=== PATIENT | female | born 1985 | race Caucasian/White ===

== ENCOUNTER 2016-11-02 11:01 | Inpatient (IN) | payer OTHER ==
[2016-11-02] MEDS ORDERED: SODIUM CHLORIDE 0.9% 1,000 ML IV STA (11:52)
[2016-11-02] MEDS ORDERED: ONDANSETRON 4 MG/2 ML VIAL IVP STA (11:57)
[2016-11-02] MEDS ORDERED: HYDROmorphone 1 MG/ML 1 ML SYRINGE IVP STA (11:57)
--- NOTE | 2016-11-02 12:23 | ED ---
Abdominal Pain HPI - General Source: patient, RN notes reviewed Mode of arrival: ambulatory Limitations: no limitations <James Banegas - Last Filed: 11/02/16 13:26> <Bhavesh Fisher - Last Filed: 11/02/16 13:52> - General Chief Complaint: Abdominal Pain Stated Complaint: abd pain Time Seen by Provider: 11/02/16 11:51 - History of Present Illness Initial Comments: 30-year-old female presents emergency Department chief complaint abdominal pain. Patient states that she has chronic pancreatitis. Patient states she had increased pain last night. Patient states she has a history of drinking. Patient states she has been sober for several years. Patient states that she's had nausea and vomiting. Some nausea relief with her Reglan. Patient has fever , chills, dysuria or hematuria. Patient has no chest pain or shortness breath. (James Banegas) - Related Data Home Medications Medication Instructions Recorded Confirmed Biotin 5 mg PO HS 09/10/16 11/02/16 Pancreatin 10x-200mg 1 tab PO HS 09/10/16 11/02/16 Thyrotone 500mg 500 mg PO HS 09/10/16 11/02/16 Ondansetron Odt [Zofran ODT] 8 mg PO Q8HR PRN 11/02/16 11/02/16 Previous Rx's Medication Instructions Recorded HYDROcodone/APAP 10-325MG [[place] 1 tab PO Q6H PRN #28 tab 10/10/16 10-325] Metoclopramide [Reglan] 10 mg PO Q6H PRN #30 tab 10/12/16 Allergies Allergy/AdvReac Type Severity Reaction Status Date / Time No Known Allergies Allergy Verified 11/02/16 11:38 Review of Systems ROS Other: All systems not noted in ROS Statement are negative. <James Banegas - Last Filed: 11/02/16 13:26> ROS Other: All systems not noted in ROS Statement are negative. <Bhavesh Fisher - Last Filed: 11/02/16 13:52> ROS Statement: Those systems with pertinent positive or pertinent negative responses have been documented in the HPI. Past Medical History Past Medical History: Hypertension Additional Past Medical History / Comment(s): Chronic Pancreatitis x 10 years History of Any Multi-Drug Resistant Organisms: None Reported Past Surgical History: Adenoidectomy, Tonsillectomy, Tubal Ligation Additional Past Surgical History / Comment(s): multiple tubes in ears, ear surgery Past Anesthesia/Blood Transfusion Reactions: No Reported Reaction Past Psychological History: Anxiety Smoking Status: Current every day smoker Past Alcohol Use History: None Reported Past Drug Use History: Marijuana - Past Family History Father Family Medical History: Hyperlipidemia Mother Family Medical History: Congestive Heart Failure (CHF) <James Banegas - Last Filed: 11/02/16 13:26> General Exam Limitations: no limitations General appearance: alert, in no apparent distress Head exam: Present: atraumatic, normocephalic, normal inspection Respiratory exam: Present: normal lung sounds bilaterally. Absent: respiratory distress, wheezes, rales, rhonchi, stridor Cardiovascular Exam: Present: regular rate, normal rhythm, normal heart sounds. Absent: systolic murmur, diastolic murmur, rubs, gallop, clicks GI/Abdominal exam: Present: soft, tenderness (Moderate epigastric, mid abdominal tenderness), normal bowel sounds. Absent: distended, guarding, rebound, rigid Back exam: Absent: CVA tenderness (R), CVA tenderness (L) Neurological exam: Present: alert, oriented X3, CN II-XII intact Skin exam: Present: warm, dry, intact, normal color. Absent: rash <James Banegas - Last Filed: 11/02/16 13:26> Medical Decision Making - Lab Data Result diagrams: 11/02/16 12:10 11/02/16 12:10 <James Banegas - Last Filed: 11/02/16 13:26> - Lab Data Result diagrams: 11/02/16 12:10 11/02/16 12:10 <Bhavesh Fisher - Last Filed: 11/02/16 13:52> - Medical Decision Making Patient reexamined by myself, Dr. Fisher. Patient resting comfortably in bed. Patient has moderate tenderness in the epigastric region. Patient updated on results and plan. Case discussed in detail with Dr. Benites, who will admit his patient. (Bhavesh Fisher) - Lab Data Lab Results 11/02/16 11/02/16 11/02/16 Range/Units 12:10 12:10 12:42 WBC 6.6 (3.8-10.6) k/uL RBC 4.99 (3.80-5.40) m/uL Hgb 14.3 (11.4-16.0) gm/dL Hct 43.5 (34.0-46.0) % MCV 87.1 (80.0-100.0) fL MCH 28.6 (25.0-35.0) pg MCHC 32.9 (31.0-37.0) g/dL RDW 12.9 (11.5-15.5) % Plt Count 220 (150-450) k/uL Neutrophils % 63 % Lymphocytes % 29 % Monocytes % 5 % Eosinophils % 1 % Basophils % 0 % Neutrophils # 4.2 (1.3-7.7) k/uL Lymphocytes # 1.9 (1.0-4.8) k/uL Monocytes # 0.3 (0-1.0) k/uL Eosinophils # 0.1 (0-0.7) k/uL Basophils # 0.0 (0-0.2) k/uL Sodium 141 (137-145) mmol/L Potassium 4.1 (3.5-5.1) mmol/L Chloride 107 (98-107) mmol/L Carbon Dioxide 24 (22-30) mmol/L Anion Gap 10 mmol/L BUN 9 (7-17) mg/dL Creatinine 0.70 (0.52-1.04) mg/dL Est GFR (MDRD) Af Amer >60 (>60 ml/min/1.73 sqM) Est GFR (MDRD) Non-Af >60 (>60 ml/min/1.73 sqM) Glucose 106 H (74-99) mg/dL Calcium 9.5 (8.4-10.2) mg/dL Total Bilirubin 0.6 (0.2-1.3) mg/dL AST 20 (14-36) U/L ALT 27 (9-52) U/L Alkaline Phosphatase 47 (38-126) U/L Total Protein 6.6 (6.3-8.2) g/dL Albumin 4.4 (3.5-5.0) g/dL Amylase 269 H (30-110) U/L Lipase 1347 H (23-300) U/L Urine Color Yellow Urine Appearance Clear (Clear) Urine pH 7.0 (5.0-8.0) Ur Specific [place] 1.018 (1.001-1.035) Urine Protein Negative (Negative) Urine Glucose (UA) Negative (Negative) Urine Ketones Negative (Negative) Urine Blood Negative (Negative) Urine Nitrate Negative (Negative) Urine Bilirubin Negative (Negative) Urine Urobilinogen 3.0 (<2.0) mg/dL Ur Leukocyte Esterase Negative (Negative) Disposition <James Banegas - Last Filed: 11/02/16 13:26> <Bhavesh Fisher - Last Filed: 11/02/16 13:52> Clinical Impression: Acute pancreatitis Disposition: ADMITTED IP TO THIS [facility] Condition: Stable Referrals: Otoniel Lira Jr, DO [Primary Care Provider] - 1-2 days
[2016-11-02 12:28] LABS: Basophils % (A) 0 %; CH 28.8; CHCM 33.1; Eosinophils # (A) 0.1 k/uL (0-0.7); Eosinophils % (A) 1 %; HCT 43.5 % (34.0-46.0); HDW 2.28; HGB 14.3 gm/dL (11.4-16.0); Luc # (Auto) 0.12; Luc % (Auto) 2; Lymphocytes # (A) 1.9 k/uL (1.0-4.8); Lymphocytes % (A) 29 %; MCH 28.6 pg (25.0-35.0); MCHC 32.9 g/dL (31.0-37.0); MCV 87.1 fL (80.0-100.0); Mean Platelet Volume 7.5; Monocytes # (A) 0.3 k/uL (0-1.0); Monocytes % (A) 5 %; Neutrophils # (A) 4.2 k/uL (1.3-7.7); Neutrophils % (A) 63 %; RBC 4.99 m/uL (3.80-5.40); RDW 12.9 % (11.5-15.5); WBC 6.6 k/uL (3.8-10.6); WBC (Perox) 6.81
--- NOTE | 2016-11-02 12:29 | XR ---
EXAMINATION TYPE: XR KUB DATE OF EXAM: 11/02/2016 12:23 PM COMPARISON: 10/23/2016 HISTORY: 30-year-old female with abdominal pain, nausea, and vomiting FINDINGS: Lung bases are clear. No evidence for free intraperitoneal air. A few scattered small small bowel and colonic air fluid levels are present. No abnormal bowel dilatat ion or significant stool burden. Fluid within the pelvis. Multiple tubal ligation clips are present on the left side of the pelvis. IMPRESSION: 1. No evidence for free air. Overall nonobstructive bowel gas pattern. 2. Scattered small air-fluid levels suggest enteritis or mild generalized ileus. 3. Both tubal ligation clips are in the left pelvis. The right clip is likely displaced and free floa ting.
[2016-11-02 12:44] LABS: ALT 27 U/L (9-52); AST 20 U/L (14-36); Alkaline Phosphatase 47 U/L (38-126); Amylase 269 U/L (30-110); Anion Gap 10 mmol/L; Blood Urea Nitrogen 9 mg/dL (7-17); Calcium 9.5 mg/dL (8.4-10.2); Carbon Dioxide 24 mmol/L (22-30); Chloride 107 mmol/L (98-107); Glucose 106 mg/dL (74-99); Non-African American GFR(MDRD) >60 (>60 ml/min/1.73 sqM); Potassium 4.1 mmol/L (3.5-5.1); Sodium 141 mmol/L (137-145); Total Bilirubin 0.6 mg/dL (0.2-1.3); Total Protein 6.6 g/dL (6.3-8.2)
[2016-11-02 13:03] LABS: Appearance,Urine Clear (Clear); Bilirubin,Urine Negative (Negative); Glucose,Urine (UA) Negative (Negative); Ketones,Urine Negative (Negative); Leukocyte Esterase,Urine Negative (Negative); Nitrite,Urine Negative (Negative); Protein,Urine Negative (Negative); Specific Gravity,Urine 1.018 (1.001-1.035); UA Billing (MACRO vs. MICRO) CHEM
[2016-11-02] MEDS ORDERED: NALOXONE 0.4 MG/ML 1 ML VIAL IV PRN (13:52)
[2016-11-02] MEDS ORDERED: ACETAMINOPHEN TAB 325 MG TAB PO PRN (13:52)
[2016-11-02] MEDS: SODIUM CHLORIDE 0.9% 1,000 ML IV SCH ×2 (15:04→20:40)
[2016-11-02] MEDS: HYDROmorphone 1 MG/ML 1 ML SYRINGE IV PRN ×3 (15:59→22:22)
[2016-11-02] MEDS: ONDANSETRON 4 MG/2 ML VIAL IVP PRN (16:00)
[2016-11-02] MEDS: METOCLOPRAMIDE 5 MG/ML 2 ML VIAL IVP SCH (18:06)
[2016-11-02] MEDS: PANTOPRAZOLE 40 MG/10 ML VIAL IVP SCH (18:07)
[2016-11-02] MEDS: LIPASE 5,000/PROTEASE 17,000/AMYLASE 27,0000 PO SCH (20:34)
[2016-11-03] MEDS: METOCLOPRAMIDE 5 MG/ML 2 ML VIAL IVP SCH ×5 (00:20→23:07)
[2016-11-03] MEDS: HYDROmorphone 1 MG/ML 1 ML SYRINGE IV PRN ×6 (01:58→23:06)
[2016-11-03] MEDS: ONDANSETRON 4 MG/2 ML VIAL IVP PRN ×2 (03:37→13:44)
[2016-11-03] MEDS: SODIUM CHLORIDE 0.9% 1,000 ML IV SCH ×4 (03:38→23:20)
[2016-11-03] MEDS: PANTOPRAZOLE 40 MG/10 ML VIAL IVP SCH (08:53)
[2016-11-03 09:21] LABS: Basophils % (A) 0 %; CH 28.4; CHCM 31.3; Eosinophils # (A) 0.1 k/uL (0-0.7); Eosinophils % (A) 1 %; HCT 37.2 % (34.0-46.0); HDW 2.24; Luc # (Auto) 0.13; Luc % (Auto) 2; Lymphocytes % (A) 27 %; MCH 29.5 pg (25.0-35.0); MCHC 32.3 g/dL (31.0-37.0); MCV 91.1 fL (80.0-100.0); Mean Platelet Volume 7.7; Monocytes # (A) 0.4 k/uL (0-1.0); Monocytes % (A) 5 %; Neutrophils # (A) 4.6 k/uL (1.3-7.7); Neutrophils % (A) 64 %; RBC 4.08 m/uL (3.80-5.40); RDW 12.7 % (11.5-15.5); WBC 7.1 k/uL (3.8-10.6); WBC (Perox) 7.86
[2016-11-03 09:25] LABS: Amylase 116 U/L (30-110); Anion Gap 8 mmol/L; Blood Urea Nitrogen 6 mg/dL (7-17); Calcium 8.5 mg/dL (8.4-10.2); Carbon Dioxide 20 mmol/L (22-30); Chloride 113 mmol/L (98-107); Glucose 88 mg/dL (74-99); Non-African American GFR(MDRD) >60 (>60 ml/min/1.73 sqM); Potassium 3.9 mmol/L (3.5-5.1); Sodium 141 mmol/L (137-145)
[2016-11-03 12:00] VITALS: BMI 21.3
--- NOTE | 2016-11-03 12:22 | P.CONS ---
History of Present Illness - Reason for Consult Consult date: 11/03/16 Chronic relapsing pancreatitis Requesting physician: Otoniel Lira Jr - History of Present Illness 30-year-old female with a history of chronic relapsing alcohol pancreatitis as well as peptic ulcer disease. Last alcohol consumption more than 10 years ago. Admitted with increased abdominal pain elevated amylase lipase consistent with pancreatitis. Evaluated in the GI office on 11/01/2015 with referral to [facility]. Feels slightly better today. Afebrile. Admission lipase 1347. Amylase 269. Currently lipase is 418. Amylase 116. LFTs bilirubin within normal limits. Review of Systems All systems: negative (See HPI) Past Medical History Past Medical History: GERD/Reflux, Hypertension, Thyroid Disorder Additional Past Medical History / Comment(s): Acute then chronic pancreatitis x 10 years due to alcohol poisoning, hypothyroid, chronic bronchitis, PUD. History of Any Multi-Drug Resistant Organisms: None Reported Past Surgical History: Adenoidectomy, Ear Surgery, Tonsillectomy, Tubal Ligation Additional Past Surgical History / Comment(s): multiple tubes in ears, D&C. Past Anesthesia/Blood Transfusion Reactions: No Reported Reaction Past Psychological History: Anxiety Additional Psychological History / Comment(s): Pt resides with her two children ages 4 and 10yrs. She is independent. Smoking Status: Current every day smoker Past Alcohol Use History: None Reported Additional Past Alcohol Use History / Comment(s): Pt states she started smoking about 1998 and is a ppd smoker. She has not drank alcohol in 10 yrs. Past Drug Use History: Marijuana Additional Drug Use History / Comment(s): Pt has a medical marijuana card and takes it in the form of a capsule daily. - Past Family History Father Family Medical History: Hyperlipidemia Mother Family Medical History: Congestive Heart Failure (CHF) Medications and Allergies Home Medications Medication Instructions Recorded Confirmed Type Biotin 5 mg PO HS 09/10/16 11/02/16 History Pancreatin 10x-200mg 1 tab PO HS 09/10/16 11/02/16 History Thyrotone 500mg 500 mg PO HS 09/10/16 11/02/16 History Ondansetron Odt [Zofran ODT] 8 mg PO Q8HR PRN 11/02/16 11/02/16 History Allergies Allergy/AdvReac Type Severity Reaction Status Date / Time No Known Allergies Allergy Verified 11/02/16 11:38 Physical Exam Vitals: Vital Signs Temp Pulse Pulse Resp BP BP Pulse Ox 11/03/16 07:00 97.1 F L 68 16 114/78 98 11/02/16 23:00 97.0 F L 74 16 130/51 98 11/02/16 16:38 97.3 F L 75 16 108/63 99 11/02/16 15:04 98.4 F 71 18 104/61 99 Intake and Output 11/02/16 11/03/16 11/03/16 22:59 06:59 14:59 Intake Total 1650 Balance 1650 Intake: Intake, IV Titration 1650 Amount Sodium Chloride 0.9% 1, 1650 000 ml @ 150 mls/hr IV . Q6H40M [facility] Rx#:[id number] Other: Voiding Method Toilet # Voids 1 1 Weight 51.256 kg Patient Weight 11/04/16 06:59 Weight 51.256 kg General appearance: The patient is alert, oriented, in no acute distress. HET: Head is normocephalic and atraumatic. Pupils are equal and reactive. Oropharynx is clear without lesions. Neck: Supple without lymphadenopathy. Trachea midline. Heart: S1 S2. Regular rate and rhythm. Lungs: No crackles or wheezes are heard. Abdomen: Soft, mild tenderness midepigastrium left upper quadrant, nondistended with bowel sounds. No peritoneal signs. No palpable organomegaly or masses. Extremities: Normal skin color and turgor. No cyanosis, rash, ulceration, clubbing, or edema. Radial and pedal pulses are 2/4 bilaterally. Neurological: No focal deficits. Strength and sensation are grossly intact. Results CBC & Chem 7: 11/03/16 08:47 11/03/16 08:47 Labs: Abnormal Lab Results - Last 24 Hours (Table) 11/03/16 Range/Units 08:47 Chloride 113 H (98-107) mmol/L Carbon Dioxide 20 L (22-30) mmol/L BUN 6 L (7-17) mg/dL Amylase 116 H (30-110) U/L Lipase 418 H (23-300) U/L Assessment and Plan Plan: Impression: 1. Chronic relapsing pancreatitis likely related to her history of remote alcohol abuse. Pancreatic ductal FMLA cannot be entirely excluded patient has been referred to [facility]. Recommendations: 1. Clear liquid diet with ensure clear 3 times a day with slow advancement as tolerated. 2. Supportive measures. Discharge per medicine. Patient will follow up at [facility]. Thank you for this kind referral and the opportunity to participate in the care of your patient. This consultation was discussed with Dr. Baxter. The impression and plan of care have been directed as dictated.
--- NOTE | 2016-11-03 17:43 | P.HPIM ---
History of Present Illness H&P Date: 11/03/16 Chief Complaint: Abdominal pain Patient is a 30-year-old white female, patient of Dr. Lira in the outpatient setting with a medical history significant for chronic pancreatitis from former alcohol use. Patient was recently hospitalized from 10/06/2016 to 10/12/2016 with acute on chronic pancreatitis where she underwent a CT of the abdomen and pelvis with no specific findings of acute pancreatitis. At that time, patient was evaluated by Dr. Hernandez from gastrointestinal service who felt that patient may benefit from referral to a tertiary center for a pancreatogram and placement of pancreatic stents if her pain continued. Patient states that after she was discharged home she felt good for 4 days after which she has had abdominal pain on and off prior to admission. Patient states that she was evaluated by Dr. Hernandez in her office on 11/01/2016 who referred her to [facility] for specialty follow-up. On this admission, patient presented to the emergency department with complaints of abdominal pain associated with nausea and vomiting. No history of fevers, chills, shortness of breath, chest pain, or urinary problems. Amylase 269 and lipase 1347 on admission. Patient was admitted to the general medical floor for IV hydration, bowel rest, and consult requested for GI service. Upon examination, patient continues to complain of abdominal pain currently rated 6 out of 10. Patient states it's slightly better than yesterday. Patient states she's hungry. Denies nausea or vomiting. Urinating without difficulty. Amylase 116, lipase 418. Past Medical History Past Medical History: GERD/Reflux, Hypertension, Thyroid Disorder Additional Past Medical History / Comment(s): Acute then chronic pancreatitis x 10 years due to alcohol poisoning, hypothyroid, chronic bronchitis, PUD. History of Any Multi-Drug Resistant Organisms: None Reported Past Surgical History: Adenoidectomy, Ear Surgery, Tonsillectomy, Tubal Ligation Additional Past Surgical History / Comment(s): multiple tubes in ears, D&C. Past Anesthesia/Blood Transfusion Reactions: No Reported Reaction Past Psychological History: Anxiety Additional Psychological History / Comment(s): Pt resides with her two children ages 4 and 10yrs. She is independent. Smoking Status: Current every day smoker Past Alcohol Use History: None Reported Additional Past Alcohol Use History / Comment(s): Pt states she started smoking about 1998 and is a ppd smoker. She has not drank alcohol in 10 yrs. Past Drug Use History: Marijuana Additional Drug Use History / Comment(s): Pt has a medical marijuana card and takes it in the form of a capsule daily. - Past Family History Father Family Medical History: Hyperlipidemia Mother Family Medical History: Congestive Heart Failure (CHF) Medications and Allergies Home Medications Medication Instructions Recorded Confirmed Type Biotin 5 mg PO HS 09/10/16 11/02/16 History Pancreatin 10x-200mg 1 tab PO HS 09/10/16 11/02/16 History Thyrotone 500mg 500 mg PO HS 09/10/16 11/02/16 History Ondansetron Odt [Zofran ODT] 8 mg PO Q8HR PRN 11/02/16 11/02/16 History Allergies Allergy/AdvReac Type Severity Reaction Status Date / Time No Known Allergies Allergy Verified 11/02/16 11:38 Physical Exam Vitals: Vital Signs Temp Pulse Resp BP Pulse Ox 11/03/16 15:00 96.7 F L 67 16 120/81 100 11/03/16 07:00 97.1 F L 68 16 114/78 98 11/02/16 23:00 97.0 F L 74 16 130/51 98 Intake and Output 11/03/16 11/03/16 11/03/16 06:59 14:59 22:59 Intake Total 1650 Balance 1650 Intake: Intake, IV Titration 1650 Amount Sodium Chloride 0.9% 1, 1650 000 ml @ 150 mls/hr IV . Q6H40M [facility] Rx#:[id number] Other: Voiding Method Toilet # Voids 2 Weight 51.256 kg Patient Weight 11/04/16 06:59 Weight 51.256 kg General: Patient awake and alert, well-nourished, nontoxic, does not appear in any acute distress. Neck: The neck is supple, there is no thyromegaly, lymphadenopathy, tenderness or JVD. Cardiovascular: S1S2 is normal, There is a regular rate and rhythm. No murmur, rub or gallop is appreciated. Respiratory: Lungs are clear to auscultation bilaterally, respirations are non -labored, breath sounds are equal. Gastrointestinal: Soft, non-distended, tender abdomen particularly the midepigastric area. No masses or organomegaly noted. There is no rebound or guarding present. Bowel sounds are unremarkable. Musculoskeletal: Normal ROM, no tenderness, There is no pedal edema. There is no calf tenderness or swelling. Neurological: CN II-XII intact, there are no obvious motor or sensory deficits. Speech is normal. Skin: Skin is warm and dry and no rashes or lesions are noted. Results CBC & Chem 7: 11/03/16 08:47 11/03/16 08:47 Labs: Abnormal Lab Results - Last 24 Hours (Table) 11/03/16 Range/Units 08:47 Chloride 113 H (98-107) mmol/L Carbon Dioxide 20 L (22-30) mmol/L BUN 6 L (7-17) mg/dL Amylase 116 H (30-110) U/L Lipase 418 H (23-300) U/L Thrombosis Risk Factor Assmnt - DVT/VTE Prophylaxis DVT/VTE Prophylaxis: Low risk, early ambulation encouraged - Choose All That Apply Any of the Below Risk Factors Present?: No Other Risk Factors: No Other congenital or acquired thrombophilia - If yes, enter type in comment: No Thrombosis Risk Factor Assessment Level: Very Low Risk Assessment and Plan Plan: 1. Acute on chronic pancreatitis secondary to history of alcohol abuse with amylase and lipase improving. Continue IV hydration. Continue supportive treatment and pain management. Continue clear liquid diet. Gastrointestinal service on consult, recommendations noted. 2. History of hypothyroidism: We'll continue to monitor 3. History of peptic ulcer disease: Continue Protonix. 4. Nicotine dependence: Smoking cessation encouraged. 5. History of EtOH abuse. 6. GI prophylaxis. Continue Protonix. 7. DVT prophylaxis. Encourage early ambulation. Continue to monitor patient. Continue current medications. Continue GI and DVT prophylaxis. Continue to follow with gastrointestinal service, recommendations reviewed. Repeat CBC, BMP, amylase and lipase in a.m. The above impression and plan have been discussed and directed by Dr. Lira. Imani ZARATE acting as scribe for Dr. Lira.
[2016-11-03] MEDS: LIPASE 5,000/PROTEASE 17,000/AMYLASE 27,0000 PO SCH (20:12)
[2016-11-04] MEDS: HYDROmorphone 1 MG/ML 1 ML SYRINGE IV PRN ×8 (02:02→23:07)
[2016-11-04] MEDS: METOCLOPRAMIDE 5 MG/ML 2 ML VIAL IVP SCH ×4 (05:40→23:04)
[2016-11-04] MEDS: SODIUM CHLORIDE 0.9% 1,000 ML IV SCH ×3 (06:24→18:47)
[2016-11-04 08:20] LABS: Basophils % (A) 0 %; Eosinophils # (A) 0.1 k/uL (0-0.7); Eosinophils % (A) 1 %; HCT 39.2 % (34.0-46.0); HDW 2.31; HGB 12.3 gm/dL (11.4-16.0); Luc % (Auto) 1; Lymphocytes % (A) 28 %; MCH 28.5 pg (25.0-35.0); MCHC 31.4 g/dL (31.0-37.0); MCV 90.9 fL (80.0-100.0); Mean Platelet Volume 8.8; Monocytes # (A) 0.5 k/uL (0-1.0); Monocytes % (A) 7 %; Neutrophils # (A) 4.5 k/uL (1.3-7.7); Neutrophils % (A) 62 %; RBC 4.31 m/uL (3.80-5.40); RDW 12.6 % (11.5-15.5); WBC 7.2 k/uL (3.8-10.6); WBC (Perox) 7.61
[2016-11-04] MEDS: PANTOPRAZOLE 40 MG/10 ML VIAL IVP SCH (08:21)
[2016-11-04] MEDS: ONDANSETRON 4 MG/2 ML VIAL IVP PRN ×2 (08:25→16:04)
[2016-11-04 08:31] LABS: Amylase 159 U/L (30-110); Anion Gap 6 mmol/L; Blood Urea Nitrogen 3 mg/dL (7-17); Calcium 8.6 mg/dL (8.4-10.2); Carbon Dioxide 23 mmol/L (22-30); Chloride 111 mmol/L (98-107); Glucose 82 mg/dL (74-99); Non-African American GFR(MDRD) >60 (>60 ml/min/1.73 sqM); Sodium 140 mmol/L (137-145)
--- NOTE | 2016-11-04 15:09 | P.PN ---
Subjective Principal diagnosis: Acute exacerbation of chronic pancreatitis A 30-year-old female well-known to my practice with a history of chronic relapsing alcoholic pancreatitis patient has not drank for approximately 10 years however she does continue to get chronic pancreatitis as well as peptic ulcer disease patient started developing increased abdominal pain with elevated enzymes approximately 3 days ago she. Was elevated in the GIs office on 2015 patient's been referred to the [facility] GI clinic today she feels a bit worse we did her enzymes were trending downward and we attempted to increase her to full liquid diet and the lipase increased and her symptoms increased the plan at this time is to re-step back clear liquids , water with ice chips only and start over Objective - Vital Signs Vital signs: Vital Signs Temp 96.8 F L 11/04/16 07:00 Pulse 70 11/04/16 07:00 Resp 16 11/04/16 07:00 BP 106/70 11/04/16 07:00 Pulse Ox 98 11/04/16 07:00 Intake & Output 11/03/16 11/04/16 11/04/16 18:59 06:59 18:59 Intake Total 1650 Balance 1650 Weight 51.256 kg Intake: Intake, IV Titration 1650 Amount Sodium Chloride 0.9% 1, 1650 000 ml @ 150 mls/hr IV . Q6H40M [facility] Rx#:[id number] Other: Voiding Method Toilet # Voids 2 1 - Exam General: [Patient awake, alert and oriented times 3. Patient in no acute distress.] HEENT: [PERRL. EOMI. No pharyngeal erythema or exudate.] Neck: [No adenopathy.] Cardiac: [Heart regular in rate and rhythm. No S3. No S4. No clicks, rubs. No murmur.] Lungs: [Clear to auscultation bilaterally.] Abdomen: [No mass. No organomegaly. Bowel sounds presnt and normoactive in all 4 quadrants. Patient has not had a bowel movement. She does have bowel sounds abdomen is diffusely tender especially in the upper epigastric region Extremes: [No edema no cyanosis no claudication normal pulses] : [] Musculoskeletal: [No joint erythema, edema or tenderness.] Skin: [No rash.] Neurologic: [No lateralizing deficits. CN II - XII grossly intact.] Lymphatic: [No adenopathy.] - Labs CBC & Chem 7: 11/04/16 08:03 11/04/16 08:03 Labs: Abnormal Lab Results - Last 24 Hours (Table) 11/04/16 Range/Units 08:03 Chloride 111 H (98-107) mmol/L BUN 3 L (7-17) mg/dL Amylase 159 H (30-110) U/L Lipase 1028 H (23-300) U/L Assessment and Plan (1) Acute pancreatitis Narrative/Plan: Patient has a history of chronic relapsing alcoholic pancreatitis as well as peptic ulcer disease Patient had stopped drinking approximately 10 years ago and has not received lapsed or started drinking again Status: Acute (2) Pancreatitis Narrative/Plan: Stated previous history of excessive alcohol abuse patient developed chronic relapsing pancreatitis has not drank in 10 years Patient has obtained and appointment at [facility] GI clinic with a pancreatitis specialist Based currently pain is well-controlled patient's being rehydrated we attempted to increase diet once her enzymes started trending downward and the apparently she did not tolerate that so were then take a step back and ships only and see if we can reduce the bowel activity to see if we can get her enzymes to trend downward again Status: Acute (3) Chronic relapsing pancreatitis Narrative/Plan: Patient already has an appointment scheduled a bleed next week with the GI clinic at the [facility] Status: Chronic (4) H/O ETOH abuse Narrative/Plan: Patient hasn't resumed alcohol consumption for approximately 10 years Status: Chronic (5) Marijuana use Narrative/Plan: Patient this states that this seems to control the minor pain that she experiences for the chronic pancreatitis, and she feels like she eats better Status: Chronic
[2016-11-04] MEDS: LIPASE 5,000/PROTEASE 17,000/AMYLASE 27,0000 PO SCH (20:09)
[2016-11-05] MEDS: HYDROmorphone 1 MG/ML 1 ML SYRINGE IV PRN ×3 (02:04→08:02)
[2016-11-05] MEDS: SODIUM CHLORIDE 0.9% 1,000 ML IV SCH ×4 (02:05→21:31)
[2016-11-05] MEDS: ONDANSETRON 4 MG/2 ML VIAL IVP PRN ×2 (04:42→21:35)
[2016-11-05] MEDS: METOCLOPRAMIDE 5 MG/ML 2 ML VIAL IVP SCH ×4 (05:44→23:33)
[2016-11-05] MEDS: PANTOPRAZOLE 40 MG/10 ML VIAL IVP SCH (08:03)
[2016-11-05 09:37] LABS: Basophils % (A) 0 %; CH 29.2; CHCM 32.3; Eosinophils # (A) 0.1 k/uL (0-0.7); Eosinophils % (A) 2 %; HCT 40.6 % (34.0-46.0); HDW 2.34; HGB 12.8 gm/dL (11.4-16.0); Luc # (Auto) 0.09; Luc % (Auto) 2; Lymphocytes # (A) 1.8 k/uL (1.0-4.8); Lymphocytes % (A) 30 %; MCH 28.6 pg (25.0-35.0); MCHC 31.5 g/dL (31.0-37.0); MCV 90.8 fL (80.0-100.0); Mean Platelet Volume 8.5; Monocytes # (A) 0.4 k/uL (0-1.0); Monocytes % (A) 6 %; Neutrophils # (A) 3.7 k/uL (1.3-7.7); Neutrophils % (A) 61 %; RBC 4.47 m/uL (3.80-5.40); RDW 12.6 % (11.5-15.5); WBC (Perox) 6.11
[2016-11-05 10:02] LABS: ALT 37 U/L (9-52); AST 20 U/L (14-36); Alkaline Phosphatase 44 U/L (38-126); Amylase 127 U/L (30-110); Anion Gap 8 mmol/L; Blood Urea Nitrogen <2 mg/dL (7-17); Calcium 8.8 mg/dL (8.4-10.2); Carbon Dioxide 23 mmol/L (22-30); Chloride 110 mmol/L (98-107); Glucose 91 mg/dL (74-99); Non-African American GFR(MDRD) >60 (>60 ml/min/1.73 sqM); Potassium 3.8 mmol/L (3.5-5.1); Sodium 141 mmol/L (137-145)
[2016-11-05] MEDS ORDERED: METOCLOPRAMIDE 10 MG TAB PO PRN (10:55)
--- NOTE | 2016-11-05 11:01 | P.PN ---
Subjective Principal diagnosis: Acute exacerbation of chronic pancreatitis A 30-year-old female well-known to my practice with a history of chronic relapsing alcoholic pancreatitis patient has not drank alcohol for approximately 10 years however she does continue to get chronic pancreatitis as well as peptic ulcer disease patient started developing increased abdominal pain with elevated enzymes approximately 3 days ago she. Was elevated in the GIs office on patient's been referred to the [facility] today she feels a bit worse we did her enzymes were trending downward and we attempted to increase her to full liquid diet and the lipase has decreased to 500, patient states her abdominal pain has diminished markedly will start patient back on clears and advance the diet to soft as tolerated Objective - Vital Signs Vital signs: Vital Signs Temp 97.9 F 11/05/16 07:00 Pulse 75 11/05/16 07:00 Resp 19 11/05/16 07:00 BP 129/77 11/05/16 07:00 Pulse Ox 100 11/05/16 07:00 Intake & Output 11/04/16 11/05/16 11/05/16 18:59 06:59 18:59 Intake Total 1650 Balance 1650 Intake: IV 1650 Sodium Chloride 0.9% 1, 1650 000 ml @ 150 mls/hr IV . Q6H40M [facility] Rx#:[id number] Other: Voiding Method Toilet # Voids 2 3 # Bowel Movements 1 - Exam General: [Patient awake, alert and oriented times 3. Patient in no acute distress.] HEENT: [PERRL. EOMI. No pharyngeal erythema or exudate.] Neck: [No adenopathy.] Cardiac: [Heart regular in rate and rhythm. No S3. No S4. No clicks, rubs. No murmur.] Lungs: [Clear to auscultation bilaterally.] Abdomen: [No mass. No organomegaly. Bowel sounds presnt and normoactive in all 4 quadrants. Patient has not had a bowel movement. Abdominal pain has diminished significantly through the night Extremes: [No edema no cyanosis no claudication normal pulses] : [] Musculoskeletal: [No joint erythema, edema or tenderness.] Skin: [No rash.] Neurologic: [No lateralizing deficits. CN II - XII grossly intact.] Lymphatic: [No adenopathy.] - Labs CBC & Chem 7: 11/05/16 09:25 11/05/16 09:25 Labs: Abnormal Lab Results - Last 24 Hours (Table) 11/05/16 Range/Units 09:25 Chloride 110 H (98-107) mmol/L BUN <2 L (7-17) mg/dL Total Protein 6.0 L (6.3-8.2) g/dL Amylase 127 H (30-110) U/L Lipase 501 H (23-300) U/L Assessment and Plan (1) Acute pancreatitis Narrative/Plan: Patient has a history of chronic relapsing alcoholic pancreatitis as well as peptic ulcer disease Patient had stopped drinking alcohol approximately 10 years ago and has not relapsed or started drinking again Status: Acute (2) Pancreatitis Narrative/Plan: Stated previous history of excessive alcohol abuse patient developed chronic relapsing pancreatitis has not drank in 10 years Patient has obtained and appointment at [facility] with a pancreatitis specialist Based currently pain is well-controlled patient's being rehydrated we attempted to increase diet once her enzymes started trending downward again, will start patient back on clear liquids and advance to soft as tolerated Status: Acute (3) Chronic relapsing pancreatitis Narrative/Plan: Patient already has an appointment scheduled a bleed next week with the GI clinic at the [facility] Status: Chronic (4) H/O ETOH abuse Narrative/Plan: Patient hasn't resumed alcohol consumption for approximately 10 years Status: Chronic (5) Marijuana use Narrative/Plan: Patient this states that this seems to control the minor pain that she experiences for the chronic pancreatitis, and she feels like she eats better Status: Chronic
[2016-11-05] MEDS: HYDROcodone/APAP 10-325MG 1 EACH TAB PO PRN ×3 (11:18→23:32)
[2016-11-05] MEDS: LIPASE 5,000/PROTEASE 17,000/AMYLASE 27,0000 PO SCH (21:31)
[2016-11-06] MEDS: SODIUM CHLORIDE 0.9% 1,000 ML IV SCH ×3 (04:48→17:21)
[2016-11-06] MEDS: HYDROcodone/APAP 10-325MG 1 EACH TAB PO PRN ×2 (05:15→22:59)
[2016-11-06] MEDS: METOCLOPRAMIDE 5 MG/ML 2 ML VIAL IVP SCH ×4 (05:15→23:53)
[2016-11-06] MEDS: HYDROmorphone 1 MG/ML 1 ML SYRINGE IV PRN ×6 (08:44→22:58)
[2016-11-06] MEDS: PANTOPRAZOLE 40 MG/10 ML VIAL IVP SCH (08:50)
[2016-11-06] MEDS: ONDANSETRON 4 MG/2 ML VIAL IVP PRN ×2 (08:52→20:15)
[2016-11-06 09:23] LABS: Amylase 275 U/L (30-110)
--- NOTE | 2016-11-06 17:07 | P.PN ---
Subjective Principal diagnosis: Acute on chronic pancreatitis Patient is a 30-year-old white female, patient of Dr. Lira in the outpatient setting with a medical history significant for chronic pancreatitis from former alcohol use. Patient was recently hospitalized from 10/06/2016 to 10/12/2016 with acute on chronic pancreatitis where she underwent a CT of the abdomen and pelvis with no specific findings of acute pancreatitis. At that time, patient was evaluated by Dr. Hernandez from gastrointestinal service who felt that patient may benefit from referral to a tertiary center for a pancreatogram and placement of pancreatic stents if her pain continued. Patient states that after she was discharged home she felt good for 4 days after which she has had abdominal pain on and off prior to admission. Patient states that she was evaluated by Dr. Hernandez in her office on 11/01/2016 who referred her to [facility] for specialty follow-up. Patient is evaluated at bedside, patient continues to complain of abdominal pain increasing after she ate a few bites of oatmeal this morning. Denies nausea vomiting. Denies shortness of breath or chest pain. Denies constipation or diarrhea. Amylase increased to 275, lipase increased to 3306. Objective - Vital Signs Vital signs: Vital Signs Temp 97.2 F L 11/06/16 15:00 Pulse 79 11/06/16 15:00 Resp 16 11/06/16 15:42 BP 116/64 11/06/16 15:00 Pulse Ox 99 11/06/16 15:00 Intake & Output 11/05/16 11/06/16 11/06/16 18:59 06:59 18:59 Intake Total 500 770 600 Balance 500 770 600 Intake: Oral 500 770 600 Other: # Voids 1 2 3 # Bowel Movements 0 - Exam General: Patient awake and alert, appears uncomfortable. Neck: The neck is supple, there is no thyromegaly, lymphadenopathy, tenderness or JVD. Cardiovascular: S1S2 is normal, There is a regular rate and rhythm. No murmur, rub or gallop is appreciated. Respiratory: Lungs are clear to auscultation bilaterally, respirations are non -labored, breath sounds are equal. Gastrointestinal: Soft, non-distended, tender abdomen particularly the midepigastric left upper quadrant area. No masses or organomegaly noted. There is no rebound or guarding present. Bowel sounds are unremarkable. Musculoskeletal: Normal ROM, no tenderness, There is no pedal edema. There is no calf tenderness or swelling. Neurological: CN II-XII intact, there are no obvious motor or sensory deficits. Speech is normal. Skin: Skin is warm and dry and no rashes or lesions are noted. - Labs CBC & Chem 7: 11/05/16 09:25 11/05/16 09:25 Labs: Abnormal Lab Results - Last 24 Hours (Table) 11/06/16 Range/Units 08:06 Amylase 275 H (30-110) U/L Lipase 3306 H (23-300) U/L Assessment and Plan Plan: Impression and plan: 1. Acute on chronic pancreatitis secondary to history of alcohol abuse with amylase and lipase worsening. Continue IV hydration. Continue supportive treatment and pain management. Put patient back on clear liquid diet. Reconsult gastrointestinal service. 2. History of hypothyroidism: We'll continue to monitor 3. History of peptic ulcer disease: Continue Protonix. 4. Nicotine dependence: Smoking cessation encouraged. 5. History of EtOH abuse. 6. GI prophylaxis. Continue Protonix. 7. DVT prophylaxis. Encourage early ambulation. Continue to monitor patient. Continue current medications. Continue GI and DVT prophylaxis. Continue to follow with gastrointestinal service, recommendations reviewed. Repeat amylase and lipase in a.m. The above impression and plan have been discussed and directed by Dr. Lira. Imani ZARATE acting as scribe for Dr. Lira.
[2016-11-06] MEDS: LIPASE 5,000/PROTEASE 17,000/AMYLASE 27,0000 PO SCH (20:10)
[2016-11-07] MEDS: SODIUM CHLORIDE 0.9% 1,000 ML IV SCH ×2 (02:05→10:45)
[2016-11-07] MEDS: HYDROmorphone 1 MG/ML 1 ML SYRINGE IV PRN ×3 (02:34→09:11)
[2016-11-07] MEDS: METOCLOPRAMIDE 5 MG/ML 2 ML VIAL IVP SCH (06:17)
[2016-11-07 08:35] VITALS: BP 123/80; PULSE 74; RESP 19; TEMP 98.7
[2016-11-07] MEDS: PANTOPRAZOLE 40 MG/10 ML VIAL IVP SCH (08:51)
[2016-11-07 09:20] LABS: Basophils % (A) 0 %; CH 28.8; CHCM 32.3; Eosinophils # (A) 0.2 k/uL (0-0.7); Eosinophils % (A) 2 %; HCT 37.2 % (34.0-46.0); HDW 2.35; HGB 11.7 gm/dL (11.4-16.0); Luc # (Auto) 0.14; Luc % (Auto) 2; Lymphocytes # (A) 2.1 k/uL (1.0-4.8); Lymphocytes % (A) 28 %; MCHC 31.3 g/dL (31.0-37.0); MCV 89.4 fL (80.0-100.0); Mean Platelet Volume 9.3; Monocytes # (A) 0.4 k/uL (0-1.0); Monocytes % (A) 6 %; Neutrophils # (A) 4.5 k/uL (1.3-7.7); Neutrophils % (A) 61 %; RBC 4.16 m/uL (3.80-5.40); RDW 12.9 % (11.5-15.5); WBC 7.3 k/uL (3.8-10.6); WBC (Perox) 7.61
[2016-11-07 09:37] LABS: Amylase 54 U/L (30-110); Anion Gap 6 mmol/L; Blood Urea Nitrogen <2 mg/dL (7-17); Calcium 8.7 mg/dL (8.4-10.2); Carbon Dioxide 29 mmol/L (22-30); Chloride 108 mmol/L (98-107); Glucose 97 mg/dL (74-99); Non-African American GFR(MDRD) >60 (>60 ml/min/1.73 sqM); Potassium 3.9 mmol/L (3.5-5.1); Sodium 143 mmol/L (137-145)
--- NOTE | 2016-11-07 10:35 | P.PN ---
Subjective Principal diagnosis: Recurrent chronic relapsing pancreatitis 30-year-old female with a history of remote EtOH abuse admitted with chronic relapsing pancreatitis. Lipase elevated yesterday in the 3000 range normalized today. She feels better. Tolerating diet. Anticipate discharge. [facility] appointment scheduled for tomorrow. Objective - Vital Signs Vital signs: Vital Signs Temp 98.7 F 11/07/16 07:00 Pulse 74 11/07/16 07:00 Resp 19 11/07/16 08:00 BP 123/80 11/07/16 07:00 Pulse Ox 99 11/07/16 07:00 Intake & Output 11/06/16 11/07/16 11/07/16 18:59 06:59 18:59 Intake Total 600 400 Balance 600 400 Intake: Oral 600 400 Other: Voiding Method Toilet Toilet # Voids 3 3 # Bowel Movements 0 - Exam General appearance: The patient is alert, oriented, in no acute distress. HET: Head is normocephalic and atraumatic. Pupils are equal and reactive. Oropharynx is clear without lesions. Neck: Supple without lymphadenopathy. Trachea midline. Heart: S1 S2. Regular rate and rhythm. Lungs: No crackles or wheezes are heard. Abdomen: Soft, nontender, nondistended with bowel sounds. No peritoneal signs. No palpable organomegaly or masses. Extremities: Normal skin color and turgor. No cyanosis, rash, ulceration, clubbing, or edema. Radial and pedal pulses are 2/4 bilaterally. Neurological: No focal deficits. Strength and sensation are grossly intact. - Labs CBC & Chem 7: 11/07/16 08:59 11/07/16 08:59 Labs: Abnormal Lab Results - Last 24 Hours (Table) 11/07/16 Range/Units 08:59 Chloride 108 H (98-107) mmol/L BUN <2 L (7-17) mg/dL Assessment and Plan Plan: Impression: 1. Chronic relapsing pancreatitis likely related to her history of remote alcohol abuse. Pancreatic ductal FMLA cannot be entirely excluded patient has been referred to [facility]. Recommendations: 1. Clear liquid diet with ensure clear 3 times a day with slow advancement as tolerated. 2. Supportive measures. Agreeable for discharge. Patient will follow up at [facility] tomorrow. Assessment and plan of care discussed with Dr. Baxter.
--- NOTE | 2017-02-12 14:08 | P.DS ---
Providers Date of admission: 11/02/16 13:52 Expected date of discharge: 11/07/16 Attending physician: Otoniel Lira Consults: Gastrointestinal service Primary care physician: Otoniel Lira [facility] Course: Patient is a 30-year-old white female, patient of Dr. Lira in the outpatient setting, a medical history significant for chronic pancreatitis from formal alcohol use. Patient has had numerous admissions for chronic relapsing pancreatitis and is being followed by Dr. Hernandez from gastrointestinal service in the outpatient setting. Patient is currently referred referred to [facility] GI clinic for further evaluation and treatment. Patient presented to the hospital with complaints of abdominal pain associated with nausea and vomiting with evidence of acute on chronic pancreatitis. Patient was evaluated by gastrointestinal service during her hospital stay and improved with dietary restriction and supportive measures. Patient was discharged in stable condition with instructions to follow-up at [facility] the day after discharge as are to schedule. Discharge diagnoses: 1. Chronic relapsing pancreatitis likely related to history of remote alcohol abuse. Pancreatic ductal FMLA cannot be entirely excluded this patient has been referred to [facility]. 2. History of hypothyroidism. 3. History of peptic ulcer disease. 4. Nicotine dependence. 5. History of remote EtOH abuse. The above impression and plan have been discussed and directed by Dr. Lira. Imani ZARATE acting as scribe for Dr. Lira. Pertinent Studies: KUB x-ray Patient Condition at Discharge: Stable Plan - Discharge Summary Discharge Medication List Biotin 5 mg PO HS 09/10/16 [History] Thyrotone 500mg 500 mg PO HS 09/10/16 [History] Ondansetron Odt [Zofran ODT] 8 mg PO Q8HR PRN 11/02/16 [History] Metoclopramide HCl [Reglan] 10 mg PO Q6HR PRN #5 day 11/29/16 [Rx] HYDROcodone/APAP 10-325MG [[place] 10-325] 1 tab PO Q8H PRN 02/11/17 [History] HYDROcodone/APAP 5-325MG [[place] 5-325] 1 - 2 tab PO Q6HR PRN #14 tab 02/11/17 [ Rx] Ibuprofen [Motrin] 800 mg PO Q8HR PRN #20 tab 02/11/17 [Rx] Follow up Appointment(s)/Referral(s): Otoniel Lira Jr, DO [Primary Care Provider] - 11/10/16 11:00 am Patient Instructions/Handouts: How to Stop Smoking (DC), Pancreatitis (DC) Activity/Diet/Wound Care/Special Instructions: Clear diet advance as tolerated. Continue Ensure supplement 3x daily Follow-up at [facility] with GI specialist as previously scheduled. NO smoking, cessation information provided. Discharge Disposition: HOME SELF-CARE
== END 2016-11-07 10:48 | disposition home or self-care (01) | DRG 440 ==
LOC: EC 11:01 → 5MS5E 13:52 → 4MS4W 14:59
PROVIDERS: ADMIT Family Medicine; ATTEND Family Medicine
DX: K86.0 Alcohol-induced chronic pancreatitis (principal); I10 Essential (primary) hypertension; K85.20 Alcohol induced acute pancreatitis without necrosis or infection; E03.9 Hypothyroidism, unspecified; F41.9 Anxiety disorder, unspecified; J42 Unspecified chronic bronchitis; K21.9 Gastro-esophageal reflux disease without esophagitis; F12.90 Cannabis use, unspecified, uncomplicated; F17.200 Nicotine dependence, unspecified, uncomplicated; Z87.11 Personal history of peptic ulcer disease; Z71.6 Tobacco abuse counseling; Z98.51 Tubal ligation status; Z82.49 Family history of ischemic heart disease and other diseases of the circulatory system; Z79.899 Other long term (current) drug therapy
CPT/HCPCS: 36415; 74000; 80048; 80053; 81003; 82150; 83690; 85025; 96361; 96374; 96375; 96376; 99285

== ENCOUNTER 2016-11-12 18:07 | Emergency (ER) | payer OTHER ==
[2016-11-12 18:20] VITALS: RESP 18
[2016-11-12] MEDS ORDERED: METOCLOPRAMIDE 5 MG/ML 2 ML VIAL IVP STA (19:32)
[2016-11-12] MEDS ORDERED: SODIUM CHLORIDE 0.9% 1,000 ML IV ONE (19:32)
[2016-11-12] MEDS ORDERED: HYDROmorphone 1 MG/ML 1 ML SYRINGE IVP STA ×2 (19:32→20:33)
[2016-11-12 19:53] LABS: Basophils % (A) 1 %; CH 28.7; CHCM 33.2; Eosinophils # (A) 0.1 k/uL (0-0.7); Eosinophils % (A) 2 %; HCT 43.5 % (34.0-46.0); HDW 2.29; HGB 14.1 gm/dL (11.4-16.0); Luc # (Auto) 0.19; Luc % (Auto) 2; Lymphocytes # (A) 2.7 k/uL (1.0-4.8); Lymphocytes % (A) 33 %; MCH 28.2 pg (25.0-35.0); MCHC 32.5 g/dL (31.0-37.0); MCV 86.9 fL (80.0-100.0); Mean Platelet Volume 8.5; Monocytes # (A) 0.4 k/uL (0-1.0); Monocytes % (A) 5 %; Neutrophils # (A) 4.8 k/uL (1.3-7.7); Neutrophils % (A) 58 %; RDW 13.1 % (11.5-15.5); WBC 8.2 k/uL (3.8-10.6); WBC (Perox) 8.22
--- NOTE | 2016-11-12 20:00 | ED ---
Abdominal Pain HPI - General Chief Complaint: Abdominal Pain Stated Complaint: Abd pain Time Seen by Provider: 11/12/16 19:20 Source: patient, RN notes reviewed Mode of arrival: ambulatory Limitations: no limitations - History of Present Illness Initial Comments: Patient is a 31-year-old female presents to the emergency room for evaluation of abdominal pain. Patient states abdominal pain began last night. Patient states she has a history of pancreatitis from alcohol use. Patient states she feels like she is having a pancreatitis flareup. Patient denies currently drinking. Patient denies history of diabetes. Patient states that today she began getting very nauseous. Patient denies any vomiting yet. Patient states pain is worse and she moves. Patient states the pain starts in the left upper quadrant radiates to her flank. Patient states this pain is consistent with her normal pancreatitis flareups. Patient denies any history of kidney stones. Patient denies trouble urinating, blood in urine or pain or burning during urination. Patient denies any . Patient denies history of STDs. Patient denies any fevers or chills. Patient denies chest pain or shortness of breath. Patient denies headache or dizziness. Patient denies any other significant past medical history. - Related Data Home Medications Medication Instructions Recorded Confirmed Biotin 5 mg PO HS 09/10/16 11/12/16 Pancreatin 10x-200mg 1 tab PO HS 09/10/16 11/12/16 Thyrotone 500mg 500 mg PO HS 09/10/16 11/12/16 Ondansetron Odt [Zofran ODT] 8 mg PO Q8HR PRN 11/02/16 11/12/16 Previous Rx's Medication Instructions Recorded Metoclopramide [Reglan] 10 mg PO Q6H PRN #30 tab 10/12/16 HYDROcodone/APAP 10-325MG [C[place] 1 tab PO Q6H PRN #28 tab 11/07/16 10-325] Allergies Allergy/AdvReac Type Severity Reaction Status Date / Time No Known Allergies Allergy Verified 11/12/16 19:34 Review of Systems ROS Statement: Those systems with pertinent positive or pertinent negative responses have been documented in the HPI. ROS Other: All systems not noted in ROS Statement are negative. Past Medical History Past Medical History: GERD/Reflux, Thyroid Disorder Additional Past Medical History / Comment(s): Acute then chronic pancreatitis x 10 years due to alcohol poisoning, hypothyroid, chronic bronchitis, PUD. History of Any Multi-Drug Resistant Organisms: None Reported Past Surgical History: Adenoidectomy, Ear Surgery, Tonsillectomy, Tubal Ligation Additional Past Surgical History / Comment(s): multiple tubes in ears, D&C. Past Anesthesia/Blood Transfusion Reactions: No Reported Reaction Past Psychological History: Anxiety Additional Psychological History / Comment(s): Pt resides with her two children ages 4 and 10yrs. She is independent. Smoking Status: Current every day smoker Past Alcohol Use History: None Reported Additional Past Alcohol Use History / Comment(s): Pt states she started smoking about 1998 and is a ppd smoker. She has not drank alcohol in 10 yrs. Past Drug Use History: None Reported Additional Drug Use History / Comment(s): Pt has a medical marijuana card and takes it in the form of a capsule daily. - Past Family History Father Family Medical History: Hyperlipidemia Mother Family Medical History: Congestive Heart Failure (CHF) General Exam - General Exam Comments Initial Comments: Sitting in exam room, no acute distress, appears uncomfortable secondary to pain Limitations: no limitations General appearance: alert, in no apparent distress Head exam: Present: atraumatic, normocephalic, normal inspection Eye exam: Present: normal appearance ENT exam: Present: normal exam Neck exam: Present: normal inspection Respiratory exam: Present: normal lung sounds bilaterally. Absent: respiratory distress Cardiovascular Exam: Present: regular rate, normal rhythm, normal heart sounds GI/Abdominal exam: Present: soft, tenderness (Left upper quadrant, midepigastric ), normal bowel sounds. Absent: distended, guarding, rebound, rigid Extremities exam: Present: normal inspection Back exam: Present: normal inspection Neurological exam: Present: alert, oriented X3, CN II-XII intact, normal gait Psychiatric exam: Present: normal affect, normal mood Skin exam: Present: warm, dry, intact, normal color. Absent: rash Course Vital Signs 11/12/16 18:15 Temperature 97.8 F Pulse Rate 92 Respiratory 18 Rate Blood Pressure 128/101 O2 Sat by Pulse 99 Oximetry Medical Decision Making - Medical Decision Making Patient is a 31-year-old female presents emergency room for evaluation of abdominal pain. Amylase 151, lipase 651. Case discussed with Dr. Braun. Dr. Braun contacted Dr. Lira who stated that patient can go home with bowel rest and follow-up with him on Sunday. Patient states she has pain medications and antinausea medication at home that she can take. Patient states she understands everything that was discussed with her. Return parameters discussed. - Lab Data Result diagrams: 11/12/16 19:40 11/12/16 19:40 Lab Results 11/12/16 11/12/16 Range/Units 19:40 19:40 WBC 8.2 (3.8-10.6) k/uL RBC 5.00 (3.80-5.40) m/uL Hgb 14.1 (11.4-16.0) gm/dL Hct 43.5 (34.0-46.0) % MCV 86.9 (80.0-100.0) fL MCH 28.2 (25.0-35.0) pg MCHC 32.5 (31.0-37.0) g/dL RDW 13.1 (11.5-15.5) % Plt Count 233 (150-450) k/uL Neutrophils % 58 % Lymphocytes % 33 % Monocytes % 5 % Eosinophils % 2 % Basophils % 1 % Neutrophils # 4.8 (1.3-7.7) k/uL Lymphocytes # 2.7 (1.0-4.8) k/uL Monocytes # 0.4 (0-1.0) k/uL Eosinophils # 0.1 (0-0.7) k/uL Basophils # 0.0 (0-0.2) k/uL Sodium 142 (137-145) mmol/L Potassium 4.4 (3.5-5.1) mmol/L Chloride 102 (98-107) mmol/L Carbon Dioxide 28 (22-30) mmol/L Anion Gap 12 mmol/L BUN 10 (7-17) mg/dL Creatinine 0.80 (0.52-1.04) mg/dL Est GFR (MDRD) Af Amer >60 (>60 ml/min/1.73 sqM) Est GFR (MDRD) Non-Af >60 (>60 ml/min/1.73 sqM) Glucose 91 (74-99) mg/dL Calcium 9.7 (8.4-10.2) mg/dL Total Bilirubin 0.3 (0.2-1.3) mg/dL AST 23 (14-36) U/L ALT 31 (9-52) U/L Alkaline Phosphatase 61 (38-126) U/L Total Protein 7.2 (6.3-8.2) g/dL Albumin 4.6 (3.5-5.0) g/dL Amylase 151 H (30-110) U/L Lipase 651 H (23-300) U/L Disposition Clinical Impression: Pancreatitis, chronic Disposition: HOME SELF-CARE Condition: Good Instructions: Pancreatitis (ED) Additional Instructions: Continue taking at home medications as needed. Bowel rest. Please follow-up with Dr. Lira on Sunday. If any new symptom arises, symptoms worsen or fever develops, return to ER as soon as possible. Referrals: Otoniel Lira Jr, [Primary Care Provider] - 1-2 days Time of Disposition: 20:32
[2016-11-12 20:11] LABS: ALT 31 U/L (9-52); AST 23 U/L (14-36); Alkaline Phosphatase 61 U/L (38-126); Amylase 151 U/L (30-110); Anion Gap 12 mmol/L; Blood Urea Nitrogen 10 mg/dL (7-17); Calcium 9.7 mg/dL (8.4-10.2); Carbon Dioxide 28 mmol/L (22-30); Chloride 102 mmol/L (98-107); Glucose 91 mg/dL (74-99); Non-African American GFR(MDRD) >60 (>60 ml/min/1.73 sqM); Potassium 4.4 mmol/L (3.5-5.1); Sodium 142 mmol/L (137-145); Total Bilirubin 0.3 mg/dL (0.2-1.3); Total Protein 7.2 g/dL (6.3-8.2)
[2016-11-12] MEDS ORDERED: KETOROLAC 30 MG/ML 1 ML VIAL IVP STA (20:33)
[2016-11-12 20:48] VITALS: BP 118/61; PULSE 90; TEMP 98
[2016-11-12 20:58] LABS: Amorphous Sediment,Urine Few /hpf; Appearance,Urine Cloudy (Clear); Bilirubin,Urine Negative (Negative); Glucose,Urine (UA) Negative (Negative); Ketones,Urine Negative (Negative); Leukocyte Esterase,Urine Negative (Negative); Mucus,Urine Rare /hpf; Nitrite,Urine Negative (Negative); Particle Count 6190; Protein,Urine Negative (Negative); RBC,Urine 1 /hpf (0-5); Specific Gravity,Urine 1.017 (1.001-1.035); Squamous Epithelial Cell,Urine 36 /hpf (0-4); UA Billing (MACRO vs. MICRO) MICRO; Urobilinogen,Urine <2.0 mg/dL (<2.0); WBC,Urine 25 /hpf (0-5)
== END 2016-11-12 20:48 | disposition home or self-care (01) ==
LOC: EC 18:07
DX: K86.1 Other chronic pancreatitis (principal); Z79.899 Other long term (current) drug therapy; E03.9 Hypothyroidism, unspecified; F17.200 Nicotine dependence, unspecified, uncomplicated
CPT/HCPCS: 36415; 80053; 82150; 83690; 85025; 81001; 81025; 99284; 96374; 96375; 96376; J2765; J1885; J1170

== ENCOUNTER 2016-11-14 08:18 | Inpatient (IN) | payer OTHER ==
[2016-11-14] MEDS ORDERED: METOCLOPRAMIDE 5 MG/ML 2 ML VIAL IVP STA (08:58)
[2016-11-14] MEDS ORDERED: SODIUM CHLORIDE 0.9% 500 ML IV STA (08:58)
[2016-11-14] MEDS ORDERED: SODIUM CHLORIDE 0.9% 1,000 ML IV STA ×2 (08:58)
[2016-11-14] MEDS ORDERED: HYDROmorphone 1 MG/ML 1 ML SYRINGE IVP STA (08:58)
--- NOTE | 2016-11-14 09:10 | ED ---
General Adult HPI - General Chief complaint: Abdominal Pain Stated complaint: Stomach pain Time Seen by Provider: 11/14/16 08:43 Source: patient, RN notes reviewed Mode of arrival: ambulatory Limitations: no limitations - History of Present Illness Initial comments: Patient is a 31-year-old female who presents to emergency room with a chief complaint of increased left-sided abdominal pain. Patient does admit to a history of chronic pancreatitis. States had multiple flareups over the last 6 months. States she's been going down to [facility] to try to have pancreatic tenderness worked up. States having increased pain with symptoms of nausea vomiting. Does note pain located left side of the abdomen and does radiate around to the left side of her back. States consistent with palpitations that she's had in the past. She denies any other complaints associates symptoms. Patient denies any recent fever, chills, shortness of breath, chest pain, numbness or tingling, dysuria or hematuria, constipation or diarrhea, headaches or visual changes, or any other complaints. - Related Data Home Medications Medication Instructions Recorded Confirmed Biotin 5 mg PO HS 09/10/16 11/14/16 Thyrotone 500mg 500 mg PO HS 09/10/16 11/14/16 Ondansetron Odt [Zofran ODT] 8 mg PO Q8HR PRN 11/02/16 11/14/16 Previous Rx's Medication Instructions Recorded Metoclopramide [Reglan] 10 mg PO Q6H PRN #30 tab 10/12/16 HYDROcodone/APAP 10-325MG [[place] 1 tab PO Q6H PRN #28 tab 11/07/16 10-325] Allergies Allergy/AdvReac Type Severity Reaction Status Date / Time No Known Allergies Allergy Verified 11/14/16 08:40 Review of Systems ROS Statement: Those systems with pertinent positive or pertinent negative responses have been documented in the HPI. ROS Other: All systems not noted in ROS Statement are negative. Past Medical History Past Medical History: GERD/Reflux, Thyroid Disorder Additional Past Medical History / Comment(s): Acute then chronic pancreatitis x 10 years due to alcohol poisoning, hypothyroid, chronic bronchitis, PUD. History of Any Multi-Drug Resistant Organisms: None Reported Past Surgical History: Adenoidectomy, Ear Surgery, Tonsillectomy, Tubal Ligation Additional Past Surgical History / Comment(s): multiple tubes in ears, D&C. Past Anesthesia/Blood Transfusion Reactions: No Reported Reaction Past Psychological History: Anxiety Additional Psychological History / Comment(s): Pt resides with her two children ages 4 and 10yrs. She is independent. Smoking Status: Current every day smoker Past Alcohol Use History: None Reported Additional Past Alcohol Use History / Comment(s): Pt states she started smoking about 1998 and is a ppd smoker. She has not drank alcohol in 10 yrs. Past Drug Use History: None Reported Additional Drug Use History / Comment(s): Pt has a medical marijuana card and takes it in the form of a capsule daily. - Past Family History Father Family Medical History: Hyperlipidemia Mother Family Medical History: Congestive Heart Failure (CHF) General Exam - General Exam Comments Initial Comments: General: The patient is awake and alert, in no distress, and does not appear acutely ill. Eye: Pupils are equal, round and reactive to light, extra-ocular movements are intact. No nystagmus. There is normal conjunctiva bilaterally. No signs of icterus. Ears, nose, mouth and throat: There are moist mucous membranes and no oral lesions. Neck: The neck is supple, there is no tenderness or JVD. Cardiovascular: There is a regular rate and rhythm. No murmur, rub or gallop is appreciated. Respiratory: Lungs are clear to auscultation, respirations are non-labored, breath sounds are equal. No wheezes, stridor, rales, or rhonchi. Gastrointestinal: Normal appearance them. Normal bowel sounds. Abdomen soft on palpation. Patient does have tenderness left upper quadrant. Mild epigastric tenderness. Mild left CVA tenderness. No rebound tenderness. No guarding. Musculoskeletal: Normal ROM, no tenderness. Strength 5/5. Sensation intact. Pulses equal bilaterally 2+. Neurological: A&O x 3. CN II-XII intact, There are no obvious motor or sensory deficits. Coordination appears grossly intact. Speech is normal. Skin: Skin is warm and dry and no rashes or lesions are noted. Psychiatric: Cooperative, appropriate mood & affect, normal judgment. Limitations: no limitations Course Vital Signs 11/14/16 08:21 Temperature 97.0 F L Pulse Rate 111 H Respiratory 16 Rate Blood Pressure 138/74 O2 Sat by Pulse 100 Oximetry Medical Decision Making - Medical Decision Making Patient's labs reviewed and does show elevated lipase at 1261. Agent admits to improvement of symptoms here after pain medication and IV fluids. Does not feel comfortable being discharged. Will be admitted for pancreatitis. Case discussed with attending physician Dr. Niño who discussed case with Dr. Bangura will admit the patient with consult to Dr. Hernandez. - Lab Data Result diagrams: 11/14/16 09:25 11/14/16 09:25 Lab Results 11/14/16 11/14/16 11/14/16 Range/Units 09:25 09:25 10:00 WBC 6.2 (3.8-10.6) k/uL RBC 5.11 (3.80-5.40) m/uL Hgb 14.2 (11.4-16.0) gm/dL Hct 45.5 (34.0-46.0) % MCV 89.0 (80.0-100.0) fL MCH 27.7 (25.0-35.0) pg MCHC 31.2 (31.0-37.0) g/dL RDW 13.3 (11.5-15.5) % Plt Count 243 (150-450) k/uL Neutrophils % 54 % Lymphocytes % 35 % Monocytes % 6 % Eosinophils % 3 % Basophils % 1 % Neutrophils # 3.4 (1.3-7.7) k/uL Lymphocytes # 2.1 (1.0-4.8) k/uL Monocytes # 0.4 (0-1.0) k/uL Eosinophils # 0.2 (0-0.7) k/uL Basophils # 0.1 (0-0.2) k/uL Sodium 145 (137-145) mmol/L Potassium 4.5 (3.5-5.1) mmol/L Chloride 106 (98-107) mmol/L Carbon Dioxide 26 (22-30) mmol/L Anion Gap 13 mmol/L BUN 10 (7-17) mg/dL Creatinine 0.73 (0.52-1.04) mg/dL Est GFR (MDRD) Af Amer >60 (>60 ml/min/1.73 sqM) Est GFR (MDRD) Non-Af >60 (>60 ml/min/1.73 sqM) Glucose 77 (74-99) mg/dL Calcium 9.7 (8.4-10.2) mg/dL Total Bilirubin 0.6 (0.2-1.3) mg/dL AST 30 (14-36) U/L ALT 30 (9-52) U/L Alkaline Phosphatase 56 (38-126) U/L Total Protein 7.6 (6.3-8.2) g/dL Albumin 4.7 (3.5-5.0) g/dL Amylase 205 H (30-110) U/L Lipase 1261 H (23-300) U/L Urine Color Yellow Urine Appearance Cloudy H (Clear) Urine pH 6.5 (5.0-8.0) Ur Specific [place] 1.015 (1.001-1.035) Urine Protein Negative (Negative) Urine Glucose (UA) Negative (Negative) Urine Ketones Negative (Negative) Urine Blood Negative (Negative) Urine Nitrate Negative (Negative) Urine Bilirubin Negative (Negative) Urine Urobilinogen <2.0 (<2.0) mg/dL Ur Leukocyte Esterase Negative (Negative) Urine RBC 2 (0-5) /hpf Urine WBC 5 (0-5) /hpf Ur Squamous Epith Cells 10 H (0-4) /hpf Urine Mucus Rare H (None) /hpf Urine HCG, Qual (Not Detectd) 11/14/16 Range/Units 10:00 WBC (3.8-10.6) k/uL RBC (3.80-5.40) m/uL Hgb (11.4-16.0) gm/dL Hct (34.0-46.0) % MCV (80.0-100.0) fL MCH (25.0-35.0) pg MCHC (31.0-37.0) g/dL RDW (11.5-15.5) % Plt Count (150-450) k/uL Neutrophils % % Lymphocytes % % Monocytes % % Eosinophils % % Basophils % % Neutrophils # (1.3-7.7) k/uL Lymphocytes # (1.0-4.8) k/uL Monocytes # (0-1.0) k/uL Eosinophils # (0-0.7) k/uL Basophils # (0-0.2) k/uL Sodium (137-145) mmol/L Potassium (3.5-5.1) mmol/L Chloride (98-107) mmol/L Carbon Dioxide (22-30) mmol/L Anion Gap mmol/L BUN (7-17) mg/dL Creatinine (0.52-1.04) mg/dL Est GFR (MDRD) Af Amer (>60 ml/min/1.73 sqM) Est GFR (MDRD) Non-Af (>60 ml/min/1.73 sqM) Glucose (74-99) mg/dL Calcium (8.4-10.2) mg/dL Total Bilirubin (0.2-1.3) mg/dL AST (14-36) U/L ALT (9-52) U/L Alkaline Phosphatase (38-126) U/L Total Protein (6.3-8.2) g/dL Albumin (3.5-5.0) g/dL Amylase (30-110) U/L Lipase (23-300) U/L Urine Color Urine Appearance (Clear) Urine pH (5.0-8.0) Ur Specific [place] (1.001-1.035) Urine Protein (Negative) Urine Glucose (UA) (Negative) Urine Ketones (Negative) Urine Blood (Negative) Urine Nitrate (Negative) Urine Bilirubin (Negative) Urine Urobilinogen (<2.0) mg/dL Ur Leukocyte Esterase (Negative) Urine RBC (0-5) /hpf Urine WBC (0-5) /hpf Ur Squamous Epith Cells (0-4) /hpf Urine Mucus (None) /hpf Urine HCG, Qual Not Detected (Not Detectd) Disposition Clinical Impression: Acute pancreatitis Disposition: ADMITTED IP TO THIS [facility] Condition: Good Time of Disposition: 10:28
[2016-11-14 09:32] LABS: Basophils # (A) 0.1 k/uL (0-0.2); Basophils % (A) 1 %; CH 28.6; CHCM 32.2; Eosinophils # (A) 0.2 k/uL (0-0.7); Eosinophils % (A) 3 %; HCT 45.5 % (34.0-46.0); HDW 2.23; HGB 14.2 gm/dL (11.4-16.0); Luc % (Auto) 2; Lymphocytes # (A) 2.1 k/uL (1.0-4.8); Lymphocytes % (A) 35 %; MCH 27.7 pg (25.0-35.0); MCHC 31.2 g/dL (31.0-37.0); Mean Platelet Volume 8.6; Monocytes # (A) 0.4 k/uL (0-1.0); Monocytes % (A) 6 %; Neutrophils # (A) 3.4 k/uL (1.3-7.7); Neutrophils % (A) 54 %; RBC 5.11 m/uL (3.80-5.40); RDW 13.3 % (11.5-15.5); WBC 6.2 k/uL (3.8-10.6); WBC (Perox) 6.25
[2016-11-14 09:44] LABS: ALT 30 U/L (9-52); AST 30 U/L (14-36); Alkaline Phosphatase 56 U/L (38-126); Amylase 205 U/L (30-110); Anion Gap 13 mmol/L; Blood Urea Nitrogen 10 mg/dL (7-17); Calcium 9.7 mg/dL (8.4-10.2); Carbon Dioxide 26 mmol/L (22-30); Chloride 106 mmol/L (98-107); Glucose 77 mg/dL (74-99); Non-African American GFR(MDRD) >60 (>60 ml/min/1.73 sqM); Potassium 4.5 mmol/L (3.5-5.1); Sodium 145 mmol/L (137-145); Total Bilirubin 0.6 mg/dL (0.2-1.3); Total Protein 7.6 g/dL (6.3-8.2)
--- NOTE | 2016-11-14 10:02 | XR ---
EXAMINATION TYPE: XR KUB DATE OF EXAM: 11/14/2016 9:39 AM COMPARISON: 11/02/2016 INDICATION: Abdomen pain nausea, history of chronic pancreatitis TECHNIQUE: Single view abdomen FINDINGS: There is a normal bowel gas pattern. Psoas margins are normal. No organomegaly is present. Surgical clips are within the left pelvis. IMPRESSION: 1. Unremarkable Abdomen
[2016-11-14 10:24] LABS: Appearance,Urine Cloudy (Clear); Bilirubin,Urine Negative (Negative); Glucose,Urine (UA) Negative (Negative); Ketones,Urine Negative (Negative); Leukocyte Esterase,Urine Negative (Negative); Mucus,Urine Rare /hpf; Nitrite,Urine Negative (Negative); PH, Urine 6.5 (5.0-8.0); Particle Count 10090; Protein,Urine Negative (Negative); RBC,Urine 2 /hpf (0-5); Specific Gravity,Urine 1.015 (1.001-1.035); Squamous Epithelial Cell,Urine 10 /hpf (0-4); UA Billing (MACRO vs. MICRO) MICRO; Urobilinogen,Urine <2.0 mg/dL (<2.0); WBC,Urine 5 /hpf (0-5)
[2016-11-14] MEDS ORDERED: NALOXONE 0.4 MG/ML 1 ML VIAL IV PRN (10:29)
[2016-11-14] MEDS ORDERED: SODIUM CHLORIDE 0.9% 1,000 ML IV ONE (10:29)
[2016-11-14] MEDS ORDERED: ACETAMINOPHEN TAB 325 MG TAB PO PRN (10:29)
[2016-11-14] MEDS: HYDROmorphone 1 MG/ML 1 ML SYRINGE IV PRN ×4 (11:52→21:14)
[2016-11-14] MEDS: DEXTROSE 5%-0.9% NACL 1,000 ML IV SCH ×2 (12:30→19:45)
--- NOTE | 2016-11-14 12:31 | P.CONS ---
History of Present Illness - Reason for Consult Consult date: 11/14/16 Pancreatitis Requesting physician: Thompson Bangura - History of Present Illness 30-year-old female with a history of chronic relapsing alcohol pancreatitis as well as peptic ulcer disease. Last alcohol consumption more than 10 years ago. Admitted with increased abdominal pain elevated amylase lipase consistent with pancreatitis. Evaluated in the GI office on 11/01/2015 with referral to [facility]. She is scheduled for EUS/ERCP at [facility] next month. Feels slightly better today. Afebrile. Admission lipase 1261. Amylase 205. LFTs is within normal limits. Review of Systems Constitutional: Denies fever, chills, sweats, weight gain, or loss. HEENT: Negative for migraines, blurred vision or loss, earaches, drainage, tinnitus, oral mucosal lesions, dysphagia, or odynophagia. CARDIAC: Negative for chest pain, arrhythmias, or palpitation. RESPIRATORY: Negative for shortness of breath, hemoptysis, cough, or sputum production. History of nicotine cigarette dependency. GI: See HPI for pertinent findings. Chronic pancreatitis. History of GERD. : Negative for hematuria, urgency, frequency, polyuria, or dysuria. GYNc: Denies possibility of . Negative vaginal discharge. MUSCULOSKELETAL: Negative for muscle aches, swelling, arthritis, and arthralgias. NEUROLOGIC: Negative for stroke or TIA. ENDOCRINE: History of thyroid problems. SKIN: Negative for rash or itching. PSYCHIATRIC: History of anxiety. All systems: negative (See HPI) Past Medical History Past Medical History: GERD/Reflux, Thyroid Disorder Additional Past Medical History / Comment(s): Acute then chronic pancreatitis x 10 years due to alcohol poisoning, pt was seen for first visit at [facility] on 09/14 and is to begin testing at [facility] on 12/05/16, hypothyroid, chronic bronchitis, PUD. History of Any Multi-Drug Resistant Organisms: None Reported Past Surgical History: Adenoidectomy, Ear Surgery, Tonsillectomy, Tubal Ligation Additional Past Surgical History / Comment(s): multiple tubes in ears, D&C. Past Anesthesia/Blood Transfusion Reactions: No Reported Reaction Past Psychological History: Anxiety Additional Psychological History / Comment(s): Pt resides with her two children ages 4 and 10yrs. She is independent. Smoking Status: Current every day smoker Past Alcohol Use History: None Reported Additional Past Alcohol Use History / Comment(s): Pt states she started smoking about 1998 and is a ppd smoker. She has not drank alcohol in 10 yrs. Past Drug Use History: None Reported Additional Drug Use History / Comment(s): Pt has a medical marijuana card and takes it in the form of a capsule daily. - Past Family History Father Family Medical History: Hyperlipidemia Mother Family Medical History: Congestive Heart Failure (CHF) Medications and Allergies Home Medications Medication Instructions Recorded Confirmed Type Biotin 5 mg PO HS 09/10/16 11/14/16 History Thyrotone 500mg 500 mg PO HS 09/10/16 11/14/16 History Ondansetron Odt [Zofran ODT] 8 mg PO Q8HR PRN 11/02/16 11/14/16 History Allergies Allergy/AdvReac Type Severity Reaction Status Date / Time No Known Allergies Allergy Verified 11/14/16 08:40 Physical Exam Vitals: Vital Signs Temp Pulse Resp BP Pulse Ox 11/14/16 11:10 98 F 88 16 107/56 98 General appearance: The patient is alert, oriented, in no acute distress. HET: Head is normocephalic and atraumatic. Pupils are equal and reactive. Oropharynx is clear without lesions. Neck: Supple without lymphadenopathy. Trachea midline. Heart: S1 S2. Regular rate and rhythm. Lungs: No crackles or wheezes are heard. Abdomen: Soft, mild tenderness midepigastrium, nondistended with bowel sounds. No peritoneal signs. No palpable organomegaly or masses. Extremities: Normal skin color and turgor. No cyanosis, rash, ulceration, clubbing, or edema. Radial and pedal pulses are 2/4 bilaterally. Neurological: No focal deficits. Strength and sensation are grossly intact. Results CBC & Chem 7: 11/14/16 09:25 11/14/16 09:25 Assessment and Plan Plan: Impression: 1. Chronic relapsing pancreatitis likely related to her history of remote alcohol abuse. Pancreatic ductal abnormality cannot be entirely excluded patient has been referred to [facility]. Recommendations: 1. Clear liquid diet with ensure clear 3 times a day with slow advancement as tolerated. 2. Supportive measures. Discharge per medicine. Patient will follow up at [facility] as directed. Thank you for this kind referral and the opportunity to participate in the care of your patient. This consultation was discussed with Dr. Hernandez. The impression and plan of care have been directed as dictated.
[2016-11-14] MEDS ORDERED: HYDROcodone/APAP 5-325MG 1 EACH TAB PO PRN (12:55)
[2016-11-14] MEDS: METOCLOPRAMIDE 5 MG/ML 2 ML VIAL IVP SCH ×2 (14:51→23:45)
--- NOTE | 2016-11-14 15:01 | P.HPIM ---
History of Present Illness H&P Date: 11/14/16 Chief Complaint: Abdominal pain Patient is a 30-year-old white female, patient of Dr. Lira in the outpatient setting with medical history significant for chronic pancreatitis from former alcohol use. Patient has had numerous hospitalizations over the last 6 months for acute on chronic pancreatitis and has been evaluated by Dr. Hernandez from gastrointestinal service who referred patient to [facility] for specialty follow-up where she was recently evaluated and is scheduled for further workup next month. Patient states that approximately 4 days ago she started having increased left-sided abdominal pain associated with nausea but no vomiting. Amylase and lipase on admission consistent with acute pancreatitis. Patient was admitted to the medical floor for IV hydration, supportive treatment and pain management. Consult requested for GI service. Examination, patient complains of epigastric and left sided abdominal pain. Currently denies nausea or vomiting. Denies chills, fevers, shortness of breath , chest pain, diarrhea or constipation. Patient is urinating without difficulty. Denies urgency, dysuria, hematuria. Past Medical History Past Medical History: GERD/Reflux, Thyroid Disorder Additional Past Medical History / Comment(s): Acute then chronic pancreatitis x 10 years due to alcohol poisoning, pt was seen for first visit at [facility] on 09/14 and is to begin testing at [facility] on 12/05/16, hypothyroid, chronic bronchitis, PUD. History of Any Multi-Drug Resistant Organisms: None Reported Past Surgical History: Adenoidectomy, Ear Surgery, Tonsillectomy, Tubal Ligation Additional Past Surgical History / Comment(s): multiple tubes in ears, D&C. Past Anesthesia/Blood Transfusion Reactions: No Reported Reaction Past Psychological History: Anxiety Additional Psychological History / Comment(s): Pt resides with her two children ages 4 and 10yrs. She is independent. Smoking Status: Current every day smoker Past Alcohol Use History: None Reported Additional Past Alcohol Use History / Comment(s): Pt states she started smoking about 1998 and is a ppd smoker. She has not drank alcohol in 10 yrs. Past Drug Use History: None Reported Additional Drug Use History / Comment(s): Pt has a medical marijuana card and takes it in the form of a capsule daily. - Past Family History Father Family Medical History: Hyperlipidemia Mother Family Medical History: Congestive Heart Failure (CHF) Medications and Allergies Home Medications Medication Instructions Recorded Confirmed Type Biotin 5 mg PO HS 09/10/16 11/14/16 History Thyrotone 500mg 500 mg PO HS 09/10/16 11/14/16 History Ondansetron Odt [Zofran ODT] 8 mg PO Q8HR PRN 11/02/16 11/14/16 History Allergies Allergy/AdvReac Type Severity Reaction Status Date / Time No Known Allergies Allergy Verified 11/14/16 08:40 Physical Exam Vitals: Vital Signs Temp Pulse Pulse Resp BP BP Pulse Ox 11/14/16 12:25 97.4 F L 70 16 115/74 100 11/14/16 11:10 98 F 88 16 107/56 98 GENERAL: Pt awake and alert, well-appearing, well-nourished, and in no acute distress. HEAD: Atraumatic, normocephalic. EYES: Pupils equal, round, and reactive to light, extraocular movements intact, sclera anicteric, conjunctiva are normal. ENT: Oropharynx clear without exudates. Moist mucous membranes. NECK:Supple without lymphadenopathy or JVD. LUNGS: Breath sounds clear to auscultation bilaterally. No wheezes, rales, or rhonchi. HEART: Heart S1, S2, no S3 or S4. Regular rate and rhythm. No murmurs, rubs or gallops. ABDOMEN: Soft, mild epigastric and left upper quadrant tenderness, nondistended , normoactive bowel sounds. No guarding, no rebound. No masses or organomegaly appreciated. EXTREMITIES: 2+ peripheral pulses. No edema. No calf tenderness. NEUROLOGICAL: Pt oriented x 3. Cranial nerves II through XII grossly intact. Strength and sensation grossly intact. PSYCH: Normal mood, normal affect. SKIN: Warm, dry, intact. Normal turgor. No rashes or lesions. Results CBC & Chem 7: 11/14/16 09:25 11/14/16 09:25 Abdominal x-ray: report reviewed (Nonacute abdomen) Thrombosis Risk Factor Assmnt - DVT/VTE Prophylaxis DVT/VTE Prophylaxis: Low risk, early ambulation encouraged - Choose All That Apply Any of the Below Risk Factors Present?: No Other Risk Factors: No Other congenital or acquired thrombophilia - If yes, enter type in comment: No Thrombosis Risk Factor Assessment Level: Very Low Risk Assessment and Plan Plan: Impression and plan: 1. Acute on chronic pancreatitis secondary to history of alcohol abuse. Pancreatic ductal abnormality cannot be entirely excluded, patient has been referred to [facility]. Amylase 205, lipase 1261 on admission. Continue IV hydration. Continue supportive treatment and pain management. Diet has been advanced to clear liquids with ensure clear 3 times a day. Gastrointestinal service on consult, recommendations noted. 2. History of hypothyroidism: We'll continue to monitor 3. History of peptic ulcer disease: Continue Protonix. 4. Nicotine dependence: Smoking cessation encouraged. 5. History of remote EtOH abuse. 6. GI prophylaxis. Continue Protonix. 7. DVT prophylaxis. Encourage early ambulation. Continue to monitor patient. Continue current medications. Continue GI and DVT prophylaxis. Continue to follow with gastrointestinal service, recommendations reviewed. Repeat CBC, BMP, amylase and lipase in a.m. The above impression and plan have been discussed and directed by Dr. Bangura. Imani ZARATE acting as scribe for Dr. Bangura.
[2016-11-14] MEDS: ONDANSETRON 4 MG/2 ML VIAL IVP PRN (17:15)
[2016-11-15] MEDS: HYDROmorphone 1 MG/ML 1 ML SYRINGE IV PRN ×7 (00:01→22:46)
[2016-11-15] MEDS: ONDANSETRON 4 MG/2 ML VIAL IVP PRN ×2 (02:35→21:02)
[2016-11-15] MEDS: DEXTROSE 5%-0.9% NACL 1,000 ML IV SCH ×3 (03:45→21:05)
[2016-11-15] MEDS: METOCLOPRAMIDE 5 MG/ML 2 ML VIAL IVP SCH ×4 (06:04→23:47)
[2016-11-15 08:43] LABS: Basophils % (A) 1 %; CH 28.5; CHCM 31.8; Eosinophils # (A) 0.2 k/uL (0-0.7); Eosinophils % (A) 3 %; HCT 36.5 % (34.0-46.0); HGB 11.4 gm/dL (11.4-16.0); Luc # (Auto) 0.09; Luc % (Auto) 2; Lymphocytes # (A) 2.5 k/uL (1.0-4.8); Lymphocytes % (A) 48 %; MCH 28.2 pg (25.0-35.0); MCHC 31.3 g/dL (31.0-37.0); MCV 90.1 fL (80.0-100.0); Mean Platelet Volume 8.7; Monocytes # (A) 0.4 k/uL (0-1.0); Monocytes % (A) 8 %; Neutrophils # (A) 1.9 k/uL (1.3-7.7); Neutrophils % (A) 38 %; RBC 4.05 m/uL (3.80-5.40); RDW 12.9 % (11.5-15.5); WBC 5.1 k/uL (3.8-10.6); WBC (Perox) 4.92
[2016-11-15 09:19] LABS: ALT 37 U/L (9-52); AST 18 U/L (14-36); Alkaline Phosphatase 40 U/L (38-126); Anion Gap 7 mmol/L; Blood Urea Nitrogen 4 mg/dL (7-17); Calcium 8.5 mg/dL (8.4-10.2); Carbon Dioxide 25 mmol/L (22-30); Chloride 109 mmol/L (98-107); Glucose 86 mg/dL (74-99); Non-African American GFR(MDRD) >60 (>60 ml/min/1.73 sqM); Potassium 4.4 mmol/L (3.5-5.1); Sodium 141 mmol/L (137-145); Total Bilirubin 0.5 mg/dL (0.2-1.3); Total Protein 5.3 g/dL (6.3-8.2)
--- NOTE | 2016-11-15 09:43 | P.PN ---
Subjective Principal diagnosis: Chronic relapsing pancreatitis 31-year-old female with chronic relapsing pancreatitis with underlying history of EtOH abuse. Feels slightly better. Afebrile. Tolerating sips of clear liquids. Increased lipase today at 1915. Objective - Vital Signs Vital signs: Vital Signs Temp 96.9 F L 11/15/16 07:00 Pulse 65 11/15/16 07:00 Resp 20 11/15/16 07:00 BP 114/69 11/15/16 07:00 Pulse Ox 98 11/15/16 07:00 Intake & Output 11/14/16 11/15/16 11/15/16 18:59 06:59 18:59 Intake Total 1775 0 Balance 1775 0 Intake: IV 1375 Dextrose 5%-0.9% NaCl 1, 1375 000 ml @ 125 mls/hr IV . Q8H [facility] Rx#:[id number] Oral 400 0 Other: Voiding Method Toilet Toilet # Voids 2 1 - Exam General appearance: The patient is alert, oriented, in no acute distress. HET: Head is normocephalic and atraumatic. Pupils are equal and reactive. Oropharynx is clear without lesions. Neck: Supple without lymphadenopathy. Trachea midline. Heart: S1 S2. Regular rate and rhythm. Lungs: No crackles or wheezes are heard. Abdomen: Soft, mild tenderness midepigastrium, nondistended with bowel sounds. No peritoneal signs. No palpable organomegaly or masses. Extremities: Normal skin color and turgor. No cyanosis, rash, ulceration, clubbing, or edema. Radial and pedal pulses are 2/4 bilaterally. Neurological: No focal deficits. Strength and sensation are grossly intact. - Labs CBC & Chem 7: 11/15/16 08:02 11/15/16 08:02 Labs: Abnormal Lab Results - Last 24 Hours (Table) 11/15/16 Range/Units 08:02 Chloride 109 H (98-107) mmol/L BUN 4 L (7-17) mg/dL Total Protein 5.3 L (6.3-8.2) g/dL Albumin 3.2 L (3.5-5.0) g/dL Lipase 1915 H (23-300) U/L Assessment and Plan Plan: Impression: 1. Chronic relapsing pancreatitis likely related to her history of remote alcohol abuse. Pancreatic ductal abnormality cannot be entirely excluded patient has been referred to [facility]. Recommendations: 1. Continue Clear liquid diet with ensure clear 3 times a day. We'll obtain ultrasound to rule out pseudocyst as patient has not had abdominal imaging for about a month. 2. Supportive measures. Discharge planning per medicine. Will continue to follow. Patient will follow up at [facility] as directed. Assessment and plan a care discussed with Dr. Hernandez
--- NOTE | 2016-11-15 13:11 | P.PN ---
Subjective Principal diagnosis: Acute on chronic pancreatitis Patient is a 30-year-old white female, patient of Dr. Lira in the outpatient setting with medical history significant for chronic pancreatitis from former alcohol use. Patient has had numerous hospitalizations over the last 6 months for acute on chronic pancreatitis and has been evaluated by Dr. Hernandez from gastrointestinal service who referred patient to [facility] for specialty follow-up where she was recently evaluated and is scheduled for further workup next month. Patient states that approximately 4 days ago she started having increased left-sided abdominal pain associated with nausea but no vomiting. Amylase and lipase on admission consistent with acute pancreatitis. Patient was admitted to the medical floor for IV hydration, supportive treatment and pain management consult to Dr. Hernandez for gastrointestinal service. Upon examination, patient complains of increased epigastric and left-sided abdominal pain. Denies chills, nausea, or vomiting. Denies shortness of breath , chest pain, diarrhea or constipation. Patient urinating without difficulty. Lipase increased to 1915 from 1261 yesterday. Patient has been evaluated by GI service, was ordered an ultrasound of the abdomen to rule out pseudocyst. Objective - Vital Signs Vital signs: Vital Signs Temp 96.9 F L 11/15/16 07:00 Pulse 70 11/15/16 09:15 Resp 20 11/15/16 09:15 BP 114/69 11/15/16 07:00 Pulse Ox 98 11/15/16 07:00 Intake & Output 11/14/16 11/15/16 11/15/16 18:59 06:59 18:59 Intake Total 1775 75 Balance 1775 75 Intake: IV 1375 Dextrose 5%-0.9% NaCl 1, 1375 000 ml @ 125 mls/hr IV . Q8H [facility] Rx#:[id number] Oral 400 75 Other: Voiding Method Toilet Toilet Toilet # Voids 2 1 1 - Exam GENERAL: Pt awake and alert, well-nourished, appears uncomfortable. HEAD: Atraumatic, normocephalic. EYES: Pupils equal, round, and reactive to light, extraocular movements intact, sclera anicteric, conjunctiva are normal. ENT: Oropharynx clear without exudates. Moist mucous membranes. NECK:Supple without lymphadenopathy or JVD. LUNGS: Breath sounds clear to auscultation bilaterally. No wheezes, rales, or rhonchi. HEART: Heart S1, S2, no S3 or S4. Regular rate and rhythm. No murmurs, rubs or gallops. ABDOMEN: Soft, moderate epigastric and left upper quadrant tenderness, nondistended, normoactive bowel sounds. No guarding, no rebound. No masses or organomegaly appreciated. EXTREMITIES: 2+ peripheral pulses. No edema. No calf tenderness. NEUROLOGICAL: Pt oriented x 3. Cranial nerves II through XII grossly intact. Strength and sensation grossly intact. PSYCH: Normal mood, normal affect. SKIN: Warm, dry, intact. Normal turgor. No rashes or lesions. - Labs CBC & Chem 7: 11/15/16 08:02 11/15/16 08:02 Labs: Abnormal Lab Results - Last 24 Hours (Table) 11/15/16 Range/Units 08:02 Chloride 109 H (98-107) mmol/L BUN 4 L (7-17) mg/dL Total Protein 5.3 L (6.3-8.2) g/dL Albumin 3.2 L (3.5-5.0) g/dL Lipase 1915 H (23-300) U/L Assessment and Plan Plan: Impression and plan: 1. Acute on chronic pancreatitis secondary to history of remote alcohol abuse. Pancreatic ductal abnormality cannot be entirely excluded, patient has been referred to [facility] where she has a follow-up appointment on December 05. Amylase 205, lipase 1261 on admission; lipase increased to 1915 today. Continue IV hydration. Continue supportive treatment and pain management. Continue clear liquids with Ensure clear 3 times a day. Gastrointestinal service on consult, recommendations noted. Patient is awaiting abdominal ultrasound. 2. History of hypothyroidism: We'll continue to monitor 3. History of peptic ulcer disease: Continue Protonix. 4. Nicotine dependence: Smoking cessation encouraged. 5. History of remote EtOH abuse. 6. GI prophylaxis. Continue Protonix. 7. DVT prophylaxis. Encourage early ambulation. Continue to monitor patient. Continue current medications. Continue GI and DVT prophylaxis. Continue to follow with gastrointestinal service, recommendations reviewed. Repeat CBC, BMP, lipase in a.m. The above impression and plan have been discussed and directed by Dr. Bangura. Imani ZARATE acting as scribe for Dr. Bangura.
[2016-11-15 13:43] VITALS: BMI 22.6
--- NOTE | 2016-11-15 15:29 | US ---
EXAMINATION TYPE: US abdomen limited DATE OF EXAM: 11/15/2016 11:48 AM COMPARISON: CT abdomen pelvis 23 October 20162015, ultrasound abdomen 21 August 2016 CLINICAL HISTORY: Pancreatitis. EXAM MEASUREMENTS: Liver Length: 14.3cm Gallbladder Wall: 0.2cm CBD: 0.3cm Right Kidney: 10.8 x 4.1 x 5.0cm ANATOMY: Pancreas: wnl within normal limits in its visualized portions. Liver: wnl Gallbladder: wnl Evidence for sonographic Rose's sign: no CBD: wnl Right Kidney: wnl Limited abdomen ultrasound was performed. Pancreatic duct measures 2 mm. There is no ascites. IMPRESSION: No significant abnormality is evident to account for patient's symptoms.
[2016-11-16] MEDS: HYDROmorphone 1 MG/ML 1 ML SYRINGE IV PRN ×6 (02:22→20:09)
[2016-11-16] MEDS: DEXTROSE 5%-0.9% NACL 1,000 ML IV SCH ×3 (05:45→19:00)
[2016-11-16] MEDS: METOCLOPRAMIDE 5 MG/ML 2 ML VIAL IVP SCH ×3 (05:46→17:46)
[2016-11-16] MEDS: ONDANSETRON 4 MG/2 ML VIAL IVP PRN ×2 (08:30→16:10)
[2016-11-16 09:21] LABS: Anion Gap 7 mmol/L; Blood Urea Nitrogen 3 mg/dL (7-17); Calcium 8.6 mg/dL (8.4-10.2); Carbon Dioxide 27 mmol/L (22-30); Chloride 108 mmol/L (98-107); Glucose 102 mg/dL (74-99); Non-African American GFR(MDRD) >60 (>60 ml/min/1.73 sqM); Potassium 3.9 mmol/L (3.5-5.1); Sodium 142 mmol/L (137-145)
[2016-11-16] MEDS: PANTOPRAZOLE 40 MG/10 ML VIAL IVP SCH ×2 (10:23→20:17)
--- NOTE | 2016-11-16 10:24 | P.PN ---
Subjective Principal diagnosis: Acute on chronic pancreatitis Patient is a 30-year-old white female, patient of Dr. Lira in the outpatient setting with medical history significant for chronic pancreatitis from former alcohol use. Patient has had numerous hospitalizations over the last 6 months for acute on chronic pancreatitis and has been evaluated by Dr. Hernandez from gastrointestinal service who referred patient to [facility] for specialty follow-up where she was recently evaluated and is scheduled for further workup next month. Patient states that approximately 4 days ago she started having increased left-sided abdominal pain associated with nausea but no vomiting. Amylase and lipase on admission consistent with acute pancreatitis. Patient was admitted to the medical floor for bowel rest, IV hydration, supportive treatment and pain management with consult to Dr. Hernandez for gastrointestinal service. Ultrasound of abdomen with no significant abnormality. Upon examination, patient complains mostly of epigastric pain and states it hurts when she burps. Patient states pain is unchanged from yesterday. Denies chills, nausea, or vomiting. Denies shortness of breath, chest pain, diarrhea or constipation. Patient urinating without difficulty. Lipase decreased to 185. Patient states that she has had only minimal ice chips since chest today to keep her mouth moist. Objective - Vital Signs Vital signs: Vital Signs Temp 97.4 F L 11/16/16 07:00 Pulse 78 11/16/16 07:00 Resp 20 11/16/16 07:00 BP 107/68 11/16/16 07:00 Pulse Ox 98 11/16/16 07:00 Intake & Output 11/15/16 11/16/16 11/16/16 18:59 06:59 18:59 Intake Total 75 Balance 75 Weight 54.431 kg Intake: Oral 75 Other: Voiding Method Toilet # Voids 2 1 - Exam GENERAL: Pt awake and alert, well-nourished, in no acute distress. HEAD: Atraumatic, normocephalic. EYES: Pupils equal, round, and reactive to light, extraocular movements intact, sclera anicteric, conjunctiva are normal. ENT: Oropharynx clear without exudates. Moist mucous membranes. NECK:Supple without lymphadenopathy or JVD. LUNGS: Breath sounds clear to auscultation bilaterally. No wheezes, rales, or rhonchi. HEART: Heart S1, S2, no S3 or S4. Regular rate and rhythm. No murmurs, rubs or gallops. ABDOMEN: Soft, moderate epigastric tenderness, nondistended, normoactive bowel sounds. No guarding, no rebound. No masses or organomegaly appreciated. EXTREMITIES: 2+ peripheral pulses. No edema. No calf tenderness. NEUROLOGICAL: Pt oriented x 3. Cranial nerves II through XII grossly intact. Strength and sensation grossly intact. PSYCH: Normal mood, normal affect. SKIN: Warm, dry, intact. Normal turgor. No rashes or lesions. - Labs CBC & Chem 7: 11/15/16 08:02 11/16/16 08:28 Labs: Abnormal Lab Results - Last 24 Hours (Table) 11/16/16 Range/Units 08:28 Chloride 108 H (98-107) mmol/L BUN 3 L (7-17) mg/dL Glucose 102 H (74-99) mg/dL Assessment and Plan Plan: Impression and plan: 1. Acute on chronic pancreatitis secondary to history of remote alcohol abuse. Ultrasound of abdomen within normal limits with no evidence of ascites. Patient has been referred to [facility] where she has a follow-up appointment on December 05. Amylase 205, lipase 1261 on admission; lipase decreased to 185 today. Continue IV hydration. Continue supportive treatment and pain management. Resume clear liquids with Ensure clear 3 times a day and advance as tolerated. Gastrointestinal service on consult, recommendations noted. 2. History of hypothyroidism: We'll continue to monitor 3. History of peptic ulcer disease: Continue Protonix. 4. Nicotine dependence: Smoking cessation encouraged. 5. History of remote EtOH abuse. 6. GI prophylaxis. Continue Protonix. 7. DVT prophylaxis. Encourage early ambulation. Continue to monitor patient. Continue current medications. Continue GI and DVT prophylaxis. Continue to follow with gastrointestinal service, recommendations reviewed. Repeat CBC, BMP, lipase in a.m. The above impression and plan have been discussed and directed by Dr. Bangura. Imani ZARATE acting as scribe for Dr. Bangura.
--- NOTE | 2016-11-16 12:19 | P.PN ---
Subjective Principal diagnosis: Chronic relapsing pancreatitis 31-year-old female with chronic relapsing pancreatitis with underlying history of EtOH abuse. Feels slightly better. Afebrile. Increased lipase yesterday normalized today. Clear liquids being restarted. US negative for pseudocyst. Objective - Vital Signs Vital signs: Vital Signs Temp 97.4 F L 11/16/16 07:00 Pulse 78 11/16/16 07:00 Resp 20 11/16/16 07:00 BP 107/68 11/16/16 07:00 Pulse Ox 98 11/16/16 07:00 Intake & Output 11/15/16 11/16/16 11/16/16 18:59 06:59 18:59 Intake Total 75 Balance 75 Weight 54.431 kg Intake: Oral 75 Other: Voiding Method Toilet Toilet # Voids 2 1 - Exam General appearance: The patient is alert, oriented, in no acute distress. HET: Head is normocephalic and atraumatic. Pupils are equal and reactive. Oropharynx is clear without lesions. Neck: Supple without lymphadenopathy. Trachea midline. Heart: S1 S2. Regular rate and rhythm. Lungs: No crackles or wheezes are heard. Abdomen: Soft, mild tenderness midepigastrium, nondistended with bowel sounds. No peritoneal signs. No palpable organomegaly or masses. Extremities: Normal skin color and turgor. No cyanosis, rash, ulceration, clubbing, or edema. Radial and pedal pulses are 2/4 bilaterally. Neurological: No focal deficits. Strength and sensation are grossly intact. - Labs CBC & Chem 7: 11/15/16 08:02 11/16/16 08:28 Labs: Abnormal Lab Results - Last 24 Hours (Table) 11/16/16 Range/Units 08:28 Chloride 108 H (98-107) mmol/L BUN 3 L (7-17) mg/dL Glucose 102 H (74-99) mg/dL Assessment and Plan Plan: Impression: 1. Chronic relapsing pancreatitis likely related to her history of remote alcohol abuse. Pancreatic ductal abnormality cannot be entirely excluded patient has been referred to [facility]. Recommendations: 1. Continue Clear liquid diet with ensure clear 3 times a day. 2. Supportive measures. Discharge planning per medicine. 3. Follow up at [facility] as directed. Assessment and plan a care discussed with Dr. Hernandez
[2016-11-16] MEDS: HYDROcodone/APAP 5-325MG 1 EACH TAB PO PRN ×2 (17:50→22:39)
[2016-11-16] MEDS ORDERED: PANTOPRAZOLE 40 MG/10 ML VIAL IVP SCH (21:00)
[2016-11-17] MEDS: HYDROmorphone 1 MG/ML 1 ML SYRINGE IV PRN ×4 (00:06→11:48)
[2016-11-17] MEDS: METOCLOPRAMIDE 5 MG/ML 2 ML VIAL IVP SCH ×3 (00:07→11:48)
[2016-11-17 00:08] VITALS: RESP 16
[2016-11-17] MEDS: HYDROcodone/APAP 5-325MG 1 EACH TAB PO PRN (05:49)
[2016-11-17] MEDS: PANTOPRAZOLE 40 MG/10 ML VIAL IVP SCH (07:52)
[2016-11-17 08:35] VITALS: BP 116/71; PULSE 81; TEMP 97.7
[2016-11-17] MEDS: DEXTROSE 5%-0.9% NACL 1,000 ML IV SCH ×2 (09:15)
[2016-11-17 11:18] LABS: Amylase 87 U/L (30-110)
--- NOTE | 2016-11-17 15:14 | P.DS ---
Providers Date of admission: 11/14/16 10:31 Expected date of discharge: 11/17/16 Attending physician: Thompson Bangura Consults: Gastrointestinal service Primary care physician: Otoniel Lira [facility] Course: Patient is a 30-year-old white female, patient of Dr. Lira in the outpatient setting with medical history significant for chronic pancreatitis from former alcohol use. Patient has had numerous hospitalizations over the last 6 months for acute on chronic pancreatitis and has been evaluated by Dr. Hernandez from gastrointestinal service who referred patient to [facility] for specialty follow-up where she was recently evaluated and is scheduled for further workup next month. Patient states that approximately 4 days ago she started having increased left-sided abdominal pain associated with nausea but no vomiting. Amylase and lipase on admission consistent with acute pancreatitis. Patient was admitted to the medical floor for bowel rest, IV hydration, supportive treatment and pain management with consult to Dr. Hernandez for gastrointestinal service. Ultrasound of abdomen with no significant abnormality. Patient improved during her hospital stay with normalizing amylase and lipase and if improvement of abdominal pain. Patient was felt stable for discharge to home with follow-up in the outpatient setting. Discharge diagnoses: 1. Acute on chronic pancreatitis secondary to history of remote alcohol abuse. Ultrasound of abdomen within normal limits with no evidence of ascites. Patient has been referred to [facility] where she has a follow-up appointment on December 05. 2. History of hypothyroidism 3. History of peptic ulcer disease 4. Nicotine dependence 5. History of remote EtOH abuse. The above impression and plan have been discussed and directed by Dr. Bangura. Imani ZARATE acting as scribe for Dr. Bangura. Pertinent Studies: KUB x-ray; abdomen ultrasound Patient Condition at Discharge: Good Plan - Discharge Summary Discharge Medication List Biotin 5 mg PO HS 09/10/16 [History] Thyrotone 500mg 500 mg PO HS 09/10/16 [History] Metoclopramide [Reglan] 10 mg PO Q6H PRN #30 tab 10/12/16 [Rx] Ondansetron Odt [Zofran ODT] 8 mg PO Q8HR PRN 11/02/16 [History] HYDROcodone/APAP 10-325MG [[place] 10-325] 1 tab PO Q6H PRN #28 tab 11/07/16 [Rx] Follow up Appointment(s)/Referral(s): Otoniel Lira Jr, DO [Primary Care Provider] - 11/21/16 1:30 pm Patient Instructions/Handouts: Pancreatitis (DC) Activity/Diet/Wound Care/Special Instructions: Clear liquid diet, advance as tolerated. Follow-up with [facility] as already scheduled. Discharge Disposition: HOME SELF-CARE
== END 2016-11-17 14:07 | disposition home or self-care (01) | DRG 440 ==
LOC: EC 08:18 → 4MS4W 10:31
PROVIDERS: ADMIT Family Medicine; ATTEND Family Medicine
DX: K85.20 Alcohol induced acute pancreatitis without necrosis or infection (principal); E03.9 Hypothyroidism, unspecified; K21.9 Gastro-esophageal reflux disease without esophagitis; K86.0 Alcohol-induced chronic pancreatitis; Z87.11 Personal history of peptic ulcer disease; F41.9 Anxiety disorder, unspecified; J42 Unspecified chronic bronchitis; F17.210 Nicotine dependence, cigarettes, uncomplicated; Z98.51 Tubal ligation status; Z87.898 Personal history of other specified conditions; Z79.899 Other long term (current) drug therapy
CPT/HCPCS: 36415; 74000; 76705; 80048; 80053; 81001; 81025; 82150; 83690; 85025; 96361; 96374; 96375; 99285

== ENCOUNTER 2016-11-27 13:24 | Emergency (ER) | payer OTHER ==
[2016-11-27 13:35] VITALS: RESP 18
[2016-11-27] MEDS ORDERED: SODIUM CHLORIDE 0.9% 1,000 ML IV STA ×3 (14:51→18:01)
[2016-11-27] MEDS ORDERED: METOCLOPRAMIDE 5 MG/ML 2 ML VIAL IVP STA (14:52)
--- NOTE | 2016-11-27 14:53 | ED ---
General Adult HPI <Bhavesh Fisher - Last Filed: 11/27/16 17:43> - General Source: patient, RN notes reviewed, old records reviewed Mode of arrival: ambulatory Limitations: no limitations <Edmund Razo - Last Filed: 11/27/16 18:03> - General Chief complaint: Abdominal Pain Stated complaint: chronic pancreatitis Time Seen by Provider: 11/27/16 14:40 - History of Present Illness Initial comments: Patient is a 31-year-old female with significant past medical history for chronic pancreatitis, who presents emergency room today with a chief complaint of increased abdominal pain with nausea vomiting. Patient does admit that the symptoms feel consistent with pink toes that she's had in the past. She missed the pain is not as bad. She does admit that she is taking [place] at home with some relief of symptoms. States she still feeling nauseated. States she usually takes Percocet at home but is running out of this medication. She states she did try Zofran with little relief. Patient denies any other complaints or symptoms at this time. Patient denies any recent fever, chills, shortness of breath, chest pain, numbness or tingling, dysuria or hematuria, constipation or diarrhea, headaches or visual changes, or any other complaints. (Edmund Razo) - Related Data Home Medications Medication Instructions Recorded Confirmed Biotin 5 mg PO HS 09/10/16 11/27/16 Thyrotone 500mg 500 mg PO HS 09/10/16 11/27/16 Ondansetron Odt [Zofran ODT] 8 mg PO Q8HR PRN 11/02/16 11/27/16 Previous Rx's Medication Instructions Recorded Metoclopramide [Reglan] 10 mg PO Q6H PRN #30 tab 10/12/16 HYDROcodone/APAP 10-325MG [[place] 1 tab PO Q6H PRN #28 tab 11/07/16 10-325] Metoclopramide HCl [Reglan] 10 mg PO Q6HR PRN #5 day 11/27/16 Allergies Allergy/AdvReac Type Severity Reaction Status Date / Time No Known Allergies Allergy Verified 11/27/16 14:46 Review of Systems ROS Other: All systems not noted in ROS Statement are negative. <Bhavesh Fisher - Last Filed: 11/27/16 17:43> ROS Other: All systems not noted in ROS Statement are negative. <Edmund Razo - Last Filed: 11/27/16 18:03> ROS Statement: Those systems with pertinent positive or pertinent negative responses have been documented in the HPI. Past Medical History Past Medical History: GERD/Reflux, Thyroid Disorder Additional Past Medical History / Comment(s): Acute then chronic pancreatitis x 10 years due to alcohol poisoning, pt was seen for first visit at [facility] on 09/14 and is to begin testing at [facility] on 12/05/16, hypothyroid, chronic bronchitis, PUD. History of Any Multi-Drug Resistant Organisms: None Reported Past Surgical History: Adenoidectomy, Ear Surgery, Tonsillectomy, Tubal Ligation Additional Past Surgical History / Comment(s): multiple tubes in ears, D&C. Past Anesthesia/Blood Transfusion Reactions: No Reported Reaction Past Psychological History: Anxiety Additional Psychological History / Comment(s): Pt resides with her two children ages 4 and 10yrs. She is independent. Smoking Status: Current every day smoker Past Alcohol Use History: None Reported Additional Past Alcohol Use History / Comment(s): Pt states she started smoking about 1998 and is a ppd smoker. She has not drank alcohol in 10 yrs. Past Drug Use History: None Reported Additional Drug Use History / Comment(s): Pt has a medical marijuana card and takes it in the form of a capsule daily. - Past Family History Father Family Medical History: Hyperlipidemia Mother Family Medical History: Congestive Heart Failure (CHF) <Edmund Razo - Last Filed: 11/27/16 18:03> General Exam <Bhavesh Fisher - Last Filed: 11/27/16 17:43> Limitations: no limitations <Edmund Razo - Last Filed: 11/27/16 18:03> - General Exam Comments Initial Comments: General: The patient is awake and alert, in no distress, and does not appear acutely ill. Eye: Pupils are equal, round and reactive to light, extra-ocular movements are intact. No nystagmus. There is normal conjunctiva bilaterally. No signs of icterus. Ears, nose, mouth and throat: There are moist mucous membranes and no oral lesions. Neck: The neck is supple, there is no tenderness or JVD. Cardiovascular: There is a regular rate and rhythm. No murmur, rub or gallop is appreciated. Respiratory: Lungs are clear to auscultation, respirations are non-labored, breath sounds are equal. No wheezes, stridor, rales, or rhonchi. Gastrointestinal: Normal appearance and. Normal bowel sounds. Soft on palpation. Patient does have mild tenderness epigastric and left upper quadrant. No rebound tenderness. No guarding. No CVA tenderness. Musculoskeletal: Normal ROM, no tenderness. Strength 5/5. Sensation intact. Pulses equal bilaterally 2+. Neurological: A&O x 3. CN II-XII intact, There are no obvious motor or sensory deficits. Coordination appears grossly intact. Speech is normal. Skin: Skin is warm and dry and no rashes or lesions are noted. Psychiatric: Cooperative, appropriate mood & affect, normal judgment. (Edmund Razo) Medical Decision Making - Lab Data Result diagrams: 11/27/16 15:20 11/27/16 15:20 <Bhavesh Fisher - Last Filed: 11/27/16 17:43> - Lab Data Result diagrams: 11/27/16 15:20 11/27/16 15:20 <Edmund Razo - Last Filed: 11/27/16 18:03> - Medical Decision Making Patient reexamined by myself, Dr. Fisher. Patient resting comfortably in bed. Abdomen soft with mild diffuse tenderness. Case was discussed in detail with Dr. Bangura who would prefer patient try outpatient management. He is very familiar with this patient. Patient was updated regarding this and is comfortable with this. (Bhavesh Fisher) - Lab Data Lab Results 11/27/16 11/27/16 11/27/16 Range/Units 15:20 15:20 17:19 WBC 8.3 (3.8-10.6) k/uL RBC 5.00 (3.80-5.40) m/uL Hgb 14.3 (11.4-16.0) gm/dL Hct 43.3 (34.0-46.0) % MCV 86.6 (80.0-100.0) fL MCH 28.6 (25.0-35.0) pg MCHC 33.0 (31.0-37.0) g/dL RDW 13.1 (11.5-15.5) % Plt Count 252 (150-450) k/uL Neutrophils % 56 % Lymphocytes % 35 % Monocytes % 6 % Eosinophils % 1 % Basophils % 1 % Neutrophils # 4.6 (1.3-7.7) k/uL Lymphocytes # 2.9 (1.0-4.8) k/uL Monocytes # 0.5 (0-1.0) k/uL Eosinophils # 0.1 (0-0.7) k/uL Basophils # 0.1 (0-0.2) k/uL Sodium 140 (137-145) mmol/L Potassium 4.3 (3.5-5.1) mmol/L Chloride 104 (98-107) mmol/L Carbon Dioxide 27 (22-30) mmol/L Anion Gap 9 mmol/L BUN 10 (7-17) mg/dL Creatinine 0.75 (0.52-1.04) mg/dL Est GFR (MDRD) Af Amer >60 (>60 ml/min/1.73 sqM) Est GFR (MDRD) Non-Af >60 (>60 ml/min/1.73 sqM) Glucose 88 (74-99) mg/dL Calcium 9.6 (8.4-10.2) mg/dL Total Bilirubin 0.4 (0.2-1.3) mg/dL AST 20 (14-36) U/L ALT 34 (9-52) U/L Alkaline Phosphatase 58 (38-126) U/L Total Protein 7.6 (6.3-8.2) g/dL Albumin 4.7 (3.5-5.0) g/dL Amylase 313 H* (30-110) U/L Lipase 2016 H (23-300) U/L Urine Color Urine Appearance (Clear) Urine pH (5.0-8.0) Ur Specific [place] (1.001-1.035) Urine Protein (Negative) Urine Glucose (UA) (Negative) Urine Ketones (Negative) Urine Blood (Negative) Urine Nitrate (Negative) Urine Bilirubin (Negative) Urine Urobilinogen (<2.0) mg/dL Ur Leukocyte Esterase (Negative) Urine WBC (0-5) /hpf Ur Squamous Epith Cells (0-4) /hpf Urine Bacteria (None) /hpf Urine Mucus (None) /hpf Urine HCG, Qual Not Detected (Not Detectd) 11/27/16 Range/Units 17:19 WBC (3.8-10.6) k/uL RBC (3.80-5.40) m/uL Hgb (11.4-16.0) gm/dL Hct (34.0-46.0) % MCV (80.0-100.0) fL MCH (25.0-35.0) pg MCHC (31.0-37.0) g/dL RDW (11.5-15.5) % Plt Count (150-450) k/uL Neutrophils % % Lymphocytes % % Monocytes % % Eosinophils % % Basophils % % Neutrophils # (1.3-7.7) k/uL Lymphocytes # (1.0-4.8) k/uL Monocytes # (0-1.0) k/uL Eosinophils # (0-0.7) k/uL Basophils # (0-0.2) k/uL Sodium (137-145) mmol/L Potassium (3.5-5.1) mmol/L Chloride (98-107) mmol/L Carbon Dioxide (22-30) mmol/L Anion Gap mmol/L BUN (7-17) mg/dL Creatinine (0.52-1.04) mg/dL Est GFR (MDRD) Af Amer (>60 ml/min/1.73 sqM) Est GFR (MDRD) Non-Af (>60 ml/min/1.73 sqM) Glucose (74-99) mg/dL Calcium (8.4-10.2) mg/dL Total Bilirubin (0.2-1.3) mg/dL AST (14-36) U/L ALT (9-52) U/L Alkaline Phosphatase (38-126) U/L Total Protein (6.3-8.2) g/dL Albumin (3.5-5.0) g/dL Amylase (30-110) U/L Lipase (23-300) U/L Urine Color Yellow Urine Appearance Cloudy H (Clear) Urine pH 6.5 (5.0-8.0) Ur Specific [place] 1.018 (1.001-1.035) Urine Protein Trace H (Negative) Urine Glucose (UA) Negative (Negative) Urine Ketones Negative (Negative) Urine Blood Negative (Negative) Urine Nitrate Negative (Negative) Urine Bilirubin Negative (Negative) Urine Urobilinogen <2.0 (<2.0) mg/dL Ur Leukocyte Esterase Negative (Negative) Urine WBC 2 (0-5) /hpf Ur Squamous Epith Cells 14 H (0-4) /hpf Urine Bacteria Rare H (None) /hpf Urine Mucus Occasional H (None) /hpf Urine HCG, Qual (Not Detectd) Disposition <Bhavesh Fisher - Last Filed: 11/27/16 17:43> Time of Disposition: 18:02 <Edmund Razo - Last Filed: 11/27/16 18:03> Clinical Impression: Chronic pancreatitis Disposition: HOME SELF-CARE Condition: Good Instructions: Pancreatitis (ED) Additional Instructions: Please use medication as discussed. Please follow-up with family doctor in the next 2 days of symptoms have not improved. Please return to emergency room if the symptoms increase or worsen or for any other concerns. Prescriptions: Metoclopramide HCl [Reglan] 10 mg PO Q6HR PRN #5 day PRN Reason: Nausea
[2016-11-27 15:43] LABS: Basophils # (A) 0.1 k/uL (0-0.2); Basophils % (A) 1 %; CH 28.8; CHCM 33.3; Eosinophils # (A) 0.1 k/uL (0-0.7); Eosinophils % (A) 1 %; HCT 43.3 % (34.0-46.0); HDW 2.38; HGB 14.3 gm/dL (11.4-16.0); Luc # (Auto) 0.13; Luc % (Auto) 2; Lymphocytes # (A) 2.9 k/uL (1.0-4.8); Lymphocytes % (A) 35 %; MCH 28.6 pg (25.0-35.0); MCV 86.6 fL (80.0-100.0); Mean Platelet Volume 8.3; Monocytes # (A) 0.5 k/uL (0-1.0); Monocytes % (A) 6 %; Neutrophils # (A) 4.6 k/uL (1.3-7.7); Neutrophils % (A) 56 %; RDW 13.1 % (11.5-15.5); WBC 8.3 k/uL (3.8-10.6); WBC (Perox) 8.12
[2016-11-27 15:48] LABS: ALT 34 U/L (9-52); AST 20 U/L (14-36); Alkaline Phosphatase 58 U/L (38-126); Anion Gap 9 mmol/L; Blood Urea Nitrogen 10 mg/dL (7-17); Calcium 9.6 mg/dL (8.4-10.2); Carbon Dioxide 27 mmol/L (22-30); Chloride 104 mmol/L (98-107); Glucose 88 mg/dL (74-99); Non-African American GFR(MDRD) >60 (>60 ml/min/1.73 sqM); Potassium 4.3 mmol/L (3.5-5.1); Sodium 140 mmol/L (137-145); Total Bilirubin 0.4 mg/dL (0.2-1.3); Total Protein 7.6 g/dL (6.3-8.2)
--- NOTE | 2016-11-27 15:51 | XR ---
EXAMINATION TYPE: XR KUB DATE OF EXAM: 11/27/2016 3:48 PM COMPARISON: NONE HISTORY: Pain TECHNIQUE: Single supine KUB image of the abdomen is obtained FINDINGS: Small bowel demonstrates no evidence for dilatation or air fluid levels. Gas and fecal material is seen in non-distended colon. No convincing evidence for pneumoperitoneum. No unusual calcifications. The lung bases are clear. The osseous structures are intact. Tubal ligation changes. IMPRESSION: 1. Overall nonobstructive bowel gas pattern.
[2016-11-27 16:02] LABS: Amylase 313 U/L (30-110)
[2016-11-27] MEDS ORDERED: HYDROmorphone 1 MG/ML 1 ML SYRINGE IVP STA ×2 (16:31→18:01)
[2016-11-27] MEDS ORDERED: ONDANSETRON 4 MG/2 ML VIAL IVP STA ×2 (16:31→18:01)
[2016-11-27 17:51] LABS: Appearance,Urine Cloudy (Clear); Bacteria,Urine Rare /hpf; Bilirubin,Urine Negative (Negative); Glucose,Urine (UA) Negative (Negative); Ketones,Urine Negative (Negative); Leukocyte Esterase,Urine Negative (Negative); Mucus,Urine Occasional /hpf; Nitrite,Urine Negative (Negative); PH, Urine 6.5 (5.0-8.0); Particle Count 4575; Protein,Urine Trace (Negative); Specific Gravity,Urine 1.018 (1.001-1.035); Squamous Epithelial Cell,Urine 14 /hpf (0-4); UA Billing (MACRO vs. MICRO) MICRO; Urobilinogen,Urine <2.0 mg/dL (<2.0); WBC,Urine 2 /hpf (0-5)
[2016-11-27 18:16] VITALS: PULSE 74
[2016-11-27 19:04] VITALS: BP 105/59; TEMP 97.1
== END 2016-11-27 19:04 | disposition home or self-care (01) ==
LOC: EC 13:24
DX: K86.1 Other chronic pancreatitis (principal); E07.9 Disorder of thyroid, unspecified; F17.200 Nicotine dependence, unspecified, uncomplicated; Z79.899 Other long term (current) drug therapy
CPT/HCPCS: 36415; 80053; 82150; 83690; 85025; 81001; 81025; 74000; 99284; 96374; 96375 ×2; 96376 ×2; 96361 ×3; J2765; J2405; J1170

== ENCOUNTER 2016-11-29 13:35 | Emergency (ER) | payer OTHER ==
[2016-11-29 13:39] VITALS: TEMP 97.8
[2016-11-29] MEDS ORDERED: SODIUM CHLORIDE 0.9% 1,000 ML IV STA ×2 (14:27)
[2016-11-29] MEDS ORDERED: METOCLOPRAMIDE 5 MG/ML 2 ML VIAL IVP STA (14:27)
[2016-11-29] MEDS ORDERED: HYDROmorphone 1 MG/ML 1 ML SYRINGE IVP STA (14:27)
[2016-11-29] MEDS ORDERED: SODIUM CHLORIDE 0.9% 500 ML IV STA (14:27)
--- NOTE | 2016-11-29 14:29 | ED ---
General Adult HPI - General Chief complaint: Abdominal Pain Stated complaint: Severe Stomach Pain Time Seen by Provider: 11/29/16 14:23 Source: patient, RN notes reviewed Mode of arrival: ambulatory Limitations: no limitations - History of Present Illness Initial comments: Patient 31-year-old female with significant past medical history for chronic pancreatitis, who presents emergency room today with chief complaint of increased abdominal pain with symptoms of nausea. She does admit the pain is located in the epigastric and left upper quadrant. She admits that the symptoms are consistent with palpitations that she's had in the past. She states pain greatly increased today. Denies any other complaints or associated symptoms. Patient denies any recent fever, chills, shortness of breath, chest pain, numbness or tingling, dysuria or hematuria, constipation or diarrhea, headaches or visual changes, or any other complaints. - Related Data Home Medications Medication Instructions Recorded Confirmed Biotin 5 mg PO HS 09/10/16 11/29/16 Thyrotone 500mg 500 mg PO HS 09/10/16 11/29/16 Ondansetron Odt [Zofran ODT] 8 mg PO Q8HR PRN 11/02/16 11/29/16 Previous Rx's Medication Instructions Recorded HYDROcodone/APAP 10-325MG [[place] 1 tab PO Q6H PRN #28 tab 11/07/16 10-325] Metoclopramide HCl [Reglan] 10 mg PO Q6HR PRN #5 day 11/29/16 Allergies Allergy/AdvReac Type Severity Reaction Status Date / Time No Known Allergies Allergy Verified 11/29/16 14:02 Review of Systems ROS Statement: Those systems with pertinent positive or pertinent negative responses have been documented in the HPI. ROS Other: All systems not noted in ROS Statement are negative. Past Medical History Past Medical History: GERD/Reflux, Thyroid Disorder Additional Past Medical History / Comment(s): Acute then chronic pancreatitis x 10 years due to alcohol poisoning, pt was seen for first visit at [facility] on 09/14 and is to begin testing at [facility] on 12/05/16, hypothyroid, chronic bronchitis, PUD. History of Any Multi-Drug Resistant Organisms: None Reported Past Surgical History: Adenoidectomy, Ear Surgery, Tonsillectomy, Tubal Ligation Additional Past Surgical History / Comment(s): multiple tubes in ears, D&C. Past Anesthesia/Blood Transfusion Reactions: No Reported Reaction Past Psychological History: Anxiety Additional Psychological History / Comment(s): Pt resides with her two children ages 4 and 10yrs. She is independent. Smoking Status: Current every day smoker Past Alcohol Use History: None Reported Additional Past Alcohol Use History / Comment(s): Pt states she started smoking about 1998 and is a ppd smoker. She has not drank alcohol in 10 yrs. Past Drug Use History: None Reported Additional Drug Use History / Comment(s): Pt has a medical marijuana card and takes it in the form of a capsule daily. - Past Family History Father Family Medical History: Hyperlipidemia Mother Family Medical History: Congestive Heart Failure (CHF) General Exam - General Exam Comments Initial Comments: General: The patient is awake and alert, in no distress, and does not appear acutely ill. Eye: Pupils are equal, round and reactive to light, extra-ocular movements are intact. No nystagmus. There is normal conjunctiva bilaterally. No signs of icterus. Ears, nose, mouth and throat: There are moist mucous membranes and no oral lesions. Neck: The neck is supple, there is no tenderness or JVD. Cardiovascular: There is a regular rate and rhythm. No murmur, rub or gallop is appreciated. Respiratory: Lungs are clear to auscultation, respirations are non-labored, breath sounds are equal. No wheezes, stridor, rales, or rhonchi. Gastrointestinal: Normal appearance then. Normal bowel sounds. Abdomen soft on palpation. Patient does have tenderness epigastric and left upper quadrants. No rebound tenderness. No guarding. No CVA tenderness. Musculoskeletal: Normal ROM, no tenderness. Strength 5/5. Sensation intact. Pulses equal bilaterally 2+. Neurological: A&O x 3. CN II-XII intact, There are no obvious motor or sensory deficits. Coordination appears grossly intact. Speech is normal. Skin: Skin is warm and dry and no rashes or lesions are noted. Psychiatric: Cooperative, appropriate mood & affect, normal judgment. Limitations: no limitations Course Vital Signs 11/29/16 13:37 Temperature 97.8 F Pulse Rate 112 H Respiratory 20 Rate Blood Pressure 130/83 O2 Sat by Pulse 99 Oximetry Medical Decision Making - Medical Decision Making Reexamined at this time shows no signs of distress. Does admit that she is feeling better here in emergency room. Given 1500 L bolus. Patient's lipase is 582. Patient's had frequent visits for elevated amylase lipase. Patient will be discharged home given a prescription for Reglan for her nausea. Advised follow-up the family doctor. Advised return here to emergency room if any symptoms increase worsen. States understanding and is in agreement. - Lab Data Result diagrams: 11/29/16 14:40 11/29/16 14:40 Lab Results 11/29/16 11/29/16 Range/Units 14:40 14:40 WBC 10.0 (3.8-10.6) k/uL RBC 5.00 (3.80-5.40) m/uL Hgb 14.2 (11.4-16.0) gm/dL Hct 43.6 (34.0-46.0) % MCV 87.2 (80.0-100.0) fL MCH 28.4 (25.0-35.0) pg MCHC 32.6 (31.0-37.0) g/dL RDW 13.1 (11.5-15.5) % Plt Count 260 (150-450) k/uL Neutrophils % 73 % Lymphocytes % 21 % Monocytes % 4 % Eosinophils % 1 % Basophils % 0 % Neutrophils # 7.3 (1.3-7.7) k/uL Lymphocytes # 2.1 (1.0-4.8) k/uL Monocytes # 0.4 (0-1.0) k/uL Eosinophils # 0.1 (0-0.7) k/uL Basophils # 0.0 (0-0.2) k/uL Sodium 143 (137-145) mmol/L Potassium 5.0 (3.5-5.1) mmol/L Chloride 106 (98-107) mmol/L Carbon Dioxide 27 (22-30) mmol/L Anion Gap 10 mmol/L BUN 9 (7-17) mg/dL Creatinine 1.00 (0.52-1.04) mg/dL Est GFR (MDRD) Af Amer >60 (>60 ml/min/1.73 sqM) Est GFR (MDRD) Non-Af >60 (>60 ml/min/1.73 sqM) Glucose 87 (74-99) mg/dL Calcium 9.7 (8.4-10.2) mg/dL Total Bilirubin 0.4 (0.2-1.3) mg/dL AST 21 (14-36) U/L ALT 29 (9-52) U/L Alkaline Phosphatase 52 (38-126) U/L Total Protein 7.1 (6.3-8.2) g/dL Albumin 4.5 (3.5-5.0) g/dL Amylase 169 H (30-110) U/L Lipase 582 H (23-300) U/L Disposition Clinical Impression: Chronic pancreatitis Disposition: HOME SELF-CARE Condition: Good Instructions: Pancreatitis (ED) Additional Instructions: Please use medication as discussed. Please follow-up with family doctor in the next 2 days of symptoms have not improved. Please return to emergency room if the symptoms increase or worsen or for any other concerns. Prescriptions: Metoclopramide HCl [Reglan] 10 mg PO Q6HR PRN #5 day PRN Reason: Nausea Time of Disposition: 15:38
[2016-11-29 15:01] LABS: Basophils % (A) 0 %; CH 28.7; CHCM 33.1; Eosinophils # (A) 0.1 k/uL (0-0.7); Eosinophils % (A) 1 %; HCT 43.6 % (34.0-46.0); HDW 2.38; HGB 14.2 gm/dL (11.4-16.0); Luc # (Auto) 0.09; Luc % (Auto) 1; Lymphocytes # (A) 2.1 k/uL (1.0-4.8); Lymphocytes % (A) 21 %; MCH 28.4 pg (25.0-35.0); MCHC 32.6 g/dL (31.0-37.0); MCV 87.2 fL (80.0-100.0); Monocytes # (A) 0.4 k/uL (0-1.0); Monocytes % (A) 4 %; Neutrophils # (A) 7.3 k/uL (1.3-7.7); Neutrophils % (A) 73 %; RDW 13.1 % (11.5-15.5); WBC (Perox) 9.89
[2016-11-29 15:12] LABS: ALT 29 U/L (9-52); AST 21 U/L (14-36); Alkaline Phosphatase 52 U/L (38-126); Amylase 169 U/L (30-110); Anion Gap 10 mmol/L; Blood Urea Nitrogen 9 mg/dL (7-17); Calcium 9.7 mg/dL (8.4-10.2); Carbon Dioxide 27 mmol/L (22-30); Chloride 106 mmol/L (98-107); Glucose 87 mg/dL (74-99); Non-African American GFR(MDRD) >60 (>60 ml/min/1.73 sqM); Sodium 143 mmol/L (137-145); Total Bilirubin 0.4 mg/dL (0.2-1.3); Total Protein 7.1 g/dL (6.3-8.2)
[2016-11-29 15:52] VITALS: BP 107/52; PULSE 69; RESP 18
== END 2016-11-29 16:09 | disposition home or self-care (01) ==
LOC: EC 13:35
DX: K86.1 Other chronic pancreatitis (principal); E07.9 Disorder of thyroid, unspecified; F17.200 Nicotine dependence, unspecified, uncomplicated; Z79.899 Other long term (current) drug therapy
CPT/HCPCS: 36415; 80053; 82150; 83690; 85025; 99284; 96374; 96375; 96361; J2765; J1170

== ENCOUNTER 2016-12-01 21:08 | Emergency (ER) | payer OTHER ==
[2016-12-01 21:14] VITALS: RESP 20
[2016-12-01] MEDS ORDERED: PANTOPRAZOLE 40 MG/10 ML VIAL IVP STA (21:51)
[2016-12-01] MEDS ORDERED: METOCLOPRAMIDE 5 MG/ML 2 ML VIAL IVP STA (21:51)
[2016-12-01] MEDS ORDERED: SODIUM CHLORIDE 0.9% 1,000 ML IV STA (21:51)
[2016-12-01] MEDS ORDERED: HYDROmorphone 1 MG/ML 1 ML SYRINGE IVP STA (21:51)
--- NOTE | 2016-12-01 22:00 | ED ---
General Adult HPI - General Source: patient, family, RN notes reviewed, old records reviewed Mode of arrival: ambulatory Limitations: no limitations <Ran Pham - Last Filed: 12/01/16 22:56> <Haroon Hendrickson - Last Filed: 12/01/16 23:31> - General Chief complaint: Abdominal Pain Stated complaint: Dizzy/Weak - History of Present Illness Initial comments: Chief complaint and history of present illness a 31-year-old female who is had a history of recurrent chronic pancreatitis. States she's had had any alcohol for over 10 years. Recently starting to see [facility]. She was in emergency room several days ago with similar complaint. She states been nauseated dizzy weak and tired today. Nausea but no vomiting or diarrhea. She thinks it may been started by eating Welsh food 2 days ago. Complains of midepigastric pain (Ran Pham) - Related Data Home Medications Medication Instructions Recorded Confirmed Biotin 5 mg PO HS 09/10/16 11/29/16 Thyrotone 500mg 500 mg PO HS 09/10/16 11/29/16 Ondansetron Odt [Zofran ODT] 8 mg PO Q8HR PRN 11/02/16 11/29/16 Previous Rx's Medication Instructions Recorded HYDROcodone/APAP 10-325MG [[place] 1 tab PO Q6H PRN #28 tab 11/07/16 10-325] Metoclopramide HCl [Reglan] 10 mg PO Q6HR PRN #5 day 11/29/16 Allergies Allergy/AdvReac Type Severity Reaction Status Date / Time No Known Allergies Allergy Verified 12/01/16 21:14 Review of Systems ROS Other: All systems not noted in ROS Statement are negative. <Ran Pham - Last Filed: 12/01/16 22:56> ROS Other: All systems not noted in ROS Statement are negative. <Haroon Hendrickson - Last Filed: 12/01/16 23:31> ROS Statement: Those systems with pertinent positive or pertinent negative responses have been documented in the HPI. Review of systems. No headache patient doesn't open her eyes during history taking or exam. Denying chest pain does appear to be short of breath. Epigastric pain with examination of her abdomen. All systems are reviewed. Past medical problems GERD, hypothyroidism, acute neck chronic recurrent pancreatitis. Surgeries tonsils and adenoids, reconstruction of of her tympanic membrane, tubal ligation, the patient's family history include ran mother had breast cancer. She denies ALLERGIES she does smoke strongly encouraged stop states she last drank alcohol 10 years ago. She uses marijuana tablets for control nausea and pain. She also uses [place] for pain control. (Ran Pham) Past Medical History Past Medical History: GERD/Reflux, Thyroid Disorder Additional Past Medical History / Comment(s): Acute then chronic pancreatitis x 10 years due to alcohol poisoning, pt was seen for first visit at [facility] on 09/14 and is to begin testing at [facility] on 12/05/16, hypothyroid, chronic bronchitis, PUD. History of Any Multi-Drug Resistant Organisms: None Reported Past Surgical History: Adenoidectomy, Ear Surgery, Tonsillectomy, Tubal Ligation Additional Past Surgical History / Comment(s): multiple tubes in ears, D&C. Past Anesthesia/Blood Transfusion Reactions: No Reported Reaction Past Psychological History: Anxiety Additional Psychological History / Comment(s): Pt resides with her two children ages 4 and 10yrs. She is independent. Smoking Status: Current every day smoker Past Alcohol Use History: None Reported Additional Past Alcohol Use History / Comment(s): Pt states she started smoking about 1998 and is a ppd smoker. She has not drank alcohol in 10 yrs. Past Drug Use History: None Reported Additional Drug Use History / Comment(s): Pt has a medical marijuana card and takes it in the form of a capsule daily. - Past Family History Father Family Medical History: Hyperlipidemia Mother Family Medical History: Congestive Heart Failure (CHF) <Ran Pham - Last Filed: 12/01/16 22:56> General Exam Limitations: no limitations <Ran Pham - Last Filed: 12/01/16 22:56> <Haroon Hendrickson - Last Filed: 12/01/16 23:31> - General Exam Comments Initial Comments: General: The patient is awake and alert, complaining of epigastric area pain nausea no vomiting. Vital signs are temperature 96.3 respiratory rate 20 pulse ox 90% room air blood pressure 132/72. Mildly elevated systolic noted. Patient is in pain. She will be following up with her family physician Eye: Patient did not open her eyes before during or after examination and interview. Ears, nose, mouth and throat: Moist tongue noted while she was talking. Neck: No complaint of neck pain. Cardiovascular: There is a regular rate and rhythm. No murmur, rub or gallop is appreciated. Respiratory: Lungs are clear to auscultation, respirations are non-labored, breath sounds are equal. No wheezes, stridor, rales, or rhonchi. Gastrointestinal: Soft, non-distended, tender to the epigastric region with examination. No organomegaly appreciated.. No CVA tenderness. Bowel sounds are unremarkable. Back: There is no tenderness to palpation in the midline. There is no obvious deformity. No rashes noted. Denying back pain Musculoskeletal: Normal ROM, no tenderness, There is no pedal edema. There is no calf tenderness or swelling. Sensation intact. Neurological: No complaints of any neuro deficits Skin: No complaint of any rashes (Ran Pham) Medical Decision Making - Lab Data Result diagrams: 12/01/16 21:30 12/01/16 21:30 <Ran Pham - Last Filed: 12/01/16 22:56> - Lab Data Result diagrams: 12/01/16 21:30 12/01/16 21:30 <Haroon Hendrickson - Last Filed: 12/01/16 23:31> - Medical Decision Making Medical decision making; patient's white count 11 hemoglobin 13.9 hematocrit of 43, potassium 4.2 with a BUN of 8 creatinine 0.75 the GFR greater than 60. Amylase and lipase within normal limits. Glucose 94. (Ran Pham) Patient signed out to me by Dr. Pham to follow-up urinalysis and x-ray. The patient stated that she rather just go home now. She states that if her lipase is normal she feels comfortable going home right now. She is scheduled to see her doctor at [facility] in the next couple of days. She states that she does not want to have an x-ray performed because she's had one done recently and does not feel that it's going to help with her workup. I examined the patient at bedside and she was soft and nontender at this time. She felt comfortable. We' ll discharge her home. (Haroon Hendrcikson) - Lab Data Lab Results 12/01/16 12/01/16 12/01/16 Range/Units 21:30 21:30 21:30 WBC 11.5 H (3.8-10.6) k/uL RBC 5.00 (3.80-5.40) m/uL Hgb 13.9 (11.4-16.0) gm/dL Hct 43.0 (34.0-46.0) % MCV 86.1 (80.0-100.0) fL MCH 27.8 (25.0-35.0) pg MCHC 32.3 (31.0-37.0) g/dL RDW 13.3 (11.5-15.5) % Plt Count 274 (150-450) k/uL Neutrophils % 67 % Lymphocytes % 25 % Monocytes % 4 % Eosinophils % 1 % Basophils % 0 % Neutrophils # 7.7 (1.3-7.7) k/uL Lymphocytes # 2.9 (1.0-4.8) k/uL Monocytes # 0.5 (0-1.0) k/uL Eosinophils # 0.1 (0-0.7) k/uL Basophils # 0.0 (0-0.2) k/uL Sodium 139 (137-145) mmol/L Potassium 4.2 (3.5-5.1) mmol/L Chloride 103 (98-107) mmol/L Carbon Dioxide 26 (22-30) mmol/L Anion Gap 10 mmol/L BUN 8 (7-17) mg/dL Creatinine 0.75 (0.52-1.04) mg/dL Est GFR (MDRD) Af Amer >60 (>60 ml/min/1.73 sqM) Est GFR (MDRD) Non-Af >60 (>60 ml/min/1.73 sqM) Glucose 94 (74-99) mg/dL Plasma Lactic Acid [place] 1.2 (0.7-2.0) mmol/L Calcium 9.6 (8.4-10.2) mg/dL Total Bilirubin 0.7 (0.2-1.3) mg/dL AST 23 (14-36) U/L ALT 27 (9-52) U/L Alkaline Phosphatase 51 (38-126) U/L Total Protein 7.2 (6.3-8.2) g/dL Albumin 4.5 (3.5-5.0) g/dL Amylase 107 (30-110) U/L Lipase 248 (23-300) U/L Disposition <Ran Pham - Last Filed: 12/01/16 22:56> <Haroon Hendrickson - Last Filed: 12/01/16 23:31> Clinical Impression: Abdominal pain Disposition: HOME SELF-CARE Condition: Stable Instructions: Abdominal Pain (ED) Referrals: Otoniel Lira Jr, [Primary Care Provider] - 1-2 days
[2016-12-01 22:33] VITALS: TEMP 97.5
[2016-12-01 22:34] LABS: Basophils % (A) 0 %; CH 28.6; CHCM 33.3; Eosinophils # (A) 0.1 k/uL (0-0.7); Eosinophils % (A) 1 %; HDW 2.34; HGB 13.9 gm/dL (11.4-16.0); Luc # (Auto) 0.19; Luc % (Auto) 2; Lymphocytes # (A) 2.9 k/uL (1.0-4.8); Lymphocytes % (A) 25 %; MCH 27.8 pg (25.0-35.0); MCHC 32.3 g/dL (31.0-37.0); MCV 86.1 fL (80.0-100.0); Mean Platelet Volume 7.5; Monocytes # (A) 0.5 k/uL (0-1.0); Monocytes % (A) 4 %; Neutrophils # (A) 7.7 k/uL (1.3-7.7); Neutrophils % (A) 67 %; RDW 13.3 % (11.5-15.5); WBC 11.5 k/uL (3.8-10.6); WBC (Perox) 11.71
[2016-12-01 22:43] LABS: ALT 27 U/L (9-52); AST 23 U/L (14-36); Alkaline Phosphatase 51 U/L (38-126); Amylase 107 U/L (30-110); Anion Gap 10 mmol/L; Blood Urea Nitrogen 8 mg/dL (7-17); Calcium 9.6 mg/dL (8.4-10.2); Carbon Dioxide 26 mmol/L (22-30); Chloride 103 mmol/L (98-107); Glucose 94 mg/dL (74-99); Non-African American GFR(MDRD) >60 (>60 ml/min/1.73 sqM); Potassium 4.2 mmol/L (3.5-5.1); Sodium 139 mmol/L (137-145); Total Bilirubin 0.7 mg/dL (0.2-1.3); Total Protein 7.2 g/dL (6.3-8.2)
[2016-12-01 23:21] VITALS: BP 120/72; PULSE 78
[2016-12-01 23:30] LABS: Appearance,Urine Cloudy (Clear); Bacteria,Urine Rare /hpf; Bilirubin,Urine Negative (Negative); Glucose,Urine (UA) Negative (Negative); Ketones,Urine Negative (Negative); Leukocyte Esterase,Urine Negative (Negative); Mucus,Urine Moderate /hpf; Nitrite,Urine Negative (Negative); PH, Urine 5.5 (5.0-8.0); Particle Count 5451; Protein,Urine Negative (Negative); RBC,Urine <1 /hpf (0-5); Squamous Epithelial Cell,Urine 10 /hpf (0-4); UA Billing (MACRO vs. MICRO) MICRO; Urobilinogen,Urine <2.0 mg/dL (<2.0); WBC,Urine 2 /hpf (0-5)
== END 2016-12-01 23:46 | disposition home or self-care (01) ==
LOC: EC 21:08
DX: R10.13 Epigastric pain (principal); F17.200 Nicotine dependence, unspecified, uncomplicated; Z87.19 Personal history of other diseases of the digestive system
CPT/HCPCS: 99284; 96374; 96375 ×2; 96361; 36415; 80053; 82150; 83605; 83690; 85025; 81001; 87086; J2765; J1170; C9113

== ENCOUNTER 2016-12-15 22:00 | Emergency (ER) | payer OTHER ==
[2016-12-15] MEDS ORDERED: PANTOPRAZOLE 40 MG/10 ML VIAL IVP STA (22:09)
[2016-12-15] MEDS ORDERED: MORPHINE SULFATE 4 MG/ML SYRINGE IV STA (22:09)
[2016-12-15] MEDS ORDERED: SODIUM CHLORIDE 0.9% 1,000 ML IV STA ×2 (22:09)
[2016-12-15] MEDS ORDERED: ONDANSETRON 4 MG/2 ML VIAL IVP STA (22:09)
[2016-12-15] MEDS ORDERED: SODIUM CHLORIDE 0.9% 500 ML IV STA (22:09)
--- NOTE | 2016-12-15 22:13 | ED ---
General Adult HPI - General Source: RN notes reviewed, old records reviewed <Newton Fuller - Last Filed: 12/15/16 22:12> <Bhavesh Fisher - Last Filed: 12/16/16 00:09> - General Stated complaint: abdominal pain/nausea Time Seen by Provider: 12/15/16 22:09 - History of Present Illness Initial comments: This is a 31-year-old female ER for bowel pain. Patient's presents with severe bowel pain improving over, history of panic otitis. Patient has a strong a long history of otitis possible admission with the last month. She states she is following up with [facility] for reevaluation in cause. She denies fever, denies diarrhea, admits to nausea with no vomiting. She states she is taking medication at home and symptoms to help with her nausea and pain. At this time there is no help. Patient denies alcohol (Newton Fuller) - Related Data Home Medications Medication Instructions Recorded Confirmed Biotin 5 mg PO HS 09/10/16 12/15/16 Thyrotone 500mg 500 mg PO HS 09/10/16 12/15/16 Ondansetron Odt [Zofran ODT] 8 mg PO Q8HR PRN 11/02/16 12/15/16 Previous Rx's Medication Instructions Recorded HYDROcodone/APAP 10-325MG [[place] 1 tab PO Q6H PRN #28 tab 11/07/16 10-325] Metoclopramide HCl [Reglan] 10 mg PO Q6HR PRN #5 day 11/29/16 Allergies Allergy/AdvReac Type Severity Reaction Status Date / Time No Known Allergies Allergy Verified 12/01/16 21:14 Review of Systems ROS Other: All systems not noted in ROS Statement are negative. <Newton Fuller - Last Filed: 12/15/16 22:12> ROS Other: All systems not noted in ROS Statement are negative. <Bhavesh Fisher - Last Filed: 12/16/16 00:09> ROS Statement: Those systems with pertinent positive or pertinent negative responses have been documented in the HPI. Past Medical History Past Medical History: GERD/Reflux, Thyroid Disorder Additional Past Medical History / Comment(s): Acute then chronic pancreatitis x 10 years due to alcohol poisoning, pt was seen for first visit at [facility] on 09/14 and is to begin testing at [facility] on 12/05/16, hypothyroid, chronic bronchitis, PUD. History of Any Multi-Drug Resistant Organisms: None Reported Past Surgical History: Adenoidectomy, Ear Surgery, Tonsillectomy, Tubal Ligation Additional Past Surgical History / Comment(s): multiple tubes in ears, D&C. Past Anesthesia/Blood Transfusion Reactions: No Reported Reaction Past Psychological History: Anxiety Additional Psychological History / Comment(s): Pt resides with her two children ages 4 and 10yrs. She is independent. Smoking Status: Current every day smoker Past Alcohol Use History: None Reported Additional Past Alcohol Use History / Comment(s): Pt states she started smoking about 1998 and is a ppd smoker. She has not drank alcohol in 10 yrs. Past Drug Use History: None Reported Additional Drug Use History / Comment(s): Pt has a medical marijuana card and takes it in the form of a capsule daily. - Past Family History Father Family Medical History: Hyperlipidemia Mother Family Medical History: Congestive Heart Failure (CHF) <Newton Fuller - Last Filed: 12/15/16 22:12> General Exam General appearance: alert, in no apparent distress Head exam: Present: atraumatic, normocephalic, normal inspection Eye exam: Present: normal appearance, PERRL, EOMI. Absent: scleral icterus, conjunctival injection, periorbital swelling ENT exam: Present: normal exam, mucous membranes moist Neck exam: Present: normal inspection. Absent: tenderness, meningismus, lymphadenopathy Respiratory exam: Present: normal lung sounds bilaterally. Absent: respiratory distress, wheezes, rales, rhonchi, stridor Cardiovascular Exam: Present: regular rate, normal rhythm, normal heart sounds. Absent: systolic murmur, diastolic murmur, rubs, gallop, clicks GI/Abdominal exam: Present: soft, distended, tenderness, normal bowel sounds. Absent: guarding, rebound, rigid Extremities exam: Present: normal inspection, full ROM, normal capillary refill. Absent: tenderness, pedal edema, joint swelling, calf tenderness Back exam: Present: normal inspection Neurological exam: Present: alert, oriented X3, CN II-XII intact Psychiatric exam: Present: normal affect, normal mood Skin exam: Present: warm, dry, intact, normal color. Absent: rash <Newton Fuller - Last Filed: 12/15/16 22:12> Course <Newton Fuller - Last Filed: 12/15/16 22:12> <Bhavesh Fishre - Last Filed: 12/16/16 00:09> Vital Signs 12/15/16 12/15/16 22:11 23:39 Temperature 97.8 F Pulse Rate 80 73 Respiratory 18 18 Rate Blood Pressure 93/67 94/56 O2 Sat by Pulse 96 96 Oximetry - Reevaluation(s) Reevaluation #1: 12/15/16 23:06 Patient reevaluated by myself, Dr. Fisher. Patient still complains of discomfort. Abdomen is soft with mild to moderate. Umbilical tenderness. Patient offered repeat CT and does want this done. (Bhavesh Fisher) Medical Decision Making <Newton Fuller - Last Filed: 12/15/16 22:12> - Lab Data Result diagrams: 12/15/16 22:30 12/15/16 22:30 - Radiology Data Radiology results: report reviewed (Computed tomography scan of the abdomen and pelvis shows possible chronic pancreatitis. Possible mild ileus or enteritis or colitis. No significant interval change.) <Bhavesh Fisher - Last Filed: 12/16/16 00:09> - Medical Decision Making Patient reevaluated and resting comfortably in bed. Patient is comfortable with discharge. Patient updated on results and need for close follow-up. (Bhavesh Fisher) - Lab Data Lab Results 12/15/16 12/15/16 12/15/16 Range/Units 22:30 22:30 22:30 WBC 11.0 H (3.8-10.6) k/uL RBC 4.94 (3.80-5.40) m/uL Hgb 14.1 (11.4-16.0) gm/dL Hct 43.3 (34.0-46.0) % MCV 87.6 (80.0-100.0) fL MCH 28.5 (25.0-35.0) pg MCHC 32.5 (31.0-37.0) g/dL RDW 13.3 (11.5-15.5) % Plt Count 221 (150-450) k/uL Neutrophils % 62 % Lymphocytes % 30 % Monocytes % 4 % Eosinophils % 2 % Basophils % 1 % Neutrophils # 6.8 (1.3-7.7) k/uL Lymphocytes # 3.3 (1.0-4.8) k/uL Monocytes # 0.4 (0-1.0) k/uL Eosinophils # 0.2 (0-0.7) k/uL Basophils # 0.1 (0-0.2) k/uL Sodium 142 (137-145) mmol/L Potassium 4.1 (3.5-5.1) mmol/L Chloride 104 (98-107) mmol/L Carbon Dioxide 28 (22-30) mmol/L Anion Gap 10 mmol/L BUN 10 (7-17) mg/dL Creatinine 0.80 (0.52-1.04) mg/dL Est GFR (MDRD) Af Amer >60 (>60 ml/min/1.73 sqM) Est GFR (MDRD) Non-Af >60 (>60 ml/min/1.73 sqM) Glucose 93 (74-99) mg/dL Calcium 9.4 (8.4-10.2) mg/dL Total Bilirubin 0.4 (0.2-1.3) mg/dL AST 16 (14-36) U/L ALT 26 (9-52) U/L Alkaline Phosphatase 50 (38-126) U/L Total Protein 6.8 (6.3-8.2) g/dL Albumin 4.2 (3.5-5.0) g/dL Amylase 116 H (30-110) U/L Lipase 470 H (23-300) U/L Urine Color Urine Appearance (Clear) Urine pH (5.0-8.0) Ur Specific [place] (1.001-1.035) Urine Protein (Negative) Urine Glucose (UA) (Negative) Urine Ketones (Negative) Urine Blood (Negative) Urine Nitrate (Negative) Urine Bilirubin (Negative) Urine Urobilinogen (<2.0) mg/dL Ur Leukocyte Esterase (Negative) Urine RBC (0-5) /hpf Ur Squamous Epith Cells (0-4) /hpf Amorphous Sediment (None) /hpf Urine Bacteria (None) /hpf Urine Mucus (None) /hpf Urine HCG, Qual Not Detected (Not Detectd) Serum Alcohol <10 mg/dL 12/15/16 Range/Units 22:30 WBC (3.8-10.6) k/uL RBC (3.80-5.40) m/uL Hgb (11.4-16.0) gm/dL Hct (34.0-46.0) % MCV (80.0-100.0) fL MCH (25.0-35.0) pg MCHC (31.0-37.0) g/dL RDW (11.5-15.5) % Plt Count (150-450) k/uL Neutrophils % % Lymphocytes % % Monocytes % % Eosinophils % % Basophils % % Neutrophils # (1.3-7.7) k/uL Lymphocytes # (1.0-4.8) k/uL Monocytes # (0-1.0) k/uL Eosinophils # (0-0.7) k/uL Basophils # (0-0.2) k/uL Sodium (137-145) mmol/L Potassium (3.5-5.1) mmol/L Chloride (98-107) mmol/L Carbon Dioxide (22-30) mmol/L Anion Gap mmol/L BUN (7-17) mg/dL Creatinine (0.52-1.04) mg/dL Est GFR (MDRD) Af Amer (>60 ml/min/1.73 sqM) Est GFR (MDRD) Non-Af (>60 ml/min/1.73 sqM) Glucose (74-99) mg/dL Calcium (8.4-10.2) mg/dL Total Bilirubin (0.2-1.3) mg/dL AST (14-36) U/L ALT (9-52) U/L Alkaline Phosphatase (38-126) U/L Total Protein (6.3-8.2) g/dL Albumin (3.5-5.0) g/dL Amylase (30-110) U/L Lipase (23-300) U/L Urine Color Yellow Urine Appearance Turbid H (Clear) Urine pH 8.0 (5.0-8.0) Ur Specific [place] 1.021 (1.001-1.035) Urine Protein Trace H (Negative) Urine Glucose (UA) Negative (Negative) Urine Ketones Negative (Negative) Urine Blood Negative (Negative) Urine Nitrate Negative (Negative) Urine Bilirubin Negative (Negative) Urine Urobilinogen 2.0 (<2.0) mg/dL Ur Leukocyte Esterase Negative (Negative) Urine RBC 5 (0-5) /hpf Ur Squamous Epith Cells 9 H (0-4) /hpf Amorphous Sediment Rare H (None) /hpf Urine Bacteria Many H (None) /hpf Urine Mucus Occasional H (None) /hpf Urine HCG, Qual (Not Detectd) Serum Alcohol mg/dL Disposition <Newton Fuller - Last Filed: 12/15/16 22:12> <Bhavesh Fisher - Last Filed: 12/16/16 00:09> Clinical Impression: Chronic pancreatitis Disposition: HOME SELF-CARE Condition: Stable Instructions: Pancreatitis (ED) Additional Instructions: Please follow-up with your doctor in the beginning of the week as well as your doctor at [facility]. Return for change or worsening symptoms, fever or other concerns. Referrals: Otoniel Lira Jr, DO [Primary Care Provider] - 1-2 days
[2016-12-15 22:15] VITALS: RESP 18
[2016-12-15 22:47] LABS: Basophils # (A) 0.1 k/uL (0-0.2); Basophils % (A) 1 %; CH 29.1; CHCM 33.4; Eosinophils # (A) 0.2 k/uL (0-0.7); Eosinophils % (A) 2 %; HCT 43.3 % (34.0-46.0); HDW 2.32; HGB 14.1 gm/dL (11.4-16.0); Luc # (Auto) 0.21; Luc % (Auto) 2; Lymphocytes # (A) 3.3 k/uL (1.0-4.8); Lymphocytes % (A) 30 %; MCH 28.5 pg (25.0-35.0); MCHC 32.5 g/dL (31.0-37.0); MCV 87.6 fL (80.0-100.0); Mean Platelet Volume 8.7; Monocytes # (A) 0.4 k/uL (0-1.0); Monocytes % (A) 4 %; Neutrophils # (A) 6.8 k/uL (1.3-7.7); Neutrophils % (A) 62 %; RBC 4.94 m/uL (3.80-5.40); RDW 13.3 % (11.5-15.5); WBC (Perox) 10.94
[2016-12-15 22:54] LABS: Amorphous Sediment,Urine Rare /hpf; Appearance,Urine Turbid (Clear); Bacteria,Urine Many /hpf; Bilirubin,Urine Negative (Negative); Glucose,Urine (UA) Negative (Negative); Ketones,Urine Negative (Negative); Leukocyte Esterase,Urine Negative (Negative); Mucus,Urine Occasional /hpf; Nitrite,Urine Negative (Negative); Particle Count 21662; Protein,Urine Trace (Negative); RBC,Urine 5 /hpf (0-5); Specific Gravity,Urine 1.021 (1.001-1.035); Squamous Epithelial Cell,Urine 9 /hpf (0-4); UA Billing (MACRO vs. MICRO) MICRO
[2016-12-15 22:56] LABS: ALT 26 U/L (9-52); AST 16 U/L (14-36); Alcohol <10 mg/dL; Alkaline Phosphatase 50 U/L (38-126); Amylase 116 U/L (30-110); Anion Gap 10 mmol/L; Blood Urea Nitrogen 10 mg/dL (7-17); Calcium 9.4 mg/dL (8.4-10.2); Carbon Dioxide 28 mmol/L (22-30); Chloride 104 mmol/L (98-107); Glucose 93 mg/dL (74-99); Non-African American GFR(MDRD) >60 (>60 ml/min/1.73 sqM); Potassium 4.1 mmol/L (3.5-5.1); Sodium 142 mmol/L (137-145); Total Bilirubin 0.4 mg/dL (0.2-1.3); Total Protein 6.8 g/dL (6.3-8.2)
[2016-12-15] MEDS ORDERED: RX INFO: IV CONTRAST WAS GIVEN 1 EACH MISC MISCELLANE PRN (23:05)
--- NOTE | 2016-12-15 23:57 | CT ---
EXAMINATION TYPE: CT abdomen pelvis w con DATE OF EXAM: 12/15/2016 11:25 PM COMPARISON: October 23, 2016. HISTORY: Left Flank pain, pancreatitis. History of tubal ligation and hernia repair CT DLP: 433.20 mGycm Automated exposure control for dose reduction was used. TECHNIQUE: Helical acquisition of images was performed from the lung bases through the pelvis. CONTRAST: Performed without Oral Contrast and with IV Contrast, patient injected with 100 mL of Omnipaque 300. FINDINGS: LUNG BASES: No significant abnormality is appreciated. LIVER/GB: Mild fatty infiltration changes of liver. Gallbladder is somewhat contracted. Mild thickeni ng of gallbladder wall is probably related to contracted status. PANCREAS: Pancreas showed mild prominence of pancreatic duct and is probably related to chronic pancr eatitis changes. No definite acute pancreatitis changes are noted at present. No significant enhancin g mass or pseudocyst formation is noted in the visualized pancreas. SPLEEN: No significant abnormality is seen. ADRENALS: No significant abnormality is seen. KIDNEYS: No significant abnormality is seen. RETROPERITONEAL ADENOPATHY: None visualized REPRODUCTIVE ORGANS: Uterus is tilted towards right with thickened endometrium. Cystic changes are no raul in both ovaries with one of the largest cyst measuring 1.8 cm in the axial image 67. Mild free fl uid is suggested in the adnexal areas. URINARY BLADDER: No significant abnormality is seen. PELVIC ADENOPATHY: None visualized. OSSEOUS STRUCTURES: No significant abnormality is seen. BOWEL: Moderate food and fluid distention of stomach. Small bowel loops showed mild fluid/air disten tion with mild ileus with no significant small bowel obstruction. Large amount of fecal material and gas is noted in the colonic bowel loops. [id number] colonic diverticulosis is noted. Mucosal wall thickening is noted in the sigmoid colon in the axial image 65 and there is possibility of mild colitis changes. No significant abscess collection is noted. Appendix is not well visualized. Visualized appendix in the coronal image 34 showed no significant in flammation. OTHER: IMPRESSION: 1. POSSIBLE MILD ILEUS OR ENTERITIS CHANGES INVOLVING SMALL BOWEL LOOPS. 2. POSSIBLE MILD COLITIS CHANGES INVOLVING SIGMOID COLON. THERE IS MILD TO MODERATE COLONIC DIVERTICU LOSIS. PATIENT IS CONSTIPATED. NO FOCAL ABSCESS COLLECTION IS NOTED IN THE ABDOMEN AND PELVIS. 3. 1.8 CM CYST IN THE RIGHT OVARY. 4. VISUALIZED APPENDIX APPEARS UNREMARKABLE. 5. NO HYDRONEPHROSIS OR SIGNIFICANT OBSTRUCTING STONES IN BOTH KIDNEYS. 6. POSSIBLE CHRONIC PANCREATITIS CHANGES. There is no significant interval change.
[2016-12-16 00:17] VITALS: BP 100/55; PULSE 76; TEMP 97
== END 2016-12-16 00:17 | disposition home or self-care (01) ==
LOC: EC 22:00
DX: K86.1 Other chronic pancreatitis (principal); F17.200 Nicotine dependence, unspecified, uncomplicated; F12.90 Cannabis use, unspecified, uncomplicated; Z87.11 Personal history of peptic ulcer disease
CPT/HCPCS: 36415; 80053; 82150; 83690; 85025; 81001; 81025; 80320; 87086; 74177; 99284; 96374; 96375 ×2; 96361 ×2; J2270; J2405; Q9967; C9113

== ENCOUNTER 2017-02-11 20:04 | Emergency (ER) | payer OTHER ==
[2017-02-11 21:03] VITALS: RESP 18
[2017-02-11 22:18] LABS: Basophils % (A) 0 %; CH 28.7; CHCM 32.7; Eosinophils # (A) 0.2 k/uL (0-0.7); Eosinophils % (A) 2 %; HCT 41.6 % (34.0-46.0); HDW 2.16; HGB 13.5 gm/dL (11.4-16.0); Luc # (Auto) 0.16; Luc % (Auto) 2; Lymphocytes # (A) 3.2 k/uL (1.0-4.8); Lymphocytes % (A) 32 %; MCH 28.6 pg (25.0-35.0); MCHC 32.5 g/dL (31.0-37.0); MCV 88.2 fL (80.0-100.0); Mean Platelet Volume 7.7; Monocytes # (A) 0.6 k/uL (0-1.0); Monocytes % (A) 6 %; Neutrophils # (A) 5.8 k/uL (1.3-7.7); Neutrophils % (A) 58 %; RBC 4.72 m/uL (3.80-5.40); RDW 13.7 % (11.5-15.5)
[2017-02-11 22:23] LABS: Amorphous Sediment,Urine Rare /hpf; Appearance,Urine Cloudy (Clear); Bacteria,Urine Few /hpf; Bilirubin,Urine Negative (Negative); Glucose,Urine (UA) Negative (Negative); Ketones,Urine Negative (Negative); Leukocyte Esterase,Urine Trace (Negative); Mucus,Urine Rare /hpf; Nitrite,Urine Negative (Negative); PH, Urine 7.5 (5.0-8.0); Particle Count 9407; Protein,Urine Trace (Negative); Specific Gravity,Urine 1.023 (1.001-1.035); Squamous Epithelial Cell,Urine 4 /hpf (0-4); UA Billing (MACRO vs. MICRO) MICRO; WBC,Urine 4 /hpf (0-5)
[2017-02-11] MEDS ORDERED: METOCLOPRAMIDE 5 MG/ML 2 ML VIAL IVP STA (22:25)
[2017-02-11] MEDS ORDERED: MAG HYDROX/AL HYDROX/SIMETH 30 ML, HYOSCYAMINE ELIXIR 10 ML, CIMETIDINE HCL 300 MG, LID... PO STA ×4 (22:25)
[2017-02-11] MEDS ORDERED: diphenhydrAMINE 50 MG/ML 1 ML VIAL IVP STA (22:25)
[2017-02-11 22:27] LABS: ALT 21 U/L (9-52); AST 20 U/L (14-36); Alkaline Phosphatase 43 U/L (38-126); Anion Gap 8 mmol/L; Blood Urea Nitrogen 12 mg/dL (7-17); Calcium 9.1 mg/dL (8.4-10.2); Carbon Dioxide 26 mmol/L (22-30); Chloride 105 mmol/L (98-107); Glucose 83 mg/dL (74-99); Non-African American GFR(MDRD) >60 (>60 ml/min/1.73 sqM); Potassium 4.1 mmol/L (3.5-5.1); Sodium 139 mmol/L (137-145); Total Bilirubin 0.3 mg/dL (0.2-1.3); Total Protein 6.4 g/dL (6.3-8.2)
[2017-02-11] MEDS: MORPHINE SULFATE 4 MG/ML SYRINGE IVP STA ×2 (22:30→22:31)
[2017-02-11] MEDS ORDERED: HYDROmorphone 1 MG/ML 1 ML SYRINGE IVP STA (22:45)
--- NOTE | 2017-02-11 23:05 | ED ---
General Adult HPI - General Chief complaint: Abdominal Pain Stated complaint: pancreatitis Source: patient Mode of arrival: ambulatory Limitations: no limitations - History of Present Illness Initial comments: 31-year-old female presenting for evaluation of epigastric and left upper quadrant abdominal pain starting today. She states this pain is consistent with her chronic pancreatitis from alcohol abuse. She denies any alcohol consumption prior to her symptoms and states that the pain just came on without stimulation. Worse with eating foods or try to drink anything and is improved with sitting up. She states that the pain is sharp and goes into her back and around her left side. She denies any history of GERD, gastric ulcers, or peptic ulcers. There is associated nausea without vomiting and she denies any constipation or diarrhea. She further denies any fevers chills chest pain shortness of breath. - Related Data Home Medications Medication Instructions Recorded Confirmed Biotin 5 mg PO HS 09/10/16 02/11/17 Thyrotone 500mg 500 mg PO HS 09/10/16 02/11/17 Ondansetron Odt [Zofran ODT] 8 mg PO Q8HR PRN 11/02/16 02/11/17 HYDROcodone/APAP 10-325MG [[place] 1 tab PO Q8H PRN 02/11/17 02/11/17 10-325] Previous Rx's Medication Instructions Recorded Metoclopramide HCl [Reglan] 10 mg PO Q6HR PRN #5 day 11/29/16 HYDROcodone/APAP 5-325MG [[place] 1 - 2 tab PO Q6HR PRN #14 tab 02/11/17 5-325] Ibuprofen [Motrin] 800 mg PO Q8HR PRN #20 tab 02/11/17 Allergies Allergy/AdvReac Type Severity Reaction Status Date / Time morphine AdvReac Nausea Verified 02/11/17 22:32 Review of Systems ROS Statement: Those systems with pertinent positive or pertinent negative responses have been documented in the HPI. ROS Other: All systems not noted in ROS Statement are negative. Constitutional: Denies: fever, chills, weight change, night sweats Eyes: Denies: eye pain, vision change ENT: Denies: ear pain, throat pain, hearing loss Respiratory: Denies: cough, dyspnea, wheezes, hemoptysis Cardiovascular: Denies: chest pain, palpitations Endocrine: Denies: fatigue, polydipsia, polyuria Gastrointestinal: Reports: abdominal pain, nausea. Denies: vomiting, diarrhea, constipation, melena, hematochezia Genitourinary: Denies: urgency, dysuria Musculoskeletal: Reports: back pain (Radiation of pain in the back). Denies: arthralgia, myalgia Skin: Denies: rash, lesions Neurological: Denies: headache, weakness Psychiatric: Denies: anxiety, depression Hematological/Lymphatic: Denies: easy bleeding, easy bruising Past Medical History Past Medical History: GERD/Reflux, Thyroid Disorder Additional Past Medical History / Comment(s): Acute then chronic pancreatitis x 10 years due to alcohol poisoning, pt was seen for first visit at [facility] on 09/14 and is to begin testing at [facility] on 12/05/16, hypothyroid, chronic bronchitis, PUD. History of Any Multi-Drug Resistant Organisms: None Reported Past Surgical History: Adenoidectomy, Ear Surgery, Tonsillectomy, Tubal Ligation Additional Past Surgical History / Comment(s): multiple tubes in ears, D&C. Past Anesthesia/Blood Transfusion Reactions: No Reported Reaction Past Psychological History: Anxiety Additional Psychological History / Comment(s): Pt resides with her two children ages 4 and 10yrs. She is independent. Smoking Status: Current every day smoker Past Alcohol Use History: None Reported Additional Past Alcohol Use History / Comment(s): Pt states she started smoking about 1998 and is a ppd smoker. She has not drank alcohol in 10 yrs. Past Drug Use History: None Reported Additional Drug Use History / Comment(s): Pt has a medical marijuana card and takes it in the form of a capsule daily. - Past Family History Father Family Medical History: Hyperlipidemia Mother Family Medical History: Congestive Heart Failure (CHF) General Exam Limitations: no limitations General appearance: alert, in no apparent distress Head exam: Present: atraumatic, normocephalic, normal inspection Eye exam: Present: normal appearance, PERRL, EOMI. Absent: scleral icterus, conjunctival injection, periorbital swelling ENT exam: Present: normal exam, mucous membranes moist Neck exam: Present: normal inspection. Absent: tenderness, meningismus, lymphadenopathy Respiratory exam: Present: normal lung sounds bilaterally. Absent: respiratory distress, wheezes, rales, rhonchi, stridor Cardiovascular Exam: Present: regular rate, normal rhythm, normal heart sounds. Absent: systolic murmur, diastolic murmur, rubs, gallop, clicks GI/Abdominal exam: Present: soft, tenderness (Epigastric and left upper quadrant ), normal bowel sounds. Absent: distended, guarding, rebound, rigid Rectal exam: Present: deferred Extremities exam: Present: normal inspection, full ROM, normal capillary refill. Absent: tenderness, pedal edema, joint swelling, calf tenderness Back exam: Present: normal inspection Neurological exam: Present: alert, oriented X3, CN II-XII intact Psychiatric exam: Present: normal affect, normal mood Skin exam: Present: warm, dry, intact, normal color. Absent: rash Course Vital Signs 02/11/17 02/11/17 21:00 23:14 Temperature 98.5 F 97.6 F Pulse Rate 98 79 Respiratory 18 18 Rate Blood Pressure 118/73 108/66 O2 Sat by Pulse 98 100 Oximetry Medical Decision Making - Medical Decision Making 31-year-old female presenting for evaluation of epigastric and left upper quadrant pain that she states is consistent with her chronic pancreatitis. There is no preceding etiology that would explain her symptoms. On physical examination she appears mildly distressed and has left upper quadrant tenderness to palpation and only mild epigastric abdominal tenderness. The remainder of the physical exam is benign and reveals no rashes or peritoneal signs of guarding rigidity or rebound. Patient's labs revealed a mild elevation in her lipase but otherwise no significant abnormalities. She was ordered morphine for her pain control but when the nurse went into the room to provided she stated that the morphine will cause projectile vomiting. When told that the ordering physician was in the middle of her preseizure she stated that she would take the morphine but that someone would have to clean up all the emesis. No medications were given until after the procedures were completed and she was given Dilaudid which she tolerated well. She was informed of all results and that she would be discharged with instructions to follow-up with her primary care physician. On reevaluation she had marked improvement in her symptoms and stated that she would like to be discharged home. She was advised to return if her symptoms should worsen or persist. She acknowledged an understanding of this information and agreed with this plan of care. - Lab Data Result diagrams: 02/11/17 22:10 02/11/17 22:10 Lab Results 02/11/17 02/11/1702/11/17 Range/Units 22:10 22:10 22:10 WBC 10.0 (3.8-10.6) k/uL RBC 4.72 (3.80-5.40) m/uL Hgb 13.5 (11.4-16.0) gm/dL Hct 41.6 (34.0-46.0) % MCV 88.2 (80.0-100.0) fL MCH 28.6 (25.0-35.0) pg MCHC 32.5 (31.0-37.0) g/dL RDW 13.7 (11.5-15.5) % Plt Count 192 (150-450) k/uL Neutrophils % 58 % Lymphocytes % 32 % Monocytes % 6 % Eosinophils % 2 % Basophils % 0 % Neutrophils # 5.8 (1.3-7.7) k/uL Lymphocytes # 3.2 (1.0-4.8) k/uL Monocytes # 0.6 (0-1.0) k/uL Eosinophils # 0.2 (0-0.7) k/uL Basophils # 0.0 (0-0.2) k/uL Sodium 139 (137-145) mmol/L Potassium 4.1 (3.5-5.1) mmol/L Chloride 105 (98-107) mmol/L Carbon Dioxide 26 (22-30) mmol/L Anion Gap 8 mmol/L BUN 12 (7-17) mg/dL Creatinine 0.80 (0.52-1.04) mg/dL Est GFR (MDRD) Af Amer >60 (>60 ml/min/1.73 sqM) Est GFR (MDRD) Non-Af >60 (>60 ml/min/1.73 sqM) Glucose 83 (74-99) mg/dL Calcium 9.1 (8.4-10.2) mg/dL Total Bilirubin 0.3 (0.2-1.3) mg/dL AST 20 (14-36) U/L ALT 21 (9-52) U/L Alkaline Phosphatase 43 (38-126) U/L Total Protein 6.4 (6.3-8.2) g/dL Albumin 3.9 (3.5-5.0) g/dL Lipase 708 H (23-300) U/L Urine Color Urine Appearance (Clear) Urine pH (5.0-8.0) Ur Specific [place] (1.001-1.035) Urine Protein (Negative) Urine Glucose (UA) (Negative) Urine Ketones (Negative) Urine Blood (Negative) Urine Nitrite (Negative) Urine Bilirubin (Negative) Urine Urobilinogen (<2.0) mg/dL Ur Leukocyte Esterase (Negative) Urine WBC (0-5) /hpf Ur Squamous Epith Cells (0-4) /hpf Amorphous Sediment (None) /hpf Urine Bacteria (None) /hpf Urine Mucus (None) /hpf Urine HCG, Qual Not Detected (Not Detectd) 02/11/17 Range/Units 22:10 WBC (3.8-10.6) k/uL RBC (3.80-5.40) m/uL Hgb (11.4-16.0) gm/dL Hct (34.0-46.0) % MCV (80.0-100.0) fL MCH (25.0-35.0) pg MCHC (31.0-37.0) g/dL RDW (11.5-15.5) % Plt Count (150-450) k/uL Neutrophils % % Lymphocytes % % Monocytes % % Eosinophils % % Basophils % % Neutrophils # (1.3-7.7) k/uL Lymphocytes # (1.0-4.8) k/uL Monocytes # (0-1.0) k/uL Eosinophils # (0-0.7) k/uL Basophils # (0-0.2) k/uL Sodium (137-145) mmol/L Potassium (3.5-5.1) mmol/L Chloride (98-107) mmol/L Carbon Dioxide (22-30) mmol/L Anion Gap mmol/L BUN (7-17) mg/dL Creatinine (0.52-1.04) mg/dL Est GFR (MDRD) Af Amer (>60 ml/min/1.73 sqM) Est GFR (MDRD) Non-Af (>60 ml/min/1.73 sqM) Glucose (74-99) mg/dL Calcium (8.4-10.2) mg/dL Total Bilirubin (0.2-1.3) mg/dL AST (14-36) U/L ALT (9-52) U/L Alkaline Phosphatase (38-126) U/L Total Protein (6.3-8.2) g/dL Albumin (3.5-5.0) g/dL Lipase (23-300) U/L Urine Color Yellow Urine Appearance Cloudy H (Clear) Urine pH 7.5 (5.0-8.0) Ur Specific [place] 1.023 (1.001-1.035) Urine Protein Trace H (Negative) Urine Glucose (UA) Negative (Negative) Urine Ketones Negative (Negative) Urine Blood Negative (Negative) Urine Nitrite Negative (Negative) Urine Bilirubin Negative (Negative) Urine Urobilinogen 2.0 (<2.0) mg/dL Ur Leukocyte Esterase Trace H (Negative) Urine WBC 4 (0-5) /hpf Ur Squamous Epith Cells 4 (0-4) /hpf Amorphous Sediment Rare H (None) /hpf Urine Bacteria Few H (None) /hpf Urine Mucus Rare H (None) /hpf Urine HCG, Qual (Not Detectd) Disposition Clinical Impression: Abdominal pain, Nausea and vomiting Disposition: HOME SELF-CARE Condition: Stable Instructions: Pancreatitis (ED) Additional Instructions: Please use medication as discussed. Please follow up with family doctor if symptoms have not improved over the next two days. Please return to the emergency room if your symptoms increase or worsen or for any other concerns. Prescriptions: HYDROcodone/APAP 5-325MG [[place] 5-325] 1 - 2 tab PO Q6HR PRN #14 tab PRN Reason: Analgesia Ibuprofen [Motrin] 800 mg PO Q8HR PRN #20 tab PRN Reason: Analgesia Referrals: Otoniel Lira Jr, DO [Primary Care Provider] - 1-2 days Time of Disposition: 23:04
[2017-02-11 23:14] VITALS: BP 108/66; PULSE 79; TEMP 97.6
== END 2017-02-11 23:14 | disposition home or self-care (01) ==
LOC: EC 20:04
DX: R10.12 Left upper quadrant pain (principal); R10.13 Epigastric pain; R11.2 Nausea with vomiting, unspecified; E03.9 Hypothyroidism, unspecified; F17.200 Nicotine dependence, unspecified, uncomplicated; Z79.899 Other long term (current) drug therapy; Z88.5 Allergy status to narcotic agent
CPT/HCPCS: 99284 ×2; 96374 ×2; 96375 ×4; 36415; 80053; 83690; 85025; 81001; 81025; J1200; J2765; J1170

== ENCOUNTER 2017-02-28 18:51 | Emergency (ER) | payer OTHER ==
[2017-02-28] MEDS ORDERED: HYDROmorphone 1 MG/ML 1 ML SYRINGE IVP STA (19:07)
[2017-02-28] MEDS ORDERED: ONDANSETRON 4 MG/2 ML VIAL IVP STA (19:07)
[2017-02-28] MEDS ORDERED: SODIUM CHLORIDE 0.9% 1,000 ML IV STA ×2 (19:07)
--- NOTE | 2017-02-28 19:11 | ED ---
General Adult HPI - General Chief complaint: Abdominal Pain Stated complaint: pancreatitis Time Seen by Provider: 02/28/17 19:04 Source: patient, RN notes reviewed, old records reviewed Mode of arrival: ambulatory Limitations: no limitations - History of Present Illness Initial comments: Patient's 31-year-old female significant past medical history for pancreatitis, who presents emergency room today with a chief complaint of increased pain over the last 4 days. Patient does admit to pain left side of the abdomen. It is some nausea. States that symptoms are consistent with hypertensive she's had in the past. Patient denies any complaints or associated symptoms at this time. Patient denies any recent fever, chills, shortness of breath, chest pain, back pain, numbness or tingling, dysuria or hematuria, constipation or diarrhea , headaches or visual changes, or any other complaints. - Related Data Home Medications Medication Instructions Recorded Confirmed Biotin 5 mg PO HS 09/10/16 02/28/17 Thyrotone 500mg 500 mg PO HS 09/10/16 02/28/17 Ondansetron Odt [Zofran ODT] 8 mg PO Q8HR PRN 11/02/16 02/28/17 HYDROcodone/APAP 10-325MG [[place] 1 tab PO Q8H PRN 02/11/17 02/28/17 10-325] Metoclopramide HCl [Reglan] 10 mg PO Q8H PRN 02/28/17 02/28/17 Allergies Allergy/AdvReac Type Severity Reaction Status Date / Time morphine AdvReac Nausea Verified 02/28/17 19:09 Review of Systems ROS Statement: Those systems with pertinent positive or pertinent negative responses have been documented in the HPI. ROS Other: All systems not noted in ROS Statement are negative. Past Medical History Past Medical History: GERD/Reflux, Thyroid Disorder Additional Past Medical History / Comment(s): Acute then chronic pancreatitis , chronic bronchitis, PUD. History of Any Multi-Drug Resistant Organisms: None Reported Past Surgical History: Adenoidectomy, Ear Surgery, Tonsillectomy, Tubal Ligation Additional Past Surgical History / Comment(s): multiple tubes in ears, D&C. Past Anesthesia/Blood Transfusion Reactions: No Reported Reaction Past Psychological History: Anxiety Additional Psychological History / Comment(s): Pt resides with her two children ages 4 and 10yrs. She is independent. Smoking Status: Current every day smoker Past Alcohol Use History: None Reported Additional Past Alcohol Use History / Comment(s): Pt states she started smoking about 1998 and is a ppd smoker. She has not drank alcohol in 10 yrs. Past Drug Use History: None Reported Additional Drug Use History / Comment(s): Pt has a medical marijuana card and takes it in the form of a capsule daily. - Past Family History Father Family Medical History: Hyperlipidemia Mother Family Medical History: Congestive Heart Failure (CHF) General Exam - General Exam Comments Initial Comments: General: The patient is awake and alert, in no distress, and does not appear acutely ill. Eye: Pupils are equal, round and reactive to light, extra-ocular movements are intact. No nystagmus. There is normal conjunctiva bilaterally. No signs of icterus. Ears, nose, mouth and throat: There are moist mucous membranes and no oral lesions. Neck: The neck is supple, there is no tenderness or JVD. Cardiovascular: There is a regular rate and rhythm. No murmur, rub or gallop is appreciated. Respiratory: Lungs are clear to auscultation, respirations are non-labored, breath sounds are equal. No wheezes, stridor, rales, or rhonchi. Gastrointestinal: The abdomen. Normal bowel sounds. Soft on palpation. Patient does have tenderness left side of the abdomen. No rebound tenderness. No guarding. Musculoskeletal: Normal ROM, no tenderness. Strength 5/5. Sensation intact. Pulses equal bilaterally 2+. Neurological: A&O x 3. CN II-XII intact, There are no obvious motor or sensory deficits. Coordination appears grossly intact. Speech is normal. Skin: Skin is warm and dry and no rashes or lesions are noted. Psychiatric: Cooperative, appropriate mood & affect, normal judgment. Limitations: no limitations Course Vital Signs 02/28/17 18:58 Temperature 97.9 F Pulse Rate 90 Respiratory 20 Rate Blood Pressure 117/65 O2 Sat by Pulse 100 Oximetry Medical Decision Making - Medical Decision Making Patient reexamined at this time shows no signs of distress. Patient's lipase 597. At this time feeling better. Patient will be discharged home after advised return if any symptoms increase or worsen. - Lab Data Result diagrams: 02/28/17 19:14 02/28/17 19:14 Lab Results 05/03/17 05/03/17 Range/Units 19:14 19:14 WBC 8.1 (3.8-10.6) k/uL RBC 4.80 (3.80-5.40) m/uL Hgb 13.9 (11.4-16.0) gm/dL Hct 41.3 (34.0-46.0) % MCV 85.9 (80.0-100.0) fL MCH 28.9 (25.0-35.0) pg MCHC 33.6 (31.0-37.0) g/dL RDW 13.0 (11.5-15.5) % Plt Count 233 (150-450) k/uL Neutrophils % 59 % Lymphocytes % 32 % Monocytes % 5 % Eosinophils % 2 % Basophils % 1 % Neutrophils # 4.8 (1.3-7.7) k/uL Lymphocytes # 2.6 (1.0-4.8) k/uL Monocytes # 0.4 (0-1.0) k/uL Eosinophils # 0.1 (0-0.7) k/uL Basophils # 0.1 (0-0.2) k/uL Sodium 141 (137-145) mmol/L Potassium 3.8 (3.5-5.1) mmol/L Chloride 106 (98-107) mmol/L Carbon Dioxide 27 (22-30) mmol/L Anion Gap 8 mmol/L BUN 10 (7-17) mg/dL Creatinine 0.80 (0.52-1.04) mg/dL Est GFR (MDRD) Af Amer >60 (>60 ml/min/1.73 sqM) Est GFR (MDRD) Non-Af >60 (>60 ml/min/1.73 sqM) Glucose 96 (74-99) mg/dL Calcium 9.5 (8.4-10.2) mg/dL Total Bilirubin 0.3 (0.2-1.3) mg/dL AST 20 (14-36) U/L ALT 25 (9-52) U/L Alkaline Phosphatase 48 (38-126) U/L Total Protein 6.8 (6.3-8.2) g/dL Albumin 4.3 (3.5-5.0) g/dL Amylase 178 H (30-110) U/L Lipase 597 H (23-300) U/L Disposition Clinical Impression: Chronic pancreatitis Disposition: HOME SELF-CARE Condition: Good Instructions: Abdominal Pain (ED) Additional Instructions: Please use medication as discussed. Please follow-up with family doctor in the next 2 days of symptoms have not improved. Please return to emergency room if the symptoms increase or worsen or for any other concerns. Time of Disposition: 19:57
[2017-02-28 19:26] LABS: Basophils # (A) 0.1 k/uL (0-0.2); Basophils % (A) 1 %; CHCM 33.8; Eosinophils # (A) 0.1 k/uL (0-0.7); Eosinophils % (A) 2 %; HCT 41.3 % (34.0-46.0); HDW 2.21; HGB 13.9 gm/dL (11.4-16.0); Luc # (Auto) 0.14; Luc % (Auto) 2; Lymphocytes # (A) 2.6 k/uL (1.0-4.8); Lymphocytes % (A) 32 %; MCH 28.9 pg (25.0-35.0); MCHC 33.6 g/dL (31.0-37.0); MCV 85.9 fL (80.0-100.0); Monocytes # (A) 0.4 k/uL (0-1.0); Monocytes % (A) 5 %; Neutrophils # (A) 4.8 k/uL (1.3-7.7); Neutrophils % (A) 59 %; WBC 8.1 k/uL (3.8-10.6); WBC (Perox) 7.64
[2017-02-28 19:32] LABS: ALT 25 U/L (9-52); AST 20 U/L (14-36); Alkaline Phosphatase 48 U/L (38-126); Amylase 178 U/L (30-110); Anion Gap 8 mmol/L; Blood Urea Nitrogen 10 mg/dL (7-17); Calcium 9.5 mg/dL (8.4-10.2); Carbon Dioxide 27 mmol/L (22-30); Chloride 106 mmol/L (98-107); Glucose 96 mg/dL (74-99); Non-African American GFR(MDRD) >60 (>60 ml/min/1.73 sqM); Potassium 3.8 mmol/L (3.5-5.1); Sodium 141 mmol/L (137-145); Total Bilirubin 0.3 mg/dL (0.2-1.3); Total Protein 6.8 g/dL (6.3-8.2)
[2017-02-28] MEDS ORDERED: SODIUM CHLORIDE 0.9% 500 ML IV STA (19:54)
[2017-02-28 20:25] VITALS: BP 112/70; PULSE 69; RESP 18; TEMP 98.2
== END 2017-02-28 20:58 | disposition home or self-care (01) ==
LOC: EC 18:51
DX: K86.1 Other chronic pancreatitis (principal); E07.9 Disorder of thyroid, unspecified; F17.200 Nicotine dependence, unspecified, uncomplicated; Z88.5 Allergy status to narcotic agent; Z79.899 Other long term (current) drug therapy
CPT/HCPCS: 99284; 96374; 96375; 96361 ×2; 36415; 80053; 82150; 83690; 85025; J2405; J1170

== ENCOUNTER 2017-03-13 06:43 | Inpatient (IN) | payer OTHER ==
[2017-03-13] MEDS ORDERED: ONDANSETRON 4 MG/2 ML VIAL IVP STA (07:20)
[2017-03-13] MEDS ORDERED: PANTOPRAZOLE 40 MG/10 ML VIAL IVP STA (07:20)
[2017-03-13] MEDS ORDERED: MORPHINE SULFATE 4 MG/ML SYRINGE IV STA (07:20)
[2017-03-13] MEDS ORDERED: SODIUM CHLORIDE 0.9% 1,000 ML IV STA (07:20)
[2017-03-13 07:38] LABS: Basophils % (A) 0 %; CH 28.9; Eosinophils # (A) 0.1 k/uL (0-0.7); Eosinophils % (A) 2 %; HCT 43.9 % (34.0-46.0); HDW 2.26; HGB 14.9 gm/dL (11.4-16.0); Luc # (Auto) 0.16; Luc % (Auto) 2; Lymphocytes # (A) 2.5 k/uL (1.0-4.8); Lymphocytes % (A) 29 %; MCH 28.9 pg (25.0-35.0); MCHC 33.9 g/dL (31.0-37.0); MCV 85.2 fL (80.0-100.0); Mean Platelet Volume 7.7; Monocytes # (A) 0.5 k/uL (0-1.0); Monocytes % (A) 6 %; Neutrophils # (A) 5.3 k/uL (1.3-7.7); Neutrophils % (A) 62 %; RBC 5.15 m/uL (3.80-5.40); RDW 12.8 % (11.5-15.5); WBC 8.6 k/uL (3.8-10.6); WBC (Perox) 7.63
--- NOTE | 2017-03-13 07:57 | ED ---
General Adult HPI - General Chief complaint: Abdominal Pain Stated complaint: Abdominal Pain/Nausea Time Seen by Provider: 03/13/17 07:16 Source: patient, family, RN notes reviewed, old records reviewed Mode of arrival: ambulatory Limitations: no limitations - History of Present Illness Initial comments: This is a 31-year-old female here for evaluation and [place], left upper quadrant bowel pain epigastric about pain. He does have history of bowel pain history of pancreatitis. Patient states she has mild nausea no vomiting denies chance of . No fevers. No recent abdominal surgeries. - Related Data Home Medications Medication Instructions Recorded Confirmed Biotin 5 mg PO HS 09/10/16 03/13/17 Thyrotone 500mg 500 mg PO HS 09/10/16 03/13/17 Ondansetron Odt [Zofran ODT] 8 mg PO Q8HR PRN 11/02/16 03/13/17 HYDROcodone/APAP 10-325MG [[place] 1 tab PO Q8H PRN 02/11/17 03/13/17 10-325] Metoclopramide HCl [Reglan] 10 mg PO Q8H PRN 02/28/17 03/13/17 Allergies Allergy/AdvReac Type Severity Reaction Status Date / Time morphine AdvReac Nausea Verified 03/13/17 08:40 Review of Systems ROS Statement: Those systems with pertinent positive or pertinent negative responses have been documented in the HPI. ROS Other: All systems not noted in ROS Statement are negative. Past Medical History Past Medical History: GERD/Reflux, Thyroid Disorder Additional Past Medical History / Comment(s): Acute then chronic pancreatitis , chronic bronchitis, PUD. History of Any Multi-Drug Resistant Organisms: None Reported Past Surgical History: Adenoidectomy, Ear Surgery, Tonsillectomy, Tubal Ligation Additional Past Surgical History / Comment(s): multiple tubes in ears, D&C. Past Anesthesia/Blood Transfusion Reactions: No Reported Reaction Past Psychological History: Anxiety Additional Psychological History / Comment(s): Pt resides with her two children ages 4 and 10yrs. She is independent. Smoking Status: Current every day smoker Past Alcohol Use History: None Reported Additional Past Alcohol Use History / Comment(s): Pt states she started smoking about 1998 and is a ppd smoker. She has not drank alcohol in 10 yrs. Past Drug Use History: None Reported Additional Drug Use History / Comment(s): Pt has a medical marijuana card and takes it in the form of a capsule daily. - Past Family History Father Family Medical History: Hyperlipidemia Mother Family Medical History: Congestive Heart Failure (CHF) General Exam Limitations: no limitations General appearance: alert, in no apparent distress Head exam: Present: atraumatic, normocephalic, normal inspection Eye exam: Present: normal appearance, PERRL, EOMI. Absent: scleral icterus, conjunctival injection, periorbital swelling ENT exam: Present: normal exam, mucous membranes moist Neck exam: Present: normal inspection. Absent: tenderness, meningismus, lymphadenopathy Respiratory exam: Present: normal lung sounds bilaterally. Absent: respiratory distress, wheezes, rales, rhonchi, stridor Cardiovascular Exam: Present: regular rate, normal rhythm, normal heart sounds. Absent: systolic murmur, diastolic murmur, rubs, gallop, clicks GI/Abdominal exam: Present: soft, tenderness, guarding (Voluntary, epigastric), normal bowel sounds. Absent: distended, rebound, rigid Extremities exam: Present: normal inspection, full ROM, normal capillary refill. Absent: tenderness, pedal edema, joint swelling, calf tenderness Back exam: Present: normal inspection Neurological exam: Present: alert, oriented X3, CN II-XII intact Psychiatric exam: Present: normal affect, normal mood Skin exam: Present: warm, dry, intact, normal color. Absent: rash Course Vital Signs 03/13/17 03/13/17 06:48 08:26 Temperature 97.2 F L 97.3 F L Pulse Rate 87 68 Respiratory 18 16 Rate Blood Pressure 107/64 92/50 O2 Sat by Pulse 100 99 Oximetry - Reevaluation(s) Reevaluation #1: 03/13/17 10:09 Patient with no real clinical improvement despite pain control and IV hydration Medical Decision Making - Medical Decision Making 31 female DO NOT RESUSCITATE with severe pancreatitis, patient coming in with nausea vomiting decreased appetite dehydration and positive pancreatitis. Patient will be made for IV hydration and symptom control - Lab Data Result diagrams: 03/13/17 07:02 03/13/17 07:02 Lab Results 03/13/17 03/13/17 03/13/17 Range/Units 07:02 07:02 07:02 WBC 8.6 (3.8-10.6) k/uL RBC 5.15 (3.80-5.40) m/uL Hgb 14.9 (11.4-16.0) gm/dL Hct 43.9 (34.0-46.0) % MCV 85.2 (80.0-100.0) fL MCH 28.9 (25.0-35.0) pg MCHC 33.9 (31.0-37.0) g/dL RDW 12.8 (11.5-15.5) % Plt Count 239 (150-450) k/uL Neutrophils % 62 % Lymphocytes % 29 % Monocytes % 6 % Eosinophils % 2 % Basophils % 0 % Neutrophils # 5.3 (1.3-7.7) k/uL Lymphocytes # 2.5 (1.0-4.8) k/uL Monocytes # 0.5 (0-1.0) k/uL Eosinophils # 0.1 (0-0.7) k/uL Basophils # 0.0 (0-0.2) k/uL Sodium 139 (137-145) mmol/L Potassium 4.3 (3.5-5.1) mmol/L Chloride 106 (98-107) mmol/L Carbon Dioxide 24 (22-30) mmol/L Anion Gap 9 mmol/L BUN 13 (7-17) mg/dL Creatinine 0.81 (0.52-1.04) mg/dL Est GFR (MDRD) Af Amer >60 (>60 ml/min/1.73 sqM) Est GFR (MDRD) Non-Af >60 (>60 ml/min/1.73 sqM) Glucose 102 H (74-99) mg/dL Plasma Lactic Acid [place] (0.7-2.0) mmol/L Calcium 9.2 (8.4-10.2) mg/dL Total Bilirubin 0.8 (0.2-1.3) mg/dL AST 19 (14-36) U/L ALT 19 (9-52) U/L Alkaline Phosphatase 55 (38-126) U/L Total Creatine Kinase 106 (30-135) U/L CK-MB (CK-2) 0.5 (0.0-2.4) ng/mL CK-MB (CK-2) Rel Index 0.5 Total Protein 7.1 (6.3-8.2) g/dL Albumin 4.3 (3.5-5.0) g/dL Amylase 311 H* (30-110) U/L Lipase 2266 H (23-300) U/L Urine Color Urine Appearance (Clear) Urine pH (5.0-8.0) Ur Specific [place] (1.001-1.035) Urine Protein (Negative) Urine Glucose (UA) (Negative) Urine Ketones (Negative) Urine Blood (Negative) Urine Nitrite (Negative) Urine Bilirubin (Negative) Urine Urobilinogen (<2.0) mg/dL Ur Leukocyte Esterase (Negative) Urine WBC (0-5) /hpf Ur Squamous Epith Cells (0-4) /hpf Urine Mucus (None) /hpf Urine HCG, Qual (Not Detectd) Serum Alcohol <10 mg/dL 03/13/17 03/13/17 03/13/17 Range/Units 07:35 08:14 08:14 WBC (3.8-10.6) k/uL RBC (3.80-5.40) m/uL Hgb (11.4-16.0) gm/dL Hct (34.0-46.0) % MCV (80.0-100.0) fL MCH (25.0-35.0) pg MCHC (31.0-37.0) g/dL RDW (11.5-15.5) % Plt Count (150-450) k/uL Neutrophils % % Lymphocytes % % Monocytes % % Eosinophils % % Basophils % % Neutrophils # (1.3-7.7) k/uL Lymphocytes # (1.0-4.8) k/uL Monocytes # (0-1.0) k/uL Eosinophils # (0-0.7) k/uL Basophils # (0-0.2) k/uL Sodium (137-145) mmol/L Potassium (3.5-5.1) mmol/L Chloride (98-107) mmol/L Carbon Dioxide (22-30) mmol/L Anion Gap mmol/L BUN (7-17) mg/dL Creatinine (0.52-1.04) mg/dL Est GFR (MDRD) Af Amer (>60 ml/min/1.73 sqM) Est GFR (MDRD) Non-Af (>60 ml/min/1.73 sqM) Glucose (74-99) mg/dL Plasma Lactic Acid [place] 0.8 (0.7-2.0) mmol/L Calcium (8.4-10.2) mg/dL Total Bilirubin (0.2-1.3) mg/dL AST (14-36) U/L ALT (9-52) U/L Alkaline Phosphatase (38-126) U/L Total Creatine Kinase (30-135) U/L CK-MB (CK-2) (0.0-2.4) ng/mL CK-MB (CK-2) Rel Index Total Protein (6.3-8.2) g/dL Albumin (3.5-5.0) g/dL Amylase (30-110) U/L Lipase (23-300) U/L Urine Color Yellow Urine Appearance Cloudy H (Clear) Urine pH 5.5 (5.0-8.0) Ur Specific [place] 1.024 (1.001-1.035) Urine Protein Trace H (Negative) Urine Glucose (UA) Negative (Negative) Urine Ketones Negative (Negative) Urine Blood Negative (Negative) Urine Nitrite Negative (Negative) Urine Bilirubin Negative (Negative) Urine Urobilinogen 2.0 (<2.0) mg/dL Ur Leukocyte Esterase Negative (Negative) Urine WBC 1 (0-5) /hpf Ur Squamous Epith Cells 8 H (0-4) /hpf Urine Mucus Many H (None) /hpf Urine HCG, Qual Not Detected (Not Detectd) Serum Alcohol mg/dL Disposition Clinical Impression: Acute pancreatitis, Abdominal pain, Nausea and vomiting Disposition: ADMITTED IP TO THIS [facility] Condition: Fair Referrals: Otoniel Lira Jr, [Primary Care Provider] - 1-2 days
[2017-03-13 08:16] LABS: Creatine Kinase MB 0.5 ng/mL (0.0-2.4)
[2017-03-13 08:31] LABS: ALT 19 U/L (9-52); AST 19 U/L (14-36); Alcohol <10 mg/dL; Alkaline Phosphatase 55 U/L (38-126); Anion Gap 9 mmol/L; Blood Urea Nitrogen 13 mg/dL (7-17); Calcium 9.2 mg/dL (8.4-10.2); Carbon Dioxide 24 mmol/L (22-30); Chloride 106 mmol/L (98-107); Glucose 102 mg/dL (74-99); Non-African American GFR(MDRD) >60 (>60 ml/min/1.73 sqM); Potassium 4.3 mmol/L (3.5-5.1); Sodium 139 mmol/L (137-145); Total Bilirubin 0.8 mg/dL (0.2-1.3); Total Protein 7.1 g/dL (6.3-8.2)
[2017-03-13 08:53] LABS: Appearance,Urine Cloudy (Clear); Bilirubin,Urine Negative (Negative); Glucose,Urine (UA) Negative (Negative); Ketones,Urine Negative (Negative); Leukocyte Esterase,Urine Negative (Negative); Mucus,Urine Many /hpf; Nitrite,Urine Negative (Negative); PH, Urine 5.5 (5.0-8.0); Particle Count 13666; Protein,Urine Trace (Negative); Specific Gravity,Urine 1.024 (1.001-1.035); Squamous Epithelial Cell,Urine 8 /hpf (0-4); UA Billing (MACRO vs. MICRO) MICRO; WBC,Urine 1 /hpf (0-5)
[2017-03-13] MEDS: SODIUM CHLORIDE 0.9% 1,000 ML IV STA ×2 (09:04→12:58)
[2017-03-13] MEDS ORDERED: SODIUM CHLORIDE 0.9% 2,000 ML IV STA (10:06)
[2017-03-13] MEDS ORDERED: ONDANSETRON 4 MG/2 ML VIAL IVP PRN (10:06)
[2017-03-13] MEDS ORDERED: MORPHINE SULFATE 4 MG/ML SYRINGE IVP PRN (10:06)
--- NOTE | 2017-03-13 13:39 | P.HPIM ---
History of Present Illness H&P Date: 03/13/17 Chief Complaint: Abdominal pain Patient is a 31-year-old white female, patient of Dr. Lira in the outpatient setting with medical history significant for chronic pancreatitis from former alcohol use. Patient has had numerous hospitalizations over the last 6 months for acute on chronic pancreatitis and has been evaluated by Dr. Hernandez from gastrointestinal service who referred patient to [facility] for specialty follow-up where she was recently evaluated and is currently undergoing workup with next appointment in March per patient. Patient presented to the emergency department with complaints of epigastric and left-sided abdominal pain radiating into her left flank associated with nausea but no vomiting. Patient unable to eat or drink secondary to pain. Amylase and lipase on admission consistent with acute pancreatitis. Patient was admitted to the medical floor for IV hydration, supportive treatment and pain management. Upon examination, patient is currently lying in bed. Patient denies recent illness. Denies chills, fevers, vomiting, chest pain, urinary frequency, dysuria, hematuria, diarrhea, or constipation. Patient currently rates abdominal pain 6 out of 10. Patient states she feels dehydrated. Past Medical History Past Medical History: GERD/Reflux, Thyroid Disorder Additional Past Medical History / Comment(s): Acute then chronic pancreatitis being seen at [facility], chronic bronchitis, PUD, hypothyroid. History of Any Multi-Drug Resistant Organisms: None Reported Past Surgical History: Adenoidectomy, Ear Surgery, Tonsillectomy, Tubal Ligation Additional Past Surgical History / Comment(s): multiple tubes in ears, D&C, EGD at [facility]. Past Anesthesia/Blood Transfusion Reactions: No Reported Reaction Past Psychological History: Anxiety Additional Psychological History / Comment(s): Pt resides with her two children ages 4 and 10yrs. She is independent. Smoking Status: Current every day smoker Past Alcohol Use History: None Reported Additional Past Alcohol Use History / Comment(s): Pt states she started smoking about 1998 and is a ppd smoker. She has not drank alcohol in 10 yrs. Past Drug Use History: None Reported Additional Drug Use History / Comment(s): Pt has a medical marijuana card and takes it in the form of a capsule daily. - Past Family History Father Family Medical History: Hyperlipidemia Mother Family Medical History: Congestive Heart Failure (CHF) Medications and Allergies Home Medications Medication Instructions Recorded Confirmed Type Biotin 5 mg PO HS 09/10/16 03/13/17 History Thyrotone 500mg 500 mg PO HS 09/10/16 03/13/17 History HYDROcodone/APAP 10-325MG [[place] 1 tab PO Q8H PRN 02/11/17 03/13/17 History 10-325] Metoclopramide HCl [Reglan] 10 mg PO Q8H PRN 02/28/17 03/13/17 History Ondansetron HCl [Zofran] 8 mg PO Q8H PRN 03/13/17 03/13/17 History Allergies Allergy/AdvReac Type Severity Reaction Status Date / Time morphine AdvReac Mild Nausea Verified 03/13/17 13:02 Physical Exam Vitals: Vital Signs Temp Pulse Pulse Resp BP BP Pulse Ox 03/13/17 13:08 97.3 F L 70 16 110/77 98 03/13/17 12:08 97.3 F L 73 16 103/55 98 03/13/17 11:42 73 16 103/55 98 03/13/17 08:26 97.3 F L 68 16 92/50 99 03/13/17 06:48 97.2 F L 87 18 107/64 100 Intake and Output 03/12/17 03/13/17 03/13/17 22:59 06:59 14:59 Intake Total 1000 Balance 1000 Intake: Amount of Fluid Infused ( 1000 ml) Other: Weight 54.431 kg 55.3 kg Patient Weight 03/14/17 06:59 Weight 55.3 kg GENERAL: Pt awake and alert, well-appearing, well-nourished, and in no acute distress. HEAD: Atraumatic, normocephalic. EYES: Pupils equal, round, and reactive to light, extraocular movements intact, sclera anicteric, conjunctiva are normal. ENT: Moist mucous membranes. NECK:Supple without lymphadenopathy or JVD. LUNGS: Breath sounds clear to auscultation bilaterally. No wheezes, rales, or rhonchi. HEART: Heart S1, S2, no S3 or S4. Regular rate and rhythm. No murmurs, rubs or gallops. ABDOMEN: Soft, moderate epigastric and left upper quadrant tenderness, nondistended, normoactive bowel sounds. Voluntary positive guarding, no rebound. No masses or organomegaly appreciated. EXTREMITIES: 2+ peripheral pulses. No edema. No calf tenderness. NEUROLOGICAL: Pt oriented x 3. Cranial nerves II through XII grossly intact. Strength and sensation grossly intact. PSYCH: Normal mood, normal affect. SKIN: Warm, dry, intact. Normal turgor. No rashes or lesions. Results CBC & Chem 7: 03/13/17 07:02 03/13/17 07:02 Labs: Abnormal Lab Results - Last 24 Hours (Table) 03/13/17 03/13/17 Range/Units 07:02 08:14 Glucose 102 H (74-99) mg/dL Amylase 311 H* (30-110) U/L Lipase 2266 H (23-300) U/L Urine Appearance Cloudy H (Clear) Urine Protein Trace H (Negative) Ur Squamous Epith Cells 8 H (0-4) /hpf Urine Mucus Many H (None) /hpf Thrombosis Risk Factor Assmnt - DVT/VTE Prophylaxis DVT/VTE Prophylaxis: Low risk, early ambulation encouraged - Choose All That Apply Any of the Below Risk Factors Present?: No Other Risk Factors: No Other congenital or acquired thrombophilia - If yes, enter type in comment: No Thrombosis Risk Factor Assessment Level: Very Low Risk Assessment and Plan Plan: Impression and plan: 1. Acute on chronic pancreatitis secondary to history of alcohol abuse. Patient is currently following with [facility] where workup is in progress with outpatient appointment in March. Amylase 311, lipase 2266 on admission. Continue IV hydration. Continue supportive treatment and pain management. We will allow ice chips for now. 2. History of hypothyroidism: We'll continue to monitor 3. History of peptic ulcer disease: Continue Protonix. 4. Nicotine dependence: Smoking cessation encouraged. 5. History of remote EtOH abuse. 6. GI prophylaxis. Continue Protonix. 7. DVT prophylaxis. Encourage early ambulation. Continue to monitor patient. Continue current medications. Repeat CBC, BMP, amylase and lipase in a.m. The above impression and plan have been discussed and directed by Dr. Lira. Imani ZARATE acting as scribe for Dr. Lira.
[2017-03-13] MEDS: HYDROmorphone 1 MG/ML 1 ML SYRINGE IVP PRN ×3 (13:41→21:38)
[2017-03-13] MEDS: SODIUM CHLORIDE 0.9% 1,000 ML IV SCH ×2 (13:44→19:28)
[2017-03-13] MEDS: METOCLOPRAMIDE 5 MG/ML 2 ML VIAL IVP PRN (18:56)
[2017-03-13] MEDS: ONDANSETRON 4 MG/2 ML VIAL IVP PRN (21:39)
[2017-03-14] MEDS: METOCLOPRAMIDE 5 MG/ML 2 ML VIAL IVP PRN ×3 (01:58→22:21)
[2017-03-14] MEDS: HYDROmorphone 1 MG/ML 1 ML SYRINGE IVP PRN ×6 (01:58→22:25)
[2017-03-14] MEDS: SODIUM CHLORIDE 0.9% 1,000 ML IV SCH ×2 (02:08→22:30)
[2017-03-14] MEDS: ONDANSETRON 4 MG/2 ML VIAL IVP PRN ×2 (06:45→18:00)
[2017-03-14 07:50] LABS: Basophils % (A) 0 %; CH 28.4; CHCM 32.1; Eosinophils # (A) 0.1 k/uL (0-0.7); Eosinophils % (A) 2 %; HDW 2.17; Luc # (Auto) 0.09; Luc % (Auto) 2; Lymphocytes # (A) 2.1 k/uL (1.0-4.8); Lymphocytes % (A) 40 %; MCH 29.1 pg (25.0-35.0); MCHC 32.8 g/dL (31.0-37.0); MCV 88.7 fL (80.0-100.0); Monocytes # (A) 0.3 k/uL (0-1.0); Monocytes % (A) 6 %; Neutrophils # (A) 2.7 k/uL (1.3-7.7); Neutrophils % (A) 50 %; RBC 4.05 m/uL (3.80-5.40); RDW 12.7 % (11.5-15.5); WBC 5.4 k/uL (3.8-10.6); WBC (Perox) 5.23
[2017-03-14 07:56] LABS: HGB 11.8 gm/dL (11.4-16.0)
[2017-03-14 08:01] LABS: Amylase 256 U/L (30-110); Anion Gap 7 mmol/L; Blood Urea Nitrogen 8 mg/dL (7-17); Calcium 7.9 mg/dL (8.4-10.2); Carbon Dioxide 20 mmol/L (22-30); Chloride 112 mmol/L (98-107); Glucose 81 mg/dL (74-99); Non-African American GFR(MDRD) >60 (>60 ml/min/1.73 sqM); Sodium 139 mmol/L (137-145)
[2017-03-14] MEDS ORDERED: PANTOPRAZOLE 40 MG/10 ML VIAL IVP SCH (09:00)
[2017-03-14] MEDS ORDERED: IPRATROPIUM-ALBUTEROL 3 ML NEB INHALATION PRN (09:50)
--- NOTE | 2017-03-14 10:36 | XR ---
EXAMINATION TYPE: XR chest 2V DATE OF EXAM: 03/14/2017 10:07 AM COMPARISON: NONE HISTORY: Cough and congestion, history of pancreatitis. Shortness of breath. TECHNIQUE: Frontal and lateral views of the chest are obtained. FINDINGS: There is no focal air space opacity, pleural effusion, or pneumothorax seen. The cardiac silhouette size is within normal limits. The osseous structures are intact. IMPRESSION: No suspicious acute pulmonary process.
[2017-03-14] MEDS: IPRATROPIUM-ALBUTEROL 3 ML NEB INHALATION SCH ×3 (12:06→20:48)
[2017-03-14 13:20] LABS: Amylase 311 U/L (30-110)
--- NOTE | 2017-03-14 13:25 | P.PN ---
Subjective Principal diagnosis: Acute on chronic pancreatitis Patient is a 31-year-old white female, patient of Dr. Lira in the outpatient setting with medical history significant for chronic pancreatitis from former alcohol use. Patient has had numerous hospitalizations over the last 6 months for acute on chronic pancreatitis and has been evaluated by Dr. Hernandez from gastrointestinal service who referred patient to [facility] for specialty follow-up where she was recently evaluated and is currently undergoing workup with next appointment in March per patient. Patient presented to the emergency department with complaints of epigastric and left-sided abdominal pain radiating into her left flank associated with nausea but no vomiting. Patient unable to eat or drink secondary to pain. Amylase and lipase on admission consistent with acute pancreatitis. Patient was admitted to the medical floor for IV hydration, supportive treatment and pain management. Upon examination, patient is currently lying in bed. Patient denies recent illness. Denies chills, fevers, vomiting, chest pain, urinary frequency, dysuria, hematuria, diarrhea, or constipation. Patient currently rates abdominal pain 6 out of 10. Patient states she feels dehydrated. 03/14/2017: Patient is evaluated at bedside. Patient reports improvement in her abdominal and left flank pain. Patient is complaining of a congestive cough and feeling mildly short of breath with activity. Denies chills, fevers, vomiting, chest pain, urinary frequency, dysuria, hematuria, diarrhea, or constipation. Tolerating ice chips. Amylase decreased to 256. Lipase 1651. Chest x-ray with no suspicious acute pulmonary process. Objective - Vital Signs Vital signs: Vital Signs Temp 97.6 F 03/14/17 08:00 Pulse 62 03/14/17 08:00 Resp 16 03/14/17 08:00 BP 119/67 03/14/17 08:00 Pulse Ox 100 03/14/17 08:00 Intake & Output 03/13/17 03/14/17 03/14/17 18:59 06:59 18:59 Intake Total 1030 400 Output Total 150 Balance 880 400 Weight 55.3 kg Intake: Amount of Fluid Infused ( 1000 ml) Oral 30 400 Output: Urine 150 Other: Voiding Method Toilet # Voids 1 - Exam GENERAL: Pt awake and alert, well-appearing, well-nourished, and in no acute distress. HEAD: Atraumatic, normocephalic. EYES: Pupils equal, round, and reactive to light, extraocular movements intact, sclera anicteric, conjunctiva are normal. ENT: Moist mucous membranes. NECK:Supple without lymphadenopathy or JVD. LUNGS: Breath sounds with scattered rhonchi and mild expiratory wheezing to auscultation bilaterally. HEART: Heart S1, S2, no S3 or S4. Regular rate and rhythm. No murmurs, rubs or gallops. ABDOMEN: Soft, moderate epigastric and left upper quadrant tenderness slightly improved from yesterday, nondistended, normoactive bowel sounds. Voluntary positive guarding, no rebound. No masses or organomegaly appreciated. Nonproductive, congested cough EXTREMITIES: 2+ peripheral pulses. No edema. No calf tenderness. NEUROLOGICAL: Pt oriented x 3. Cranial nerves II through XII grossly intact. Strength and sensation grossly intact. PSYCH: Normal mood, normal affect. SKIN: Warm, dry, intact. Normal turgor. No rashes or lesions. - Labs CBC & Chem 7: 03/14/17 06:58 03/14/17 06:58 Labs: Abnormal Lab Results - Last 24 Hours (Table) 03/14/17 Range/Units 06:58 Chloride 112 H (98-107) mmol/L Carbon Dioxide 20 L (22-30) mmol/L Calcium 7.9 L (8.4-10.2) mg/dL Amylase 256 H (30-110) U/L Lipase 1651 H (23-300) U/L Microbiology - Last 24 Hours (Table) 03/13/17 08:14 Urine Culture - Final Urine,Voided Assessment and Plan Plan: Impression and plan: 1. Acute on chronic pancreatitis secondary to history of alcohol abuse. Patient is currently following with [facility] where workup is in progress with outpatient appointment in March. Amylase 311 improved to 256, lipase 2266 improved to 1651. Decrease IV fluids to 75 mL an hour. Start patient on a clear liquid diet and advance to soft, low-fat, low residue as tolerated. Continue supportive treatment and pain management. 2. Acute bronchitis with history of chronic bronchitis per patient. Chest x- ray negative for acute pulmonary process. Will add DuoNeb nebulizer updraft treatments and prednisone 60 mg 5 days. 2. History of hypothyroidism: We'll continue to monitor 3. History of peptic ulcer disease: Continue Protonix. 4. Nicotine dependence: Smoking cessation encouraged. 5. History of remote EtOH abuse. 6. GI prophylaxis. Continue Protonix. 7. DVT prophylaxis. Encourage early ambulation. Continue to monitor patient. Continue current medications. Repeat CBC, BMP, amylase and lipase in a.m. The above impression and plan have been discussed and directed by Dr. Lira. Imani ZARATE acting as scribe for Dr. Lira.
[2017-03-15] MEDS: HYDROmorphone 1 MG/ML 1 ML SYRINGE IVP PRN (02:24)
[2017-03-15] MEDS: ONDANSETRON 4 MG/2 ML VIAL IVP PRN (02:31)
[2017-03-15] MEDS ORDERED: ACETAMINOPHEN TAB 325 MG TAB PO PRN (04:05)
[2017-03-15] MEDS ORDERED: HYDROmorphone 1 MG/ML 1 ML SYRINGE IVP PRN (04:54)
[2017-03-15] MEDS: METOCLOPRAMIDE 5 MG/ML 2 ML VIAL IVP PRN (05:02)
[2017-03-15] MEDS: SODIUM CHLORIDE 0.9% 1,000 ML IV SCH (05:06)
[2017-03-15 06:23] LABS: Basophils % (A) 0 %; CH 28.7; CHCM 32.6; Eosinophils % (A) 0 %; HCT 36.7 % (34.0-46.0); HDW 2.23; HGB 12.1 gm/dL (11.4-16.0); Luc # (Auto) 0.09; Luc % (Auto) 1; Lymphocytes # (A) 1.7 k/uL (1.0-4.8); Lymphocytes % (A) 20 %; MCH 29.1 pg (25.0-35.0); MCHC 32.9 g/dL (31.0-37.0); MCV 88.2 fL (80.0-100.0); Mean Platelet Volume 8.1; Monocytes # (A) 0.3 k/uL (0-1.0); Monocytes % (A) 4 %; Neutrophils # (A) 6.2 k/uL (1.3-7.7); Neutrophils % (A) 74 %; RBC 4.16 m/uL (3.80-5.40); RDW 12.7 % (11.5-15.5); WBC 8.3 k/uL (3.8-10.6); WBC (Perox) 8.65
[2017-03-15 06:35] LABS: Amylase 76 U/L (30-110); Anion Gap 9 mmol/L; Blood Urea Nitrogen 3 mg/dL (7-17); Calcium 8.2 mg/dL (8.4-10.2); Carbon Dioxide 20 mmol/L (22-30); Chloride 112 mmol/L (98-107); Glucose 95 mg/dL (74-99); Non-African American GFR(MDRD) >60 (>60 ml/min/1.73 sqM); Potassium 3.9 mmol/L (3.5-5.1); Sodium 141 mmol/L (137-145)
[2017-03-15] MEDS ORDERED: HYDROmorphone 1 MG/ML 1 ML SYRINGE ONE (06:55)
[2017-03-15] MEDS ORDERED: PANTOPRAZOLE 40 MG TABLET PO SCH (07:30)
[2017-03-15] MEDS: IPRATROPIUM-ALBUTEROL 3 ML NEB INHALATION SCH ×2 (07:48→11:58)
[2017-03-15] MEDS ORDERED: HYDROcodone/APAP 10-325MG 1 EACH TAB PO PRN (08:26)
[2017-03-15] MEDS ORDERED: predniSONE 20 MG TAB PO SCH (09:00)
[2017-03-15 10:12] VITALS: BP 111/70; PULSE 86; RESP 16; TEMP 98.2
== END 2017-03-15 12:00 | disposition home or self-care (01) | DRG 440 ==
LOC: EC 06:43 → 6PED 10:08
PROVIDERS: ADMIT Family Medicine; ATTEND Family Medicine
DX: K85.20 Alcohol induced acute pancreatitis without necrosis or infection (principal); E03.9 Hypothyroidism, unspecified; K86.0 Alcohol-induced chronic pancreatitis; F17.200 Nicotine dependence, unspecified, uncomplicated; F10.10 Alcohol abuse, uncomplicated; F41.9 Anxiety disorder, unspecified; E86.0 Dehydration; J20.9 Acute bronchitis, unspecified; J42 Unspecified chronic bronchitis; K21.9 Gastro-esophageal reflux disease without esophagitis; Z87.11 Personal history of peptic ulcer disease; Z79.899 Other long term (current) drug therapy
CPT/HCPCS: 36415; 71020; 80048; 80053; 80320; 81001; 81025; 82150; 82550; 82553; 83605; 83690; 85025; 87086; 94640; 96361; 96374; 96375; 99285

== ENCOUNTER 2017-04-14 05:14 | Emergency (ER) | payer OTHER ==
[2017-04-14] MEDS ORDERED: PROMETHAZINE INJ 25 MG/ML 1 ML VIAL IM STA (05:41)
[2017-04-14] MEDS ORDERED: SODIUM CHLORIDE 0.9% 1,000 ML IV STA (05:41)
[2017-04-14] MEDS ORDERED: METHADONE 10 MG TAB PO STA ×2 (05:43→06:37)
[2017-04-14] MEDS ORDERED: PROMETHAZINE INJ 25 MG in SODIUM CHLORIDE 0.9% 50 ML IVPB STA (06:10)
[2017-04-14 06:16] LABS: ALT 24 U/L (9-52); AST 15 U/L (14-36); Alkaline Phosphatase 54 U/L (38-126); Amylase 117 U/L (30-110); Anion Gap 8 mmol/L; Blood Urea Nitrogen 8 mg/dL (7-17); Calcium 9.4 mg/dL (8.4-10.2); Carbon Dioxide 24 mmol/L (22-30); Chloride 109 mmol/L (98-107); Glucose 106 mg/dL (74-99); Non-African American GFR(MDRD) >60 (>60 ml/min/1.73 sqM); Potassium 4.2 mmol/L (3.5-5.1); Sodium 141 mmol/L (137-145); Total Bilirubin 0.3 mg/dL (0.2-1.3); Total Protein 6.3 g/dL (6.3-8.2)
[2017-04-14 06:17] LABS: Basophils % (A) 0 %; CH 28.8; CHCM 33.7; Eosinophils # (A) 0.2 k/uL (0-0.7); Eosinophils % (A) 3 %; HCT 36.7 % (34.0-46.0); HDW 2.37; HGB 12.3 gm/dL (11.4-16.0); Luc # (Auto) 0.12; Luc % (Auto) 2; Lymphocytes # (A) 2.1 k/uL (1.0-4.8); Lymphocytes % (A) 31 %; MCH 28.8 pg (25.0-35.0); MCHC 33.6 g/dL (31.0-37.0); MCV 85.6 fL (80.0-100.0); Mean Platelet Volume 7.9; Monocytes # (A) 0.3 k/uL (0-1.0); Monocytes % (A) 5 %; Neutrophils % (A) 59 %; RBC 4.28 m/uL (3.80-5.40); WBC 6.7 k/uL (3.8-10.6); WBC (Perox) 6.85
--- NOTE | 2017-04-14 06:43 | ED ---
Nausea/Vomiting/Diarrhea HPI - General Source: patient Mode of arrival: ambulatory Limitations: no limitations - History of Present Illness MD complaint: nausea Onset/Timin -: hour(s) Associated Abdominal Pain: No Severity: moderate Consistency: constant Improves with: none Worsens with: none Associated Symptoms: denies other symptoms <Jermaine Dimas - Last Filed: 04/14/17 06:39> <Bhavesh Fisher - Last Filed: 04/14/17 07:40> - General Chief complaint: Abdominal Pain Stated complaint: Abdominal Pain Time Seen by Provider: 04/14/17 05:28 - History of Present Illness Initial comments: Patient is a 31-year-old woman with history of some intermittent pancreatitis. She states she started having the onset of nausea and has resolved has not been able take some of her medicines. Her last dose of Niss[place] appeared to be about 10 hours ago. She states she is not having any abdominal pain at the moment but the nausea is limiting her other medications and fluid intake. She states that usually when she gets like this she is given Reglan and Dilaudid. (Jermaine Dimas) - Related Data Home Medications Medication Instructions Recorded Confirmed Biotin 5 mg PO HS 09/10/16 03/13/17 Thyrotone 500mg 500 mg PO HS 09/10/16 03/13/17 HYDROcodone/APAP 10-325MG [[place] 1 tab PO Q8H PRN 02/11/17 03/13/17 10-325] Metoclopramide HCl [Reglan] 10 mg PO Q8H PRN 02/28/17 03/13/17 Previous Rx's Medication Instructions Recorded Ondansetron HCl [Zofran] 8 mg PO Q8H PRN #21 03/15/17 Pantoprazole [Protonix] 40 mg PO AC-BRKFST #30 tab 03/15/17 predniSONE 60 mg PO DAILY #4 tab 03/15/17 Allergies Allergy/AdvReac Type Severity Reaction Status Date / Time morphine AdvReac Mild Nausea Verified 04/14/17 05:18 Review of Systems ROS Other: All systems not noted in ROS Statement are negative. Constitutional: Denies: fever, chills Respiratory: Denies: cough, dyspnea Cardiovascular: Denies: chest pain, palpitations Gastrointestinal: Reports: nausea. Denies: abdominal pain, vomiting, diarrhea, constipation Genitourinary: Denies: dysuria, hematuria Musculoskeletal: Denies: back pain Skin: Denies: rash Neurological: Denies: headache, weakness, numbness <WingJermaine - Last Filed: 04/14/17 06:39> ROS Other: All systems not noted in ROS Statement are negative. <Bhavesh Fisher - Last Filed: 04/14/17 07:40> ROS Statement: Those systems with pertinent positive or pertinent negative responses have been documented in the HPI. Past Medical History Past Medical History: GERD/Reflux, Thyroid Disorder Additional Past Medical History / Comment(s): Acute then chronic pancreatitis being seen at [facility] [place], chronic bronchitis, PUD, hypothyroid. History of Any Multi-Drug Resistant Organisms: None Reported Past Surgical History: Adenoidectomy, Ear Surgery, Tonsillectomy, Tubal Ligation Additional Past Surgical History / Comment(s): multiple tubes in ears, D&C, [facility] Past Anesthesia/Blood Transfusion Reactions: No Reported Reaction Past Psychological History: Anxiety Smoking Status: Current every day smoker Past Alcohol Use History: None Reported Past Drug Use History: Marijuana - Past Family History Father Family Medical History: Hyperlipidemia Mother Family Medical History: Congestive Heart Failure (CHF) <WingJermaine - Last Filed: 04/14/17 06:39> General Exam Limitations: no limitations General appearance: alert Head exam: Present: atraumatic Eye exam: Present: normal appearance. Absent: scleral icterus, conjunctival injection ENT exam: Present: normal oropharynx Neck exam: Present: normal inspection Respiratory exam: Present: normal lung sounds bilaterally. Absent: respiratory distress, wheezes, rales, rhonchi, stridor Cardiovascular Exam: Present: regular rate, normal rhythm, normal heart sounds. Absent: systolic murmur, diastolic murmur, rubs, gallop GI/Abdominal exam: Present: soft, hyperactive bowel sounds. Absent: distended, tenderness, guarding, rebound, rigid Extremities exam: Present: normal inspection, normal capillary refill. Absent: pedal edema, calf tenderness Neurological exam: Present: alert Skin exam: Present: intact, normal color, diaphoretic. Absent: rash, cyanosis, erythema, petechiae, pallor, mottled <Jermaine Dimas - Last Filed: 04/14/17 06:39> Medical Decision Making - Lab Data Result diagrams: 04/14/17 06:05 04/14/17 05:41 - EKG Data -: EKG Interpreted by Dc EKG shows normal: sinus rhythm (With sinus arrhythmia), axis (Normal), intervals (Normal), QRS complexes (Normal), ST-T waves (Normal) Rate: bradycardia (Rate approximately 52 bpm) <Jermaine Dimas - Last Filed: 04/14/17 06:39> - Lab Data Result diagrams: 04/14/17 06:05 04/14/17 05:41 <Bhavesh Fisher - Last Filed: 04/14/17 07:40> - Medical Decision Making Patient reevaluated by myself, Dr. Fisher. Patient states she is feeling better and is comfortable with discharge. Patient updated on results and need for follow-up. Patient states she has an appointment on Sunday. (Bhavesh Fisher) - Lab Data Lab Results 04/14/17 04/14/17 04/14/17 Range/Units 05:41 06:05 06:35 WBC 6.7 (3.8-10.6) k/uL RBC 4.28 (3.80-5.40) m/uL Hgb 12.3 (11.4-16.0) gm/dL Hct 36.7 (34.0-46.0) % MCV 85.6 (80.0-100.0) fL MCH 28.8 (25.0-35.0) pg MCHC 33.6 (31.0-37.0) g/dL RDW 13.0 (11.5-15.5) % Plt Count 186 (150-450) k/uL Neutrophils % 59 % Lymphocytes % 31 % Monocytes % 5 % Eosinophils % 3 % Basophils % 0 % Neutrophils # 4.0 (1.3-7.7) k/uL Lymphocytes # 2.1 (1.0-4.8) k/uL Monocytes # 0.3 (0-1.0) k/uL Eosinophils # 0.2 (0-0.7) k/uL Basophils # 0.0 (0-0.2) k/uL Sodium 141 (137-145) mmol/L Potassium 4.2 (3.5-5.1) mmol/L Chloride 109 H (98-107) mmol/L Carbon Dioxide 24 (22-30) mmol/L Anion Gap 8 mmol/L BUN 8 (7-17) mg/dL Creatinine 0.80 (0.52-1.04) mg/dL Est GFR (MDRD) Af Amer >60 (>60 ml/min/1.73 sqM) Est GFR (MDRD) Non-Af >60 (>60 ml/min/1.73 sqM) Glucose 106 H (74-99) mg/dL Calcium 9.4 (8.4-10.2) mg/dL Total Bilirubin 0.3 (0.2-1.3) mg/dL AST 15 (14-36) U/L ALT 24 (9-52) U/L Alkaline Phosphatase 54 (38-126) U/L Total Protein 6.3 (6.3-8.2) g/dL Albumin 3.9 (3.5-5.0) g/dL Amylase 117 H (30-110) U/L Lipase 466 H (23-300) U/L Urine Color Urine Appearance (Clear) Urine pH (5.0-8.0) Ur Specific [place] (1.001-1.035) Urine Protein (Negative) Urine Glucose (UA) (Negative) Urine Ketones (Negative) Urine Blood (Negative) Urine Nitrite (Negative) Urine Bilirubin (Negative) Urine Urobilinogen (<2.0) mg/dL Ur Leukocyte Esterase (Negative) Urine RBC (0-5) /hpf Urine WBC (0-5) /hpf Ur Squamous Epith Cells (0-4) /hpf Urine Bacteria (None) /hpf Urine Mucus (None) /hpf Urine Yeast (Budding) (None) /hpf Urine HCG, Qual Not Detected (Not Detectd) 04/14/17 Range/Units 06:35 WBC (3.8-10.6) k/uL RBC (3.80-5.40) m/uL Hgb (11.4-16.0) gm/dL Hct (34.0-46.0) % MCV (80.0-100.0) fL MCH (25.0-35.0) pg MCHC (31.0-37.0) g/dL RDW (11.5-15.5) % Plt Count (150-450) k/uL Neutrophils % % Lymphocytes % % Monocytes % % Eosinophils % % Basophils % % Neutrophils # (1.3-7.7) k/uL Lymphocytes # (1.0-4.8) k/uL Monocytes # (0-1.0) k/uL Eosinophils # (0-0.7) k/uL Basophils # (0-0.2) k/uL Sodium (137-145) mmol/L Potassium (3.5-5.1) mmol/L Chloride (98-107) mmol/L Carbon Dioxide (22-30) mmol/L Anion Gap mmol/L BUN (7-17) mg/dL Creatinine (0.52-1.04) mg/dL Est GFR (MDRD) Af Amer (>60 ml/min/1.73 sqM) Est GFR (MDRD) Non-Af (>60 ml/min/1.73 sqM) Glucose (74-99) mg/dL Calcium (8.4-10.2) mg/dL Total Bilirubin (0.2-1.3) mg/dL AST (14-36) U/L ALT (9-52) U/L Alkaline Phosphatase (38-126) U/L Total Protein (6.3-8.2) g/dL Albumin (3.5-5.0) g/dL Amylase (30-110) U/L Lipase (23-300) U/L Urine Color Light Red Urine Appearance Cloudy H (Clear) Urine pH 5.5 (5.0-8.0) Ur Specific [place] 1.027 (1.001-1.035) Urine Protein 1+ H (Negative) Urine Glucose (UA) Negative (Negative) Urine Ketones Negative (Negative) Urine Blood Large H (Negative) Urine Nitrite Negative (Negative) Urine Bilirubin Negative (Negative) Urine Urobilinogen 2.0 (<2.0) mg/dL Ur Leukocyte Esterase Negative (Negative) Urine RBC 5 (0-5) /hpf Urine WBC 7 H (0-5) /hpf Ur Squamous Epith Cells 7 H (0-4) /hpf Urine Bacteria Moderate H (None) /hpf Urine Mucus Moderate H (None) /hpf Urine Yeast (Budding) Rare H (None) /hpf Urine HCG, Qual (Not Detectd) Disposition <Jermaine Dimas - Last Filed: 04/14/17 06:39> Time of Disposition: 07:40 <Bhavesh Fisher - Last Filed: 04/14/17 07:40> Clinical Impression: Abdominal pain, Vomiting Disposition: HOME SELF-CARE Condition: Stable Instructions: Abdominal Pain (ED), Acute Nausea and Vomiting (ED) Additional Instructions: Please follow-up with your primary care physician Sunday as scheduled. Return for increased pain, fever, uncontrolled vomiting, worsening symptoms or other concerns. Referrals: Otoniel Lira Jr, DO [Primary Care Provider] - 1-2 days
[2017-04-14 06:57] LABS: Appearance,Urine Cloudy (Clear); Bacteria,Urine Moderate /hpf; Bilirubin,Urine Negative (Negative); Glucose,Urine (UA) Negative (Negative); Ketones,Urine Negative (Negative); Leukocyte Esterase,Urine Negative (Negative); Mucus,Urine Moderate /hpf; Nitrite,Urine Negative (Negative); PH, Urine 5.5 (5.0-8.0); Particle Count 20434; Protein,Urine 1+ (Negative); RBC,Urine 5 /hpf (0-5); Specific Gravity,Urine 1.027 (1.001-1.035); Squamous Epithelial Cell,Urine 7 /hpf (0-4); UA Billing (MACRO vs. MICRO) MICRO; WBC,Urine 7 /hpf (0-5)
[2017-04-14 07:52] VITALS: BP 117/69; PULSE 58; RESP 18; TEMP 97.6
== END 2017-04-14 08:04 | disposition home or self-care (01) ==
LOC: EC 05:14
DX: R10.9 Unspecified abdominal pain (principal); R11.10 Vomiting, unspecified; F17.200 Nicotine dependence, unspecified, uncomplicated; E03.9 Hypothyroidism, unspecified; Z88.5 Allergy status to narcotic agent; Z79.899 Other long term (current) drug therapy
CPT/HCPCS: 99284; 96374; 96361; 36415; 93005; 80053; 82150; 83690; 85025; 81001; 81025; J2550; S0109

== ENCOUNTER 2017-05-07 05:48 | Emergency (ER) | payer OTHER ==
[2017-05-07] MEDS ORDERED: ONDANSETRON 4 MG/2 ML VIAL IVP STA (05:52)
[2017-05-07] MEDS ORDERED: SODIUM CHLORIDE 0.9% 1,000 ML IV STA ×2 (05:52)
[2017-05-07] MEDS ORDERED: HYDROmorphone 1 MG/ML 1 ML SYRINGE IVP STA (05:52)
[2017-05-07] MEDS ORDERED: SODIUM CHLORIDE 0.9% 500 ML IV STA (05:52)
[2017-05-07] MEDS ORDERED: PANTOPRAZOLE 40 MG/10 ML VIAL IVP STA (05:52)
[2017-05-07] MEDS ORDERED: diphenhydrAMINE 50 MG/ML 1 ML VIAL IVP STA (05:52)
--- NOTE | 2017-05-07 05:53 | ED ---
General Adult HPI - General Stated complaint: abdominal pain Time Seen by Provider: 05/07/17 05:51 Source: RN notes reviewed, old records reviewed - History of Present Illness Initial comments: This is a 31-year-old female ER for evaluation of bowel pain, severe bowel pain. Severe epigastric tenderness with nausea and vomiting. Patient has history of pancreatitis and this feels the same. No fevers. Mild diarrhea, no significant travel history no sick contacts. No change in medication home. Patient denies drugs or alcohol - Related Data Home Medications Medication Instructions Recorded Confirmed Biotin 5 mg PO HS 09/10/16 05/07/17 Thyrotone 500mg 500 mg PO HS 09/10/16 05/07/17 HYDROcodone/APAP 10-325MG [[place] 1 tab PO Q8H PRN 02/11/17 05/07/17 10-325] Metoclopramide HCl [Reglan] 10 mg PO Q8H PRN 02/28/17 05/07/17 Previous Rx's Medication Instructions Recorded Ondansetron HCl [Zofran] 8 mg PO Q8H PRN #21 03/15/17 Allergies Allergy/AdvReac Type Severity Reaction Status Date / Time morphine AdvReac Mild Nausea Verified 05/07/17 06:17 Review of Systems ROS Statement: Those systems with pertinent positive or pertinent negative responses have been documented in the HPI. ROS Other: All systems not noted in ROS Statement are negative. Past Medical History Past Medical History: GERD/Reflux, Thyroid Disorder Additional Past Medical History / Comment(s): Acute then chronic pancreatitis being seen at [facility], chronic bronchitis, PUD, hypothyroid. History of Any Multi-Drug Resistant Organisms: None Reported Past Surgical History: Adenoidectomy, Ear Surgery, Tonsillectomy, Tubal Ligation Additional Past Surgical History / Comment(s): multiple tubes in ears, D&C[facility] Past Anesthesia/Blood Transfusion Reactions: No Reported Reaction Past Psychological History: Anxiety Smoking Status: Current every day smoker Past Alcohol Use History: None Reported Past Drug Use History: Marijuana - Past Family History Father Family Medical History: Hyperlipidemia Mother Family Medical History: Congestive Heart Failure (CHF) General Exam General appearance: alert, in no apparent distress, anxious Head exam: Present: atraumatic, normocephalic, normal inspection Eye exam: Present: normal appearance, PERRL, EOMI. Absent: scleral icterus, conjunctival injection, periorbital swelling ENT exam: Present: normal exam, mucous membranes moist Neck exam: Present: normal inspection. Absent: tenderness, meningismus, lymphadenopathy Respiratory exam: Present: normal lung sounds bilaterally. Absent: respiratory distress, wheezes, rales, rhonchi, stridor Cardiovascular Exam: Present: regular rate, normal rhythm, normal heart sounds. Absent: systolic murmur, diastolic murmur, rubs, gallop, clicks GI/Abdominal exam: Present: soft, tenderness, normal bowel sounds. Absent: distended, guarding, rebound, rigid Extremities exam: Present: normal inspection, full ROM, normal capillary refill. Absent: tenderness, pedal edema, joint swelling, calf tenderness Back exam: Present: normal inspection Neurological exam: Present: alert, oriented X3, CN II-XII intact Psychiatric exam: Present: normal affect, normal mood Skin exam: Present: warm, dry, intact, normal color. Absent: rash Course Vital Signs 05/07/17 05/07/17 06:16 06:55 Temperature 98.1 F Pulse Rate 75 69 Respiratory 18 16 Rate Blood Pressure 121/68 101/59 O2 Sat by Pulse 100 100 Oximetry - Reevaluation(s) Reevaluation #1: 05/07/17 05:52 Patient's primary and previous ER visits are thoroughly reviewed, multiple visits for pancreatitis Medical Decision Making - Medical Decision Making 31-year-old female the ER with pancreatitis, patient with chronic pancreatitis at this time pain is controlled. Work is otherwise within normal limits, patient again has pain control and tolerating oral fluids, patient encouraged liquid diet will be discharged home - Lab Data Result diagrams: 05/07/17 06:43 05/07/17 06:43 Lab Results 05/07/17 05/07/17 05/07/17 Range/Units 06:43 06:43 06:43 WBC 11.7 H (3.8-10.6) k/uL RBC 4.69 (3.80-5.40) m/uL Hgb 13.8 (11.4-16.0) gm/dL Hct 40.6 (34.0-46.0) % MCV 86.6 (80.0-100.0) fL MCH 29.3 (25.0-35.0) pg MCHC 33.9 (31.0-37.0) g/dL RDW 13.2 (11.5-15.5) % Plt Count 216 (150-450) k/uL Neutrophils % 69 % Lymphocytes % 23 % Monocytes % 4 % Eosinophils % 2 % Basophils % 0 % Neutrophils # 8.0 H (1.3-7.7) k/uL Lymphocytes # 2.7 (1.0-4.8) k/uL Monocytes # 0.5 (0-1.0) k/uL Eosinophils # 0.2 (0-0.7) k/uL Basophils # 0.0 (0-0.2) k/uL Sodium 139 (137-145) mmol/L Potassium 4.1 (3.5-5.1) mmol/L Chloride 105 (98-107) mmol/L Carbon Dioxide 26 (22-30) mmol/L Anion Gap 8 mmol/L BUN 9 (7-17) mg/dL Creatinine 0.77 (0.52-1.04) mg/dL Est GFR (MDRD) Af Amer >60 (>60 ml/min/1.73 sqM) Est GFR (MDRD) Non-Af >60 (>60 ml/min/1.73 sqM) Glucose 91 (74-99) mg/dL Plasma Lactic Acid Wenceslao (0.7-2.0) mmol/L Calcium 9.2 (8.4-10.2) mg/dL Total Bilirubin 0.6 (0.2-1.3) mg/dL AST 14 (14-36) U/L ALT 18 (9-52) U/L Alkaline Phosphatase 49 (38-126) U/L Total Protein 6.1 L (6.3-8.2) g/dL Albumin 3.8 (3.5-5.0) g/dL Amylase 101 (30-110) U/L Lipase 523 H (23-300) U/L Urine Color Urine Appearance (Clear) Urine pH (5.0-8.0) Ur Specific [place] (1.001-1.035) Urine Protein (Negative) Urine Glucose (UA) (Negative) Urine Ketones (Negative) Urine Blood (Negative) Urine Nitrite (Negative) Urine Bilirubin (Negative) Urine Urobilinogen (<2.0) mg/dL Ur Leukocyte Esterase (Negative) Urine RBC (0-5) /hpf Urine WBC (0-5) /hpf Ur Squamous Epith Cells (0-4) /hpf Urine Bacteria (None) /hpf Hyaline Casts (0-2) /lpf Urine Mucus (None) /hpf Urine HCG, Qual Not Detected (Not Detectd) 05/07/17 05/07/17 Range/Units 06:43 06:43 WBC (3.8-10.6) k/uL RBC (3.80-5.40) m/uL Hgb (11.4-16.0) gm/dL Hct (34.0-46.0) % MCV (80.0-100.0) fL MCH (25.0-35.0) pg MCHC (31.0-37.0) g/dL RDW (11.5-15.5) % Plt Count (150-450) k/uL Neutrophils % % Lymphocytes % % Monocytes % % Eosinophils % % Basophils % % Neutrophils # (1.3-7.7) k/uL Lymphocytes # (1.0-4.8) k/uL Monocytes # (0-1.0) k/uL Eosinophils # (0-0.7) k/uL Basophils # (0-0.2) k/uL Sodium (137-145) mmol/L Potassium (3.5-5.1) mmol/L Chloride (98-107) mmol/L Carbon Dioxide (22-30) mmol/L Anion Gap mmol/L BUN (7-17) mg/dL Creatinine (0.52-1.04) mg/dL Est GFR (MDRD) Af Amer (>60 ml/min/1.73 sqM) Est GFR (MDRD) Non-Af (>60 ml/min/1.73 sqM) Glucose (74-99) mg/dL Plasma Lactic Acid Wenceslao 1.2 (0.7-2.0) mmol/L Calcium (8.4-10.2) mg/dL Total Bilirubin (0.2-1.3) mg/dL AST (14-36) U/L ALT (9-52) U/L Alkaline Phosphatase (38-126) U/L Total Protein (6.3-8.2) g/dL Albumin (3.5-5.0) g/dL Amylase (30-110) U/L Lipase (23-300) U/L Urine Color Yellow Urine Appearance Cloudy H (Clear) Urine pH 5.5 (5.0-8.0) Ur Specific [place] 1.026 (1.001-1.035) Urine Protein Trace H (Negative) Urine Glucose (UA) Negative (Negative) Urine Ketones Negative (Negative) Urine Blood Negative (Negative) Urine Nitrite Negative (Negative) Urine Bilirubin Negative (Negative) Urine Urobilinogen 3.0 (<2.0) mg/dL Ur Leukocyte Esterase Negative (Negative) Urine RBC <1 (0-5) /hpf Urine WBC 1 (0-5) /hpf Ur Squamous Epith Cells 21 H (0-4) /hpf Urine Bacteria Rare H (None) /hpf Hyaline Casts 3 H (0-2) /lpf Urine Mucus Many H (None) /hpf Urine HCG, Qual (Not Detectd) Disposition Clinical Impression: Chronic relapsing pancreatitis, Pancreatitis, Abdominal pain, H/O ETOH abuse Disposition: HOME SELF-CARE Condition: Good Instructions: Abdominal Pain (ED) Referrals: Otoniel Lira Jr, DO [Primary Care Provider] - 1-2 days
[2017-05-07 06:57] VITALS: RESP 16
[2017-05-07 07:10] LABS: Basophils % (A) 0 %; CH 28.9; CHCM 33.5; Eosinophils # (A) 0.2 k/uL (0-0.7); Eosinophils % (A) 2 %; HCT 40.6 % (34.0-46.0); HDW 2.14; HGB 13.8 gm/dL (11.4-16.0); Luc # (Auto) 0.17; Luc % (Auto) 2; Lymphocytes # (A) 2.7 k/uL (1.0-4.8); Lymphocytes % (A) 23 %; MCH 29.3 pg (25.0-35.0); MCHC 33.9 g/dL (31.0-37.0); MCV 86.6 fL (80.0-100.0); Mean Platelet Volume 8.2; Monocytes # (A) 0.5 k/uL (0-1.0); Monocytes % (A) 4 %; Neutrophils % (A) 69 %; RBC 4.69 m/uL (3.80-5.40); RDW 13.2 % (11.5-15.5); WBC 11.7 k/uL (3.8-10.6); WBC (Perox) 11.23
[2017-05-07 07:15] LABS: Appearance,Urine Cloudy (Clear); Bacteria,Urine Rare /hpf; Bilirubin,Urine Negative (Negative); Glucose,Urine (UA) Negative (Negative); Ketones,Urine Negative (Negative); Leukocyte Esterase,Urine Negative (Negative); Mucus,Urine Many /hpf; Nitrite,Urine Negative (Negative); PH, Urine 5.5 (5.0-8.0); Particle Count 10339; Protein,Urine Trace (Negative); RBC,Urine <1 /hpf (0-5); Specific Gravity,Urine 1.026 (1.001-1.035); Squamous Epithelial Cell,Urine 21 /hpf (0-4); UA Billing (MACRO vs. MICRO) MICRO; WBC,Urine 1 /hpf (0-5)
[2017-05-07 07:23] LABS: ALT 18 U/L (9-52); AST 14 U/L (14-36); Alkaline Phosphatase 49 U/L (38-126); Amylase 101 U/L (30-110); Anion Gap 8 mmol/L; Blood Urea Nitrogen 9 mg/dL (7-17); Calcium 9.2 mg/dL (8.4-10.2); Carbon Dioxide 26 mmol/L (22-30); Chloride 105 mmol/L (98-107); Glucose 91 mg/dL (74-99); Non-African American GFR(MDRD) >60 (>60 ml/min/1.73 sqM); Potassium 4.1 mmol/L (3.5-5.1); Sodium 139 mmol/L (137-145); Total Bilirubin 0.6 mg/dL (0.2-1.3); Total Protein 6.1 g/dL (6.3-8.2)
[2017-05-07 07:56] VITALS: BP 180/67; PULSE 67; TEMP 97
== END 2017-05-07 07:58 | disposition home or self-care (01) ==
LOC: EC 05:48
DX: K86.1 Other chronic pancreatitis (principal); E03.9 Hypothyroidism, unspecified; F17.200 Nicotine dependence, unspecified, uncomplicated; Z88.5 Allergy status to narcotic agent; Z79.899 Other long term (current) drug therapy
CPT/HCPCS: 99284; 96374; 96375 ×3; 96361; 36415; 80053; 82150; 83605; 83690; 85025; 81001; 81025; 87086; J1200; J2405; J1170; C9113

== ENCOUNTER 2017-05-15 06:30 | Emergency (ER) | payer OTHER ==
[2017-05-15] MEDS ORDERED: METOCLOPRAMIDE 5 MG/ML 2 ML VIAL IVP STA (07:12)
[2017-05-15] MEDS ORDERED: SODIUM CHLORIDE 0.9% 1,000 ML IV STA (07:12)
[2017-05-15] MEDS ORDERED: SODIUM CHLORIDE 0.9% 500 ML IV STA (07:12)
[2017-05-15] MEDS ORDERED: FAMOTIDINE 20 MG/2 ML VIAL IV STA (07:13)
--- NOTE | 2017-05-15 07:15 | ED ---
General Adult HPI - General Chief complaint: Nausea/Vomiting/Diarrhea Stated complaint: Vomiting Time Seen by Provider: 05/15/17 07:09 Source: patient, RN notes reviewed Mode of arrival: ambulatory Limitations: no limitations - History of Present Illness Initial comments: Patient is a pleasant 31-year-old female presenting to the emergency department with nausea vomiting. Onset was around 5 hours ago. Patient feels she is getting dehydrated. Patient is starting to develop a mild headache. Patient has had similar symptoms previously associated with her chronic pancreatitis. Patient states she has not had much pain this time. Patient is unclear why she has pancreatitis. Patient was diagnosed around a year ago and has had multiple evaluations including evaluation at [facility]. - Related Data Home Medications Medication Instructions Recorded Confirmed Thyrotone 500mg 500 mg PO HS 09/10/16 05/15/17 HYDROcodone/APAP 10-325MG [[place] 1 tab PO Q8H PRN 02/11/17 05/15/17 10-325] Metoclopramide HCl [Reglan] 10 mg PO Q8H PRN 02/28/17 05/15/17 Previous Rx's Medication Instructions Recorded Ondansetron HCl [Zofran] 8 mg PO Q8H PRN #21 03/15/17 Allergies Allergy/AdvReac Type Severity Reaction Status Date / Time morphine AdvReac Mild Nausea Verified 05/15/17 07:56 Review of Systems ROS Statement: Those systems with pertinent positive or pertinent negative responses have been documented in the HPI. ROS Other: All systems not noted in ROS Statement are negative. Constitutional: Denies: fever Eyes: Denies: eye pain ENT: Denies: ear pain Respiratory: Denies: cough Cardiovascular: Denies: chest pain Endocrine: Denies: fatigue Gastrointestinal: Reports: nausea, vomiting. Denies: abdominal pain Genitourinary: Denies: dysuria Musculoskeletal: Denies: back pain Skin: Denies: rash Neurological: Denies: weakness Past Medical History Past Medical History: GERD/Reflux, Thyroid Disorder Additional Past Medical History / Comment(s): Acute then chronic pancreatitis being seen at [facility], chronic bronchitis, PUD, hypothyroid. History of Any Multi-Drug Resistant Organisms: None Reported Past Surgical History: Adenoidectomy, Ear Surgery, Tonsillectomy, Tubal Ligation Additional Past Surgical History / Comment(s): multiple tubes in ears, D&C, EGD at [facility]. Past Anesthesia/Blood Transfusion Reactions: No Reported Reaction Past Psychological History: Anxiety Smoking Status: Current every day smoker Past Alcohol Use History: None Reported Past Drug Use History: Marijuana - Past Family History Father Family Medical History: Hyperlipidemia Mother Family Medical History: Congestive Heart Failure (CHF) General Exam Limitations: no limitations General appearance: alert, in no apparent distress Head exam: Present: atraumatic Eye exam: Present: normal appearance, PERRL ENT exam: Present: normal oropharynx Neck exam: Present: normal inspection Respiratory exam: Present: normal lung sounds bilaterally Cardiovascular Exam: Present: regular rate, normal rhythm Expanded Peripheral pulses: 2+: Dorsalis Pedis (R), Dorsalis Pedis (L) GI/Abdominal exam: Present: soft, normal bowel sounds. Absent: distended, tenderness, guarding, rebound, rigid, pulsatile mass Extremities exam: Present: normal inspection Neurological exam: Present: alert Psychiatric exam: Present: normal affect, normal mood Skin exam: Present: normal color Course Vital Signs 05/15/17 05/15/17 05/15/17 06:34 08:58 09:41 Temperature 96.9 F L 96.7 F L Pulse Rate 73 68 73 Respiratory 20 17 Rate Blood Pressure 110/61 104/75 99/64 O2 Sat by Pulse 100 100 94 L Oximetry - Reevaluation(s) Reevaluation #1: 05/15/17 09:03 Patient reexamined and states nausea significantly improved. Patient states she is still having abdominal discomfort which she said was not significant previously. Abdomen is soft with mild epigastric tenderness. Patient states headache has resolved with fluids. Medical Decision Making - Medical Decision Making Patient reevaluated and resting comfortably in bed. Patient is further improved. Patient case discussed in detail with Dr. Bangura who does recommend discharge and close follow-up. Patient is comfortable and happy to be discharged. - Lab Data Result diagrams: 05/15/17 07:00 05/15/17 07:00 Lab Results 05/15/17 05/15/17 Range/Units 07:00 07:00 WBC 11.7 H (3.8-10.6) k/uL RBC 5.25 (3.80-5.40) m/uL Hgb 15.3 (11.4-16.0) gm/dL Hct 44.7 (34.0-46.0) % MCV 85.3 (80.0-100.0) fL MCH 29.1 (25.0-35.0) pg MCHC 34.1 (31.0-37.0) g/dL RDW 13.3 (11.5-15.5) % Plt Count 206 (150-450) k/uL Neutrophils % 65 % Lymphocytes % 26 % Monocytes % 5 % Eosinophils % 2 % Basophils % 0 % Neutrophils # 7.6 (1.3-7.7) k/uL Lymphocytes # 3.0 (1.0-4.8) k/uL Monocytes # 0.6 (0-1.0) k/uL Eosinophils # 0.2 (0-0.7) k/uL Basophils # 0.1 (0-0.2) k/uL Sodium 143 (137-145) mmol/L Potassium 4.9 (3.5-5.1) mmol/L Chloride 110 H (98-107) mmol/L Carbon Dioxide 21 L (22-30) mmol/L Anion Gap 12 mmol/L BUN 12 (7-17) mg/dL Creatinine 0.69 (0.52-1.04) mg/dL Est GFR (MDRD) Af Amer >60 (>60 ml/min/1.73 sqM) Est GFR (MDRD) Non-Af >60 (>60 ml/min/1.73 sqM) Glucose 90 (74-99) mg/dL Calcium 10.4 H (8.4-10.2) mg/dL Total Bilirubin 1.0 (0.2-1.3) mg/dL AST 25 (14-36) U/L ALT 28 (9-52) U/L Alkaline Phosphatase 57 (38-126) U/L Total Protein 7.3 (6.3-8.2) g/dL Albumin 4.7 (3.5-5.0) g/dL Amylase 380 H* (30-110) U/L Lipase 3547 H (23-300) U/L - Radiology Data Radiology results: image reviewed (Abdominal x-ray reveals no acute process.) Disposition Clinical Impression: Chronic pancreatitis Disposition: HOME SELF-CARE Condition: Stable Instructions: Pancreatitis (ED) Additional Instructions: Please follow-up with Dr. Benites or Dr. Willem in the next day or 2 for recheck. Return for increased pain, vomiting, fever, worsening or changing symptoms or other concerns. Referrals: Otoniel Lira Jr, DO [Primary Care Provider] - 1-2 days Time of Disposition: 10:07
[2017-05-15 07:33] LABS: Basophils # (A) 0.1 k/uL (0-0.2); Basophils % (A) 0 %; CH 28.8; CHCM 33.8; Eosinophils # (A) 0.2 k/uL (0-0.7); Eosinophils % (A) 2 %; HCT 44.7 % (34.0-46.0); HDW 2.17; HGB 15.3 gm/dL (11.4-16.0); Luc # (Auto) 0.21; Luc % (Auto) 2; Lymphocytes % (A) 26 %; MCH 29.1 pg (25.0-35.0); MCHC 34.1 g/dL (31.0-37.0); MCV 85.3 fL (80.0-100.0); Mean Platelet Volume 8.4; Monocytes # (A) 0.6 k/uL (0-1.0); Monocytes % (A) 5 %; Neutrophils # (A) 7.6 k/uL (1.3-7.7); Neutrophils % (A) 65 %; RBC 5.25 m/uL (3.80-5.40); RDW 13.3 % (11.5-15.5); WBC 11.7 k/uL (3.8-10.6); WBC (Perox) 11.66
[2017-05-15 07:41] LABS: ALT 28 U/L (9-52); AST 25 U/L (14-36); Alkaline Phosphatase 57 U/L (38-126); Anion Gap 12 mmol/L; Blood Urea Nitrogen 12 mg/dL (7-17); Calcium 10.4 mg/dL (8.4-10.2); Carbon Dioxide 21 mmol/L (22-30); Chloride 110 mmol/L (98-107); Glucose 90 mg/dL (74-99); Non-African American GFR(MDRD) >60 (>60 ml/min/1.73 sqM); Potassium 4.9 mmol/L (3.5-5.1); Sodium 143 mmol/L (137-145); Total Protein 7.3 g/dL (6.3-8.2)
[2017-05-15 07:51] LABS: Amylase 380 U/L (30-110)
[2017-05-15 08:59] VITALS: RESP 17; TEMP 96.7
[2017-05-15] MEDS ORDERED: ONDANSETRON 4 MG/2 ML VIAL IVP STA (09:04)
[2017-05-15] MEDS ORDERED: HYDROmorphone 1 MG/ML 1 ML SYRINGE IVP STA (09:04)
[2017-05-15 09:42] VITALS: BP 99/64; PULSE 73
--- NOTE | 2017-05-15 09:46 | XR ---
EXAMINATION TYPE: XR abdomen 1V DATE OF EXAM: 05/15/2017 COMPARISON: NONE HISTORY: Pain TECHNIQUE: Single supine KUB image of the abdomen is obtained FINDINGS: Small bowel demonstrates no evidence for dilatation or air fluid levels. Gas and fecal material is seen in non-distended colon. No convincing evidence for pneumoperitoneum. No unusual calcifications. The lung bases are clear. The osseous structures are intact. IMPRESSION: 1. Overall nonobstructive bowel gas pattern.
== END 2017-05-15 10:22 | disposition home or self-care (01) ==
LOC: EC 06:30
DX: K86.1 Other chronic pancreatitis (principal); R11.2 Nausea with vomiting, unspecified; R51 Headache; E03.9 Hypothyroidism, unspecified; F17.200 Nicotine dependence, unspecified, uncomplicated; Z79.899 Other long term (current) drug therapy; Z88.5 Allergy status to narcotic agent
CPT/HCPCS: 36415; 80053; 82150; 83690; 85025; 74000; 99284; 96374; 96375 ×3; 96361 ×3; J2765; J2405; J1170

== ENCOUNTER 2017-05-20 06:04 | Emergency (ER) | payer OTHER ==
[2017-05-20 06:09] VITALS: TEMP 98
[2017-05-20] MEDS ORDERED: SODIUM CHLORIDE 0.9% 1,000 ML IV STA (06:35)
[2017-05-20] MEDS ORDERED: HYDROmorphone 1 MG/ML 1 ML SYRINGE IVP STA ×2 (06:35→09:09)
[2017-05-20] MEDS ORDERED: SODIUM CHLORIDE 0.9% 2,000 ML IV STA (06:35)
[2017-05-20] MEDS ORDERED: ONDANSETRON 4 MG/2 ML VIAL IVP STA (06:35)
--- NOTE | 2017-05-20 06:51 | ED ---
Abdominal Pain HPI - General Source: patient Mode of arrival: ambulatory Limitations: no limitations <Irasema Retnaa - Last Filed: 05/20/17 07:37> <Newton Fuller - Last Filed: 05/20/17 09:11> - General Chief Complaint: Abdominal Pain Stated Complaint: pancreatitis Time Seen by Provider: 05/20/17 06:19 - History of Present Illness Initial Comments: 31 years old female has history of chronic otitis, recently or pancreatic enzymes are quite high she is presenting with pain in the left upper quadrant area, epigastric area and right upper quadrant area this is ongoing for the last 6 days. No fever no chills she does take 2-4 [place] for chronic pain management. She has no history of any surgical intervention Gen. abdomen she still has gallbladder and appendix she is status post tubal ligation that was 4 years, (Irasema Retana) - Related Data Home Medications Medication Instructions Recorded Confirmed Thyrotone 500mg 500 mg PO HS 09/10/16 05/20/17 HYDROcodone/APAP 10-325MG [[place] 1 tab PO Q8H PRN 02/11/17 05/20/17 10-325] Metoclopramide HCl [Reglan] 10 mg PO Q8H PRN 02/28/17 05/20/17 Previous Rx's Medication Instructions Recorded Ondansetron HCl [Zofran] 8 mg PO Q8H PRN #21 03/15/17 Allergies Allergy/AdvReac Type Severity Reaction Status Date / Time morphine AdvReac Mild Nausea Verified 05/20/17 06:09 Review of Systems ROS Other: All systems not noted in ROS Statement are negative. <Irasema Retana - Last Filed: 05/20/17 07:37> ROS Other: All systems not noted in ROS Statement are negative. <Newton Fuller - Last Filed: 05/20/17 09:11> ROS Statement: Those systems with pertinent positive or pertinent negative responses have been documented in the HPI. Past Medical History Past Medical History: GERD/Reflux, Thyroid Disorder Additional Past Medical History / Comment(s): Acute then chronic [facility]itis, PUD, hypothyroid. History of Any Multi-Drug Resistant Organisms: None Reported Past Surgical History: Adenoidectomy, Ear Surgery, Tonsillectomy, Tubal Ligation Additional Past Surgical History / Comment(s): multiple tubes in ears, D&C, EGD at [facility]. Past Anesthesia/Blood Transfusion Reactions: No Reported Reaction Past Psychological History: Anxiety Smoking Status: Current every day smoker Past Alcohol Use History: None Reported Past Drug Use History: Marijuana - Past Family History Father Family Medical History: Hyperlipidemia Mother Family Medical History: Congestive Heart Failure (CHF) <MazinIrasema - Last Filed: 05/20/17 07:37> General Exam Limitations: no limitations <MazinIrasema - Last Filed: 05/20/17 07:37> General appearance: alert, in no apparent distress Head exam: Present: atraumatic, normocephalic, normal inspection Eye exam: Present: normal appearance, PERRL, EOMI. Absent: scleral icterus, conjunctival injection, periorbital swelling ENT exam: Present: normal exam, mucous membranes moist Neck exam: Present: normal inspection. Absent: tenderness, meningismus, lymphadenopathy Respiratory exam: Present: normal lung sounds bilaterally. Absent: respiratory distress, wheezes, rales, rhonchi, stridor Cardiovascular Exam: Present: regular rate, normal rhythm, normal heart sounds. Absent: systolic murmur, diastolic murmur, rubs, gallop, clicks GI/Abdominal exam: Present: soft, normal bowel sounds. Absent: distended, tenderness, guarding, rebound, rigid Extremities exam: Present: normal inspection, full ROM, normal capillary refill. Absent: tenderness, pedal edema, joint swelling, calf tenderness Back exam: Present: normal inspection Neurological exam: Present: alert, oriented X3, CN II-XII intact Psychiatric exam: Present: normal affect, normal mood Skin exam: Present: warm, dry, intact, normal color. Absent: rash <Newton Fuller - Last Filed: 05/20/17 09:11> - General Exam Comments Initial Comments: General: The patient is awake and alert, in moderate distress Skin: Skin is warm and dry and no rashes or lesions are noted. Eye: Pupils are equal, round and reactive to light, extra-ocular movements are intact; there is normal conjunctiva bilaterally. Ears, nose, mouth and throat: There are moist mucous membranes and no oral lesions. Neck: The neck is supple, there is no tenderness or JVD. Cardiovascular: There is a regular rate and rhythm. No murmur, rub or gallop is appreciated. Respiratory: To auscultation bilateral, no wheezing no rhonchi no distress respiratory spencer noticed Gastrointestinal: Tender to palpate in epigastric area and the left upper quadrant area she slightly tender in the tender in the right upper quadrant as well Back: There is no tenderness to palpation in the midline. There is no obvious deformity. Musculoskeletal: Normal ROM, no tenderness, There is no pedal edema. There is no calf tenderness or swelling. No cords were appreciated. Neurological: CN II-XII intact, Cranial nerves III through XII are intact. There are no obvious motor or sensory deficits. Coordination appears grossly intact. Speech is normal. Psychiatric: Cooperative, appropriate mood & affect, normal judgment. (Irasema Retana) Course <Irasema Retana - Last Filed: 05/20/17 07:37> <Newton Fuller - Last Filed: 05/20/17 09:11> Vital Signs 05/20/17 05/20/17 06:06 08:41 Temperature 98 F Pulse Rate 77 59 L Respiratory 18 17 Rate Blood Pressure 108/69 115/66 O2 Sat by Pulse 100 98 Oximetry - Reevaluation(s) Reevaluation #1: 05/20/17 07:35 Patient was reassessed at term 7:35 AM, pancreas pancreatic enzymes are elevated , required and do the CT of the abdomen and pelvis 05/20/17 07:[address] Titi Roberto at 735 (Irasema Retana) Reevaluation #2: 05/20/17 09:10 Pain is adequately controlled at this point (Newton Fuller) Medical Decision Making - Lab Data Result diagrams: 05/20/17 06:50 05/20/17 06:50 <Irasema Retana - Last Filed: 05/20/17 07:37> - Lab Data Result diagrams: 05/20/17 06:50 05/20/17 06:50 - Radiology Data Radiology results: report reviewed (CT pelvis negative for acute disease), image reviewed <Newton Fuller - Last Filed: 05/20/17 09:11> - Medical Decision Making 31 female ER for evaluation regarding her bowel pain, severe abdominal pain epigastric pain history peptic otitis patient with acute pancreatitis. Patient be admitted for pain control and symptomatic control. Patient to be admitted for IV fluid resuscitation (Newton Fuller) - Lab Data Lab Results 05/20/17 05/20/17 05/20/17 Range/Units 06:50 06:50 06:50 WBC 9.1 (3.8-10.6) k/uL RBC 4.60 (3.80-5.40) m/uL Hgb 13.4 (11.4-16.0) gm/dL Hct 40.6 (34.0-46.0) % MCV 88.4 (80.0-100.0) fL MCH 29.2 (25.0-35.0) pg MCHC 33.0 (31.0-37.0) g/dL RDW 14.4 (11.5-15.5) % Plt Count 211 (150-450) k/uL Neutrophils % 62 % Lymphocytes % 29 % Monocytes % 5 % Eosinophils % 2 % Basophils % 0 % Neutrophils # 5.7 (1.3-7.7) k/uL Lymphocytes # 2.6 (1.0-4.8) k/uL Monocytes # 0.5 (0-1.0) k/uL Eosinophils # 0.2 (0-0.7) k/uL Basophils # 0.0 (0-0.2) k/uL Sodium 141 (137-145) mmol/L Potassium 3.8 (3.5-5.1) mmol/L Chloride 109 H (98-107) mmol/L Carbon Dioxide 25 (22-30) mmol/L Anion Gap 7 mmol/L BUN 12 (7-17) mg/dL Creatinine 0.69 (0.52-1.04) mg/dL Est GFR (MDRD) Af Amer >60 (>60 ml/min/1.73 sqM) Est GFR (MDRD) Non-Af >60 (>60 ml/min/1.73 sqM) Glucose 104 H (74-99) mg/dL Plasma Lactic Acid [place] 1.6 (0.7-2.0) mmol/L Calcium 8.8 (8.4-10.2) mg/dL Total Bilirubin 0.4 (0.2-1.3) mg/dL AST 17 (14-36) U/L ALT 23 (9-52) U/L Alkaline Phosphatase 44 (38-126) U/L C-Reactive Protein <5.0 (<10.0) mg/L Total Protein 6.0 L (6.3-8.2) g/dL Albumin 3.8 (3.5-5.0) g/dL Amylase 178 H (30-110) U/L Lipase 930 H (23-300) U/L Urine Color Urine Appearance (Clear) Urine pH (5.0-8.0) Ur Specific [place] (1.001-1.035) Urine Protein (Negative) Urine Glucose (UA) (Negative) Urine Ketones (Negative) Urine Blood (Negative) Urine Nitrite (Negative) Urine Bilirubin (Negative) Urine Urobilinogen (<2.0) mg/dL Ur Leukocyte Esterase (Negative) Urine RBC (0-5) /hpf Urine WBC (0-5) /hpf Ur Squamous Epith Cells (0-4) /hpf Urine Bacteria (None) /hpf Urine Mucus (None) /hpf 05/20/17 Range/Units 06:50 WBC (3.8-10.6) k/uL RBC (3.80-5.40) m/uL Hgb (11.4-16.0) gm/dL Hct (34.0-46.0) % MCV (80.0-100.0) fL MCH (25.0-35.0) pg MCHC (31.0-37.0) g/dL RDW (11.5-15.5) % Plt Count (150-450) k/uL Neutrophils % % Lymphocytes % % Monocytes % % Eosinophils % % Basophils % % Neutrophils # (1.3-7.7) k/uL Lymphocytes # (1.0-4.8) k/uL Monocytes # (0-1.0) k/uL Eosinophils # (0-0.7) k/uL Basophils # (0-0.2) k/uL Sodium (137-145) mmol/L Potassium (3.5-5.1) mmol/L Chloride (98-107) mmol/L Carbon Dioxide (22-30) mmol/L Anion Gap mmol/L BUN (7-17) mg/dL Creatinine (0.52-1.04) mg/dL Est GFR (MDRD) Af Amer (>60 ml/min/1.73 sqM) Est GFR (MDRD) Non-Af (>60 ml/min/1.73 sqM) Glucose (74-99) mg/dL Plasma Lactic Acid [place] (0.7-2.0) mmol/L Calcium (8.4-10.2) mg/dL Total Bilirubin (0.2-1.3) mg/dL AST (14-36) U/L ALT (9-52) U/L Alkaline Phosphatase (38-126) U/L C-Reactive Protein (<10.0) mg/L Total Protein (6.3-8.2) g/dL Albumin (3.5-5.0) g/dL Amylase (30-110) U/L Lipase (23-300) U/L Urine Color Yellow Urine Appearance Cloudy H (Clear) Urine pH 5.0 (5.0-8.0) Ur Specific [place] 1.026 (1.001-1.035) Urine Protein Trace H (Negative) Urine Glucose (UA) Negative (Negative) Urine Ketones Trace H (Negative) Urine Blood Large H (Negative) Urine Nitrite Negative (Negative) Urine Bilirubin Negative (Negative) Urine Urobilinogen 2.0 (<2.0) mg/dL Ur Leukocyte Esterase Small H (Negative) Urine RBC 23 H (0-5) /hpf Urine WBC 17 H (0-5) /hpf Ur Squamous Epith Cells 13 H (0-4) /hpf Urine Bacteria Rare H (None) /hpf Urine Mucus Moderate H (None) /hpf Disposition <Irasema Retana - Last Filed: 05/20/17 07:37> <Newton Fuller - Last Filed: 05/20/17 09:11> Clinical Impression: Pancreatitis, Acute pancreatitis, H/O ETOH abuse, Nausea and vomiting, Chronic pancreatitis Disposition: ADMITTED IP TO THIS HOSP Condition: Fair Referrals: Otoniel Lira Jr, [Primary Care Provider] - 1-2 days
[2017-05-20 07:06] LABS: Basophils % (A) 0 %; CH 29.2; CHCM 33.2; Eosinophils # (A) 0.2 k/uL (0-0.7); Eosinophils % (A) 2 %; HCT 40.6 % (34.0-46.0); HGB 13.4 gm/dL (11.4-16.0); Luc # (Auto) 0.15; Luc % (Auto) 2; Lymphocytes # (A) 2.6 k/uL (1.0-4.8); Lymphocytes % (A) 29 %; MCH 29.2 pg (25.0-35.0); MCV 88.4 fL (80.0-100.0); Mean Platelet Volume 9.3; Monocytes # (A) 0.5 k/uL (0-1.0); Monocytes % (A) 5 %; Neutrophils # (A) 5.7 k/uL (1.3-7.7); Neutrophils % (A) 62 %; RDW 14.4 % (11.5-15.5); WBC 9.1 k/uL (3.8-10.6); WBC (Perox) 8.54
[2017-05-20 07:08] LABS: Appearance,Urine Cloudy (Clear); Bacteria,Urine Rare /hpf; Bilirubin,Urine Negative (Negative); Glucose,Urine (UA) Negative (Negative); Ketones,Urine Trace (Negative); Leukocyte Esterase,Urine Small (Negative); Mucus,Urine Moderate /hpf; Nitrite,Urine Negative (Negative); Particle Count 18633; Protein,Urine Trace (Negative); RBC,Urine 23 /hpf (0-5); Specific Gravity,Urine 1.026 (1.001-1.035); Squamous Epithelial Cell,Urine 13 /hpf (0-4); UA Billing (MACRO vs. MICRO) MICRO; WBC,Urine 17 /hpf (0-5)
[2017-05-20 07:18] LABS: ALT 23 U/L (9-52); AST 17 U/L (14-36); Alkaline Phosphatase 44 U/L (38-126); Amylase 178 U/L (30-110); Anion Gap 7 mmol/L; Blood Urea Nitrogen 12 mg/dL (7-17); Calcium 8.8 mg/dL (8.4-10.2); Carbon Dioxide 25 mmol/L (22-30); Chloride 109 mmol/L (98-107); Glucose 104 mg/dL (74-99); Non-African American GFR(MDRD) >60 (>60 ml/min/1.73 sqM); Potassium 3.8 mmol/L (3.5-5.1); Sodium 141 mmol/L (137-145); Total Bilirubin 0.4 mg/dL (0.2-1.3)
--- NOTE | 2017-05-20 07:31 | XR ---
EXAMINATION TYPE: XR KUB DATE OF EXAM: 05/20/2017 COMPARISON: 11/27/2016 HISTORY: Pain TECHNIQUE: Single supine KUB image of the abdomen is obtained FINDINGS: Small bowel demonstrates no evidence for dilatation or air fluid levels. Gas and fecal material is seen in non-distended colon. No convincing evidence for pneumoperitoneum. No unusual calcifications. The lung bases are clear. The osseous structures are intact. Tubal ligation clips unchanged in position. IMPRESSION: 1. Overall nonobstructive bowel gas pattern.
[2017-05-20] MEDS ORDERED: RX INFO: IV CONTRAST WAS GIVEN 1 EACH MISC MISCELLANE PRN (07:36)
[2017-05-20 07:47] LABS: C Reactive Protein <5.0 mg/L (<10.0)
--- NOTE | 2017-05-20 08:50 | CT ---
EXAMINATION TYPE: CT abdomen pelvis w con DATE OF EXAM: 05/20/2017 COMPARISON: December 15, 2016 HISTORY: pancreatitits CT DLP: 382 mGycm CONTRAST: CT scan of the abdomen and pelvis is performed without Oral Contrast and with IV Contrast, patient in jected with 100 mL of Omnipaque 300. FINDINGS: LUNG BASES-: No visible nodule. No infiltrate. LIVER/GB: No calcified gallstones. No space occupying hepatic lesion. Biliary tree is of normal ca liber. PANCREAS: No inflammation. No distinct mass. SPLEEN: No splenic enlargement. No lesion seen. ADRENALS: No nodule. No thickening. KIDNEYS/BLADDER: No hydronephrosis. No nephrolithiasis. No disctinct renal mass. Urinary bladder g rossly unremarkable. BOWEL: Normal appendix. Normal bowel caliber. No inflammation. GENITAL ORGANS: 1.9 cm left ovarian cyst. Tubal ligation changes. Uterus and right ovary are unremar kable. No free fluid identified. LYMPH NODES: No greater than 1cm abdominal or pelvic lymph nodes are appreciated. AORTA: No significant abnormality. OSSEOUS STRUCTURES: No significant abnormality is seen. OTHER: No significant additional abnormality is seen. IMPRESSION: 1. 1.9 cm left ovarian cyst. 2. Otherwise unremarkable study.
[2017-05-20] MEDS ORDERED: SODIUM CHLORIDE 0.9% 1,000 ML IV ONE (09:08)
[2017-05-20] MEDS ORDERED: HYDROmorphone 1 MG/ML 1 ML SYRINGE IVP PRN (09:09)
[2017-05-20] MEDS ORDERED: FAMOTIDINE 20 MG/2 ML VIAL IV STA (09:09)
[2017-05-20] MEDS ORDERED: ONDANSETRON 4 MG/2 ML VIAL IVP PRN (09:09)
[2017-05-20 10:37] VITALS: BP 103/67; PULSE 66; RESP 17
[2017-05-21] MEDS ORDERED: FAMOTIDINE 20 MG/2 ML VIAL IV SCH (09:00)
== END 2017-05-20 10:37 | disposition other institution (70) ==
LOC: EC 06:04
DX: K85.90 Acute pancreatitis without necrosis or infection, unspecified (principal); K86.1 Other chronic pancreatitis; E03.9 Hypothyroidism, unspecified; F17.200 Nicotine dependence, unspecified, uncomplicated; Z79.899 Other long term (current) drug therapy; Z88.5 Allergy status to narcotic agent
CPT/HCPCS: 99285; 96374; 96375; 96376; 96361 ×4; 36415; 80053; 82150; 83605; 83690; 85025; 86140; 81001; 74000; 74177; J2405; J1170; Q9967

== ENCOUNTER 2017-07-07 22:33 | Emergency (ER) | payer OTHER ==
[2017-07-07] MEDS ORDERED: SODIUM CHLORIDE 0.9% 1,000 ML IV STA (22:57)
[2017-07-07] MEDS ORDERED: HYDROmorphone 1 MG/ML 1 ML SYRINGE IVP STA (23:21)
[2017-07-07] MEDS ORDERED: METOCLOPRAMIDE 5 MG/ML 2 ML VIAL IVP STA (23:21)
[2017-07-07 23:22] LABS: Basophils # (A) 0.1 k/uL (0-0.2); Basophils % (A) 1 %; CH 29.7; CHCM 34.6; Eosinophils # (A) 0.2 k/uL (0-0.7); Eosinophils % (A) 2 %; HCT 41.3 % (34.0-46.0); HDW 2.21; HGB 14.1 gm/dL (11.4-16.0); Luc # (Auto) 0.14; Luc % (Auto) 1; Lymphocytes # (A) 3.1 k/uL (1.0-4.8); Lymphocytes % (A) 26 %; MCH 29.3 pg (25.0-35.0); MCV 86.1 fL (80.0-100.0); Mean Platelet Volume 8.9; Monocytes # (A) 0.6 k/uL (0-1.0); Monocytes % (A) 5 %; Neutrophils # (A) 7.8 k/uL (1.3-7.7); Neutrophils % (A) 65 %; RDW 14.1 % (11.5-15.5); WBC 11.9 k/uL (3.8-10.6); WBC (Perox) 12.05
--- NOTE | 2017-07-07 23:25 | ED ---
Abdominal Pain HPI - General Chief Complaint: Abdominal Pain Stated Complaint: Abd Pain Time Seen by Provider: 07/07/17 22:57 Source: patient, RN notes reviewed Mode of arrival: ambulatory Limitations: no limitations - History of Present Illness Initial Comments: This a 31-year-old female presents emergency Department chief complaint left- sided abdominal pain. Patient states that she has recurrent pancreatitis secondary to drinking in the past. She states she has not drank alcohol in 10 years. She does see a clinical nurse at [facility]. She's had extensive testing which hasn't revealed any acute abnormality's. Patient states his pain started 3 days ago and she's been taking pain medication and Zofran at home with minimal relief of her symptoms. She denies any fevers or chills. She states she's nauseated no vomiting no diarrhea no constipation. She states that she's had a prior tubal ligation no chance . - Related Data Home Medications Medication Instructions Recorded Confirmed Thyrotone 500mg 500 mg PO HS 09/10/16 07/07/17 HYDROcodone/APAP 10-325MG [[place] 1 tab PO Q8H PRN 02/11/17 07/07/17 10-325] Metoclopramide HCl [Reglan] 10 mg PO Q8H PRN 02/28/17 07/07/17 Previous Rx's Medication Instructions Recorded Ondansetron HCl [Zofran] 8 mg PO Q8H PRN #21 03/15/17 Allergies Allergy/AdvReac Type Severity Reaction Status Date / Time morphine AdvReac Mild Nausea Verified 07/07/17 22:40 Review of Systems ROS Statement: Those systems with pertinent positive or pertinent negative responses have been documented in the HPI. ROS Other: All systems not noted in ROS Statement are negative. Past Medical History Past Medical History: GERD/Reflux, Thyroid Disorder Additional Past Medical History / Comment(s): Acute then chronic pancreatitis being seen at [facility], chronic bronchitis, PUD, hypothyroid. History of Any Multi-Drug Resistant Organisms: None Reported Past Surgical History: Adenoidectomy, Ear Surgery, Tonsillectomy, Tubal Ligation Additional Past Surgical History / Comment(s): multiple tubes in ears, D&C, EGD at [facility]. Past Anesthesia/Blood Transfusion Reactions: No Reported Reaction Past Psychological History: Anxiety Smoking Status: Current every day smoker Past Alcohol Use History: None Reported Past Drug Use History: Marijuana - Past Family History Father Family Medical History: Hyperlipidemia Mother Family Medical History: Congestive Heart Failure (CHF) General Exam Limitations: no limitations General appearance: alert, in no apparent distress Respiratory exam: Present: normal lung sounds bilaterally. Absent: respiratory distress, wheezes, rales, rhonchi, stridor Cardiovascular Exam: Present: regular rate, normal rhythm, normal heart sounds. Absent: systolic murmur, diastolic murmur, rubs, gallop, clicks GI/Abdominal exam: Present: soft, tenderness (Moderate mid to left-sided abdominal tenderness), normal bowel sounds. Absent: distended, guarding, rebound, rigid Back exam: Absent: CVA tenderness (R), CVA tenderness (L) Skin exam: Present: warm, dry, intact, normal color. Absent: rash Course Vital Signs 07/07/17 22:39 Temperature 98.2 F Pulse Rate 88 Respiratory 18 Rate Blood Pressure 127/65 O2 Sat by Pulse 98 Oximetry Medical Decision Making - Medical Decision Making 31-year-old female presented for abdominal pain. Patient has recurrent chronic pancreatitis. Patient has a mild elevation of her lipase though this is low for her typical findings. Patient states she feels much improved after IV pain medication and Zofran and fluids. Patient states that she wants a home at this time. Patient will follow-up with primary care physician and return if symptoms worsen. - Lab Data Result diagrams: 07/07/17 23:08 07/07/17 23:08 Lab Results 07/07/17 07/07/17 07/07/17 Range/Units 23:08 23:08 23:08 WBC 11.9 H (3.8-10.6) k/uL RBC 4.80 (3.80-5.40) m/uL Hgb 14.1 (11.4-16.0) gm/dL Hct 41.3 (34.0-46.0) % MCV 86.1 (80.0-100.0) fL MCH 29.3 (25.0-35.0) pg MCHC 34.0 (31.0-37.0) g/dL RDW 14.1 (11.5-15.5) % Plt Count 194 (150-450) k/uL Neutrophils % 65 % Lymphocytes % 26 % Monocytes % 5 % Eosinophils % 2 % Basophils % 1 % Neutrophils # 7.8 H (1.3-7.7) k/uL Lymphocytes # 3.1 (1.0-4.8) k/uL Monocytes # 0.6 (0-1.0) k/uL Eosinophils # 0.2 (0-0.7) k/uL Basophils # 0.1 (0-0.2) k/uL Sodium 139 (137-145) mmol/L Potassium 4.1 (3.5-5.1) mmol/L Chloride 105 (98-107) mmol/L Carbon Dioxide 24 (22-30) mmol/L Anion Gap 10 mmol/L BUN 13 (7-17) mg/dL Creatinine 0.90 (0.52-1.04) mg/dL Est GFR (MDRD) Af Amer >60 (>60 ml/min/1.73 sqM) Est GFR (MDRD) Non-Af >60 (>60 ml/min/1.73 sqM) Glucose 95 (74-99) mg/dL Calcium 9.2 (8.4-10.2) mg/dL Total Bilirubin 0.3 (0.2-1.3) mg/dL AST 19 (14-36) U/L ALT 23 (9-52) U/L Alkaline Phosphatase 47 (38-126) U/L Total Protein 6.7 (6.3-8.2) g/dL Albumin 4.3 (3.5-5.0) g/dL Amylase 182 H (30-110) U/L Lipase 644 H (23-300) U/L Urine Color Yellow Urine Appearance Clear (Clear) Urine pH 7.0 (5.0-8.0) Ur Specific [place] 1.023 (1.001-1.035) Urine Protein Trace H (Negative) Urine Glucose (UA) Negative (Negative) Urine Ketones Trace H (Negative) Urine Blood Negative (Negative) Urine Nitrite Negative (Negative) Urine Bilirubin Negative (Negative) Urine Urobilinogen 4.0 (<2.0) mg/dL Ur Leukocyte Esterase Trace H (Negative) Urine RBC 1 (0-5) /hpf Urine WBC 1 (0-5) /hpf Ur Squamous Epith Cells 9 H (0-4) /hpf Amorphous Sediment Rare H (None) /hpf Urine Bacteria Rare H (None) /hpf Urine Mucus Rare H (None) /hpf Disposition Clinical Impression: Chronic pancreatitis Disposition: HOME SELF-CARE Condition: Stable Instructions: Pancreatitis (ED) Additional Instructions: Please return to the Emergency Department if symptoms worsen or any other concerns. Referrals: Otoniel Lira Jr, DO [Primary Care Provider] - 1-2 days Time of Disposition: 00:28
[2017-07-07 23:34] LABS: Amorphous Sediment,Urine Rare /hpf; Appearance,Urine Clear (Clear); Bacteria,Urine Rare /hpf; Bilirubin,Urine Negative (Negative); Glucose,Urine (UA) Negative (Negative); Ketones,Urine Trace (Negative); Leukocyte Esterase,Urine Trace (Negative); Mucus,Urine Rare /hpf; Nitrite,Urine Negative (Negative); Particle Count 2183; Protein,Urine Trace (Negative); RBC,Urine 1 /hpf (0-5); Specific Gravity,Urine 1.023 (1.001-1.035); Squamous Epithelial Cell,Urine 9 /hpf (0-4); UA Billing (MACRO vs. MICRO) MICRO; WBC,Urine 1 /hpf (0-5)
[2017-07-07 23:43] LABS: ALT 23 U/L (9-52); AST 19 U/L (14-36); Alkaline Phosphatase 47 U/L (38-126); Amylase 182 U/L (30-110); Anion Gap 10 mmol/L; Blood Urea Nitrogen 13 mg/dL (7-17); Calcium 9.2 mg/dL (8.4-10.2); Carbon Dioxide 24 mmol/L (22-30); Chloride 105 mmol/L (98-107); Glucose 95 mg/dL (74-99); Non-African American GFR(MDRD) >60 (>60 ml/min/1.73 sqM); Potassium 4.1 mmol/L (3.5-5.1); Sodium 139 mmol/L (137-145); Total Bilirubin 0.3 mg/dL (0.2-1.3); Total Protein 6.7 g/dL (6.3-8.2)
--- NOTE | 2017-07-08 00:08 | XR ---
EXAM: XR Abdomen, 1 View CLINICAL HISTORY: Reason: abdominal pain TECHNIQUE: Frontal upright view of the abdomen/pelvis. COMPARISON: No relevant prior studies available. FINDINGS: Intraperitoneal space: Tubal ligation clips noted in the pelvis. Gastrointestinal tract: Unremarkable. No dilation. Bones/joints: Unremarkable. IMPRESSION: No acute findings.
[2017-07-08 00:48] VITALS: BP 109/57; PULSE 75; RESP 16; TEMP 98.1
== END 2017-07-08 00:47 | disposition home or self-care (01) ==
LOC: EC 22:33
DX: K86.1 Other chronic pancreatitis (principal); E03.9 Hypothyroidism, unspecified; F17.200 Nicotine dependence, unspecified, uncomplicated; Z79.899 Other long term (current) drug therapy; Z88.5 Allergy status to narcotic agent; Z98.51 Tubal ligation status
CPT/HCPCS: 36415; 80053; 82150; 83690; 85025; 81001; 74000; 99284; 96374; 96375; 96361; J2765; J1170

== ENCOUNTER 2017-07-12 10:47 | Emergency (ER) | payer OTHER ==
[2017-07-12 10:52] VITALS: BP 127/67; PULSE 95; RESP 16; TEMP 98
[2017-07-12] MEDS ORDERED: SODIUM CHLORIDE 0.9% 1,000 ML IV STA (11:04)
[2017-07-12] MEDS ORDERED: ONDANSETRON 4 MG/2 ML VIAL IVP STA (11:04)
[2017-07-12] MEDS ORDERED: HYDROmorphone 1 MG/ML 1 ML SYRINGE IVP STA (11:04)
[2017-07-12] MEDS ORDERED: SODIUM CHLORIDE 0.9% 500 ML IV STA (11:04)
--- NOTE | 2017-07-12 11:08 | ED ---
Nausea/Vomiting/Diarrhea HPI - General Chief complaint: Nausea/Vomiting/Diarrhea Stated complaint: Abd Pain Time Seen by Provider: 07/12/17 10:55 Source: patient Mode of arrival: ambulatory Limitations: no limitations - History of Present Illness Initial comments: 31 years old female with a history of chronic hepatitis and multiple visits to the ER had multiple admissions for the pancreatitis. She had abdominal pain, epigastric pain for the last 2 days it radiates towards her back she is concerned that she may have peritonitis try threw up this morning wants and she used her [place] 10 this morning I didn't help her with pain. She did use his [place] 10 for the pain on as-needed basis. He denies any alcohol the last 24-48 hours. She denies any fever no chills no neck stiffness no chest pain she does have abdominal pain no frequency urgency dysuria - Related Data Home Medications Medication Instructions Recorded Confirmed Thyrotone 500mg 500 mg PO HS 09/10/16 07/12/17 HYDROcodone/APAP 10-325MG [[place] 1 tab PO Q8H PRN 02/11/17 07/12/17 10-325] Metoclopramide HCl [Reglan] 10 mg PO Q6H PRN 02/28/17 07/12/17 Biotin 5 mg PO DAILY 07/12/17 07/12/17 Previous Rx's Medication Instructions Recorded Ondansetron HCl [Zofran] 8 mg PO Q8H PRN #21 03/15/17 Allergies Allergy/AdvReac Type Severity Reaction Status Date / Time morphine AdvReac Mild Nausea Verified 07/12/17 11:17 Review of Systems ROS Statement: Those systems with pertinent positive or pertinent negative responses have been documented in the HPI. ROS Other: All systems not noted in ROS Statement are negative. Past Medical History Past Medical History: GERD/Reflux, Thyroid Disorder Additional Past Medical History / Comment(s): Acute then chronic pancreatitis being seen at [facility], chronic bronchitis, PUD, hypothyroid. History of Any Multi-Drug Resistant Organisms: None Reported Past Surgical History: Adenoidectomy, Ear Surgery, Tonsillectomy, Tubal Ligation Additional Past Surgical History / Comment(s): multiple tubes in ears, D&C, EGD at [facility]. Past Anesthesia/Blood Transfusion Reactions: No Reported Reaction Past Psychological History: Anxiety Smoking Status: Current every day smoker Past Alcohol Use History: None Reported Past Drug Use History: Marijuana - Past Family History Father Family Medical History: Hyperlipidemia Mother Family Medical History: Congestive Heart Failure (CHF) General Exam - General Exam Comments Initial Comments: General: The patient is awake and alert, in severe distress Skin: Skin is warm and dry and no rashes or lesions are noted. Eye: Pupils are equal, round and reactive to light, extra-ocular movements are intact; there is normal conjunctiva bilaterally. Ears, nose, mouth and throat: There are moist mucous membranes and no oral lesions. Neck: The neck is supple, there is no tenderness or JVD. Cardiovascular: There is a regular rate and rhythm. No murmur, rub or gallop is appreciated. Respiratory: To auscultation bilateral, no wheezing no rhonchi no distress respiratory spencer noticed Gastrointestinal: Tender in epigastric area and left upper quadrant area positive bowel sounds no tenderness over the right lower quadrant area left lower quadrant area or periumbilical area Back: There is no tenderness to palpation in the midline. There is no obvious deformity. Musculoskeletal: Normal ROM, no tenderness, There is no pedal edema. There is no calf tenderness or swelling. No cords were appreciated. Neurological: CN II-XII intact, Cranial nerves III through XII are intact. There are no obvious motor or sensory deficits. Coordination appears grossly intact. Speech is normal. Psychiatric: Cooperative, appropriate mood & affect, normal judgment. Limitations: no limitations Course Vital Signs 07/12/17 10:49 Temperature 98 F Pulse Rate 95 Respiratory 16 Rate Blood Pressure 127/67 O2 Sat by Pulse 100 Oximetry Disposition Clinical Impression: Abdominal pain, History of chronic pancreatitis Disposition: Left Against Medical Advice Instructions: Abdominal Pain (ED) Referrals: Otoniel Lira Jr, DO [Primary Care Provider] - 1-2 days
[2017-07-12] MEDS ORDERED: KETOROLAC 30 MG/ML 1 ML VIAL IVP STA (11:11)
[2017-07-12] MEDS ORDERED: SODIUM CHLORIDE 0.9% 2,000 ML IV ONE (11:12)
== END 2017-07-12 11:25 | disposition left against medical advice (07) ==
LOC: EC 10:47
DX: R10.13 Epigastric pain (principal); R10.12 Left upper quadrant pain; E03.9 Hypothyroidism, unspecified; F17.200 Nicotine dependence, unspecified, uncomplicated; Z87.19 Personal history of other diseases of the digestive system; Z87.11 Personal history of peptic ulcer disease; Z98.890 Other specified postprocedural states; Z88.5 Allergy status to narcotic agent; Z53.29 Procedure and treatment not carried out because of patient's decision for other reasons; Z79.899 Other long term (current) drug therapy
CPT/HCPCS: 99283

== ENCOUNTER 2017-09-14 11:43 | Inpatient (IN) | payer OTHER ==
[2017-09-14] MEDS ORDERED: ONDANSETRON 4 MG/2 ML VIAL IVP STA (12:11)
[2017-09-14] MEDS ORDERED: SODIUM CHLORIDE 0.9% 1,000 ML IV STA (12:11)
[2017-09-14] MEDS ORDERED: KETOROLAC 30 MG/ML 1 ML VIAL IVP STA (12:11)
[2017-09-14] MEDS ORDERED: SODIUM CHLORIDE 0.9% 500 ML IV STA (12:11)
[2017-09-14] MEDS: HYDROmorphone 1 MG/ML 1 ML SYRINGE IVP STA ×2 (12:22→14:09)
[2017-09-14 12:40] LABS: Basophils % (A) 0 %; CH 28.9; CHCM 32.6; Eosinophils # (A) 0.2 k/uL (0-0.7); Eosinophils % (A) 2 %; HCT 44.3 % (34.0-46.0); HDW 2.16; HGB 14.3 gm/dL (11.4-16.0); Luc # (Auto) 0.14; Luc % (Auto) 1; Lymphocytes # (A) 2.1 k/uL (1.0-4.8); Lymphocytes % (A) 20 %; MCH 28.6 pg (25.0-35.0); MCHC 32.2 g/dL (31.0-37.0); MCV 88.9 fL (80.0-100.0); Mean Platelet Volume 7.9; Monocytes # (A) 0.4 k/uL (0-1.0); Monocytes % (A) 4 %; Neutrophils # (A) 7.7 k/uL (1.3-7.7); Neutrophils % (A) 73 %; RBC 4.98 m/uL (3.80-5.40); RDW 12.5 % (11.5-15.5); WBC 10.5 k/uL (3.8-10.6); WBC (Perox) 10.55
[2017-09-14 12:42] LABS: Appearance,Urine Cloudy (Clear); Bilirubin,Urine Negative (Negative); Glucose,Urine (UA) Negative (Negative); Ketones,Urine Negative (Negative); Leukocyte Esterase,Urine Negative (Negative); Mucus,Urine Rare /hpf; Nitrite,Urine Negative (Negative); PH, Urine 7.5 (5.0-8.0); Particle Count 6414; Protein,Urine Negative (Negative); Specific Gravity,Urine 1.013 (1.001-1.035); Squamous Epithelial Cell,Urine 20 /hpf (0-4); UA Billing (MACRO vs. MICRO) MICRO; Urobilinogen,Urine <2.0 mg/dL (<2.0); WBC,Urine 3 /hpf (0-5)
[2017-09-14 12:47] LABS: ALT 23 U/L (9-52); AST 16 U/L (14-36); Alkaline Phosphatase 44 U/L (38-126); Amylase 282 U/L (30-110); Anion Gap 8 mmol/L; Blood Urea Nitrogen 10 mg/dL (7-17); Carbon Dioxide 25 mmol/L (22-30); Chloride 108 mmol/L (98-107); Glucose 73 mg/dL (74-99); Non-African American GFR(MDRD) >60 (>60 ml/min/1.73 sqM); Potassium 4.1 mmol/L (3.5-5.1); Sodium 141 mmol/L (137-145); Total Bilirubin 0.5 mg/dL (0.2-1.3); Total Protein 7.1 g/dL (6.3-8.2)
--- NOTE | 2017-09-14 13:32 | ED ---
Abdominal Pain HPI - General Chief Complaint: Abdominal Pain Stated Complaint: Abd Pain Time Seen by Provider: 09/14/17 12:02 Source: patient, RN notes reviewed Mode of arrival: wheelchair Limitations: no limitations - History of Present Illness Initial Comments: This a 31-year-old female presents emergency Department with chief complaint of abdominal pain. Patient states she has chronic pancreatitis which she has been seen by multiple GI physicians including [facility] unknown reason why. Patient states that she is not a drinker. Patient denies any fevers or chills states that she's had severe mid abdominal pain with nausea vomiting. Patient states this feels very consistent with her normal symptoms. - Related Data Home Medications Medication Instructions Recorded Confirmed Thyrotone 500mg 500 mg PO HS 09/10/16 09/14/17 HYDROcodone/APAP 10-325MG [[place] 1 tab PO Q8H PRN 02/11/17 09/14/17 10-325] Metoclopramide HCl [Reglan] 10 mg PO Q6H PRN 02/28/17 09/14/17 Biotin 5 mg PO DAILY 07/12/17 09/14/17 Marijuana Capsule 1 cap PO DAILY PRN 09/14/17 09/14/17 Previous Rx's Medication Instructions Recorded Ondansetron HCl [Zofran] 8 mg PO Q8H PRN #21 03/15/17 Allergies Allergy/AdvReac Type Severity Reaction Status Date / Time morphine AdvReac Mild Nausea Verified 09/14/17 12:12 Review of Systems ROS Statement: Those systems with pertinent positive or pertinent negative responses have been documented in the HPI. ROS Other: All systems not noted in ROS Statement are negative. Past Medical History Past Medical History: GERD/Reflux, Thyroid Disorder Additional Past Medical History / Comment(s): Acute then chronic pancreatitis being seen at [facility], chronic bronchitis, PUD, hypothyroid. History of Any Multi-Drug Resistant Organisms: None Reported Past Surgical History: Adenoidectomy, Ear Surgery, Tonsillectomy, Tubal Ligation Additional Past Surgical History / Comment(s): multiple tubes in ears, D&C, EGD at [facility]. Past Anesthesia/Blood Transfusion Reactions: No Reported Reaction Past Psychological History: Anxiety Smoking Status: Current every day smoker Past Alcohol Use History: None Reported Past Drug Use History: Marijuana - Past Family History Father Family Medical History: Hyperlipidemia Mother Family Medical History: Congestive Heart Failure (CHF) General Exam Limitations: no limitations General appearance: alert, in no apparent distress Head exam: Present: atraumatic, normocephalic, normal inspection Neck exam: Present: normal inspection, full ROM. Absent: tenderness, meningismus, lymphadenopathy Respiratory exam: Present: normal lung sounds bilaterally. Absent: respiratory distress, wheezes, rales, rhonchi, stridor Cardiovascular Exam: Present: regular rate, normal rhythm, normal heart sounds. Absent: systolic murmur, diastolic murmur, rubs, gallop, clicks GI/Abdominal exam: Present: soft, tenderness (Moderate midabdominal tenderness) , normal bowel sounds. Absent: distended, guarding, rebound, rigid Back exam: Absent: CVA tenderness (R), CVA tenderness (L) Course Vital Signs 09/14/17 11:59 Temperature 98.1 F Pulse Rate 89 Respiratory 16 Rate Blood Pressure 132/69 O2 Sat by Pulse 100 Oximetry Medical Decision Making - Medical Decision Making 31-year-old female presented for abdominal pain. Patient has acute on chronic pain denies. Patient admitted for IV hydration, pain control and antiemetics. - Lab Data Result diagrams: 09/14/17 12:18 09/14/17 12:18 Lab Results 09/14/17 09/14/17 09/14/17 Range/Units 12:18 12:18 12:18 WBC 10.5 (3.8-10.6) k/uL RBC 4.98 (3.80-5.40) m/uL Hgb 14.3 (11.4-16.0) gm/dL Hct 44.3 (34.0-46.0) % MCV 88.9 (80.0-100.0) fL MCH 28.6 (25.0-35.0) pg MCHC 32.2 (31.0-37.0) g/dL RDW 12.5 (11.5-15.5) % Plt Count 235 (150-450) k/uL Neutrophils % 73 % Lymphocytes % 20 % Monocytes % 4 % Eosinophils % 2 % Basophils % 0 % Neutrophils # 7.7 (1.3-7.7) k/uL Lymphocytes # 2.1 (1.0-4.8) k/uL Monocytes # 0.4 (0-1.0) k/uL Eosinophils # 0.2 (0-0.7) k/uL Basophils # 0.0 (0-0.2) k/uL Sodium 141 (137-145) mmol/L Potassium 4.1 (3.5-5.1) mmol/L Chloride 108 H (98-107) mmol/L Carbon Dioxide 25 (22-30) mmol/L Anion Gap 8 mmol/L BUN 10 (7-17) mg/dL Creatinine 0.80 (0.52-1.04) mg/dL Est GFR (MDRD) Af Amer >60 (>60 ml/min/1.73 sqM) Est GFR (MDRD) Non-Af >60 (>60 ml/min/1.73 sqM) Glucose 73 L (74-99) mg/dL Calcium 10.0 (8.4-10.2) mg/dL Total Bilirubin 0.5 (0.2-1.3) mg/dL AST 16 (14-36) U/L ALT 23 (9-52) U/L Alkaline Phosphatase 44 (38-126) U/L Total Protein 7.1 (6.3-8.2) g/dL Albumin 4.3 (3.5-5.0) g/dL Amylase 282 H (30-110) U/L Lipase 2072 H (23-300) U/L Urine Color Yellow Urine Appearance Cloudy H (Clear) Urine pH 7.5 (5.0-8.0) Ur Specific [place] 1.013 (1.001-1.035) Urine Protein Negative (Negative) Urine Glucose (UA) Negative (Negative) Urine Ketones Negative (Negative) Urine Blood Negative (Negative) Urine Nitrite Negative (Negative) Urine Bilirubin Negative (Negative) Urine Urobilinogen <2.0 (<2.0) mg/dL Ur Leukocyte Esterase Negative (Negative) Urine WBC 3 (0-5) /hpf Ur Squamous Epith Cells 20 H (0-4) /hpf Urine Mucus Rare H (None) /hpf Disposition Clinical Impression: Acute on chronic pancreatitis, Nausea and vomiting Disposition: ADMITTED IP TO THIS [facility] Condition: Stable Referrals: Otoniel Lira Jr, DO [Primary Care Provider] - 1-2 days
[2017-09-14] MEDS ORDERED: NALOXONE 0.4 MG/ML 1 ML VIAL IV PRN (13:43)
[2017-09-14] MEDS ORDERED: ONDANSETRON 4 MG TAB PO PRN (14:29)
[2017-09-14] MEDS ORDERED: HYDROcodone/APAP 10-325MG 1 EACH TAB PO PRN (14:33)
--- NOTE | 2017-09-14 15:08 | P.HPIM ---
History of Present Illness H&P Date: 09/14/17 Chief Complaint: abdominal pain 31-year-old female who presented to the emergency room on 09/14/2017 with a chief complaint of abdominal pain. The patient has a history of chronic pancreatitis secondary to history of alcohol use. She was following up with a aerobics teacher out of [facility]. She states she underwent several tests at [facility] this summer and nothing was found that accounted for her pancreatitis and all her tests were normal. She was told she did not need to continue to follow up with [facility] in the future. She has a history of gastroesophageal reflux disease and hypothyroidism. She is a current every day smoker. She states she smokes about a pack a day. She also has a medical marijuana card and takes her marijuana in the form of the capsule daily. She states she uses marijuana for abdominal pain, nausea, and anxiety. In the emergency room, the patients amylase and lipase were elevated consistent with pancreatitis. Patient's amylase was 282. Lipase 2072. CBC was within normal limits. WBC 10.5. Hemoglobin 14.3. Sodium 141. Potassium 4.1. BUN 10. Creatinine 0.8. The patient was admitted to the hospital under the care of Dr. Lira. She was seen and examined at the bedside. She is awake and alert. She complains of abdominal pain on her left upper and lower quadrant that radiates to her back. She states that she has pancreatitis flare ups every few months but lately she has learned to manage it better. She states she has started using her child's small divided plate and eats smaller meals more frequently throughout the day and that has helped her and she does not require hospital admissions as frequently as she used to. She currently denies nausea or vomiting. She denies chest pain or pressure. Denies lightheadedness or dizziness. Denies shortness of breath or coughing. She does have a hard time taking a deep breath because it intensifies her abdominal pain. She denies urinary symptoms. Denies change in bowel habits. She states she had a bowel movement yesterday. Denies current alcohol use. Review of Systems GENERAL: Patient denies fever. Denies chills. EYES: Denies blurred vision. Denies vision changes. Denies eye pain. EARS, NOSE, MOUTH, & THROAT: Denies headache. Denies sore throat. Denies ear pain. RESPIRATORY: Denies cough. Denies shortness of breath. Denies sputum production. Denies hemoptysis. CARDIOVASCULAR: Denies chest pain or pressure. Denies palpitations. Denies arrhythmias. GASTROINTESTINAL: Positive for abdominal pain in left upper and lower quadrants. Denies nausea and vomiting. Denies diarrhea. Denies constipation. Denies heartburn. Denies blood in the stool. GENITOURINARY: Denies urinary frequency. Denies burning. Denies dysuria. Denies cloudy urine. Denies blood in the urine. MUSCULOSKELETAL: Denies myalgias. Denies joint swelling. Denies decreased range of motion beyond patients baseline. INTEGUMENTARY: Denies pruitis. Denies rash. PSYCHIATRIC: Denies suicidal or homicial ideations. ENDOCRINE: Denies weight change. Denies polydipsia. Denies polyuria. HEMATOLOGIC: Denies bleeding disorders. Past Medical History Past Medical History: GERD/Reflux, Thyroid Disorder Additional Past Medical History / Comment(s): Acute then chronic pancreatitis being seen at [facility], chronic bronchitis, PUD, hypothyroid. History of Any Multi-Drug Resistant Organisms: None Reported Past Surgical History: Adenoidectomy, Ear Surgery, Tonsillectomy, Tubal Ligation Additional Past Surgical History / Comment(s): multiple tubes in ears, D&C, EGD at [facility]. Past Anesthesia/Blood Transfusion Reactions: No Reported Reaction Past Psychological History: Anxiety Smoking Status: Current every day smoker Past Alcohol Use History: None Reported Past Drug Use History: Marijuana - Past Family History Father Family Medical History: Hyperlipidemia Mother Family Medical History: Congestive Heart Failure (CHF) Medications and Allergies Home Medications Medication Instructions Recorded Confirmed Type Thyrotone 500mg 500 mg PO HS 09/10/16 09/14/17 History HYDROcodone/APAP 10-325MG [[place] 1 tab PO Q8H PRN 02/11/17 09/14/17 History 10-325] Metoclopramide HCl [Reglan] 10 mg PO Q6H PRN 02/28/17 09/14/17 History Ondansetron HCl [Zofran] 8 mg PO Q8H PRN #21 03/15/17 09/14/17 Rx Biotin 5 mg PO DAILY 07/12/17 09/14/17 History Marijuana Capsule 1 cap PO DAILY PRN 09/14/17 09/14/17 History Allergies Allergy/AdvReac Type Severity Reaction Status Date / Time morphine AdvReac Mild Nausea Verified 09/14/17 12:12 Physical Exam Vitals: Vital Signs Temp Pulse Resp BP Pulse Ox 09/14/17 14:01 98.4 F 67 18 128/78 97 09/14/17 11:59 98.1 F 89 16 132/69 100 Intake and Output 09/13/17 09/14/17 09/14/17 22:59 06:59 14:59 Other: Weight 53.07 kg Patient Weight 09/15/17 06:59 Weight 53.07 kg GENERAL: This is a 31-year-old female who appears uncomfortable and in pain at the time of examination. Pleasant and cooperative. HEENT: Head is atraumatic, normocephalic. Pupils are equal, round, and reactive to light. Sclerae anicteric. Conjunctivae are clear. Mucus membranes of the mouth are moist. Neck is supple. RESPIRATORY: Difficulty taking deep breaths as it intensifies her abdominal pain. Lungs clear to ausculation. No wheezes, rales, or rhonchi. No use of accessory muscles. Patient maintaining oxygen saturation greater than 92% on room air. No chest wall tenderness is noted on palpation or with deep breathing. CARDIOVASCULAR: Regular rate and rhythm. S1 and S2 noted. No systolic or diastolic murmur auscultated. No JVD noted. No S3 or S4 noted. GASTROINTESTINAL: Pain and tenderness noted upon palpation. No distention noted. Abdomen soft and round. Normal active bowel sounds auscultated X 4 quadrants. INTEGUMENTARY: No cyanosis. No jaundice. No rashes noted. No cellulitis noted. EXTREMITIES: 2+ peripheral pulses. No evidence of peripheral edema. No calf tenderness noted. NEUROLOGIC: Cranial nerves II-XII intact. PSYCHIATRIC: Awake, alert, and oriented X 3. Appropriate affect. Intact judgement and insight. Results CBC & Chem 7: 09/14/17 12:18 09/14/17 12:18 Labs: Abnormal Lab Results - Last 24 Hours (Table) 09/14/17 09/14/17 Range/Units 12:18 12:18 Chloride 108 H (98-107) mmol/L Glucose 73 L (74-99) mg/dL Amylase 282 H (30-110) U/L Lipase 2072 H (23-300) U/L Urine Appearance Cloudy H (Clear) Ur Squamous Epith Cells 20 H (0-4) /hpf Urine Mucus Rare H (None) /hpf Assessment and Plan Plan: ASSESSMENT: Acute on chronic pancreatitis, secondary to history of alcohol abuse Abdominal pain secondary to pancreatitis History of alcohol abuse, in remission with last drink over 10 years ago Gastroesophageal reflux disease Hypothyroidism Anxiety, unspecified Nicotine dependence, patient is a current cigarette smoker Cannabis use disorder, patient is a daily marijuana user PLAN: -Defer GI consult as patient has already been evaluated by Dr. Hernandez in the past and also evaluated at [facility] -Continue IV fluid @ 100cc/hr -NPO, except for medications and ice chips -Pain control. Patient has IV dilaudid and PO [place] ordered. Instructed patient that dilaudid is for severe pain and norco for less severe pain and they are not to be taken simultaneously. -Home meds as appropriate -Monitor labs -Repeat amylase and lipase in AM -GI prophylaxis: Protonix 40mg IV daily -DVT prophylaxis: HUGO hose to bilateral lower extremities, Encourage ambulation -Monitor vital signs and address as appropriate -Smoking cessation encouraged -Discharge planning: Patient to return home when stable. No home care needs at this time. -Further recommendations pending patient's course Nurse practitioner note has been reviewed by physician. Signing provider agrees with the documented findings, assessment, and plan of care.
[2017-09-14 15:18] VITALS: BMI 22.1
[2017-09-14] MEDS: SODIUM CHLORIDE 0.9% 1,000 ML IV SCH (15:57)
[2017-09-14] MEDS ORDERED: HEPARIN SODIUM,PORCINE 5,000 UNIT/ML 1 ML VIAL SQ SCH (16:00)
[2017-09-14] MEDS: HYDROmorphone 0.5 MG/0.5 ML SYRINGE IVP PRN ×2 (17:25→20:35)
[2017-09-14] MEDS: METOCLOPRAMIDE 10 MG TAB PO PRN (17:25)
[2017-09-14] MEDS: ONDANSETRON 4 MG/2 ML VIAL IVP PRN (19:43)
[2017-09-14] MEDS: KETOROLAC 30 MG/ML 1 ML VIAL IVP PRN (19:46)
[2017-09-14] MEDS ORDERED: [UNRECOGNIZED DRUG - OTHER] PO SCH (21:00)
[2017-09-15] MEDS: HYDROmorphone 0.5 MG/0.5 ML SYRINGE IVP PRN ×7 (00:41→21:35)
[2017-09-15 01:42] VITALS: RESP 16
[2017-09-15] MEDS: KETOROLAC 30 MG/ML 1 ML VIAL IVP PRN (03:20)
[2017-09-15] MEDS: ONDANSETRON 4 MG/2 ML VIAL IVP PRN ×2 (03:21→14:53)
[2017-09-15] MEDS: SODIUM CHLORIDE 0.9% 1,000 ML IV SCH ×3 (06:06→21:39)
[2017-09-15] MEDS: METOCLOPRAMIDE 10 MG TAB PO PRN (06:31)
[2017-09-15 07:27] LABS: Basophils % (A) 0 %; CHCM 31.2; Eosinophils # (A) 0.1 k/uL (0-0.7); Eosinophils % (A) 2 %; HCT 36.5 % (34.0-46.0); HDW 2.02; HGB 11.8 gm/dL (11.4-16.0); Luc # (Auto) 0.08; Luc % (Auto) 1; Lymphocytes # (A) 2.2 k/uL (1.0-4.8); Lymphocytes % (A) 34 %; MCH 29.1 pg (25.0-35.0); MCHC 32.2 g/dL (31.0-37.0); MCV 90.2 fL (80.0-100.0); Monocytes # (A) 0.5 k/uL (0-1.0); Monocytes % (A) 7 %; Neutrophils # (A) 3.5 k/uL (1.3-7.7); Neutrophils % (A) 55 %; RBC 4.04 m/uL (3.80-5.40); RDW 13.3 % (11.5-15.5); WBC 6.4 k/uL (3.8-10.6); WBC (Perox) 6.51
[2017-09-15 07:58] LABS: ALT 31 U/L (9-52); AST 17 U/L (14-36); Alkaline Phosphatase 38 U/L (38-126); Anion Gap 4 mmol/L; Blood Urea Nitrogen 12 mg/dL (7-17); Calcium 8.3 mg/dL (8.4-10.2); Carbon Dioxide 21 mmol/L (22-30); Chloride 112 mmol/L (98-107); Glucose 83 mg/dL (74-99); Non-African American GFR(MDRD) >60 (>60 ml/min/1.73 sqM); Potassium 4.1 mmol/L (3.5-5.1); Sodium 137 mmol/L (137-145); Total Bilirubin 0.5 mg/dL (0.2-1.3); Total Protein 4.9 g/dL (6.3-8.2)
[2017-09-15] MEDS ORDERED: NON-FORMULARY DRUG (Biotin [Biotin] 5 MG) PO SCH (09:00)
[2017-09-15] MEDS: PANTOPRAZOLE 40 MG/10 ML VIAL IV SCH (10:14)
--- NOTE | 2017-09-15 12:01 | P.PN ---
Subjective Progress Note Date: 09/15/17 Principal diagnosis: Chronic recurrent pancreatitis Patient was admitted through the emergency room with acute exacerbation of chronic recurrent pancreatitis patient not been eating for 2 or 3 days but not been drinking I believe her lipase was 2000 which is not significantly high for this patient decision was made to admit secondary to current state of anorexia Objective - Vital Signs Vital signs: Vital Signs Temp 97.6 F 09/15/17 07:58 Pulse 62 09/15/17 07:58 Resp 16 09/15/17 07:58 BP 111/75 09/15/17 07:58 Pulse Ox 95 09/15/17 07:58 Intake & Output 09/14/17 09/15/17 09/15/17 18:59 06:59 18:59 Intake Total 1210 Balance 1210 Weight 53.07 kg 53.07 kg Intake: Intake, IV Titration 1200 Amount Sodium Chloride 0.9% 1, 1200 000 ml @ 100 mls/hr IV . Q10H MAHIN Rx#:[id number] Oral 10 Other: # Voids 1 - Exam General: [Patient awake, alert and oriented times 3. Patient in no acute distress.] HEENT: [PERRL. EOMI. No pharyngeal erythema or exudate.] Neck: [No adenopathy.] Cardiac: [Heart regular in rate and rhythm. No S3. No S4. No clicks, rubs. No murmur.] Lungs: [Clear to auscultation bilaterally.] Abdomen: [No mass. No organomegaly. Bowel sounds presnt and normoactive in all 4 quadrants.] ] Patient currently keeping down fluids on a clear liquid diet will advance as tolerated Extremes: [No edema no cyanosis no claudication normal pulses] : [] Musculoskeletal: [No joint erythema, edema or tenderness.] Skin: [No rash.] Neurologic: [No lateralizing deficits. CN II - XII grossly intact.] Lymphatic: [No adenopathy.] - Labs CBC & Chem 7: 09/15/17 06:22 09/15/17 06:22 Labs: Abnormal Lab Results - Last 24 Hours (Table) 09/14/17 09/14/17 09/15/17 Range/Units 12:18 12:18 06:22 Chloride 108 H 112 H (98-107) mmol/L Carbon Dioxide 21 L (22-30) mmol/L Glucose 73 L (74-99) mg/dL Calcium 8.3 L (8.4-10.2) mg/dL Total Protein 4.9 L (6.3-8.2) g/dL Albumin 2.9 L (3.5-5.0) g/dL Amylase 282 H (30-110) U/L Lipase 2072 H (23-300) U/L Urine Appearance Cloudy H (Clear) Ur Squamous Epith Cells 20 H (0-4) /hpf Urine Mucus Rare H (None) /hpf Assessment and Plan (1) Acute on chronic pancreatitis Narrative/Plan: Asians currently following clear liquid diet will repeat amylase and lipase advance diet as tolerated anticipate discharge home tomorrow Current Visit: Yes Status: Acute Code(s): K85.90 - ACUTE PANCREATITIS WITHOUT NECROSIS OR INFECTION, UNSP; K86.1 - OTHER CHRONIC PANCREATITIS SNOMED Code(s): 495305252 (2) Nausea and vomiting Narrative/Plan: Nausea vomiting. Resolved as of some time last night Current Visit: Yes Status: Acute Code(s): R11.2 - NAUSEA WITH VOMITING, UNSPECIFIED SNOMED Code(s): 62921047
[2017-09-15 13:39] LABS: Amylase 190 U/L (30-110)
[2017-09-16] MEDS: ONDANSETRON 4 MG/2 ML VIAL IVP PRN ×3 (00:53→19:38)
[2017-09-16] MEDS: HYDROmorphone 0.5 MG/0.5 ML SYRINGE IVP PRN ×8 (00:53→23:09)
[2017-09-16] MEDS: KETOROLAC 30 MG/ML 1 ML VIAL IVP PRN ×3 (04:18→23:09)
[2017-09-16] MEDS: METOCLOPRAMIDE 10 MG TAB PO PRN ×2 (04:40→13:32)
[2017-09-16] MEDS: PANTOPRAZOLE 40 MG/10 ML VIAL IV SCH (07:14)
[2017-09-16] MEDS: SODIUM CHLORIDE 0.9% 1,000 ML IV SCH ×3 (07:14→19:38)
[2017-09-16 07:31] LABS: ALT 32 U/L (9-52); AST 19 U/L (14-36); Alkaline Phosphatase 42 U/L (38-126); Amylase 167 U/L (30-110); Anion Gap 6 mmol/L; Blood Urea Nitrogen 9 mg/dL (7-17); Calcium 8.9 mg/dL (8.4-10.2); Carbon Dioxide 19 mmol/L (22-30); Chloride 116 mmol/L (98-107); Glucose 92 mg/dL (74-99); Non-African American GFR(MDRD) >60 (>60 ml/min/1.73 sqM); Potassium 3.9 mmol/L (3.5-5.1); Sodium 141 mmol/L (137-145); Total Bilirubin 0.5 mg/dL (0.2-1.3); Total Protein 5.7 g/dL (6.3-8.2)
[2017-09-16] MEDS ORDERED: MARIJUANA PO PRN (11:27)
--- NOTE | 2017-09-16 11:34 | P.PN ---
Subjective Progress Note Date: 09/16/17 Principal diagnosis: Chronic recurrent pancreatitis Patient was admitted through the emergency room with acute exacerbation of chronic recurrent pancreatitis patient not been eating for 2 or 3 days but not been drinking I believe her lipase was 2000 which is not significantly high for this patient decision was made to admit secondary to current state of anorexia. 09/16/2017 patient is awake alert oriented 3 feeling much better would like to try a diet will feed patient today for regular diet if she tolerates that we'll discharged home Objective - Vital Signs Vital signs: Vital Signs Temp 98 F 09/16/17 07:54 Pulse 68 09/16/17 09:58 Resp 16 09/16/17 09:58 BP 117/65 09/16/17 07:54 Pulse Ox 98 09/16/17 07:54 Intake & Output 09/15/17 09/16/17 09/16/17 18:59 06:59 18:59 Intake Total 800 1800 Balance 800 1800 Weight 53.07 kg Intake: Intake, IV Titration 800 1200 Amount Sodium Chloride 0.9% 1, 800 1200 000 ml @ 100 mls/hr IV . Q10H MAHIN Rx#:[id number] Oral 600 Other: Voiding Method Toilet # Voids 3 1 - Exam General: [Patient awake, alert and oriented times 3. Patient in no acute distress.] HEENT: [PERRL. EOMI. No pharyngeal erythema or exudate.] Neck: [No adenopathy.] Cardiac: [Heart regular in rate and rhythm. No S3. No S4. No clicks, rubs. No murmur.] Lungs: [Clear to auscultation bilaterally.] Abdomen: [No mass. No organomegaly. Bowel sounds presnt and normoactive in all 4 quadrants.] ] Patient currently keeping down fluids on a clear liquid diet will advance as tolerated Extremes: [No edema no cyanosis no claudication normal pulses] : [] Musculoskeletal: [No joint erythema, edema or tenderness.] Skin: [No rash.] Neurologic: [No lateralizing deficits. CN II - XII grossly intact.] Lymphatic: [No adenopathy.] - Labs CBC & Chem 7: 09/15/17 06:22 09/16/17 06:16 Labs: Abnormal Lab Results - Last 24 Hours (Table) 11/18/17 11/19/17 Range/Units 06:22 06:16 Chloride 116 H (98-107) mmol/L Carbon Dioxide 19 L (22-30) mmol/L Total Protein 5.7 L (6.3-8.2) g/dL Albumin 3.3 L (3.5-5.0) g/dL Amylase 190 H 167 H (30-110) U/L Lipase 889 H 664 H (23-300) U/L Assessment and Plan (1) Acute on chronic pancreatitis Narrative/Plan: Asians currently following clear liquid diet will repeat amylase and lipase advance diet as tolerated anticipate discharge home today Current Visit: Yes Status: Acute Code(s): K85.90 - ACUTE PANCREATITIS WITHOUT NECROSIS OR INFECTION, UNSP; K86.1 - OTHER CHRONIC PANCREATITIS SNOMED Code(s): 636913922 (2) Nausea and vomiting Narrative/Plan: Nausea vomiting. Resolved as of some time 2 days ago Current Visit: Yes Status: Acute Code(s): R11.2 - NAUSEA WITH VOMITING, UNSPECIFIED SNOMED Code(s): 19944103
--- NOTE | 2017-09-16 11:41 | P.DS ---
Providers Date of admission: 09/14/17 13:40 Expected date of discharge: 09/16/17 Attending physician: Otoniel Lira Primary care physician: Otoniel Lira - Discharge Diagnosis(es) (1) Acute on chronic pancreatitis See note from today Current Visit: Yes Status: Acute (2) Nausea and vomiting Resolved Current Visit: Yes Status: Acute Hospital Course: Patient presented with acute on chronic pancreatitis lipase at 1000+ Patient was started on clear liquids has done well Will advance diet today the patient tolerates diet may go home this afternoon Patient Condition at Discharge: Stable Plan - Discharge Summary Discharge Rx Participant: No New Discharge Prescriptions: No Action Thyrotone 500mg 500 mg PO HS HYDROcodone/APAP 10-325MG [[place] 10-325] 1 tab PO Q8H PRN PRN Reason: Pain Metoclopramide HCl [Reglan] 10 mg PO Q6H PRN PRN Reason: Nausea Ondansetron HCl [Zofran] 8 mg PO Q8H PRN #21 PRN Reason: Nausea Biotin 5 mg PO DAILY Marijuana Capsule 1 cap PO DAILY PRN PRN Reason: Pain Discharge Medication List Thyrotone 500mg 500 mg PO HS 09/10/16 [History] HYDROcodone/APAP 10-325MG [[place] 10-325] 1 tab PO Q8H PRN 02/11/17 [History] Metoclopramide HCl [Reglan] 10 mg PO Q6H PRN 02/28/17 [History] Ondansetron HCl [Zofran] 8 mg PO Q8H PRN #21 03/15/17 [Rx] Biotin 5 mg PO DAILY 07/12/17 [History] Marijuana Capsule 1 cap PO DAILY PRN 09/14/17 [History] Follow up Appointment(s)/Referral(s): Ootniel Lira Jr, [Primary Care Provider] - 1-2 days
[2017-09-17] MEDS: HYDROmorphone 0.5 MG/0.5 ML SYRINGE IVP PRN ×5 (03:03→15:55)
[2017-09-17] MEDS: ONDANSETRON 4 MG/2 ML VIAL IVP PRN (03:03)
[2017-09-17 07:51] LABS: ALT 35 U/L (9-52); AST 24 U/L (14-36); Alkaline Phosphatase 36 U/L (38-126); Amylase 79 U/L (30-110); Anion Gap 6 mmol/L; Blood Urea Nitrogen 5 mg/dL (7-17); Calcium 8.8 mg/dL (8.4-10.2); Carbon Dioxide 23 mmol/L (22-30); Chloride 113 mmol/L (98-107); Glucose 98 mg/dL (74-99); Non-African American GFR(MDRD) >60 (>60 ml/min/1.73 sqM); Potassium 3.9 mmol/L (3.5-5.1); Sodium 142 mmol/L (137-145); Total Bilirubin 0.6 mg/dL (0.2-1.3); Total Protein 5.7 g/dL (6.3-8.2)
[2017-09-17] MEDS: PANTOPRAZOLE 40 MG/10 ML VIAL IV SCH (08:16)
--- NOTE | 2017-09-17 10:03 | P.PN ---
Progress Note - Text Progress Note Date: 09/17/17 Patient was admitted for acute on chronic pancreatitis. Amylase and lipase are trending downward. Patient was to be discharged yesterday but stated after she ate she began having more abdominal pain. Discharge summary was completed yesterday by Dr. Lira. She states her abdominal pain has significantly improved. The patient's diet has been advanced and if the patient tolerates that she may be discharged home today per Dr. Bangura. Nurse practitioner note has been reviewed by physician. Signing provider agrees with the documented findings, assessment, and plan of care.
[2017-09-17 15:48] VITALS: BP 115/73; PULSE 72; TEMP 99
== END 2017-09-17 16:35 | disposition home or self-care (01) | DRG 282 ==
LOC: EC 11:43 → 5MS5E 13:40
PROVIDERS: ADMIT Family Medicine; ATTEND Family Medicine
DX: K86.1 Other chronic pancreatitis (principal); R63.0 Anorexia; E03.9 Hypothyroidism, unspecified; F10.11 Alcohol abuse, in remission; K21.9 Gastro-esophageal reflux disease without esophagitis; F41.9 Anxiety disorder, unspecified; F17.210 Nicotine dependence, cigarettes, uncomplicated; F12.90 Cannabis use, unspecified, uncomplicated; Z71.6 Tobacco abuse counseling; Z88.6 Allergy status to analgesic agent; Z79.899 Other long term (current) drug therapy; Z79.891 Long term (current) use of opiate analgesic; Z82.49 Family history of ischemic heart disease and other diseases of the circulatory system; Z90.49 Acquired absence of other specified parts of digestive tract; Z98.51 Tubal ligation status; Z87.11 Personal history of peptic ulcer disease
CPT/HCPCS: 36415; 80053; 81001; 82150; 83690; 85025; 96361; 96374; 96375; 99284

== ENCOUNTER 2017-10-24 11:10 | Observation (INO) | payer OTHER ==
[2017-10-24] MEDS ORDERED: ONDANSETRON 4 MG/2 ML VIAL IVP STA (11:51)
[2017-10-24] MEDS ORDERED: SODIUM CHLORIDE 0.9% 1,000 ML IV STA (11:51)
[2017-10-24] MEDS ORDERED: HYDROmorphone 1 MG/ML 1 ML SYRINGE IVP STA (11:51)
[2017-10-24] MEDS ORDERED: KETOROLAC 30 MG/ML 1 ML VIAL IVP STA (11:51)
--- NOTE | 2017-10-24 11:53 | ED ---
General Adult HPI - General Chief complaint: Abdominal Pain Stated complaint: CHRONIC PANCREATITIS Time Seen by Provider: 10/24/17 11:10 Source: patient, RN notes reviewed Mode of arrival: wheelchair Limitations: no limitations - History of Present Illness Initial comments: This is a 31-year-old female presents emergency department for the second time in 2 days. Patient states she has chronic pancreatic head and she was diagnosed yesterday with acute on chronic pancreatitis. Patient's primary medical care doctor wanted her to try to go home and see if she could get this resolved at home. Patient states the pain is worse she has vomited a couple times since then and she is unable to take care of children so she came back to the hospital. Patient denies any fever chills. Patient states she's had pancreatitis for many years and it started because of her heavy drinking approximately 10 years ago. Patient denies any chest pain or palpitations. Patient denies any shortness of breath or difficulty breathing. Patient denies any lightheadedness dizziness or near syncopal episode. Patient denies any back pain. Patient denies any dysuria hematuria urinary frequency. - Related Data Home Medications Medication Instructions Recorded Confirmed Thyrotone 500mg 500 mg PO HS 09/10/16 10/24/17 HYDROcodone/APAP 10-325MG [[place] 1 tab PO Q8H PRN 02/11/17 10/24/17 10-325] Metoclopramide HCl [Reglan] 10 mg PO Q8H PRN 02/28/17 10/24/17 Ondansetron HCl [Zofran] 8 mg PO Q6H PRN 10/23/17 10/24/17 Allergies Allergy/AdvReac Type Severity Reaction Status Date / Time morphine AdvReac Mild Nausea Verified 10/24/17 11:35 Review of Systems ROS Statement: Those systems with pertinent positive or pertinent negative responses have been documented in the HPI. ROS Other: All systems not noted in ROS Statement are negative. Past Medical History Past Medical History: GERD/Reflux, Thyroid Disorder Additional Past Medical History / Comment(s): Acute then chronic pancreatitis being seen at [facility], chronic bronchitis, PUD, hypothyroid. History of Any Multi-Drug Resistant Organisms: None Reported Past Surgical History: Adenoidectomy, Ear Surgery, Tonsillectomy, Tubal Ligation Additional Past Surgical History / Comment(s): multiple tubes in ears, D&C, EGD at [facility]. Past Anesthesia/Blood Transfusion Reactions: No Reported Reaction Past Psychological History: Anxiety Smoking Status: Current every day smoker Past Alcohol Use History: None Reported Past Drug Use History: Marijuana - Past Family History Father Family Medical History: Hyperlipidemia Mother Family Medical History: Congestive Heart Failure (CHF) General Exam - General Exam Comments Initial Comments: GENERAL: Patient is well-developed and well-nourished. Patient is nontoxic and well- hydrated and is in moderate distress. ENT: Neck is soft and supple. No significant lymphadenopathy is noted. Oropharynx is clear. Moist mucous membranes. Neck has full range of motion without eliciting any pain. EYES: The sclera were anicteric and conjunctiva were pink and moist. Extraocular movements were intact and pupils were equal round and reactive to light. Eyelids were unremarkable. PULMONARY: Unlabored respirations. Good breath sounds bilaterally. No audible rales rhonchi or wheezing was noted. CARDIOVASCULAR: There is a regular rate and rhythm without any murmurs gallops or rubs. ABDOMEN: Epigastric abdominal pain SKIN: Skin is clear with no lesions or rashes and otherwise unremarkable. NEUROLOGIC: Patient is alert and oriented x3. Cranial nerves II through XII are grossly intact. Motor and sensory are also intact. Normal speech, volume and content. Symmetrical smile. MUSCULOSKELETAL: Normal extremities with adequate strength and full range of motion. No lower extremity swelling or edema. No calf tenderness. LYMPHATICS: No significant lymphadenopathy is noted PSYCHIATRIC: Normal psychiatric evaluation. Limitations: no limitations Course Vital Signs 10/24/17 11:35 Temperature 98.3 F Pulse Rate 100 Respiratory 20 Rate Blood Pressure 119/65 O2 Sat by Pulse 100 Oximetry Medical Decision Making - Medical Decision Making I spoke with Dr. Lira and he agreed to admit the patient. - Lab Data Result diagrams: 10/24/17 12:10 10/24/17 12:10 Lab Results 10/24/17 10/24/17 10/24/17 Range/Units 12:05 12:10 12:10 WBC 8.9 (3.8-10.6) k/uL RBC 4.56 (3.80-5.40) m/uL Hgb 13.1 (11.4-16.0) gm/dL Hct 40.0 (34.0-46.0) % MCV 87.7 (80.0-100.0) fL MCH 28.6 (25.0-35.0) pg MCHC 32.6 (31.0-37.0) g/dL RDW 12.5 (11.5-15.5) % Plt Count 220 (150-450) k/uL Neutrophils % 69 % Lymphocytes % 23 % Monocytes % 6 % Eosinophils % 2 % Basophils % 0 % Neutrophils # 6.1 (1.3-7.7) k/uL Lymphocytes # 2.0 (1.0-4.8) k/uL Monocytes # 0.5 (0-1.0) k/uL Eosinophils # 0.1 (0-0.7) k/uL Basophils # 0.0 (0-0.2) k/uL Sodium 140 (137-145) mmol/L Potassium 4.6 (3.5-5.1) mmol/L Chloride 110 H (98-107) mmol/L Carbon Dioxide 25 (22-30) mmol/L Anion Gap 5 mmol/L BUN 11 (7-17) mg/dL Creatinine 0.72 (0.52-1.04) mg/dL Est GFR (MDRD) Af Amer >60 (>60 ml/min/1.73 sqM) Est GFR (MDRD) Non-Af >60 (>60 ml/min/1.73 sqM) Glucose 81 (74-99) mg/dL Calcium 9.1 (8.4-10.2) mg/dL Total Bilirubin 0.2 (0.2-1.3) mg/dL AST 16 (14-36) U/L ALT 29 (9-52) U/L Alkaline Phosphatase 41 (38-126) U/L Total Protein 6.0 L (6.3-8.2) g/dL Albumin 3.5 (3.5-5.0) g/dL Amylase 153 H (30-110) U/L Lipase 538 H (23-300) U/L Urine Color Yellow Urine Appearance Cloudy H (Clear) Urine pH 6.0 (5.0-8.0) Ur Specific [place] 1.010 (1.001-1.035) Urine Protein Negative (Negative) Urine Glucose (UA) Negative (Negative) Urine Ketones Negative (Negative) Urine Blood Negative (Negative) Urine Nitrite Negative (Negative) Urine Bilirubin Negative (Negative) Urine Urobilinogen <2.0 (<2.0) mg/dL Ur Leukocyte Esterase Negative (Negative) Urine WBC 1 (0-5) /hpf Ur Squamous Epith Cells 5 H (0-4) /hpf Urine Mucus Occasional H (None) /hpf Disposition Clinical Impression: Acute appendicitis Disposition: ADMITTED IP TO THIS HOSP Referrals: Otoniel Lira Jr, [Primary Care Provider] - 1-2 days Time of Disposition: 12:57
[2017-10-24 12:26] LABS: Basophils % (A) 0 %; Eosinophils # (A) 0.1 k/uL (0-0.7); Eosinophils % (A) 2 %; HGB 13.1 gm/dL (11.4-16.0); Lymphocytes % (A) 23 %; MCH 28.6 pg (25.0-35.0); MCHC 32.6 g/dL (31.0-37.0); MCV 87.7 fL (80.0-100.0); Mean Platelet Volume 7.9; Monocytes # (A) 0.5 k/uL (0-1.0); Monocytes % (A) 6 %; Neutrophils # (A) 6.1 k/uL (1.3-7.7); Neutrophils % (A) 69 %; Platelet Count 220 k/uL (150-450); RBC 4.56 m/uL (3.80-5.40); RDW 12.5 % (11.5-15.5); WBC 8.9 k/uL (3.8-10.6)
[2017-10-24 12:27] LABS: Appearance,Urine Cloudy (Clear); Bilirubin,Urine Negative (Negative); Blood,Urine Negative (Negative); Color,Urine Yellow; Glucose,Urine (UA) Negative (Negative); Ketones,Urine Negative (Negative); Leukocyte Esterase,Urine Negative (Negative); Mucus,Urine Occasional /hpf; Nitrite,Urine Negative (Negative); Protein,Urine Negative (Negative); Squamous Epithelial Cell,Urine 5 /hpf (0-4); Urobilinogen,Urine <2.0 mg/dL (<2.0); WBC,Urine 1 /hpf (0-5)
[2017-10-24 12:34] LABS: ALT 29 U/L (9-52); AST 16 U/L (14-36); Albumin 3.5 g/dL (3.5-5.0); Alkaline Phosphatase 41 U/L (38-126); Amylase 153 U/L (30-110); Anion Gap 5 mmol/L; Blood Urea Nitrogen 11 mg/dL (7-17); Calcium 9.1 mg/dL (8.4-10.2); Carbon Dioxide 25 mmol/L (22-30); Chloride 110 mmol/L (98-107); Glucose 81 mg/dL (74-99); Lipase 538 U/L (23-300); Potassium 4.6 mmol/L (3.5-5.1); Sodium 140 mmol/L (137-145); Total Bilirubin 0.2 mg/dL (0.2-1.3)
[2017-10-24] MEDS ORDERED: SODIUM CHLORIDE 0.9% 1,000 ML IV ONE (12:58)
[2017-10-24] MEDS ORDERED: HYDROcodone/APAP 10-325MG 1 EACH TAB PO PRN (13:37)
[2017-10-24] MEDS ORDERED: ONDANSETRON 4 MG TAB PO PRN (13:37)
[2017-10-24] MEDS ORDERED: METOCLOPRAMIDE 10 MG TAB PO PRN (13:37)
[2017-10-24] MEDS: HYDROmorphone 1 MG/ML 1 ML SYRINGE IVP PRN ×3 (15:48→23:47)
[2017-10-24 18:09] VITALS: BMI 22.6
[2017-10-24] MEDS: ONDANSETRON 4 MG/2 ML VIAL IVP PRN ×2 (18:38→23:47)
[2017-10-24] MEDS ORDERED: [UNRECOGNIZED DRUG - OTHER] PO SCH (21:00)
[2017-10-25] MEDS: HYDROmorphone 1 MG/ML 1 ML SYRINGE IVP PRN ×5 (04:08→21:15)
[2017-10-25] MEDS: PANTOPRAZOLE 40 MG/10 ML VIAL IVP SCH (07:58)
[2017-10-25] MEDS: ONDANSETRON 4 MG/2 ML VIAL IVP PRN ×2 (07:58→17:46)
[2017-10-25 08:45] LABS: ALT 39 U/L (9-52); AST 22 U/L (14-36); Albumin 2.7 g/dL (3.5-5.0); Alkaline Phosphatase 40 U/L (38-126); Amylase 188 U/L (30-110); Anion Gap 1 mmol/L; Blood Urea Nitrogen 9 mg/dL (7-17); Calcium 8.4 mg/dL (8.4-10.2); Carbon Dioxide 23 mmol/L (22-30); Chloride 113 mmol/L (98-107); Glucose 87 mg/dL (74-99); Lipase 709 U/L (23-300); Potassium 4.1 mmol/L (3.5-5.1); Sodium 137 mmol/L (137-145); Total Bilirubin 0.4 mg/dL (0.2-1.3)
[2017-10-25] MEDS: SODIUM CHLORIDE 0.9% 1,000 ML IV SCH ×2 (10:43→18:52)
--- NOTE | 2017-10-25 12:26 | P.HPIM ---
History of Present Illness H&P Date: 10/25/17 Chief Complaint: Abdominal pain 31-year-old female who presented to the emergency room on 10/24/2017 with a chief complaint of abdominal pain. The patient states she has been having abdominal pain for the past couple days with accompanied nausea and vomiting. The patient has a history of chronic pancreatitis secondary to alcohol abuse approximately 10 years ago. She was recently hospitalized from 09/14/2017 until 09/17/2017 with acute on chronic pancreatitis. 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 the summer and underwent several test and nothing was found that accounted for her pancreatitis and was told she did not need to follow up with them. She is a history of gastroesophageal reflux disease and hypothyroidism. She is a current every day cigarette smoker and smokes approximately one pack a day. She also has a medical marijuana card and takes her marijuana in the form of the capsule. In the emergency room the patient's amylase was found to be 153 and lipase was 538. The patient was made nothing by mouth and admitted to the hospital under the care of Dr. Lira. IV fluids were ordered at 100 mL an hour. The patient was seen and examined at the bedside. She is lethargic and took multiple attempts to arouse patient. The patient states her abdominal pain is improving. She is hoping to be discharged home today. She has been tolerating ice chips vomiting. She states she did have an episode of nausea throughout the night. Her amylase this morning is 188. Her lipase is 709. She denies shortness of breath, chest pain, or pressure. Vital signs have remained stable Review of Systems GENERAL: Patient denies fever. Denies chills. EYES: Denies blurred vision. Denies vision changes. Denies eye pain. EARS, NOSE, MOUTH, & THROAT: Denies headache. Denies sore throat. Denies ear pain. RESPIRATORY: Denies cough. Denies shortness of breath. Denies sputum production. Denies hemoptysis. CARDIOVASCULAR: Denies chest pain or pressure. Denies palpitations. Denies arrhythmias. GASTROINTESTINAL: Positive for abdominal pain, nausea, and vomiting. Denies diarrhea. Denies constipation. Denies heartburn. Denies blood in the stool. GENITOURINARY: Denies urinary frequency. Denies burning. Denies dysuria. Denies cloudy urine. Denies blood in the urine. MUSCULOSKELETAL: Denies myalgias. Denies joint swelling. Denies decreased range of motion beyond patients baseline. INTEGUMENTARY: Denies pruitis. Denies rash. PSYCHIATRIC: Denies suicidal or homicial ideations. ENDOCRINE: Denies weight change. Denies polydipsia. Denies polyuria. HEMATOLOGIC: Denies bleeding disorders. Past Medical History Past Medical History: GERD/Reflux, Thyroid Disorder Additional Past Medical History / Comment(s): Acute then chronic pancreatitis being seen at [facility], chronic bronchitis, PUD, hypothyroid. History of Any Multi-Drug Resistant Organisms: None Reported Past Surgical History: Adenoidectomy, Ear Surgery, Tonsillectomy, Tubal Ligation Additional Past Surgical History / Comment(s): multiple tubes in ears, D&C, EGD at [facility]. Past Anesthesia/Blood Transfusion Reactions: No Reported Reaction Past Psychological History: Anxiety Additional Psychological History / Comment(s): Pt resides with her two children ages 4 and 11 yrs. She is independent. Smoking Status: Current every day smoker Past Alcohol Use History: None Reported Additional Past Alcohol Use History / Comment(s): Pt states she started smoking about 1998 and is now less than a ppd smoker. She has not drank alcohol in 10 yrs. Past Drug Use History: Marijuana Additional Drug Use History / Comment(s): Pt has a medical marijuana card and takes it in the form of a capsule daily. - Past Family History Father Family Medical History: Hyperlipidemia Mother Family Medical History: Congestive Heart Failure (CHF) Medications and Allergies Home Medications Medication Instructions Recorded Confirmed Type Thyrotone 500mg 500 mg PO HS 09/10/16 10/24/17 History HYDROcodone/APAP 10-325MG [[place] 1 tab PO Q8H PRN 02/11/17 10/24/17 History 10-325] Metoclopramide HCl [Reglan] 10 mg PO Q8H PRN 02/28/17 10/24/17 History Ondansetron HCl [Zofran] 8 mg PO Q6H PRN 10/23/17 10/24/17 History Allergies Allergy/AdvReac Type Severity Reaction Status Date / Time morphine AdvReac Mild Nausea Verified 10/24/17 11:35 Physical Exam Vitals: Vital Signs Temp Pulse Pulse Resp BP BP BP 10/25/17 07:00 97.8 F 76 18 111/67 12/27/17 23:00 97.7 F 62 16 109/62 10/24/17 15:00 97.3 F L 66 18 113/71 10/24/17 14:12 97.0 F L 70 16 111/64 10/24/17 14:05 18 10/24/17 13:29 98 F 81 16 101/66 Pulse Ox 10/25/17 07:00 98 10/24/17 23:00 99 10/24/17 15:00 100 10/24/17 14:12 99 10/24/17 14:05 10/24/17 13:29 99 Intake and Output 10/24/17 10/25/17 10/25/17 22:59 06:59 14:59 Other: # Voids 1 2 1 GENERAL: This is a 31-year-old female in no apparent distress at the time of examination, but is very lethargic. Pleasant and cooperative. HEENT: Head is atraumatic, normocephalic. Pupils are equal, round, and reactive to light. Sclerae anicteric. Conjunctivae are clear. Mucus membranes of the mouth are moist. Neck is supple. RESPIRATORY: Clear to ausculation. No wheezes, rales, or rhonchi. No use of accessory muscles. Patient maintaining oxygen saturation greater than 92%. No chest wall tenderness is noted on palpation or with deep breathing. CARDIOVASCULAR: Regular rate and rhythm. S1 and S2 noted. No systolic or diastolic murmur auscultated. No JVD noted. No S3 or S4 noted. GASTROINTESTINAL: No distention noted. Abdomen soft and round. Hypo-active bowel sounds auscultated X 4 quadrants. No pain or tenderness noted upon palpation. INTEGUMENTARY: No cyanosis. No jaundice. No rashes noted. No cellulitis noted. EXTREMITIES: 2+ peripheral pulses. No evidence of peripheral edema. No calf tenderness noted. NEUROLOGIC: Cranial nerves II-XII intact. PSYCHIATRIC: Oriented X 3. Appropriate affect. Intact judgement and insight. Results CBC & Chem 7: 10/24/17 12:10 10/25/17 07:47 Labs: Abnormal Lab Results - Last 24 Hours (Table) 10/24/17 10/24/17 10/25/17 Range/Units 12:05 12:10 07:47 Chloride 110 H 113 H (98-107) mmol/L Total Protein 6.0 L 5.0 L (6.3-8.2) g/dL Albumin 2.7 L (3.5-5.0) g/dL Amylase 153 H 188 H (30-110) U/L Lipase 538 H 709 H (23-300) U/L Urine Appearance Cloudy H (Clear) Ur Squamous Epith Cells 5 H (0-4) /hpf Urine Mucus Occasional H (None) /hpf Thrombosis Risk Factor Assmnt - Choose All That Apply Any of the Below Risk Factors Present?: No Other Risk Factors: No Other congenital or acquired thrombophilia - If yes, enter type in comment: No Thrombosis Risk Factor Assessment Level: Very Low Risk Assessment and Plan Plan: ASSESSMENT: Acute on chronic pancreatitis, secondary to history of alcohol abuse Abdominal pain, nausea, vomiting, secondary to above, improving History of alcohol abuse, in remission with last drink over 10 years ago Gastroesophageal reflux disease Hypothyroidism Mild protein calorie malnutrition secondary to chronic pancreatitis Anxiety, unspecified Nicotine dependence, patient is a current cigarette smoker Cannabis use disorder, patient has a daily marijuana user PLAN: -Defer GI consult as patient has been evaluated by Dr. Hernandez in the past and also evaluated at [facility] -Continue IV fluids at 100 mL an hour -Advance diet to clear liquids for lunch -Order clear ensure 3 times a day with meals -Discontinue Dilaudid secondary to lethargy. Continue [place] -Home meds as appropriate -Monitor labs. Repeat amylase and lipase in a.m. -GI prophylaxis: Protonix 40 mg IV daily -DVT prophylaxis: Encourage early ambulation -Monitor vital signs and address as appropriate -Discharge planning: Patient to be discharged home when stable. No home care needs at this time -Further recommendations pending patient's course Nurse practitioner note has been reviewed by physician. Signing provider agrees with the documented findings, assessment, and plan of care.
[2017-10-26] MEDS: HYDROmorphone 1 MG/ML 1 ML SYRINGE IVP PRN ×3 (00:26→08:11)
[2017-10-26] MEDS: SODIUM CHLORIDE 0.9% 1,000 ML IV SCH ×2 (04:47→08:08)
[2017-10-26] MEDS: ONDANSETRON 4 MG/2 ML VIAL IVP PRN (04:48)
[2017-10-26 07:32] VITALS: BP 120/75; PULSE 71; RESP 18; TEMP 98.6
[2017-10-26] MEDS: PANTOPRAZOLE 40 MG/10 ML VIAL IVP SCH (08:06)
[2017-10-26 09:43] LABS: ALT 36 U/L (9-52); AST 18 U/L (14-36); Albumin 2.9 g/dL (3.5-5.0); Alkaline Phosphatase 40 U/L (38-126); Amylase 170 U/L (30-110); Anion Gap 6 mmol/L; Blood Urea Nitrogen 4 mg/dL (7-17); Calcium 8.6 mg/dL (8.4-10.2); Carbon Dioxide 23 mmol/L (22-30); Chloride 111 mmol/L (98-107); Glucose 101 mg/dL (74-99); Lipase 622 U/L (23-300); Potassium 4.2 mmol/L (3.5-5.1); Sodium 140 mmol/L (137-145); Total Bilirubin 0.6 mg/dL (0.2-1.3); Total Protein 5.2 g/dL (6.3-8.2)
--- NOTE | 2017-10-26 10:33 | P.DS ---
Providers Date of admission: 10/24/17 12:58 Expected date of discharge: 10/26/17 Attending physician: Otoniel Lira Primary care physician: [facility] Course: 31-year-old female who presented to the emergency room on 10/24/2017 with a chief complaint of abdominal pain. The patient states she has been having abdominal pain for the past couple days with accompanied nausea and vomiting. The patient has a history of chronic pancreatitis secondary to alcohol abuse approximately 10 years ago. She was recently hospitalized from 09/14/2017 until 09/17/2017 with acute on chronic pancreatitis. 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 She is a history of gastroesophageal reflux disease and hypothyroidism. She is a current every day cigarette smoker and smokes approximately one pack a day. She also has a medical marijuana card and takes her marijuana in the form of the capsule. In the emergency room the patient's amylase was found to be 153 and lipase was 538. The patient was made nothing by mouth and admitted to the hospital under the care of Dr. Lira. IV fluids were ordered at 100 mL an hour. Lab work from 10/25/2017 reveals amylase of 188 and lipase of 709. Lab work from 2016 reveals amylase of 170 and lipase of 622. Patient denies any further episodes of nausea or vomiting. States abdominal pain has resolved. Patient is tolerating clear liquids. Patient is anxious to be discharged home. The patient was deemed stable for discharge per Dr. Lira. The patient was educated to continue clear liquids and advance her diet slowly at home. Patient verbalized understanding. She is to follow up on an outpatient basis with Dr. Lira. DISCHARGE DIAGNOSIS: Acute on chronic pancreatitis, secondary to history of alcohol abuse, pancreatic enzymes trending downward Abdominal pain, nausea, vomiting, secondary to above, resolved at the time of discharge History of alcohol abuse, in remission with last drink over 10 years ago Gastroesophageal reflux disease Hypothyroidism Mild protein calorie malnutrition secondary to chronic pancreatitis Anxiety, unspecified Nicotine dependence, patient is a current cigarette smoker Cannabis use disorder, patient has a daily marijuana user Nurse practitioner note has been reviewed by physician. Signing provider agrees with the documented findings, assessment, and plan of care. Patient Condition at Discharge: Fair Plan - Discharge Summary Discharge Rx Participant: Yes New Discharge Prescriptions: Continue Thyrotone 500mg 500 mg PO HS HYDROcodone/APAP 10-325MG [[place] 10-325] 1 tab PO Q8H PRN PRN Reason: Pain Metoclopramide HCl [Reglan] 10 mg PO Q8H PRN PRN Reason: Nausea Ondansetron HCl [Zofran] 8 mg PO Q6H PRN PRN Reason: Nausea Discharge Medication List Thyrotone 500mg 500 mg PO HS 09/10/16 [History] HYDROcodone/APAP 10-325MG [[place] 10-325] 1 tab PO Q8H PRN 02/11/17 [History] Metoclopramide HCl [Reglan] 10 mg PO Q8H PRN 02/28/17 [History] Ondansetron HCl [Zofran] 8 mg PO Q6H PRN 10/23/17 [History] Follow up Appointment(s)/Referral(s): Otoniel Lira Jr, [Primary Care Provider] - 1 Week Patient Instructions/Handouts: Pancreatitis (DC) Activity/Diet/Wound Care/Special Instructions: No smoking, cessation information given. Discharge Disposition: HOME SELF-CARE
== END 2017-10-26 10:54 | disposition home or self-care (01) ==
LOC: EC 11:10 → INTOOBSV 12:58 → 4MS4W 12:58 → UNDODISIN 10-26 10:54
PROVIDERS: ADMIT Family Medicine; ATTEND Family Medicine
DX: K85.20 Alcohol induced acute pancreatitis without necrosis or infection (principal); E44.1 Mild protein-calorie malnutrition; E03.9 Hypothyroidism, unspecified; K86.0 Alcohol-induced chronic pancreatitis; F10.11 Alcohol abuse, in remission; F17.210 Nicotine dependence, cigarettes, uncomplicated; F41.9 Anxiety disorder, unspecified; J42 Unspecified chronic bronchitis; K21.9 Gastro-esophageal reflux disease without esophagitis; Z87.11 Personal history of peptic ulcer disease; Z79.899 Other long term (current) drug therapy; Z88.5 Allergy status to narcotic agent; Z82.49 Family history of ischemic heart disease and other diseases of the circulatory system
CPT/HCPCS: 96376 ×3; 96361 ×3; 96374; 96375; 99284; 36415; 80053 ×3; 82150 ×3; 83690 ×3; 85025; 81001; G0378 ×3; J2405 ×3; J1885; J1170 ×3; C9113 ×2

== ENCOUNTER 2017-12-10 22:11 | Emergency (ER) | payer OTHER ==
[2017-12-10 22:15] VITALS: BP 136/77; PULSE 89; RESP 18; TEMP 97
[2017-12-10] MEDS ORDERED: SODIUM CHLORIDE 0.9% 1,000 ML IV STA ×2 (22:46)
[2017-12-10] MEDS ORDERED: ONDANSETRON 4 MG/2 ML VIAL IVP STA (22:47)
--- NOTE | 2017-12-10 23:03 | ED ---
Abdominal Pain HPI - General Chief Complaint: Abdominal Pain Stated Complaint: abdominal pain Time Seen by Provider: 12/10/17 22:38 Source: patient Mode of arrival: ambulatory Limitations: no limitations - History of Present Illness Initial Comments: Patient presents for "chronic pancreatitis". Patient complains of epigastric pain radiating to her back that's been worsening since yesterday. Patient states this is the exact same pain she always gets when she has pancreatitis. He states she follows with gastrologist at [facility]. Has also been seen by GI Dr. Hernandez at this hospital. Patient states can find out why she gets pancreatitis, states she was told it might be from eating red meat. 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 Patient states she vomited once earlier this morning but has not vomited the rest of the day. MD Complaint: abdominal pain - Related Data Home Medications Medication Instructions Recorded Confirmed HYDROcodone/APAP 10-325MG [[place] 1 tab PO Q8H PRN 02/11/17 12/10/17 10-325] Metoclopramide HCl [Reglan] 10 mg PO Q8H PRN 02/28/17 12/10/17 Ondansetron HCl [Zofran] 8 mg PO Q6H PRN 10/23/17 12/10/17 Allergies Allergy/AdvReac Type Severity Reaction Status Date / Time morphine AdvReac Mild Nausea Verified 12/10/17 22:33 Review of Systems ROS Statement: Those systems with pertinent positive or pertinent negative responses have been documented in the HPI. ROS Other: All systems not noted in ROS Statement are negative. Constitutional: Denies: fever, chills Eyes: Denies: vision change ENT: Denies: throat pain, congestion Respiratory: Denies: cough, dyspnea Cardiovascular: Denies: chest pain Endocrine: Reports: fatigue Gastrointestinal: Reports: abdominal pain, nausea, vomiting. Denies: diarrhea, constipation Genitourinary: Denies: urgency, frequency, hematuria Musculoskeletal: Denies: back pain Skin: Denies: rash Neurological: Denies: headache Past Medical History Past Medical History: GERD/Reflux, Thyroid Disorder Additional Past Medical History / Comment(s): Acute then chronic pancreatitis being seen at [facility], chronic bronchitis, PUD, hypothyroid. History of Any Multi-Drug Resistant Organisms: None Reported Past Surgical History: Adenoidectomy, Ear Surgery, Tonsillectomy, Tubal Ligation Additional Past Surgical History / Comment(s): multiple tubes in ears, D&C, EGD at [facility]. Past Anesthesia/Blood Transfusion Reactions: No Reported Reaction Past Psychological History: Anxiety Smoking Status: Current every day smoker Past Alcohol Use History: None Reported Past Drug Use History: Marijuana - Past Family History Father Family Medical History: Hyperlipidemia Mother Family Medical History: Congestive Heart Failure (CHF) General Exam - General Exam Comments Initial Comments: Laying on bed. Conversing softly. No acute distress. Not ill appearing. Limitations: no limitations General appearance: alert, in no apparent distress Head exam: Present: atraumatic, normocephalic Eye exam: Present: normal appearance, PERRL, EOMI ENT exam: Present: mucous membranes dry Neck exam: Present: normal inspection Respiratory exam: Present: normal lung sounds bilaterally. Absent: respiratory distress, wheezes, rales, rhonchi, stridor Cardiovascular Exam: Present: regular rate, normal rhythm GI/Abdominal exam: Present: soft, tenderness. Absent: distended, guarding, rebound, rigid (Mild epigastric tenderness.) Extremities exam: Present: normal inspection Neurological exam: Present: alert, oriented X3 Psychiatric exam: Present: normal affect, normal mood Skin exam: Present: warm, dry, intact, normal color. Absent: rash Course Vital Signs 12/10/17 22:13 Temperature 97.0 F L Pulse Rate 89 Respiratory 18 Rate Blood Pressure 136/77 O2 Sat by Pulse 100 Oximetry Medical Decision Making - Medical Decision Making Patient was IV fluids and Zofran. Discussed pain control options with patient, states she has an ALLERGY to morphine, normally receives Dilaudid while in the hospital. Patient states she we'll wait to see if her enzymes are elevated before taking pain medications. Lipase 450. Spoke with Dr. Bangura, covering for Dr. Lira, updated with patient condition results, states he knows patient well. States patient has had a treat her pancreatitis as outpatient. Stitches prescription for pain and nausea medications at home. Recommends clear liquid diet for home. Request patient to follow-up in office in the morning as outpatient. States patient to be given 1 dose of IV pain medications prior to discharge if she chooses. Patient reevaluated, updated with poor results. Discussed recommended plan for outpatient treatment and follow-up and primary care office tomorrow. Patient understands and agrees. Agrees to take home nausea and pain medications. Discussed oral hydration clear liquid diet. Patient offered dose of IV Dilaudid prior to discharge, patient declined. - Lab Data Result diagrams: 12/10/17 22:37 12/10/17 22:37 Lab Results 12/10/17 12/10/17 12/10/17 Range/Units 22:37 22:37 23:50 WBC 10.5 (3.8-10.6) k/uL RBC 4.40 (3.80-5.40) m/uL Hgb 12.7 (11.4-16.0) gm/dL Hct 39.7 (34.0-46.0) % MCV 90.1 (80.0-100.0) fL MCH 28.9 (25.0-35.0) pg MCHC 32.1 (31.0-37.0) g/dL RDW 12.8 (11.5-15.5) % Plt Count 207 (150-450) k/uL Neutrophils % 57 % Lymphocytes % 34 % Monocytes % 6 % Eosinophils % 2 % Basophils % 0 % Neutrophils # 5.9 (1.3-7.7) k/uL Lymphocytes # 3.5 (1.0-4.8) k/uL Monocytes # 0.6 (0-1.0) k/uL Eosinophils # 0.2 (0-0.7) k/uL Basophils # 0.0 (0-0.2) k/uL Sodium 140 (137-145) mmol/L Potassium 4.0 (3.5-5.1) mmol/L Chloride 104 (98-107) mmol/L Carbon Dioxide 27 (22-30) mmol/L Anion Gap 9 mmol/L BUN 13 (7-17) mg/dL Creatinine 0.90 (0.52-1.04) mg/dL Est GFR (MDRD) Af Amer >60 (>60 ml/min/1.73 sqM) Est GFR (MDRD) Non-Af >60 (>60 ml/min/1.73 sqM) Glucose 101 H (74-99) mg/dL Calcium 9.6 (8.4-10.2) mg/dL Total Bilirubin 0.1 L (0.2-1.3) mg/dL AST 22 (14-36) U/L ALT 22 (9-52) U/L Alkaline Phosphatase 46 (38-126) U/L Total Protein 6.6 (6.3-8.2) g/dL Albumin 4.3 (3.5-5.0) g/dL Lipase 450 H (23-300) U/L Urine Color Urine Appearance (Clear) Urine pH (5.0-8.0) Ur Specific [place] (1.001-1.035) Urine Protein (Negative) Urine Glucose (UA) (Negative) Urine Ketones (Negative) Urine Blood (Negative) Urine Nitrite (Negative) Urine Bilirubin (Negative) Urine Urobilinogen (<2.0) mg/dL Ur Leukocyte Esterase (Negative) Urine WBC (0-5) /hpf Ur Squamous Epith Cells (0-4) /hpf Amorphous Sediment (None) /hpf Urine Bacteria (None) /hpf Urine HCG, Qual Not Detected (Not Detectd) 12/10/17 Range/Units 23:50 WBC (3.8-10.6) k/uL RBC (3.80-5.40) m/uL Hgb (11.4-16.0) gm/dL Hct (34.0-46.0) % MCV (80.0-100.0) fL MCH (25.0-35.0) pg MCHC (31.0-37.0) g/dL RDW (11.5-15.5) % Plt Count (150-450) k/uL Neutrophils % % Lymphocytes % % Monocytes % % Eosinophils % % Basophils % % Neutrophils # (1.3-7.7) k/uL Lymphocytes # (1.0-4.8) k/uL Monocytes # (0-1.0) k/uL Eosinophils # (0-0.7) k/uL Basophils # (0-0.2) k/uL Sodium (137-145) mmol/L Potassium (3.5-5.1) mmol/L Chloride (98-107) mmol/L Carbon Dioxide (22-30) mmol/L Anion Gap mmol/L BUN (7-17) mg/dL Creatinine (0.52-1.04) mg/dL Est GFR (MDRD) Af Amer (>60 ml/min/1.73 sqM) Est GFR (MDRD) Non-Af (>60 ml/min/1.73 sqM) Glucose (74-99) mg/dL Calcium (8.4-10.2) mg/dL Total Bilirubin (0.2-1.3) mg/dL AST (14-36) U/L ALT (9-52) U/L Alkaline Phosphatase (38-126) U/L Total Protein (6.3-8.2) g/dL Albumin (3.5-5.0) g/dL Lipase (23-300) U/L Urine Color Light Yellow Urine Appearance Cloudy H (Clear) Urine pH 7.0 (5.0-8.0) Ur Specific [place] 1.008 (1.001-1.035) Urine Protein Negative (Negative) Urine Glucose (UA) Negative (Negative) Urine Ketones Negative (Negative) Urine Blood Negative (Negative) Urine Nitrite Negative (Negative) Urine Bilirubin Negative (Negative) Urine Urobilinogen <2.0 (<2.0) mg/dL Ur Leukocyte Esterase Negative (Negative) Urine WBC 3 (0-5) /hpf Ur Squamous Epith Cells 6 H (0-4) /hpf Amorphous Sediment Rare H (None) /hpf Urine Bacteria Rare H (None) /hpf Urine HCG, Qual (Not Detectd) Disposition Clinical Impression: Acute on chronic pancreatitis Disposition: HOME SELF-CARE Condition: Good Instructions: Pancreatitis (ED) Additional Instructions: Clear liquid diet for home, drink as much fluids as he can tolerate, take prescribed nausea medications as needed. Take your home pain medications as needed. Return to ER for new or worsening symptoms. Follow up in her primary care physician's office tomorrow without fail. Referrals: Otoniel Lira Jr, [Primary Care Provider] - 1-2 days
[2017-12-10 23:11] LABS: Basophils % (A) 0 %; Eosinophils # (A) 0.2 k/uL (0-0.7); Eosinophils % (A) 2 %; HCT 39.7 % (34.0-46.0); HGB 12.7 gm/dL (11.4-16.0); Lymphocytes # (A) 3.5 k/uL (1.0-4.8); Lymphocytes % (A) 34 %; MCH 28.9 pg (25.0-35.0); MCHC 32.1 g/dL (31.0-37.0); MCV 90.1 fL (80.0-100.0); Mean Platelet Volume 8.3; Monocytes # (A) 0.6 k/uL (0-1.0); Monocytes % (A) 6 %; Neutrophils # (A) 5.9 k/uL (1.3-7.7); Neutrophils % (A) 57 %; Platelet Count 207 k/uL (150-450); RDW 12.8 % (11.5-15.5); WBC 10.5 k/uL (3.8-10.6)
[2017-12-10 23:30] LABS: ALT 22 U/L (9-52); AST 22 U/L (14-36); Albumin 4.3 g/dL (3.5-5.0); Alkaline Phosphatase 46 U/L (38-126); Anion Gap 9 mmol/L; Blood Urea Nitrogen 13 mg/dL (7-17); Calcium 9.6 mg/dL (8.4-10.2); Carbon Dioxide 27 mmol/L (22-30); Chloride 104 mmol/L (98-107); Glucose 101 mg/dL (74-99); Lipase 450 U/L (23-300); Sodium 140 mmol/L (137-145); Total Bilirubin 0.1 mg/dL (0.2-1.3); Total Protein 6.6 g/dL (6.3-8.2)
[2017-12-11 00:17] LABS: Amorphous Sediment,Urine Rare /hpf; Appearance,Urine Cloudy (Clear); Bacteria,Urine Rare /hpf; Bilirubin,Urine Negative (Negative); Blood,Urine Negative (Negative); Color,Urine Light Yellow; Glucose,Urine (UA) Negative (Negative); Ketones,Urine Negative (Negative); Leukocyte Esterase,Urine Negative (Negative); Nitrite,Urine Negative (Negative); Protein,Urine Negative (Negative); Specific Gravity,Urine 1.008 (1.001-1.035); Squamous Epithelial Cell,Urine 6 /hpf (0-4); Urobilinogen,Urine <2.0 mg/dL (<2.0); WBC,Urine 3 /hpf (0-5)
== END 2017-12-11 00:32 | disposition home or self-care (01) ==
LOC: EC 22:11
DX: K85.90 Acute pancreatitis without necrosis or infection, unspecified (principal); K86.1 Other chronic pancreatitis; F17.200 Nicotine dependence, unspecified, uncomplicated; Z88.5 Allergy status to narcotic agent
CPT/HCPCS: 36415; 80053; 83690; 85025; 81001; 81025; 99284; 96374; 96361; J2405

== ENCOUNTER 2018-05-01 09:31 | Emergency (ER) | payer OTHER ==
[2018-05-01] MEDS ORDERED: SODIUM CHLORIDE 0.9% 1,000 ML IV STA ×2 (09:48)
[2018-05-01] MEDS ORDERED: ONDANSETRON 4 MG/2 ML VIAL IVP STA (09:54)
[2018-05-01] MEDS ORDERED: KETOROLAC 30 MG/ML 1 ML VIAL IVP STA (09:55)
--- NOTE | 2018-05-01 09:57 | ED ---
Nausea/Vomiting/Diarrhea HPI - General Chief complaint: Nausea/Vomiting/Diarrhea Stated complaint: Vomiting Time Seen by Provider: 05/01/18 09:48 Source: patient, RN notes reviewed, old records reviewed Mode of arrival: ambulatory Limitations: no limitations - History of Present Illness Initial comments: Patient is a 32-year-old female with history of chronic pancreatitis presents emergency Department with onset of vomiting and left upper quadrant abdominal pain starting 1 AM. She's vomited numerous times. No blood in her emesis. Denies any bloody stools. She developed bowel movement yesterday. Patient states no urinary symptoms. Denies any significant back pain with this. Patient states that this just somewhat off her crease previous exacerbation of chronic pancreatitis. Denies any fever, but reports that she's been chilled and sleeping with multiple blankets out last night. - Related Data Home Medications Medication Instructions Recorded Confirmed HYDROcodone/APAP 10-325MG [[place] 1 tab PO Q8H PRN 02/11/17 12/10/17 10-325] Metoclopramide HCl [Reglan] 10 mg PO Q8H PRN 02/28/17 12/10/17 Ondansetron HCl [Zofran] 8 mg PO Q6H PRN 10/23/17 12/10/17 Previous Rx's Medication Instructions Recorded Ondansetron Odt [Zofran Odt] 4 mg PO Q8HR PRN #10 tab 05/01/18 Allergies Allergy/AdvReac Type Severity Reaction Status Date / Time morphine AdvReac Mild Nausea Verified 05/01/18 09:35 Review of Systems ROS Statement: Those systems with pertinent positive or pertinent negative responses have been documented in the HPI. ROS Other: All systems not noted in ROS Statement are negative. Past Medical History Past Medical History: GERD/Reflux, Thyroid Disorder Additional Past Medical History / Comment(s): Acute then chronic pancreatitis being seen at [facility], chronic bronchitis, PUD, hypothyroid. History of Any Multi-Drug Resistant Organisms: None Reported Past Surgical History: Adenoidectomy, Ear Surgery, Tonsillectomy, Tubal Ligation Additional Past Surgical History / Comment(s): multiple tubes in ears, D&C, EGD at [facility]. Past Anesthesia/Blood Transfusion Reactions: No Reported Reaction Past Psychological History: Anxiety Smoking Status: Current every day smoker Past Alcohol Use History: None Reported Past Drug Use History: Marijuana - Past Family History Father Family Medical History: Hyperlipidemia Mother Family Medical History: Congestive Heart Failure (CHF) General Exam - General Exam Comments Initial Comments: 32-year-old female. Alert and oriented. No acute distress. Patient is actively vomiting. Limitations: no limitations General appearance: alert, in no apparent distress Head exam: Present: atraumatic, normocephalic, normal inspection Eye exam: Present: normal appearance, PERRL, EOMI. Absent: scleral icterus, conjunctival injection, periorbital swelling ENT exam: Present: normal exam, mucous membranes moist Neck exam: Present: normal inspection. Absent: tenderness, meningismus, lymphadenopathy Respiratory exam: Present: normal lung sounds bilaterally. Absent: respiratory distress, wheezes, rales, rhonchi, stridor Cardiovascular Exam: Present: regular rate GI/Abdominal exam: Present: soft, tenderness (Left upper quadrant tenderness minimal. ), normal bowel sounds. Absent: distended, guarding, rebound, rigid Extremities exam: Present: normal inspection, full ROM, normal capillary refill. Absent: tenderness, pedal edema, joint swelling, calf tenderness Back exam: Present: normal inspection Neurological exam: Present: alert, oriented X3, CN II-XII intact Psychiatric exam: Present: normal affect, normal mood Skin exam: Present: warm, dry, intact, normal color. Absent: rash Course Vital Signs 05/01/18 09:33 Temperature 98.0 F Pulse Rate 79 Respiratory 20 Rate Blood Pressure 118/83 O2 Sat by Pulse 99 Oximetry - Reevaluation(s) Reevaluation #1: 05/01/18 11:14 [place] labwork was reviewed and unremarkable. I evaluated Patient resting comfortably when sleeping Patient poor she feels much better at this time. Medical Decision Making - Medical Decision Making 32-year-old female with history of chronic recurrent otitis presents with 1 day of vomiting, some minimal left-sided abdominal pain. Consistent with her pancreatitis. Patient had IV fluids labwork obtained. Patient's labwork was reviewed and relatively unremarkable. Mild elevation of amylase and lipase however this is patient's baseline. Patient was reevaluated after receiving Toradol and Zofran and 1 L fluids. She is resting comfortably bed and states she feels much better. At this time I'll discharge the Patient with close follow-up with PCP. Discharged with Zofran starter pack. Discussed maybe she likely has a viral GI illness or ate something that did not agree with her. Patient agrees to this hand. Discussed clear liquids for the next day and return parameters were discussed. - Lab Data Result diagrams: 05/01/18 09:45 05/01/18 09:45 Lab Results 05/01/18 05/01/18 05/01/18 Range/Units 09:45 09:45 09:45 WBC 11.2 H (3.8-10.6) k/uL RBC 4.87 (3.80-5.40) m/uL Hgb 14.3 (11.4-16.0) gm/dL Hct 42.2 (34.0-46.0) % MCV 86.7 (80.0-100.0) fL MCH 29.3 (25.0-35.0) pg MCHC 33.8 (31.0-37.0) g/dL RDW 12.7 (11.5-15.5) % Plt Count 226 (150-450) k/uL Neutrophils % 77 % Lymphocytes % 17 % Monocytes % 3 % Eosinophils % 2 % Basophils % 0 % Neutrophils # 8.6 H (1.3-7.7) k/uL Lymphocytes # 1.9 (1.0-4.8) k/uL Monocytes # 0.4 (0-1.0) k/uL Eosinophils # 0.2 (0-0.7) k/uL Basophils # 0.0 (0-0.2) k/uL Sodium 143 (137-145) mmol/L Potassium 4.2 (3.5-5.1) mmol/L Chloride 109 H (98-107) mmol/L Carbon Dioxide 24 (22-30) mmol/L Anion Gap 10 mmol/L BUN 11 (7-17) mg/dL Creatinine 0.50 L (0.52-1.04) mg/dL Est GFR (CKD-EPI)AfAm >90 (>60 ml/min/1.73 sqM) Est GFR (CKD-EPI)NonAf >90 (>60 ml/min/1.73 sqM) Glucose 99 (74-99) mg/dL Plasma Lactic Acid [place] (0.7-2.0) mmol/L Calcium 9.4 (8.4-10.2) mg/dL Total Bilirubin 0.6 (0.2-1.3) mg/dL AST 20 (14-36) U/L ALT 25 (9-52) U/L Alkaline Phosphatase 50 (38-126) U/L Total Protein 6.4 (6.3-8.2) g/dL Albumin 4.3 (3.5-5.0) g/dL Amylase 152 H (30-110) U/L Lipase 436 H (23-300) U/L Urine Color Yellow Urine Appearance Cloudy H (Clear) Urine pH 5.5 (5.0-8.0) Ur Specific [place] 1.027 (1.001-1.035) Urine Protein Trace H (Negative) Urine Glucose (UA) Negative (Negative) Urine Ketones Trace H (Negative) Urine Blood Small H (Negative) Urine Nitrite Negative (Negative) Urine Bilirubin Negative (Negative) Urine Urobilinogen 2.0 (<2.0) mg/dL Ur Leukocyte Esterase Negative (Negative) Urine RBC 3 (0-5) /hpf Urine WBC 4 (0-5) /hpf Ur Squamous Epith Cells 2 (0-4) /hpf Calcium Oxalate Crystal Few H (None) /hpf Urine Bacteria Rare H (None) /hpf Urine Mucus Many H (None) /hpf 05/01/18 Range/Units 09:45 WBC (3.8-10.6) k/uL RBC (3.80-5.40) m/uL Hgb (11.4-16.0) gm/dL Hct (34.0-46.0) % MCV (80.0-100.0) fL MCH (25.0-35.0) pg MCHC (31.0-37.0) g/dL RDW (11.5-15.5) % Plt Count (150-450) k/uL Neutrophils % % Lymphocytes % % Monocytes % % Eosinophils % % Basophils % % Neutrophils # (1.3-7.7) k/uL Lymphocytes # (1.0-4.8) k/uL Monocytes # (0-1.0) k/uL Eosinophils # (0-0.7) k/uL Basophils # (0-0.2) k/uL Sodium (137-145) mmol/L Potassium (3.5-5.1) mmol/L Chloride (98-107) mmol/L Carbon Dioxide (22-30) mmol/L Anion Gap mmol/L BUN (7-17) mg/dL Creatinine (0.52-1.04) mg/dL Est GFR (CKD-EPI)AfAm (>60 ml/min/1.73 sqM) Est GFR (CKD-EPI)NonAf (>60 ml/min/1.73 sqM) Glucose (74-99) mg/dL Plasma Lactic Acid [place] 1.1 (0.7-2.0) mmol/L Calcium (8.4-10.2) mg/dL Total Bilirubin (0.2-1.3) mg/dL AST (14-36) U/L ALT (9-52) U/L Alkaline Phosphatase (38-126) U/L Total Protein (6.3-8.2) g/dL Albumin (3.5-5.0) g/dL Amylase (30-110) U/L Lipase (23-300) U/L Urine Color Urine Appearance (Clear) Urine pH (5.0-8.0) Ur Specific [place] (1.001-1.035) Urine Protein (Negative) Urine Glucose (UA) (Negative) Urine Ketones (Negative) Urine Blood (Negative) Urine Nitrite (Negative) Urine Bilirubin (Negative) Urine Urobilinogen (<2.0) mg/dL Ur Leukocyte Esterase (Negative) Urine RBC (0-5) /hpf Urine WBC (0-5) /hpf Ur Squamous Epith Cells (0-4) /hpf Calcium Oxalate Crystal (None) /hpf Urine Bacteria (None) /hpf Urine Mucus (None) /hpf Disposition Clinical Impression: Nausea and vomiting Disposition: HOME SELF-CARE Condition: Good Instructions: Acute Nausea and Vomiting (ED) Additional Instructions: Advised to drink to do clear liquids for the next 24 hours. Use the nausea medicine as directed. Follow-up with primary care provider in next 1-2 days. Return to the emergency department if any alarming signs or symptoms occur. Prescriptions: Ondansetron Odt [Zofran Odt] 4 mg PO Q8HR PRN #10 tab PRN Reason: Nausea Is patient prescribed a controlled substance at d/c from ED?: No When asked, does pt state using other controlled substances?: No If prescribed controlled substance>3 days was MAPS reviewed?: No If opioid is for acute pain is fill amount 7 days or less?: No If Rx opioid, was Start Talking consent form obtained?: No Referrals: Otoniel Lira Jr, DO [Primary Care Provider] - 1-2 days Time of Disposition: 11:16
[2018-05-01 10:23] LABS: Basophils % (A) 0 %; Eosinophils # (A) 0.2 k/uL (0-0.7); Eosinophils % (A) 2 %; HCT 42.2 % (34.0-46.0); HGB 14.3 gm/dL (11.4-16.0); Lymphocytes # (A) 1.9 k/uL (1.0-4.8); Lymphocytes % (A) 17 %; MCH 29.3 pg (25.0-35.0); MCHC 33.8 g/dL (31.0-37.0); MCV 86.7 fL (80.0-100.0); Mean Platelet Volume 8.2; Monocytes # (A) 0.4 k/uL (0-1.0); Monocytes % (A) 3 %; Neutrophils # (A) 8.6 k/uL (1.3-7.7); Neutrophils % (A) 77 %; Platelet Count 226 k/uL (150-450); RBC 4.87 m/uL (3.80-5.40); RDW 12.7 % (11.5-15.5); WBC 11.2 k/uL (3.8-10.6)
[2018-05-01 10:26] LABS: Appearance,Urine Cloudy (Clear); Bacteria,Urine Rare /hpf; Bilirubin,Urine Negative (Negative); Blood,Urine Small (Negative); Calcium Oxalate Crystals,Urine Few /hpf; Color,Urine Yellow; Glucose,Urine (UA) Negative (Negative); Ketones,Urine Trace (Negative); Leukocyte Esterase,Urine Negative (Negative); Mucus,Urine Many /hpf; Nitrite,Urine Negative (Negative); PH, Urine 5.5 (5.0-8.0); Protein,Urine Trace (Negative); RBC,Urine 3 /hpf (0-5); Specific Gravity,Urine 1.027 (1.001-1.035); Squamous Epithelial Cell,Urine 2 /hpf (0-4); WBC,Urine 4 /hpf (0-5)
[2018-05-01 10:33] LABS: ALT 25 U/L (9-52); AST 20 U/L (14-36); Albumin 4.3 g/dL (3.5-5.0); Alkaline Phosphatase 50 U/L (38-126); Amylase 152 U/L (30-110); Anion Gap 10 mmol/L; Blood Urea Nitrogen 11 mg/dL (7-17); Calcium 9.4 mg/dL (8.4-10.2); Carbon Dioxide 24 mmol/L (22-30); Chloride 109 mmol/L (98-107); Glucose 99 mg/dL (74-99); Lipase 436 U/L (23-300); Potassium 4.2 mmol/L (3.5-5.1); Sodium 143 mmol/L (137-145); Total Bilirubin 0.6 mg/dL (0.2-1.3); Total Protein 6.4 g/dL (6.3-8.2)
[2018-05-01] MEDS ORDERED: ONDANSETRON 4 MG ODT STARTER PACK 2 TAB BTL PO STA (11:17)
[2018-05-01 11:36] VITALS: BP 118/68; PULSE 72; RESP 18; TEMP 97.8
== END 2018-05-01 11:27 | disposition home or self-care (01) ==
LOC: EC 09:31
DX: R11.2 Nausea with vomiting, unspecified (principal); R10.12 Left upper quadrant pain; F17.200 Nicotine dependence, unspecified, uncomplicated; Z98.51 Tubal ligation status; Z87.11 Personal history of peptic ulcer disease; Z87.19 Personal history of other diseases of the digestive system; Z88.5 Allergy status to narcotic agent
CPT/HCPCS: 36415; 80053; 82150; 83605; 83690; 85025; 81001; 87040; 99284; 96374; 96375; 96361; J2405; J1885; S0119

== ENCOUNTER 2019-07-21 21:30 | Emergency (ER) | payer OTHER ==
[2019-07-21 22:31] VITALS: RESP 18; TEMP 98.6
[2019-07-21] MEDS ORDERED: SODIUM CHLORIDE 0.9% 2,000 ML IV ONE (23:00)
[2019-07-21] MEDS ORDERED: KETOROLAC 30 MG/ML 1 ML VIAL IVP STA (23:00)
[2019-07-21] MEDS ORDERED: ONDANSETRON 4 MG/2 ML VIAL IVP STA (23:00)
[2019-07-21] MEDS ORDERED: HYDROmorphone 0.5 MG/0.5 ML SYRINGE IVP STA (23:00)
--- NOTE | 2019-07-21 23:07 | ED ---
Nausea/Vomiting/Diarrhea HPI - General Chief complaint: Nausea/Vomiting/Diarrhea Stated complaint: Abd Pain-Pancreatitis Time Seen by Provider: 07/21/19 22:38 Source: patient, RN notes reviewed Mode of arrival: ambulatory Limitations: no limitations - History of Present Illness Initial comments: This a 33-year-old female presents emergency Department with chief complaint of nausea vomiting abdominal pain. Patient has a history of chronic pancreatitis. 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 Patient has been sober for several years. Patient states his pain feel somewhat she states it's in the mid to left side of her abdomen. Patient denies any fevers or chills no chest pain or shortness breath no diarrhea no constipation no dysuria no hematuria. No history of abdominal surgeries no chance . - Related Data Home Medications Medication Instructions Recorded Confirmed HYDROcodone/APAP 10-325MG [[place] 1 tab PO Q8H PRN 02/11/17 07/21/19 10-325] Metoclopramide HCl [Reglan] 10 mg PO Q6H PRN 02/28/17 07/21/19 Ondansetron Odt [Zofran Odt] 8 mg PO Q8H PRN 07/21/19 07/21/19 Allergies Allergy/AdvReac Type Severity Reaction Status Date / Time morphine AdvReac Mild Nausea Verified 07/21/19 22:57 Review of Systems ROS Statement: Those systems with pertinent positive or pertinent negative responses have been documented in the HPI. ROS Other: All systems not noted in ROS Statement are negative. Past Medical History Past Medical History: GERD/Reflux, Thyroid Disorder Additional Past Medical History / Comment(s): Acute then chronic pancreatitis being seen at [facility] [place], chronic bronchitis, PUD, hypothyroid. History of Any Multi-Drug Resistant Organisms: None Reported Past Surgical History: Adenoidectomy, Ear Surgery, Tonsillectomy, Tubal Ligation Additional Past Surgical History / Comment(s): multiple tubes in ears, D&C, EGD at [facility] [place]. Past Anesthesia/Blood Transfusion Reactions: No Reported Reaction Past Psychological History: Anxiety Smoking Status: Current every day smoker Past Alcohol Use History: None Reported Past Drug Use History: Marijuana - Past Family History Father Family Medical History: Hyperlipidemia Mother Family Medical History: Congestive Heart Failure (CHF) General Exam Limitations: no limitations General appearance: alert, in no apparent distress Head exam: Present: atraumatic, normocephalic, normal inspection Neck exam: Present: normal inspection, full ROM. Absent: tenderness, meningismus, lymphadenopathy Respiratory exam: Present: normal lung sounds bilaterally. Absent: respiratory distress, wheezes, rales, rhonchi, stridor Cardiovascular Exam: Present: regular rate, normal rhythm, normal heart sounds. Absent: systolic murmur, diastolic murmur, rubs, gallop, clicks GI/Abdominal exam: Present: soft, tenderness (Mild to moderate mid to left-sided abdominal tenderness), normal bowel sounds. Absent: distended, guarding, rebound, rigid Back exam: Absent: CVA tenderness (R), CVA tenderness (L) Neurological exam: Present: alert, oriented X3 Skin exam: Present: warm, dry, intact, normal color. Absent: rash Course Vital Signs 07/21/19 22:29 Temperature 98.6 F Pulse Rate 95 Respiratory 18 Rate Blood Pressure 114/72 O2 Sat by Pulse 100 Oximetry Medical Decision Making - Medical Decision Making 33-year-old female presented for abdominal discomfort, concerns for her pancreatitis that she has chronic issues. Labs are unremarkable. Patient was hydrated given antiemetics and pain meds symptoms are improved she feels comfortable discharged return parameters were discussed. - Lab Data Result diagrams: 07/21/19 23:35 07/21/19 23:35 Lab Results 07/21/19 07/21/19 07/22/19 Range/Units 23:35 23:35 00:42 WBC 10.5 (3.8-10.6) k/uL RBC 4.59 (3.80-5.40) m/uL Hgb 13.1 (11.4-16.0) gm/dL Hct 40.8 (34.0-46.0) % MCV 88.8 (80.0-100.0) fL MCH 28.6 (25.0-35.0) pg MCHC 32.2 (31.0-37.0) g/dL RDW 12.8 (11.5-15.5) % Plt Count 194 (150-450) k/uL Neutrophils % 63 % Lymphocytes % 27 % Monocytes % 6 % Eosinophils % 1 % Basophils % 1 % Neutrophils # 6.6 (1.3-7.7) k/uL Lymphocytes # 2.8 (1.0-4.8) k/uL Monocytes # 0.6 (0-1.0) k/uL Eosinophils # 0.2 (0-0.7) k/uL Basophils # 0.1 (0-0.2) k/uL Sodium 138 (137-145) mmol/L Potassium 3.6 (3.5-5.1) mmol/L Chloride 105 (98-107) mmol/L Carbon Dioxide 26 (22-30) mmol/L Anion Gap 7 mmol/L BUN 9 (7-17) mg/dL Creatinine 0.63 (0.52-1.04) mg/dL Est GFR (CKD-EPI)AfAm >90 (>60 ml/min/1.73 sqM) Est GFR (CKD-EPI)NonAf >90 (>60 ml/min/1.73 sqM) Glucose 86 (74-99) mg/dL Calcium 9.0 (8.4-10.2) mg/dL Total Bilirubin 0.2 (0.2-1.3) mg/dL AST 26 (14-36) U/L ALT 22 (9-52) U/L Alkaline Phosphatase 45 (38-126) U/L Total Protein 6.2 L (6.3-8.2) g/dL Albumin 3.9 (3.5-5.0) g/dL Lipase 137 (23-300) U/L Urine Color Urine Appearance (Clear) Urine pH (5.0-8.0) Ur Specific [place] (1.001-1.035) Urine Protein (Negative) Urine Glucose (UA) (Negative) Urine Ketones (Negative) Urine Blood (Negative) Urine Nitrite (Negative) Urine Bilirubin (Negative) Urine Urobilinogen (<2.0) mg/dL Ur Leukocyte Esterase (Negative) Urine HCG, Qual Not Detected (Not Detectd) 07/22/19 Range/Units 00:42 WBC (3.8-10.6) k/uL RBC (3.80-5.40) m/uL Hgb (11.4-16.0) gm/dL Hct (34.0-46.0) % MCV (80.0-100.0) fL MCH (25.0-35.0) pg MCHC (31.0-37.0) g/dL RDW (11.5-15.5) % Plt Count (150-450) k/uL Neutrophils % % Lymphocytes % % Monocytes % % Eosinophils % % Basophils % % Neutrophils # (1.3-7.7) k/uL Lymphocytes # (1.0-4.8) k/uL Monocytes # (0-1.0) k/uL Eosinophils # (0-0.7) k/uL Basophils # (0-0.2) k/uL Sodium (137-145) mmol/L Potassium (3.5-5.1) mmol/L Chloride (98-107) mmol/L Carbon Dioxide (22-30) mmol/L Anion Gap mmol/L BUN (7-17) mg/dL Creatinine (0.52-1.04) mg/dL Est GFR (CKD-EPI)AfAm (>60 ml/min/1.73 sqM) Est GFR (CKD-EPI)NonAf (>60 ml/min/1.73 sqM) Glucose (74-99) mg/dL Calcium (8.4-10.2) mg/dL Total Bilirubin (0.2-1.3) mg/dL AST (14-36) U/L ALT (9-52) U/L Alkaline Phosphatase (38-126) U/L Total Protein (6.3-8.2) g/dL Albumin (3.5-5.0) g/dL Lipase (23-300) U/L Urine Color Yellow Urine Appearance Clear (Clear) Urine pH 5.5 (5.0-8.0) Ur Specific [place] 1.018 (1.001-1.035) Urine Protein Negative (Negative) Urine Glucose (UA) Negative (Negative) Urine Ketones Negative (Negative) Urine Blood Negative (Negative) Urine Nitrite Negative (Negative) Urine Bilirubin Negative (Negative) Urine Urobilinogen 2.0 (<2.0) mg/dL Ur Leukocyte Esterase Negative (Negative) Urine HCG, Qual (Not Detectd) Disposition Clinical Impression: Nausea and vomiting, Abdominal pain Disposition: HOME SELF-CARE Condition: Stable Instructions (If sedation given, give patient instructions): Abdominal Pain (ED) Additional Instructions: Please return to the Emergency Department if symptoms worsen or any other concerns. Is patient prescribed a controlled substance at d/c from ED?: No Referrals: Otoniel Lira Jr, [Primary Care Provider] - 1-2 days Time of Disposition: 01:01
[2019-07-22] LABS: Basophils # (A) 0.1 k/uL (0-0.2); Basophils % (A) 1 %; Eosinophils # (A) 0.2 k/uL (0-0.7); Eosinophils % (A) 1 %; HCT 40.8 % (34.0-46.0); HGB 13.1 gm/dL (11.4-16.0); Lymphocytes # (A) 2.8 k/uL (1.0-4.8); Lymphocytes % (A) 27 %; MCH 28.6 pg (25.0-35.0); MCHC 32.2 g/dL (31.0-37.0); MCV 88.8 fL (80.0-100.0); Mean Platelet Volume 8.5; Monocytes # (A) 0.6 k/uL (0-1.0); Monocytes % (A) 6 %; Neutrophils # (A) 6.6 k/uL (1.3-7.7); Neutrophils % (A) 63 %; Platelet Count 194 k/uL (150-450); RBC 4.59 m/uL (3.80-5.40); RDW 12.8 % (11.5-15.5); WBC 10.5 k/uL (3.8-10.6)
[2019-07-22 00:14] LABS: ALT 22 U/L (9-52); AST 26 U/L (14-36); African American GFR (CKD) >90 (>60 ml/min/1.73 sqM); Albumin 3.9 g/dL (3.5-5.0); Alkaline Phosphatase 45 U/L (38-126); Anion Gap 7 mmol/L; Blood Urea Nitrogen 9 mg/dL (7-17); Carbon Dioxide 26 mmol/L (22-30); Chloride 105 mmol/L (98-107); Glucose 86 mg/dL (74-99); Potassium 3.6 mmol/L (3.5-5.1); Sodium 138 mmol/L (137-145); Total Bilirubin 0.2 mg/dL (0.2-1.3); Total Protein 6.2 g/dL (6.3-8.2)
[2019-07-22 00:56] LABS: Appearance,Urine Clear (Clear); Bilirubin,Urine Negative (Negative); Blood,Urine Negative (Negative); Color,Urine Yellow; Glucose,Urine (UA) Negative (Negative); Ketones,Urine Negative (Negative); Leukocyte Esterase,Urine Negative (Negative); Nitrite,Urine Negative (Negative); PH, Urine 5.5 (5.0-8.0); Protein,Urine Negative (Negative); Specific Gravity,Urine 1.018 (1.001-1.035)
[2019-07-22] MEDS ORDERED: ACET/COD 300 MG/30 MG STARTER PACK 6 TAB BTL PO STA (01:01)
[2019-07-22 01:11] VITALS: BP 116/60; PULSE 70
== END 2019-07-22 01:14 | disposition home or self-care (01) ==
LOC: EC 21:30
DX: R11.2 Nausea with vomiting, unspecified (principal); R10.9 Unspecified abdominal pain; F17.200 Nicotine dependence, unspecified, uncomplicated; Z88.5 Allergy status to narcotic agent; Z87.19 Personal history of other diseases of the digestive system
CPT/HCPCS: 36415; 80053; 83690; 85025; 81003; 81025; 99284; 96374; 96375 ×2; 96361; J2405; J1885; J1170

== ENCOUNTER 2019-11-21 20:55 | Emergency (ER) | payer OTHER ==
[2019-11-21 21:02] VITALS: RESP 18
[2019-11-21] MEDS ORDERED: SODIUM CHLORIDE 0.9% 1,000 ML IV STA (21:09)
[2019-11-21] MEDS ORDERED: ONDANSETRON 4 MG/2 ML VIAL IVP STA (21:09)
[2019-11-21] MEDS ORDERED: HYDROmorphone 1 MG/ML 1 ML SYRINGE IVP STA (21:09)
[2019-11-21] MEDS ORDERED: KETOROLAC 30 MG/ML 1 ML VIAL IVP STA (21:09)
[2019-11-21 22:04] LABS: Basophils # (A) 0.1 k/uL (0-0.2); Basophils % (A) 1 %; Eosinophils # (A) 0.2 k/uL (0-0.7); Eosinophils % (A) 1 %; HCT 42.7 % (34.0-46.0); Lymphocytes # (A) 2.5 k/uL (1.0-4.8); Lymphocytes % (A) 21 %; MCH 29.5 pg (25.0-35.0); MCHC 32.9 g/dL (31.0-37.0); MCV 89.7 fL (80.0-100.0); Mean Platelet Volume 9.3; Monocytes # (A) 0.5 k/uL (0-1.0); Monocytes % (A) 4 %; Neutrophils # (A) 8.7 k/uL (1.3-7.7); Neutrophils % (A) 71 %; Platelet Count 201 k/uL (150-450); RBC 4.76 m/uL (3.80-5.40); RDW 12.4 % (11.5-15.5); WBC 12.2 k/uL (3.8-10.6)
--- NOTE | 2019-11-21 22:11 | ED ---
Abdominal Pain HPI - General Chief Complaint: Abdominal Pain Stated Complaint: L Abd pain, nausea Time Seen by Provider: 11/21/19 21:04 Source: patient Mode of arrival: ambulatory - History of Present Illness Initial Comments: 34 year-old female patient presents to the emergency department today for evaluation of abdominal pain and nausea. Patient states she's been having sever e left upper quadrant pain radiating to the left back for the last 2-3 days. Patient states pain has worsened today. She does have a history of pancreatitis was concerned she may have another episode. She states she has been nauseated but has not vomited. She denies any hematuria, dysuria, or urinary urgency. States she does have urinary frequency but this is not unusual for her. She denies any abnormal vaginal bleeding or discharge. Denies chance of , she has had tubal ligation in the past. Patient denies any constipation or diarrhea. Denies any hematochezia or melena. Patient denies any recent rash, fever, chills, shortness breath, chest pain, numbness, tingling, dizziness, weakness, headache, visual changes, or any other complaints. - Related Data Home Medications Medication Instructions Recorded Confirmed HYDROcodone/APAP 10-325MG [[place] 1 tab PO Q8H PRN 02/11/17 07/21/19 10-325] Metoclopramide HCl [Reglan] 10 mg PO Q6H PRN 02/28/17 07/21/19 Ondansetron Odt [Zofran Odt] 8 mg PO Q8H PRN 07/21/19 07/21/19 Allergies Allergy/AdvReac Type Severity Reaction Status Date / Time morphine AdvReac Mild Nausea Verified 11/21/19 21:02 Review of Systems ROS Statement: Those systems with pertinent positive or pertinent negative responses have been documented in the HPI. ROS Other: All systems not noted in ROS Statement are negative. Past Medical History Past Medical History: GERD/Reflux, Thyroid Disorder Additional Past Medical History / Comment(s): Acute then chronic pancreatitis being seen at [facility], chronic bronchitis, PUD, hypothyroid. History of Any Multi-Drug Resistant Organisms: None Reported Past Surgical History: Adenoidectomy, Ear Surgery, Tonsillectomy, Tubal Ligation Additional Past Surgical History / Comment(s): multiple tubes in ears, D&C, EGD at [facility]. Past Anesthesia/Blood Transfusion Reactions: No Reported Reaction Past Psychological History: Anxiety Smoking Status: Current every day smoker Past Alcohol Use History: None Reported Past Drug Use History: Marijuana - Past Family History Father Family Medical History: Hyperlipidemia Mother Family Medical History: Congestive Heart Failure (CHF) General Exam General appearance: alert, in no apparent distress, other (This is a well- developed, well-nourished adult female patient in no acute distress. Vital signs upon presentation are temperature 97.9F, pulse 101, respirations 18,) Eye exam: Present: normal appearance, PERRL, EOMI. Absent: scleral icterus, conjunctival injection, periorbital swelling ENT exam: Present: normal exam, normal oropharynx, mucous membranes moist Respiratory exam: Present: normal lung sounds bilaterally. Absent: respiratory distress, wheezes, rales, rhonchi, stridor Cardiovascular Exam: Present: regular rate, normal rhythm, normal heart sounds. Absent: systolic murmur, diastolic murmur, rubs, gallop, clicks GI/Abdominal exam: Present: soft, tenderness (Left upper quadrant), normal bowel sounds. Absent: distended, guarding, rebound, rigid Back exam: Present: normal inspection, CVA tenderness (L). Absent: CVA tenderness (R) Neurological exam: Present: alert, oriented X3, CN II-XII intact Psychiatric exam: Present: normal affect, normal mood Skin exam: Present: warm, dry, intact, normal color. Absent: rash Course Vital Signs 11/21/19 11/21/19 20:58 21:28 Temperature 97.9 F Pulse Rate 101 H Respiratory 18 Rate Blood Pressure 115/74 Medical Decision Making - Medical Decision Making 34 year-old female patient presents to the emergency department today for evaluation of abdominal pain and nausea. Physical examination did reveal left upper quadrant abdominal tenderness. Labs reviewed and did reveal mildly elevated lipase of 798. Patient does have history of chronic pancreatitis. Upon reevaluation she does report improvement of symptoms. We will discharge home to follow-up with her primary care physician. Return parameters were discussed in detail. She verbalizes understanding and agrees with this plan. - Lab Data Result diagrams: 11/21/19 21:32 11/21/19 21:32 Lab Results 11/21/19 11/21/19 11/21/19 Range/Units 21:32 21:32 21:55 WBC 12.2 H (3.8-10.6) k/uL RBC 4.76 (3.80-5.40) m/uL Hgb 14.0 (11.4-16.0) gm/dL Hct 42.7 (34.0-46.0) % MCV 89.7 (80.0-100.0) fL MCH 29.5 (25.0-35.0) pg MCHC 32.9 (31.0-37.0) g/dL RDW 12.4 (11.5-15.5) % Plt Count 201 (150-450) k/uL Neutrophils % 71 % Lymphocytes % 21 % Monocytes % 4 % Eosinophils % 1 % Basophils % 1 % Neutrophils # 8.7 H (1.3-7.7) k/uL Lymphocytes # 2.5 (1.0-4.8) k/uL Monocytes # 0.5 (0-1.0) k/uL Eosinophils # 0.2 (0-0.7) k/uL Basophils # 0.1 (0-0.2) k/uL Sodium 139 (137-145) mmol/L Potassium 3.8 (3.5-5.1) mmol/L Chloride 105 (98-107) mmol/L Carbon Dioxide 30 (22-30) mmol/L Anion Gap 4 mmol/L BUN 13 (7-17) mg/dL Creatinine 0.86 (0.52-1.04) mg/dL Est GFR (CKD-EPI)AfAm >90 (>60 ml/min/1.73 sqM) Est GFR (CKD-EPI)NonAf 88 (>60 ml/min/1.73 sqM) Glucose 103 H (74-99) mg/dL Calcium 9.5 (8.4-10.2) mg/dL Total Bilirubin 0.4 (0.2-1.3) mg/dL AST 23 (14-36) U/L ALT 16 (4-34) U/L Alkaline Phosphatase 42 (38-126) U/L Total Protein 6.7 (6.3-8.2) g/dL Albumin 4.3 (3.5-5.0) g/dL Amylase 162 H (30-110) U/L Lipase 791 H (23-300) U/L Urine Color Urine Appearance (Clear) Urine pH (5.0-8.0) Ur Specific [place] (1.001-1.035) Urine Protein (Negative) Urine Glucose (UA) (Negative) Urine Ketones (Negative) Urine Blood (Negative) Urine Nitrite (Negative) Urine Bilirubin (Negative) Urine Urobilinogen (<2.0) mg/dL Ur Leukocyte Esterase (Negative) Urine RBC (0-5) /hpf Urine WBC (0-5) /hpf Ur Squamous Epith Cells (0-4) /hpf Urine Bacteria (None) /hpf Urine Mucus (None) /hpf Urine HCG, Qual Not Detected (Not Detectd) 11/21/19 Range/Units 21:55 WBC (3.8-10.6) k/uL RBC (3.80-5.40) m/uL Hgb (11.4-16.0) gm/dL Hct (34.0-46.0) % MCV (80.0-100.0) fL MCH (25.0-35.0) pg MCHC (31.0-37.0) g/dL RDW (11.5-15.5) % Plt Count (150-450) k/uL Neutrophils % % Lymphocytes % % Monocytes % % Eosinophils % % Basophils % % Neutrophils # (1.3-7.7) k/uL Lymphocytes # (1.0-4.8) k/uL Monocytes # (0-1.0) k/uL Eosinophils # (0-0.7) k/uL Basophils # (0-0.2) k/uL Sodium (137-145) mmol/L Potassium (3.5-5.1) mmol/L Chloride (98-107) mmol/L Carbon Dioxide (22-30) mmol/L Anion Gap mmol/L BUN (7-17) mg/dL Creatinine (0.52-1.04) mg/dL Est GFR (CKD-EPI)AfAm (>60 ml/min/1.73 sqM) Est GFR (CKD-EPI)NonAf (>60 ml/min/1.73 sqM) Glucose (74-99) mg/dL Calcium (8.4-10.2) mg/dL Total Bilirubin (0.2-1.3) mg/dL AST (14-36) U/L ALT (4-34) U/L Alkaline Phosphatase (38-126) U/L Total Protein (6.3-8.2) g/dL Albumin (3.5-5.0) g/dL Amylase (30-110) U/L Lipase (23-300) U/L Urine Color Yellow Urine Appearance Cloudy H (Clear) Urine pH 6.5 (5.0-8.0) Ur Specific [place] 1.025 (1.001-1.035) Urine Protein 1+ H (Negative) Urine Glucose (UA) Negative (Negative) Urine Ketones Trace H (Negative) Urine Blood Negative (Negative) Urine Nitrite Negative (Negative) Urine Bilirubin Negative (Negative) Urine Urobilinogen 4.0 (<2.0) mg/dL Ur Leukocyte Esterase Trace H (Negative) Urine RBC 1 (0-5) /hpf Urine WBC 5 (0-5) /hpf Ur Squamous Epith Cells 14 H (0-4) /hpf Urine Bacteria Rare H (None) /hpf Urine Mucus Many H (None) /hpf Urine HCG, Qual (Not Detectd) - Radiology Data Radiology results: report reviewed, image reviewed 2 views of the abdomen are obtained. Report was reviewed in its entirety. Impression by Dr. Marrufo shows nonacute abdomen. No change. Disposition Clinical Impression: Abdominal pain, Pancreatitis Disposition: HOME SELF-CARE Condition: Good Instructions (If sedation given, give patient instructions): Abdominal Pain (ED), Pancreatitis (ED) Additional Instructions: Clear liquid diet. Follow-up with primary care physician GI specialist for further evaluations as possible. Return to the emergency department immediately for any new, worsening, or concerning symptoms. Is patient prescribed a controlled substance at d/c from ED?: No Referrals: Otoniel Lira Jr, [Primary Care Provider] - 1-2 days
[2019-11-21 22:15] LABS: Appearance,Urine Cloudy (Clear); Bacteria,Urine Rare /hpf; Bilirubin,Urine Negative (Negative); Blood,Urine Negative (Negative); Color,Urine Yellow; Glucose,Urine (UA) Negative (Negative); Ketones,Urine Trace (Negative); Leukocyte Esterase,Urine Trace (Negative); Mucus,Urine Many /hpf; Nitrite,Urine Negative (Negative); PH, Urine 6.5 (5.0-8.0); Protein,Urine 1+ (Negative); RBC,Urine 1 /hpf (0-5); Specific Gravity,Urine 1.025 (1.001-1.035); Squamous Epithelial Cell,Urine 14 /hpf (0-4); WBC,Urine 5 /hpf (0-5)
[2019-11-21 22:15] LABS: ALT 16 U/L (4-34); AST 23 U/L (14-36); African American GFR (CKD) >90 (>60 ml/min/1.73 sqM); Albumin 4.3 g/dL (3.5-5.0); Alkaline Phosphatase 42 U/L (38-126); Amylase 162 U/L (30-110); Anion Gap 4 mmol/L; Blood Urea Nitrogen 13 mg/dL (7-17); Calcium 9.5 mg/dL (8.4-10.2); Carbon Dioxide 30 mmol/L (22-30); Chloride 105 mmol/L (98-107); Glucose 103 mg/dL (74-99); Non-African American GFR(CKD) 88 (>60 ml/min/1.73 sqM); Potassium 3.8 mmol/L (3.5-5.1); Sodium 139 mmol/L (137-145); Total Bilirubin 0.4 mg/dL (0.2-1.3); Total Protein 6.7 g/dL (6.3-8.2)
--- NOTE | 2019-11-21 22:50 | XR ---
EXAMINATION TYPE: XR KUB DATE OF EXAM: 11/21/2019 COMPARISON: 07/07/2017 HISTORY: Abdominal pain TECHNIQUE: 2 views upright FINDINGS: Bowel gas pattern is normal. There is no sign of intestinal obstruction or pneumoperitoneum . Fecal pattern is normal. Lung bases are clear. There are no pathologic calcifications over the kidn eys. There are clips apparently from tubal ligation on the left side. IMPRESSION: Nonacute abdomen. No change.
[2019-11-22 00:42] VITALS: BP 112/71; PULSE 69; TEMP 97
[2019-11-22] MEDS ORDERED: HYDROmorphone 0.5 MG/0.5 ML SYRINGE IVP STA (01:06)
== END 2019-11-22 01:26 | disposition home or self-care (01) ==
LOC: EC 20:55
DX: K85.90 Acute pancreatitis without necrosis or infection, unspecified (principal); R74.8 Abnormal levels of other serum enzymes; R35.0 Frequency of micturition; K21.9 Gastro-esophageal reflux disease without esophagitis; F17.200 Nicotine dependence, unspecified, uncomplicated; Z88.5 Allergy status to narcotic agent; Z79.899 Other long term (current) drug therapy; Z98.51 Tubal ligation status
CPT/HCPCS: 36415; 80053; 82150; 83690; 85025; 81001; 81025; 74018; 99284; 96374; 96375 ×2; 96376; 96361 ×2; J2405; J1885; J1170

== ENCOUNTER 2019-12-03 17:53 | Inpatient (IN) | payer OTHER ==
[2019-12-03] MEDS ORDERED: SODIUM CHLORIDE 0.9% 1,000 ML IV STA ×2 (18:20→19:18)
[2019-12-03] MEDS ORDERED: HYDROmorphone 1 MG/ML 1 ML SYRINGE IVP STA (18:20)
[2019-12-03] MEDS ORDERED: ONDANSETRON 4 MG/2 ML VIAL IVP STA (18:20)
[2019-12-03] MEDS ORDERED: PANTOPRAZOLE 40 MG/10 ML VIAL IVP STA (18:21)
--- NOTE | 2019-12-03 18:39 | ED ---
Abdominal Pain HPI - General Chief Complaint: Abdominal Pain Stated Complaint: Abd pain Time Seen by Provider: 12/03/19 18:08 Source: patient Mode of arrival: ambulatory Limitations: no limitations - History of Present Illness Initial Comments: Patient a 34-year-old female with history of chronic pancreatitis presenting to the emergency room with a chief complaint of abdominal pain nausea vomiting. States that this feels like her usual bout with pancreatitis. States that she is typically able to tolerate the pain at home but this time she could not handle it. States nausea with multiple episodes of nonbilious, nonbloody vomiting. Denies any night sweats fevers or chills. Denies any diarrhea or constipation. States the pain is located in the epigastric and periumbilical region. Reports attempting to take Zofran but she was not able to keep it down. - Related Data Home Medications Medication Instructions Recorded Confirmed HYDROcodone/APAP 10-325MG [[place] 1 tab PO Q8H PRN 02/11/17 12/03/19 10-325] Metoclopramide HCl [Reglan] 10 mg PO Q8H PRN 02/28/17 12/03/19 Ibuprofen [Motrin] 800 mg PO TID PRN 12/03/19 12/03/19 Ondansetron HCl [Zofran] 8 mg PO TID PRN 12/03/19 12/03/19 Allergies Allergy/AdvReac Type Severity Reaction Status Date / Time morphine AdvReac Mild Nausea Verified 12/03/19 18:06 Review of Systems ROS Statement: Those systems with pertinent positive or pertinent negative responses have been documented in the HPI. ROS Other: All systems not noted in ROS Statement are negative. Past Medical History Past Medical History: GERD/Reflux, Thyroid Disorder Additional Past Medical History / Comment(s): Acute then chronic pancreatitis being seen at [facility], chronic bronchitis, PUD, hypothyroid. History of Any Multi-Drug Resistant Organisms: None Reported Past Surgical History: Adenoidectomy, Ear Surgery, Tonsillectomy, Tubal Ligation Additional Past Surgical History / Comment(s): multiple tubes in ears, D&C[facility] Past Anesthesia/Blood Transfusion Reactions: No Reported Reaction Past Psychological History: Anxiety Smoking Status: Current every day smoker Past Alcohol Use History: None Reported Past Drug Use History: Marijuana - Past Family History Father Family Medical History: Hyperlipidemia Mother Family Medical History: Congestive Heart Failure (CHF) General Exam Limitations: no limitations General appearance: alert, in no apparent distress Head exam: Present: atraumatic, normocephalic, normal inspection Eye exam: Present: normal appearance, PERRL, EOMI Pupils: Present: normal accommodation ENT exam: Present: normal exam, normal oropharynx, mucous membranes dry, TM's normal bilaterally, normal external ear exam Neck exam: Present: normal inspection, full ROM Respiratory exam: Present: normal lung sounds bilaterally Cardiovascular Exam: Present: regular rate, normal rhythm, normal heart sounds GI/Abdominal exam: Present: soft, tenderness (Periumbilical and epigastric abdominal tenderness). Absent: distended, guarding, rebound, rigid Extremities exam: Present: normal inspection, full ROM, normal capillary refill Back exam: Present: normal inspection, full ROM Neurological exam: Present: alert, oriented X3 Psychiatric exam: Present: normal affect, normal mood Skin exam: Present: warm, dry, intact, normal color Course Vital Signs 12/03/19 18:04 Temperature 98.3 F Pulse Rate 96 Respiratory 20 Rate Blood Pressure 113/75 O2 Sat by Pulse 99 Oximetry Medical Decision Making - Medical Decision Making patient is a 34-year-old female with history of chronic pancreatitis presenting to emergency Department with a chief complaint of nausea vomiting abdominal pain. States her symptoms began earlier today with nausea and multiple episodes of nonbilious, nonbloody vomiting. On exam patient does have epigastric and. Umbilical tenderness. She does have dry mucous members. States this feels exactly like her other bouts of pancreatitis. Elevated amylase and lipase at 1800. Patient given IV fluids, Protonix, antiemetics and analgesia. Patient will be admitted for further medical management. Nothing by mouth. Case discussed with Admitting physician is - Lab Data Result diagrams: 12/03/19 18:35 12/03/19 18:35 Lab Results 12/03/19 12/03/19 12/03/19 Range/Units 18:35 18:35 18:35 WBC 9.6 (3.8-10.6) k/uL RBC 5.10 (3.80-5.40) m/uL Hgb 15.0 (11.4-16.0) gm/dL Hct 45.6 (34.0-46.0) % MCV 89.4 (80.0-100.0) fL MCH 29.4 (25.0-35.0) pg MCHC 32.9 (31.0-37.0) g/dL RDW 12.3 (11.5-15.5) % Plt Count 200 (150-450) k/uL Neutrophils % 67 % Lymphocytes % 23 % Monocytes % 6 % Eosinophils % 1 % Basophils % 1 % Neutrophils # 6.5 (1.3-7.7) k/uL Lymphocytes # 2.2 (1.0-4.8) k/uL Monocytes # 0.6 (0-1.0) k/uL Eosinophils # 0.1 (0-0.7) k/uL Basophils # 0.1 (0-0.2) k/uL Sodium 138 (137-145) mmol/L Potassium 3.8 (3.5-5.1) mmol/L Chloride 102 (98-107) mmol/L Carbon Dioxide 27 (22-30) mmol/L Anion Gap 9 mmol/L BUN 9 (7-17) mg/dL Creatinine 0.71 (0.52-1.04) mg/dL Est GFR (CKD-EPI)AfAm >90 (>60 ml/min/1.73 sqM) Est GFR (CKD-EPI)NonAf >90 (>60 ml/min/1.73 sqM) Glucose 96 (74-99) mg/dL Calcium 9.2 (8.4-10.2) mg/dL Total Bilirubin 0.5 (0.2-1.3) mg/dL AST 34 (14-36) U/L ALT 19 (4-34) U/L Alkaline Phosphatase 51 (38-126) U/L Total Protein 7.1 (6.3-8.2) g/dL Albumin 4.5 (3.5-5.0) g/dL Amylase 239 H (30-110) U/L Lipase 1829 H (23-300) U/L Urine Color Urine Appearance (Clear) Urine pH (5.0-8.0) Ur Specific [place] (1.001-1.035) Urine Protein (Negative) Urine Glucose (UA) (Negative) Urine Ketones (Negative) Urine Blood (Negative) Urine Nitrite (Negative) Urine Bilirubin (Negative) Urine Urobilinogen (<2.0) mg/dL Ur Leukocyte Esterase (Negative) Urine RBC (0-5) /hpf Urine WBC (0-5) /hpf Urine WBC Clumps (None) /hpf Ur Squamous Epith Cells (0-4) /hpf Urine Bacteria (None) /hpf Urine Mucus (None) /hpf Urine HCG, Qual Not Detected (Not Detectd) 12/03/19 Range/Units 18:35 WBC (3.8-10.6) k/uL RBC (3.80-5.40) m/uL Hgb (11.4-16.0) gm/dL Hct (34.0-46.0) % MCV (80.0-100.0) fL MCH (25.0-35.0) pg MCHC (31.0-37.0) g/dL RDW (11.5-15.5) % Plt Count (150-450) k/uL Neutrophils % % Lymphocytes % % Monocytes % % Eosinophils % % Basophils % % Neutrophils # (1.3-7.7) k/uL Lymphocytes # (1.0-4.8) k/uL Monocytes # (0-1.0) k/uL Eosinophils # (0-0.7) k/uL Basophils # (0-0.2) k/uL Sodium (137-145) mmol/L Potassium (3.5-5.1) mmol/L Chloride (98-107) mmol/L Carbon Dioxide (22-30) mmol/L Anion Gap mmol/L BUN (7-17) mg/dL Creatinine (0.52-1.04) mg/dL Est GFR (CKD-EPI)AfAm (>60 ml/min/1.73 sqM) Est GFR (CKD-EPI)NonAf (>60 ml/min/1.73 sqM) Glucose (74-99) mg/dL Calcium (8.4-10.2) mg/dL Total Bilirubin (0.2-1.3) mg/dL AST (14-36) U/L ALT (4-34) U/L Alkaline Phosphatase (38-126) U/L Total Protein (6.3-8.2) g/dL Albumin (3.5-5.0) g/dL Amylase (30-110) U/L Lipase (23-300) U/L Urine Color Light Red Urine Appearance Cloudy H (Clear) Urine pH 6.0 (5.0-8.0) Ur Specific [place] 1.023 (1.001-1.035) Urine Protein 1+ H (Negative) Urine Glucose (UA) Negative (Negative) Urine Ketones Negative (Negative) Urine Blood Large H (Negative) Urine Nitrite Negative (Negative) Urine Bilirubin Negative (Negative) Urine Urobilinogen 2.0 (<2.0) mg/dL Ur Leukocyte Esterase Moderate H (Negative) Urine RBC >182 H (0-5) /hpf Urine WBC 40 H (0-5) /hpf Urine WBC Clumps Moderate H (None) /hpf Ur Squamous Epith Cells 23 H (0-4) /hpf Urine Bacteria Occasional H (None) /hpf Urine Mucus Few H (None) /hpf Urine HCG, Qual (Not Detectd) Disposition Clinical Impression: Abdominal pain, Pancreatitis, Nausea and vomiting Disposition: ADMITTED IP TO THIS [facility] Condition: Good Is patient prescribed a controlled substance at d/c from ED?: No Time of Disposition: 19:47
[2019-12-03 19:01] LABS: Basophils # (A) 0.1 k/uL (0-0.2); Basophils % (A) 1 %; Eosinophils # (A) 0.1 k/uL (0-0.7); Eosinophils % (A) 1 %; HCT 45.6 % (34.0-46.0); Lymphocytes # (A) 2.2 k/uL (1.0-4.8); Lymphocytes % (A) 23 %; MCH 29.4 pg (25.0-35.0); MCHC 32.9 g/dL (31.0-37.0); MCV 89.4 fL (80.0-100.0); Mean Platelet Volume 9.2; Monocytes # (A) 0.6 k/uL (0-1.0); Monocytes % (A) 6 %; Neutrophils # (A) 6.5 k/uL (1.3-7.7); Neutrophils % (A) 67 %; Platelet Count 200 k/uL (150-450); RDW 12.3 % (11.5-15.5); WBC 9.6 k/uL (3.8-10.6)
[2019-12-03 19:09] LABS: ALT 19 U/L (4-34); AST 34 U/L (14-36); African American GFR (CKD) >90 (>60 ml/min/1.73 sqM); Albumin 4.5 g/dL (3.5-5.0); Alkaline Phosphatase 51 U/L (38-126); Amylase 239 U/L (30-110); Anion Gap 9 mmol/L; Blood Urea Nitrogen 9 mg/dL (7-17); Calcium 9.2 mg/dL (8.4-10.2); Carbon Dioxide 27 mmol/L (22-30); Chloride 102 mmol/L (98-107); Glucose 96 mg/dL (74-99); Non-African American GFR(CKD) >90 (>60 ml/min/1.73 sqM); Potassium 3.8 mmol/L (3.5-5.1); Sodium 138 mmol/L (137-145); Total Bilirubin 0.5 mg/dL (0.2-1.3); Total Protein 7.1 g/dL (6.3-8.2)
[2019-12-03 19:12] LABS: Appearance,Urine Cloudy (Clear); Bacteria,Urine Occasional /hpf; Bilirubin,Urine Negative (Negative); Blood,Urine Large (Negative); Color,Urine Light Red; Glucose,Urine (UA) Negative (Negative); Ketones,Urine Negative (Negative); Leukocyte Esterase,Urine Moderate (Negative); Mucus,Urine Few /hpf; Nitrite,Urine Negative (Negative); Protein,Urine 1+ (Negative); RBC,Urine >182 /hpf (0-5); Specific Gravity,Urine 1.023 (1.001-1.035); Squamous Epithelial Cell,Urine 23 /hpf (0-4); WBC,Urine 40 /hpf (0-5)
[2019-12-03] MEDS ORDERED: MORPHINE SULFATE 4 MG/ML SYRINGE IV PRN (19:45)
[2019-12-03] MEDS ORDERED: NALOXONE 0.4 MG/ML 1 ML VIAL IV PRN (19:45)
[2019-12-03] MEDS ORDERED: LORazepam 2 MG/ML INJ IV PRN (19:45)
[2019-12-03] MEDS: HYDROmorphone 1 MG/ML 1 ML SYRINGE IVP PRN ×2 (20:58→23:53)
[2019-12-03] MEDS: SODIUM CHLORIDE 0.9% 1,000 ML IV SCH (21:47)
[2019-12-03] MEDS: METOCLOPRAMIDE 5 MG/ML 2 ML VIAL IVP PRN (22:32)
[2019-12-04] MEDS: HYDROmorphone 1 MG/ML 1 ML SYRINGE IVP PRN ×7 (02:57→23:14)
[2019-12-04] MEDS: ONDANSETRON 4 MG/2 ML VIAL IVP PRN ×3 (02:58→23:15)
[2019-12-04] MEDS: SODIUM CHLORIDE 0.9% 1,000 ML IV SCH ×3 (05:16→23:17)
[2019-12-04] MEDS: METOCLOPRAMIDE 5 MG/ML 2 ML VIAL IVP PRN (08:52)
[2019-12-04 09:59] LABS: Basophils % (A) 1 %; Eosinophils # (A) 0.1 k/uL (0-0.7); Eosinophils % (A) 1 %; HCT 38.5 % (34.0-46.0); HGB 12.5 gm/dL (11.4-16.0); Lymphocytes % (A) 26 %; MCH 29.7 pg (25.0-35.0); MCHC 32.6 g/dL (31.0-37.0); MCV 91.1 fL (80.0-100.0); Mean Platelet Volume 9.4; Monocytes # (A) 0.5 k/uL (0-1.0); Monocytes % (A) 6 %; Neutrophils % (A) 65 %; Platelet Count 151 k/uL (150-450); RBC 4.23 m/uL (3.80-5.40); RDW 12.6 % (11.5-15.5); WBC 7.8 k/uL (3.8-10.6)
[2019-12-04 10:15] LABS: ALT 17 U/L (4-34); AST 28 U/L (14-36); African American GFR (CKD) >90 (>60 ml/min/1.73 sqM); Alkaline Phosphatase 39 U/L (38-126); Amylase 199 U/L (30-110); Anion Gap 3 mmol/L; Blood Urea Nitrogen 8 mg/dL (7-17); Calcium 7.9 mg/dL (8.4-10.2); Carbon Dioxide 25 mmol/L (22-30); Chloride 112 mmol/L (98-107); Glucose 87 mg/dL (74-99); Magnesium 1.9 mg/dL (1.6-2.3); Non-African American GFR(CKD) >90 (>60 ml/min/1.73 sqM); Potassium 4.1 mmol/L (3.5-5.1); Sodium 140 mmol/L (137-145); Total Bilirubin 0.8 mg/dL (0.2-1.3); Total Protein 5.2 g/dL (6.3-8.2)
--- NOTE | 2019-12-04 13:12 | P.HPIM ---
History of Present Illness H&P Date: 12/04/19 Chief Complaint: Abdominal pain This is a 34-year-old female with history of chronic pancreatitis, gastroesophageal reflux disease, hypothyroidism, ongoing nicotine dependence, marijuana use, anxiety, peptic ulcer disease, no alcohol use in 10 years, presented to the ER with midepigastric/ periumbilical abdominal pain, nausea, vomiting of less than 24 hours. Unable to keep Zofran down at home. Denies hematemesis. Denies fevers, chills, or diarrhea. Lipase 1829, amylase 239. Received IV fluid hydration, at least in the 199, lipase down to 1281. Afebrile, normal WBC. Vital signs stable. Staff reports patient eating Leo[employer] last night. Review of Systems ROS Statement: Those systems with pertinent positive or pertinent negative responses have been documented in the HPI. ROS Other: All systems not noted in ROS Statement are negative. Past Medical History Past Medical History: GERD/Reflux, Thyroid Disorder Additional Past Medical History / Comment(s): Acute then chronic pancreatitis being seen at [facility], chronic bronchitis, PUD, hypothyroid. History of Any Multi-Drug Resistant Organisms: None Reported Past Surgical History: Adenoidectomy, Ear Surgery, Tonsillectomy, Tubal Ligation Additional Past Surgical History / Comment(s): multiple tubes in ears, D&C, EGD at [facility]. Past Anesthesia/Blood Transfusion Reactions: No Reported Reaction Past Psychological History: Anxiety Additional Psychological History / Comment(s): Pt resides with her two children ages 4 and 11 yrs. She is independent. Smoking Status: Current every day smoker Past Alcohol Use History: None Reported Additional Past Alcohol Use History / Comment(s): Pt states she started smoking about 1998 and is now less than a ppd smoker. She has not drank alcohol in 10 yrs. Past Drug Use History: Marijuana Additional Drug Use History / Comment(s): Pt has a medical marijuana card and takes it in the form of a capsule daily. - Past Family History Father Family Medical History: Hyperlipidemia Mother Family Medical History: Congestive Heart Failure (CHF) Medications and Allergies Home Medications Medication Instructions Recorded Confirmed Type HYDROcodone/APAP 10-325MG [[place] 1 tab PO Q8H PRN 02/11/17 12/03/19 History 10-325] Metoclopramide HCl [Reglan] 10 mg PO Q8H PRN 02/28/17 12/03/19 History Ibuprofen [Motrin] 800 mg PO TID PRN 12/03/19 12/03/19 History Ondansetron HCl [Zofran] 8 mg PO TID PRN 12/03/19 12/03/19 History Allergies Allergy/AdvReac Type Severity Reaction Status Date / Time morphine AdvReac Mild Nausea Verified 12/03/19 18:06 Physical Exam Vitals: Vital Signs Temp Pulse Pulse Resp BP BP Pulse Ox 12/04/19 05:05 97.4 F L 67 16 93/57 99 12/03/19 21:27 98.0 F 73 14 102/71 99 12/03/19 18:04 98.3 F 96 20 113/75 99 Intake and Output 12/03/19 12/04/19 12/04/19 22:59 06:59 14:59 Other: # Voids 1 2 Weight 52.934 kg GENERAL: Alert and oriented 3, no acute distress HEENT: Head is atraumatic, normocephalic. Pupils are equal, round, and reactive to light. Sclerae anicteric. Conjunctivae are clear. Mucus membranes of the mouth are moist. Neck is supple. RESPIRATORY: Clear to ausculation. No wheezes, rales, or rhonchi. No use of accessory muscles. Patient maintaining oxygen saturation greater than 92%. No chest wall tenderness is noted on palpation or with deep breathing. CARDIOVASCULAR: Regular rate and rhythm. S1 and S2 noted. No systolic or diastolic murmur auscultated. No JVD noted. No S3 or S4 noted. GASTROINTESTINAL: No distention noted. Periumbilical tenderness. Abdomen soft and round. Positive bowel sounds auscultated X 4 quadrants. INTEGUMENTARY: No cyanosis. No jaundice. No rashes noted. No cellulitis noted. EXTREMITIES: 2+ peripheral pulses. No evidence of peripheral edema. No calf tenderness noted. NEUROLOGIC: Cranial nerves II-XII intact. PSYCHIATRIC: Oriented X 3. Appropriate affect. Intact judgement and insight. Results CBC & Chem 7: 12/04/19 09:02 12/04/19 09:02 Labs: Abnormal Lab Results - Last 24 Hours (Table) 12/03/19 12/03/19 12/04/19 Range/Units 18:35 18:35 09:02 Chloride 112 H (98-107) mmol/L Calcium 7.9 L (8.4-10.2) mg/dL Total Protein 5.2 L (6.3-8.2) g/dL Albumin 3.0 L (3.5-5.0) g/dL Amylase 239 H 199 H (30-110) U/L Lipase 1829 H 1281 H (23-300) U/L Urine Appearance Cloudy H (Clear) Urine Protein 1+ H (Negative) Urine Blood Large H (Negative) Ur Leukocyte Esterase Moderate H (Negative) Urine RBC >182 H (0-5) /hpf Urine WBC 40 H (0-5) /hpf Urine WBC Clumps Moderate H (None) /hpf Ur Squamous Epith Cells 23 H (0-4) /hpf Urine Bacteria Occasional H (None) /hpf Urine Mucus Few H (None) /hpf Microbiology - Last 24 Hours (Table) 12/03/19 18:35 Urine Culture - Preliminary Urine,Voided Thrombosis Risk Factor Assmnt - Choose All That Apply Any of the Below Risk Factors Present?: No Assessment and Plan Assessment: Acute on chronic pancreatitis, secondary to history of alcohol abuse Abdominal pain, nausea, vomiting, secondary to above, improving History of alcohol abuse, 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 GI on consult with recommendations pending. Continue IV fluids. NPO with ice chips. Pain management. UA noted, patient denies urinary symptoms, antibiotics pending culture. Increase ambulation as tolerated. Discharge planning in progress for tomorrow. The impression and plan of care has been dictated as directed. : I performed a history and examination of this patient, discussed the same with the dictator. I agree with the dictator's note ,documented as a scribe. Any additional findings or plans will be noted.
[2019-12-05] MEDS: HYDROmorphone 1 MG/ML 1 ML SYRINGE IVP PRN ×2 (02:27→05:51)
[2019-12-05 05:51] VITALS: BP 129/84; PULSE 58; RESP 16; TEMP 97.9
[2019-12-05] MEDS: METOCLOPRAMIDE 5 MG/ML 2 ML VIAL IVP PRN (05:51)
[2019-12-05 06:12] LABS: Glucose,Whole Blood 103 mg/dL (75-99)
[2019-12-05] MEDS ORDERED: HYDROcodone/APAP 10-325MG 1 EACH TAB PO PRN (09:16)
[2019-12-05] MEDS ORDERED: METOCLOPRAMIDE 10 MG TAB PO PRN (09:16)
[2019-12-05] MEDS: ONDANSETRON 4 MG/2 ML VIAL IVP PRN (09:19)
--- NOTE | 2019-12-05 11:31 | P.DS ---
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 Unable to keep Zofran down at home. Denies hematemesis. Denies fevers, chills, or diarrhea. Lipase 1829, amylase 239. Received IV fluid hydration, at least in the 199, lipase down to 1281. Afebrile, normal WBC. Vital signs stable. Staff reports patient eating Leo[employer] last night. Significant clinical improvement. Lipase further decreased 579. Clear liquids initiated this morning, Patient states she was tolerating water. Patient refused clear liquid tray. Diet advanced to full liquids. Dilaudid discontinued, home dose of [place] resumed. Patient became angry, belligerent, ambulated to her doorway to the hallway, shouting. Patient refusing to eat, states she doesn't eat this early and that she will eat at home, insistent on discharge, demanding Dr. Lira's office call in her antiemetic and pain pr escriptions. Dr. Bangura notified /updated.Patient being discharged home in stable condition with guarded prognosis. The impression and plan of care has been dictated as directed. : I performed a history and examination of this patient, discussed the same with the dictator. I agree with the dictator's note ,documented as a scribe. Any additional findings or plans will be noted. Patient Condition at Discharge: Stable Plan - Discharge Summary New Discharge Prescriptions: Continue HYDROcodone/APAP 10-325MG [[place] 10-325] 1 tab PO Q8H PRN PRN Reason: Pain Metoclopramide HCl [Reglan] 10 mg PO Q8H PRN PRN Reason: Nausea Ondansetron HCl [Zofran] 8 mg PO TID PRN PRN Reason: Nausea Ibuprofen [Motrin] 800 mg PO TID PRN PRN Reason: Pain Discharge Medication List HYDROcodone/APAP 10-325MG [[place] 10-325] 1 tab PO Q8H PRN 02/11/17 [History] Metoclopramide HCl [Reglan] 10 mg PO Q8H PRN 02/28/17 [History] Ibuprofen [Motrin] 800 mg PO TID PRN 12/03/19 [History] Ondansetron HCl [Zofran] 8 mg PO TID PRN 12/03/19 [History] Follow up Appointment(s)/Referral(s): Otoniel Lira Jr, DO [Primary Care Provider] - 12/10/19 10:45 am Patient Instructions/Handouts: Groin Strain (ED) Activity/Diet/Wound Care/Special Instructions: Patient will be admitted
== END 2019-12-05 11:26 | disposition home or self-care (01) | DRG 439 ==
LOC: EC 17:53 → 6NMEDSUR 19:37
PROVIDERS: ADMIT Family Medicine; ATTEND Family Medicine
DX: K85.90 Acute pancreatitis without necrosis or infection, unspecified (principal); E44.1 Mild protein-calorie malnutrition; K86.1 Other chronic pancreatitis; E03.9 Hypothyroidism, unspecified; F10.11 Alcohol abuse, in remission; F12.10 Cannabis abuse, uncomplicated; F17.210 Nicotine dependence, cigarettes, uncomplicated; F41.9 Anxiety disorder, unspecified; J42 Unspecified chronic bronchitis; K21.9 Gastro-esophageal reflux disease without esophagitis; Z82.49 Family history of ischemic heart disease and other diseases of the circulatory system; Z87.11 Personal history of peptic ulcer disease; Z79.899 Other long term (current) drug therapy; Z88.5 Allergy status to narcotic agent
CPT/HCPCS: 36415; 80053; 81001; 81025; 82150; 83690; 83735; 85025; 87086; 96361; 96374; 96375; 99284

== ENCOUNTER 2019-12-07 17:16 | Emergency (ER) | payer OTHER ==
[2019-12-07] MEDS ORDERED: SODIUM CHLORIDE 0.9% 1,000 ML IV STA (18:14)
[2019-12-07] MEDS ORDERED: ONDANSETRON 4 MG/2 ML VIAL IVP STA (18:17)
[2019-12-07 18:30] LABS: Basophils # (A) 0.1 k/uL (0-0.2); Basophils % (A) 1 %; Eosinophils # (A) 0.1 k/uL (0-0.7); Eosinophils % (A) 1 %; HCT 39.3 % (34.0-46.0); Lymphocytes # (A) 1.9 k/uL (1.0-4.8); Lymphocytes % (A) 18 %; MCH 29.5 pg (25.0-35.0); MCHC 33.1 g/dL (31.0-37.0); MCV 89.2 fL (80.0-100.0); Mean Platelet Volume 9.1; Monocytes # (A) 0.4 k/uL (0-1.0); Monocytes % (A) 4 %; Neutrophils # (A) 7.8 k/uL (1.3-7.7); Neutrophils % (A) 76 %; Platelet Count 174 k/uL (150-450); RBC 4.41 m/uL (3.80-5.40); RDW 12.5 % (11.5-15.5); WBC 10.3 k/uL (3.8-10.6)
[2019-12-07 18:43] LABS: ALT 21 U/L (4-34); AST 26 U/L (14-36); African American GFR (CKD) >90 (>60 ml/min/1.73 sqM); Albumin 3.9 g/dL (3.5-5.0); Alkaline Phosphatase 49 U/L (38-126); Anion Gap 6 mmol/L; Blood Urea Nitrogen 4 mg/dL (7-17); Carbon Dioxide 24 mmol/L (22-30); Chloride 107 mmol/L (98-107); Glucose 91 mg/dL (74-99); Non-African American GFR(CKD) >90 (>60 ml/min/1.73 sqM); Potassium 3.7 mmol/L (3.5-5.1); Sodium 137 mmol/L (137-145); Total Bilirubin 0.5 mg/dL (0.2-1.3); Total Protein 6.3 g/dL (6.3-8.2)
[2019-12-07] MEDS ORDERED: ACETAMINOPHEN TAB 325 MG TAB PO STA (18:46)
[2019-12-07] MEDS ORDERED: KETOROLAC 30 MG/ML 1 ML VIAL IVP STA (18:56)
[2019-12-07 18:58] LABS: Appearance,Urine Cloudy (Clear); Bilirubin,Urine Negative (Negative); Blood,Urine Negative (Negative); Color,Urine Yellow; Glucose,Urine (UA) Negative (Negative); Ketones,Urine 1+ (Negative); Leukocyte Esterase,Urine Negative (Negative); Mucus,Urine Many /hpf; Nitrite,Urine Negative (Negative); Protein,Urine 1+ (Negative); RBC,Urine 1 /hpf (0-5); Specific Gravity,Urine 1.032 (1.001-1.035); Squamous Epithelial Cell,Urine 7 /hpf (0-4); WBC,Urine 1 /hpf (0-5)
[2019-12-07 19:17] VITALS: BP 120/76; PULSE 82; RESP 18; TEMP 98.1
--- NOTE | 2019-12-07 19:20 | ED ---
General Adult HPI - General Chief complaint: Abdominal Pain Stated complaint: recheck - pancreatitis Time Seen by Provider: 12/07/19 17:34 Source: EMS, RN notes reviewed, old records reviewed Mode of arrival: EMS Limitations: no limitations - History of Present Illness Initial comments: 34-year-old female patient with past history of chronic pancreatitis, chronic abdominal pain presents to ED complaining of abdominal pain which began this mo rning. Patient reports that she was recently admitted discharge for pancreatitis. Denies any alcohol usage. Reports that the pain is in her epigastric region extensive take otitis in the past. Denies a chance of being . Reports nausea without emesis. Denies any other complaints. Systemic: Pt denies fatigue, fever/chills, rash. Pt denies weakness, night sweats, weight loss. Neuro: Pt denies headache, visual disturbances, syncope or pre-syncope. HEENT: Pt denies ocular discharge or irritation, otalgia, rhinorrhea, pharyngitis or notable lymphadenopathy. Cardiopulmonary: Pt denies chest pain, SOB, heart palpitations, dyspnea on exertion. Abdominal/GI: Pt denies abdominal pain, n/v/d. : Pt denies dysuria, burning w/ urination, frequency/urgency. Denies new onset urinary or bowel incontinence. MSK: Pt denies myalgia, loss of strength or function in extremities. Neuro: Pt denies new onset weakness, paresthesias. - Related Data Home Medications Medication Instructions Recorded Confirmed HYDROcodone/APAP 10-325MG [[place] 1 tab PO Q8H PRN 02/11/17 12/03/19 10-325] Metoclopramide HCl [Reglan] 10 mg PO Q8H PRN 02/28/17 12/03/19 Ibuprofen [Motrin] 800 mg PO TID PRN 12/03/19 12/03/19 Ondansetron HCl [Zofran] 8 mg PO TID PRN 12/03/19 12/03/19 Previous Rx's Medication Instructions Recorded Ondansetron Odt [Zofran ODT] 4 mg PO Q8HR PRN #20 tab 12/07/19 Allergies Allergy/AdvReac Type Severity Reaction Status Date / Time morphine AdvReac Mild Nausea Verified 12/03/19 18:06 Review of Systems ROS Statement: Those systems with pertinent positive or pertinent negative responses have been documented in the HPI. ROS Other: All systems not noted in ROS Statement are negative. Past Medical History Past Medical History: GERD/Reflux, Thyroid Disorder Additional Past Medical History / Comment(s): Acute then chronic pancreatitis being seen at [facility], chronic bronchitis, PUD, hypothyroid. History of Any Multi-Drug Resistant Organisms: None Reported Past Surgical History: Adenoidectomy, Ear Surgery, Tonsillectomy, Tubal Ligation Additional Past Surgical History / Comment(s): multiple tubes in ears, D&C, EGD at [facility]. Past Anesthesia/Blood Transfusion Reactions: No Reported Reaction Past Psychological History: Anxiety Smoking Status: Current every day smoker Past Alcohol Use History: None Reported Past Drug Use History: Marijuana - Past Family History Father Family Medical History: Hyperlipidemia Mother Family Medical History: Congestive Heart Failure (CHF) General Exam - General Exam Comments Initial Comments: Constitutional: NAD, AOX3, Pt has pleasant affect. HEENT: NC/AT, trachea midline, neck supple, no lymphadenopathy. Posterior pharynx non erythematous, without exudates. External ears appear normal, without discharge. Mucous membranes moist. Eyes PERRLA, EOM intact. There is no scleral icterus. No pallor noted. Cardiopulmonary: RRR, no murmurs, rubs or gallops, no JVD noted. Lungs CTAB in anterior and posterior fox. No peripheral edema. Abdominal exam: Abdomen soft and non-distended. Abdomen mildly tender to pa lpation in epigastric region. There is no abdominal tenderness.. Bowel sounds active in LLQ. No hepatosplenomegaly. No ecchymosis Neuro: CN II-XII grossly intact. No nuchal rigidity. No raccon eyes, no kilpatrick sign, no hemotympanum. No cervical spinal tenderness. MSK: No posterior calf tenderness bilaterally, homans sign negative bilaterally. Posterior tibialis and radial pulse +2 bilaterally. Sensation intact in upper and lower extremities. Full active ROM in upper and lower extremities, 5/5 s tregnth. Limitations: no limitations Course Vital Signs 12/07/19 12/07/19 17:37 19:16 Temperature 98.0 F 98.1 F Pulse Rate 103 H 82 Respiratory 16 18 Rate Blood Pressure 128/73 120/76 O2 Sat by Pulse 98 99 Oximetry Medical Decision Making - Medical Decision Making 34-year-old female patient with past history of chronic pancreatitis, chronic abdominal pain presents to ED complaining of abdominal pain which began this morning. Patient reports that she was recently admitted discharge for pancreatitis. Denies any alcohol usage. Reports that the pain is in her epigastric region extensive take otitis in the past. Denies a chance of being . Reports nausea without emesis. Denies any other complaints. Mildly tender to palpation epigastric region. Laboratory investigations are non- impressive. KUB no acute process. Patient is feeling significantly better with nausea medication, fluids. Patient requesting discharge. Discharged with Zofran, return to ER if condition worsens. Case discussed with Dr. Lu. - Lab Data Result diagrams: 12/07/19 18:13 12/07/19 18:13 Lab Results 12/07/19 12/07/19 12/07/19 Range/Units 18:13 18:13 18:13 WBC 10.3 (3.8-10.6) k/uL RBC 4.41 (3.80-5.40) m/uL Hgb 13.0 (11.4-16.0) gm/dL Hct 39.3 (34.0-46.0) % MCV 89.2 (80.0-100.0) fL MCH 29.5 (25.0-35.0) pg MCHC 33.1 (31.0-37.0) g/dL RDW 12.5 (11.5-15.5) % Plt Count 174 (150-450) k/uL Neutrophils % 76 % Lymphocytes % 18 % Monocytes % 4 % Eosinophils % 1 % Basophils % 1 % Neutrophils # 7.8 H (1.3-7.7) k/uL Lymphocytes # 1.9 (1.0-4.8) k/uL Monocytes # 0.4 (0-1.0) k/uL Eosinophils # 0.1 (0-0.7) k/uL Basophils # 0.1 (0-0.2) k/uL Sodium 137 (137-145) mmol/L Potassium 3.7 (3.5-5.1) mmol/L Chloride 107 (98-107) mmol/L Carbon Dioxide 24 (22-30) mmol/L Anion Gap 6 mmol/L BUN 4 L (7-17) mg/dL Creatinine 0.68 (0.52-1.04) mg/dL Est GFR (CKD-EPI)AfAm >90 (>60 ml/min/1.73 sqM) Est GFR (CKD-EPI)NonAf >90 (>60 ml/min/1.73 sqM) Glucose 91 (74-99) mg/dL Plasma Lactic Acid [place] 1.1 (0.7-2.0) mmol/L Calcium 9.0 (8.4-10.2) mg/dL Total Bilirubin 0.5 (0.2-1.3) mg/dL AST 26 (14-36) U/L ALT 21 (4-34) U/L Alkaline Phosphatase 49 (38-126) U/L Total Protein 6.3 (6.3-8.2) g/dL Albumin 3.9 (3.5-5.0) g/dL Lipase 153 (23-300) U/L Urine Color Urine Appearance (Clear) Urine pH (5.0-8.0) Ur Specific [place] (1.001-1.035) Urine Protein (Negative) Urine Glucose (UA) (Negative) Urine Ketones (Negative) Urine Blood (Negative) Urine Nitrite (Negative) Urine Bilirubin (Negative) Urine Urobilinogen (<2.0) mg/dL Ur Leukocyte Esterase (Negative) Urine RBC (0-5) /hpf Urine WBC (0-5) /hpf Ur Squamous Epith Cells (0-4) /hpf Urine Mucus (None) /hpf Urine HCG, Qual (Not Detectd) 12/07/19 12/07/19 Range/Units 18:40 18:40 WBC (3.8-10.6) k/uL RBC (3.80-5.40) m/uL Hgb (11.4-16.0) gm/dL Hct (34.0-46.0) % MCV (80.0-100.0) fL MCH (25.0-35.0) pg MCHC (31.0-37.0) g/dL RDW (11.5-15.5) % Plt Count (150-450) k/uL Neutrophils % % Lymphocytes % % Monocytes % % Eosinophils % % Basophils % % Neutrophils # (1.3-7.7) k/uL Lymphocytes # (1.0-4.8) k/uL Monocytes # (0-1.0) k/uL Eosinophils # (0-0.7) k/uL Basophils # (0-0.2) k/uL Sodium (137-145) mmol/L Potassium (3.5-5.1) mmol/L Chloride (98-107) mmol/L Carbon Dioxide (22-30) mmol/L Anion Gap mmol/L BUN (7-17) mg/dL Creatinine (0.52-1.04) mg/dL Est GFR (CKD-EPI)AfAm (>60 ml/min/1.73 sqM) Est GFR (CKD-EPI)NonAf (>60 ml/min/1.73 sqM) Glucose (74-99) mg/dL Plasma Lactic Acid [place] (0.7-2.0) mmol/L Calcium (8.4-10.2) mg/dL Total Bilirubin (0.2-1.3) mg/dL AST (14-36) U/L ALT (4-34) U/L Alkaline Phosphatase (38-126) U/L Total Protein (6.3-8.2) g/dL Albumin (3.5-5.0) g/dL Lipase (23-300) U/L Urine Color Yellow Urine Appearance Cloudy H (Clear) Urine pH 6.0 (5.0-8.0) Ur Specific [place] 1.032 (1.001-1.035) Urine Protein 1+ H (Negative) Urine Glucose (UA) Negative (Negative) Urine Ketones 1+ H (Negative) Urine Blood Negative (Negative) Urine Nitrite Negative (Negative) Urine Bilirubin Negative (Negative) Urine Urobilinogen 3.0 (<2.0) mg/dL Ur Leukocyte Esterase Negative (Negative) Urine RBC 1 (0-5) /hpf Urine WBC 1 (0-5) /hpf Ur Squamous Epith Cells 7 H (0-4) /hpf Urine Mucus Many H (None) /hpf Urine HCG, Qual Not Detected (Not Detectd) Disposition Clinical Impression: Abdominal pain, Chronic abdominal pain Disposition: HOME SELF-CARE Additional Instructions: Follow-up with primary care provider gameroom technician tomorrow. Use Zofran as needed for nausea. Return to ER if condition worsens. Prescriptions: Ondansetron Odt [Zofran ODT] 4 mg PO Q8HR PRN #20 tab PRN Reason: Nausea Is patient prescribed a controlled substance at d/c from ED?: No Referrals: Otoniel Lira Jr, DO [Primary Care Provider] - 1-2 days
--- NOTE | 2019-12-07 19:48 | XR ---
EXAMINATION TYPE: XR KUB DATE OF EXAM: 12/07/2019 COMPARISON: 11/21/2019 HISTORY: Abdominal pain TECHNIQUE: 2 views FINDINGS: 2 views upright were obtained and show no sign of intestinal obstruction or pneumoperitoneu m. Fecal pattern is normal. There are clips in the left adnexal region. There are no pathologic calci fications over the kidneys. IMPRESSION: Nonacute abdomen. No change.
--- NOTE | 2019-12-07 20:16 | ED ---
Medical Decision Making - Medical Decision Making Prior to DC instructions pt removed IV and eloped from ED. - Lab Data Result diagrams: 12/07/19 18:13 12/07/19 18:13 Lab Results 12/07/19 12/07/19 12/07/19 Range/Units 18:13 18:13 18:13 WBC 10.3 (3.8-10.6) k/uL RBC 4.41 (3.80-5.40) m/uL Hgb 13.0 (11.4-16.0) gm/dL Hct 39.3 (34.0-46.0) % MCV 89.2 (80.0-100.0) fL MCH 29.5 (25.0-35.0) pg MCHC 33.1 (31.0-37.0) g/dL RDW 12.5 (11.5-15.5) % Plt Count 174 (150-450) k/uL Neutrophils % 76 % Lymphocytes % 18 % Monocytes % 4 % Eosinophils % 1 % Basophils % 1 % Neutrophils # 7.8 H (1.3-7.7) k/uL Lymphocytes # 1.9 (1.0-4.8) k/uL Monocytes # 0.4 (0-1.0) k/uL Eosinophils # 0.1 (0-0.7) k/uL Basophils # 0.1 (0-0.2) k/uL Sodium 137 (137-145) mmol/L Potassium 3.7 (3.5-5.1) mmol/L Chloride 107 (98-107) mmol/L Carbon Dioxide 24 (22-30) mmol/L Anion Gap 6 mmol/L BUN 4 L (7-17) mg/dL Creatinine 0.68 (0.52-1.04) mg/dL Est GFR (CKD-EPI)AfAm >90 (>60 ml/min/1.73 sqM) Est GFR (CKD-EPI)NonAf >90 (>60 ml/min/1.73 sqM) Glucose 91 (74-99) mg/dL Plasma Lactic Acid [place] 1.1 (0.7-2.0) mmol/L Calcium 9.0 (8.4-10.2) mg/dL Total Bilirubin 0.5 (0.2-1.3) mg/dL AST 26 (14-36) U/L ALT 21 (4-34) U/L Alkaline Phosphatase 49 (38-126) U/L Total Protein 6.3 (6.3-8.2) g/dL Albumin 3.9 (3.5-5.0) g/dL Lipase 153 (23-300) U/L Urine Color Urine Appearance (Clear) Urine pH (5.0-8.0) Ur Specific [place] (1.001-1.035) Urine Protein (Negative) Urine Glucose (UA) (Negative) Urine Ketones (Negative) Urine Blood (Negative) Urine Nitrite (Negative) Urine Bilirubin (Negative) Urine Urobilinogen (<2.0) mg/dL Ur Leukocyte Esterase (Negative) Urine RBC (0-5) /hpf Urine WBC (0-5) /hpf Ur Squamous Epith Cells (0-4) /hpf Urine Mucus (None) /hpf Urine HCG, Qual (Not Detectd) 12/07/19 12/07/19 Range/Units 18:40 18:40 WBC (3.8-10.6) k/uL RBC (3.80-5.40) m/uL Hgb (11.4-16.0) gm/dL Hct (34.0-46.0) % MCV (80.0-100.0) fL MCH (25.0-35.0) pg MCHC (31.0-37.0) g/dL RDW (11.5-15.5) % Plt Count (150-450) k/uL Neutrophils % % Lymphocytes % % Monocytes % % Eosinophils % % Basophils % % Neutrophils # (1.3-7.7) k/uL Lymphocytes # (1.0-4.8) k/uL Monocytes # (0-1.0) k/uL Eosinophils # (0-0.7) k/uL Basophils # (0-0.2) k/uL Sodium (137-145) mmol/L Potassium (3.5-5.1) mmol/L Chloride (98-107) mmol/L Carbon Dioxide (22-30) mmol/L Anion Gap mmol/L BUN (7-17) mg/dL Creatinine (0.52-1.04) mg/dL Est GFR (CKD-EPI)AfAm (>60 ml/min/1.73 sqM) Est GFR (CKD-EPI)NonAf (>60 ml/min/1.73 sqM) Glucose (74-99) mg/dL Plasma Lactic Acid [place] (0.7-2.0) mmol/L Calcium (8.4-10.2) mg/dL Total Bilirubin (0.2-1.3) mg/dL AST (14-36) U/L ALT (4-34) U/L Alkaline Phosphatase (38-126) U/L Total Protein (6.3-8.2) g/dL Albumin (3.5-5.0) g/dL Lipase (23-300) U/L Urine Color Yellow Urine Appearance Cloudy H (Clear) Urine pH 6.0 (5.0-8.0) Ur Specific [place] 1.032 (1.001-1.035) Urine Protein 1+ H (Negative) Urine Glucose (UA) Negative (Negative) Urine Ketones 1+ H (Negative) Urine Blood Negative (Negative) Urine Nitrite Negative (Negative) Urine Bilirubin Negative (Negative) Urine Urobilinogen 3.0 (<2.0) mg/dL Ur Leukocyte Esterase Negative (Negative) Urine RBC 1 (0-5) /hpf Urine WBC 1 (0-5) /hpf Ur Squamous Epith Cells 7 H (0-4) /hpf Urine Mucus Many H (None) /hpf Urine HCG, Qual Not Detected (Not Detectd) Disposition Clinical Impression: Abdominal pain, Chronic abdominal pain Disposition: HOME SELF-CARE Instructions (If sedation given, give patient instructions): Acute Abdominal Pain (ED) Additional Instructions: Follow-up with primary care provider plastic battery assembler tomorrow. Use Zofran as needed for nausea. Return to ER if condition worsens. Prescriptions: Ondansetron Odt [Zofran ODT] 4 mg PO Q8HR PRN #20 tab PRN Reason: Nausea Is patient prescribed a controlled substance at d/c from ED?: No Referrals: Otoniel Lira Jr, [Primary Care Provider] - 1-2 days
== END 2019-12-07 20:14 | disposition home or self-care (01) ==
LOC: EC 17:16
DX: G89.29 Other chronic pain (principal); R10.9 Unspecified abdominal pain; K86.1 Other chronic pancreatitis; K21.9 Gastro-esophageal reflux disease without esophagitis; F17.200 Nicotine dependence, unspecified, uncomplicated; Z88.5 Allergy status to narcotic agent
CPT/HCPCS: 36415; 80053; 83605; 83690; 85025; 81001; 81025; 74018; 99285; 96374; 96375; 96361 ×2; J2405; J1885

== ENCOUNTER → 2023-12-05 | Outpatient (CLI) | payer OTHER ==
--- NOTE | 2023-12-06 08:33 | MM ---
Reason for Exam: Screening (asymptomatic). Baseline mammogram. Patient History: Menarche at age 9. First Full-Term at age 21. 2020, Bilateral Implants. Paternal grandmother had breast cancer. Last menstrual period: 11/29/2023 Risk Values: Nataliya 5 year model risk: 0.5%. NCI Lifetime model risk: 9.9%. Prior Study Comparison: Patient's first Mammogram. No prior studies available for comparison. Tissue Density: The breast tissue is heterogeneously dense. This may lower the sensitivity of mammography. Findings: Analyzed By CAD. There is no suspicious group of microcalcifications or new suspicious mass in either breast. Bilateral implants are intact. Overall Assessment: Benign, BI-RAD 2 Management: Screening Mammogram of both breasts in 1 year. . Patient should continue monthly self-breast exams. A clinical breast exam by your physician is recommended on an annual basis. This exam should not preclude additional follow-up of suspicious palpable abnormalities. Note on Nataliya scores and lifetime risk: 1. A Nataliya score greater than 3% is considered moderate risk. If this is the case, consider specialist referral to assess eligibility for a risk reducing agent. 2. If overall lifetime risk for the development of breast cancer is 20% or higher, the patient may qualify for future screening with alternating mammogram and breast MRI. Electronically signed and approved by: Champ Witt M.D. Radiologis
== END | disposition home or self-care (01) ==
LOC: RADMAMWWP 10:01
PROVIDERS: ATTEND Family Medicine
DX: Z12.31 Encounter for screening mammogram for malignant neoplasm of breast (principal); Z80.3 Family history of malignant neoplasm of breast
CPT/HCPCS: 77063; 77067